=== PATIENT | male | born 1980 | race Caucasian/White ===

== ENCOUNTER 2017-07-09 13:05 | Emergency (ER) | payer MEDICAID ==
[~2017-07-09] VITALS: Ht 172.7 cm; Wt 65.0 kg
[~2017-07-09 13:05] MED LIST: BACDS PO; ONDA4TAB6 PO
[2017-07-09] MEDS ORDERED: LIDOcaine 1% 30ml vial IJ ONE (14:00)
[2017-07-09 17:31] VITALS: BP 114/73
[2017-07-26] MEDS ORDERED: HYDR-3965 PO (19:22)
[2017-07-30] MEDS ORDERED: NO HOME MEDS (11:16)
[2017-08-01] MEDS ORDERED: CIPR-230 PO (11:06)
[2017-08-01] MEDS ORDERED: FOLI1TAB16 PO (11:06)
[2017-08-01] MEDS ORDERED: THI100T PO (11:06)
[2017-08-06] MEDS ORDERED: HYDR-3965 PO (02:25)
== END 2017-07-09 17:34 | disposition home or self-care (01) ==
LOC: ER 13:06
DX: S01.411A Laceration without foreign body of right cheek and temporomandibular area, initial encounter (principal); G89.29 Other chronic pain; F17.200 Nicotine dependence, unspecified, uncomplicated; F12.10 Cannabis abuse, uncomplicated; Z59.0 Homelessness; Z88.6 Allergy status to analgesic agent; Z91.030 Bee allergy status; Z88.1 Allergy status to other antibiotic agents; Y04.0XXA Assault by unarmed brawl or fight, initial encounter; Y93.89 Activity, other specified; Y92.89 Other specified places as the place of occurrence of the external cause; Y99.8 Other external cause status
CPT/HCPCS: 12013; 93005; 99283; J3490

== ENCOUNTER 2017-08-22 07:45 | Emergency (ER) | payer MEDICAID ==
[~2017-08-22] VITALS: Ht 172.7 cm; Wt 70.0 kg
[~2017-08-22 07:45] MED LIST changes: -BACDS PO; +CIPR-230 PO; +FOLI1TAB16 PO; +HYDR-3965 PO; -ONDA4TAB6 PO; +THI100T PO
[2017-08-22 07:52] VITALS: BP 138/102
== END 2017-08-22 08:11 | disposition home or self-care (01) ==
LOC: ER 07:47
DX: Z48.02 Encounter for removal of sutures (principal); G89.29 Other chronic pain; F12.10 Cannabis abuse, uncomplicated; F15.10 Other stimulant abuse, uncomplicated; Z98.890 Other specified postprocedural states; Z59.0 Homelessness; Z88.6 Allergy status to analgesic agent; Z88.1 Allergy status to other antibiotic agents; Z79.899 Other long term (current) drug therapy
CPT/HCPCS: 99281

== ENCOUNTER 2017-08-29 13:47 | Emergency (ER) | payer MEDICAID ==
[~2017-08-29] VITALS: Ht 172.7 cm; Wt 80.0 kg
[2017-08-29 17:34] LABS: CLARITY,URINE CLEAR (Clear); COLOR,URINE YELLOW (Yellow); GLUCOSE, URINE NEGATIVE (Neg); KETONES,URINE NEGATIVE (Neg); LEUKOCYTE ESTERASE ,URINE SMALL (Neg); NITRITES, URINE POSITIVE (Neg); OCCULT BLOOD,URINE TRACE-INTACT (Neg); PROTEIN,URINE NEGATIVE (Neg); UROBILINOGEN,URINE 0.2 E.U/dL (0.2-1.0)
[2017-08-29 17:54] LABS: UA COLLECTION TYPE OTHER
[2017-08-29 17:55] LABS: BACTERIA,URINE 1+ /HPF (Neg); MUCUS STRANDS FEW /LPF (Neg); RBC,URINE 0-2 /HPF (0-2); SQUAMOUS EPITHELIAL CELL,UR NONE SEEN /LPF (FEW)
[2017-08-29 17:56] LABS: URINE AMPHETAMINE SCREEN POSITIVE (Neg); URINE BARBITUATE SCREEN NEGATIVE (Neg); URINE BENZODIAZEPINES SCREEN NEGATIVE (Neg); URINE CANNABINOID SCREEN POSITIVE (Neg); URINE COCAINE SCREEN NEGATIVE (Neg); URINE METHADONE SCREEN NEGATIVE (Neg); URINE OPIATE SCREEN NEGATIVE (Neg); URINE PHENCYCLIDINE SCREEN NEGATIVE (Neg)
[2017-08-29] MEDS ORDERED: SULF1TAB49 PO (18:24)
[2017-08-29] MEDS ORDERED: sulfamethoxazole/trimethoprim DS (800/160mg) tablet PO ONE (18:25)
[2017-08-29 18:32] VITALS: BP 152/86
== END 2017-08-29 18:33 | disposition home or self-care (01) ==
LOC: ER 13:48
DX: Z43.3 Encounter for attention to colostomy (principal); N39.0 Urinary tract infection, site not specified; R21 Rash and other nonspecific skin eruption; F41.9 Anxiety disorder, unspecified; G89.29 Other chronic pain; F12.10 Cannabis abuse, uncomplicated; F15.10 Other stimulant abuse, uncomplicated; Z59.0 Homelessness; Z88.1 Allergy status to other antibiotic agents; Z88.5 Allergy status to narcotic agent
CPT/HCPCS: 80305; 81001; 87077; 87088; 87186; 99284; A4421

== ENCOUNTER 2017-08-31 04:52 | Emergency (ER) | payer MEDICAID ==
[~2017-08-31] VITALS: Ht 167.6 cm; Wt 68.2 kg
[~2017-08-31 04:52] MED LIST changes: +SULF1TAB49 PO
[2017-08-31 05:11] VITALS: BP 141/97
== END 2017-08-31 05:14 | disposition home or self-care (01) ==
LOC: ER 04:52
DX: F10.129 Alcohol abuse with intoxication, unspecified (principal); G89.29 Other chronic pain; F12.10 Cannabis abuse, uncomplicated; F15.10 Other stimulant abuse, uncomplicated; Z98.890 Other specified postprocedural states; Z59.0 Homelessness; Z88.6 Allergy status to analgesic agent; Z88.1 Allergy status to other antibiotic agents; Z88.8 Allergy status to other drugs, medicaments and biological substances; Z79.899 Other long term (current) drug therapy; Y90.9 Presence of alcohol in blood, level not specified
CPT/HCPCS: 99281

== ENCOUNTER 2017-09-04 11:17 | Emergency (ER) | payer MEDICAID ==
[~2017-09-04] VITALS: Ht 172.7 cm; Wt 70.9 kg
[2017-09-04 11:31] VITALS: BP 123/73
[2017-09-04] MEDS ORDERED: TRIA15CR61 TOP (13:26)
== END 2017-09-04 15:30 | disposition home or self-care (01) ==
LOC: ER 11:17
DX: Z00.8 Encounter for other general examination (principal); L23.1 Allergic contact dermatitis due to adhesives; G89.29 Other chronic pain; F17.210 Nicotine dependence, cigarettes, uncomplicated; F15.10 Other stimulant abuse, uncomplicated; F12.10 Cannabis abuse, uncomplicated; Z56.0 Unemployment, unspecified; Z59.0 Homelessness; Z88.6 Allergy status to analgesic agent; Z88.1 Allergy status to other antibiotic agents; Z88.8 Allergy status to other drugs, medicaments and biological substances; Z79.899 Other long term (current) drug therapy; Z91.030 Bee allergy status
CPT/HCPCS: 99283

== ENCOUNTER 2017-09-17 09:04 | Emergency (ER) | payer MEDICAID ==
[~2017-09-17] VITALS: Ht 172.7 cm; Wt 70.2 kg
[~2017-09-17 09:04] MED LIST changes: -HYDR-3965 PO; +TRIA15CR61 TOP
[2017-09-17 09:06] VITALS: BP 134/75
[2017-09-17] MEDS ORDERED: BUPIVAcaine/PF 2.5 mg/ml (0.25%) 30ml vial IJ ONE (10:05)
[2017-09-17] MEDS ORDERED: SULF1TAB49 PO (10:19)
[2017-09-17] MEDS ORDERED: HYDR-569 PO (10:54)
[2017-09-17] MEDS ORDERED: OXYC-580 PO (10:55)
== END 2017-09-17 11:06 | disposition home or self-care (01) ==
LOC: ER 09:04
DX: L02.415 Cutaneous abscess of right lower limb (principal); G89.29 Other chronic pain; F12.10 Cannabis abuse, uncomplicated; F15.10 Other stimulant abuse, uncomplicated; Z98.890 Other specified postprocedural states; Z59.0 Homelessness; Z56.0 Unemployment, unspecified; Z88.1 Allergy status to other antibiotic agents; Z88.8 Allergy status to other drugs, medicaments and biological substances; Z91.030 Bee allergy status; Z79.899 Other long term (current) drug therapy
CPT/HCPCS: 10060; 99284; A6449; J3490

== ENCOUNTER 2017-10-28 02:54 | Emergency (ER) | payer MEDICAID ==
[~2017-10-28] VITALS: Ht 172.7 cm; Wt 68.3 kg
[~2017-10-28 02:54] MED LIST changes: +MECL12.584 PO; -SULF1TAB49 PO; -TRIA15CR61 TOP
[2017-10-28 05:03] LABS: CLARITY,URINE SLIGHTLY CLOUDY (Clear); COLOR,URINE YELLOW (Yellow); GLUCOSE, URINE NEGATIVE (Neg); KETONES,URINE 15 mg/dl (Neg); LEUKOCYTE ESTERASE ,URINE MODERATE (Neg); NITRITES, URINE POSITIVE (Neg); OCCULT BLOOD,URINE TRACE-INTACT (Neg); PH,URINE 6.5 (4.8-8.0); PROTEIN,URINE 30 mg/dl (Neg); UROBILINOGEN,URINE 0.2 E.U/dL (0.2-1.0)
[2017-10-28 05:07] LABS: UA COLLECTION TYPE VOIDED
[2017-10-28 05:08] LABS: BACTERIA,URINE 2+ /HPF (Neg); SQUAMOUS EPITHELIAL CELL,UR FEW /LPF (FEW); WBC,URINE TNTC /HPF (0-4)
[2017-10-28 05:09] LABS: WBC CLUMPS,URINE MODERATE /HPF (NEGATIVE)
[2017-10-28] MEDS ORDERED: SULF1TAB49 PO (05:22)
[2017-10-28] MEDS ORDERED: sulfamethoxazole/trimethoprim DS (800/160mg) tablet PO ONE (05:25)
[2017-10-28 05:36] VITALS: BP 118/81
== END 2017-10-28 05:39 | disposition home or self-care (01) ==
LOC: ER 02:55
DX: N39.0 Urinary tract infection, site not specified (principal); F12.10 Cannabis abuse, uncomplicated; F15.10 Other stimulant abuse, uncomplicated; G89.29 Other chronic pain; Z59.0 Homelessness; Z56.0 Unemployment, unspecified; Z88.8 Allergy status to other drugs, medicaments and biological substances; Z79.899 Other long term (current) drug therapy; Z88.6 Allergy status to analgesic agent
CPT/HCPCS: 81001; 87088; 99284

== ENCOUNTER 2018-01-25 13:22 | Emergency (ER) | payer MEDICAID ==
[~2018-01-25] VITALS: Ht 172.7 cm; Wt 70.0 kg
[2018-01-25] MEDS ORDERED: LIDOcaine 1.5% w/epinephrine 1:200,000 5ml ampul IJ ONE (14:20)
[2018-01-25] MEDS ORDERED: DOXY100C43 PO (14:47)
[2018-01-25 15:43] VITALS: BP 115/70
[2018-01-26] MEDS ORDERED: HYDR-565 PO (17:53)
== END 2018-01-25 15:47 | disposition home or self-care (01) ==
LOC: ER 13:25
DX: L03.115 Cellulitis of right lower limb (principal); F12.90 Cannabis use, unspecified, uncomplicated; F15.10 Other stimulant abuse, uncomplicated; G89.29 Other chronic pain; Z86.14 Personal history of Methicillin resistant Staphylococcus aureus infection; Z98.890 Other specified postprocedural states; Z88.6 Allergy status to analgesic agent; Z88.1 Allergy status to other antibiotic agents; Z79.899 Other long term (current) drug therapy; Z59.0 Homelessness; Z56.0 Unemployment, unspecified
CPT/HCPCS: 10060; 99283; A6255; A6449; J3490

== ENCOUNTER 2018-01-30 13:37 | Emergency (ER) | payer MEDICAID ==
[~2018-01-30] VITALS: Ht 172.7 cm; Wt 72.0 kg
[~2018-01-30 13:37] MED LIST changes: +DOXY100C43 PO; +HYDR-565 PO
[2018-01-30 13:51] VITALS: BP 130/85
== END 2018-01-30 15:12 | disposition home or self-care (01) ==
LOC: ER 13:38
DX: L02.415 Cutaneous abscess of right lower limb (principal); F12.10 Cannabis abuse, uncomplicated; F15.10 Other stimulant abuse, uncomplicated; Z88.8 Allergy status to other drugs, medicaments and biological substances; Z88.6 Allergy status to analgesic agent; Z88.1 Allergy status to other antibiotic agents; Z91.030 Bee allergy status
CPT/HCPCS: 99281

== ENCOUNTER 2018-03-08 10:10 | Emergency (ER) | payer MEDICAID ==
[~2018-03-08] VITALS: Ht 172.7 cm; Wt 68.2 kg
[~2018-03-08 10:10] MED LIST changes: -DOXY100C43 PO; -HYDR-565 PO
[2018-03-08 10:20] VITALS: BP 120/77
== END 2018-03-08 12:40 | disposition home or self-care (01) ==
LOC: ER 10:11
DX: K94.09 Other complications of colostomy (principal); G89.29 Other chronic pain; F12.90 Cannabis use, unspecified, uncomplicated; F15.90 Other stimulant use, unspecified, uncomplicated; Z86.14 Personal history of Methicillin resistant Staphylococcus aureus infection; Z98.890 Other specified postprocedural states; Z59.0 Homelessness; Z56.0 Unemployment, unspecified; Z88.8 Allergy status to other drugs, medicaments and biological substances; Z88.6 Allergy status to analgesic agent; Z91.030 Bee allergy status; Z79.899 Other long term (current) drug therapy
CPT/HCPCS: 99281

== ENCOUNTER 2018-04-01 09:23 | Emergency (ER) | payer MEDICAID ==
[~2018-04-01] VITALS: Ht 172.7 cm; Wt 78.0 kg
[2018-04-01 09:27] VITALS: BP 146/96
[2018-04-05] MEDS ORDERED: HYDR-565 PO (19:47)
== END 2018-04-01 10:33 | disposition home or self-care (01) ==
LOC: ER 09:24
DX: Z43.6 Encounter for attention to other artificial openings of urinary tract (principal); G89.29 Other chronic pain; F12.90 Cannabis use, unspecified, uncomplicated; F15.90 Other stimulant use, unspecified, uncomplicated; Z86.14 Personal history of Methicillin resistant Staphylococcus aureus infection; Z88.6 Allergy status to analgesic agent; Z88.1 Allergy status to other antibiotic agents; Z91.030 Bee allergy status; Z88.8 Allergy status to other drugs, medicaments and biological substances; Z79.899 Other long term (current) drug therapy; Z98.890 Other specified postprocedural states; Z59.0 Homelessness; Z56.0 Unemployment, unspecified
CPT/HCPCS: 99281

== ENCOUNTER 2018-04-03 03:43 | Emergency (ER) | payer MEDICAID ==
[~2018-04-03] VITALS: Ht 172.7 cm; Wt 74.2 kg
[2018-04-03 03:51] VITALS: BP 138/88
[2018-04-05] MEDS ORDERED: HYDR-565 PO (19:47)
== END 2018-04-03 04:51 | disposition home or self-care (01) ==
LOC: ER 03:44
DX: Z43.6 Encounter for attention to other artificial openings of urinary tract (principal); G89.29 Other chronic pain; Z86.14 Personal history of Methicillin resistant Staphylococcus aureus infection; F12.90 Cannabis use, unspecified, uncomplicated; F15.90 Other stimulant use, unspecified, uncomplicated; Z98.890 Other specified postprocedural states; Z88.6 Allergy status to analgesic agent; Z88.1 Allergy status to other antibiotic agents; Z91.030 Bee allergy status; Z79.899 Other long term (current) drug therapy; Z59.0 Homelessness; Z56.0 Unemployment, unspecified
CPT/HCPCS: 99281; A4421

== ENCOUNTER 2018-04-04 18:06 | Emergency (ER) | payer MEDICAID ==
[~2018-04-04] VITALS: Ht 172.7 cm; Wt 77.3 kg
[2018-04-04 18:09] VITALS: BP 130/84
[2018-04-05] MEDS ORDERED: HYDR-565 PO (19:47)
== END 2018-04-04 19:42 | disposition left against medical advice (07) ==
LOC: ER 18:07
DX: Z00.8 Encounter for other general examination (principal); G89.29 Other chronic pain; F12.90 Cannabis use, unspecified, uncomplicated; F15.90 Other stimulant use, unspecified, uncomplicated; Z56.0 Unemployment, unspecified; Z87.440 Personal history of urinary (tract) infections; Z98.890 Other specified postprocedural states; Z59.0 Homelessness; Z88.6 Allergy status to analgesic agent; Z88.1 Allergy status to other antibiotic agents; Z88.8 Allergy status to other drugs, medicaments and biological substances; Z79.899 Other long term (current) drug therapy
CPT/HCPCS: 99283

== ENCOUNTER 2018-04-06 22:13 | Emergency (ER) | payer MEDICAID ==
[~2018-04-06] VITALS: Ht 170.2 cm; Wt 72.5 kg
[~2018-04-06 22:13] MED LIST changes: +HYDR-565 PO
[2018-04-06 23:57] LABS: ACETAMINOPHEN < 2.0 UG/ML (10-30); ALANINE AMINOTRANSFERASE 45 U/L (12-78); ALBUMIN 3.6 G/DL (3.4-5.0); ALBUMIN/GLOBULIN RATIO 0.9 (1.1-1.5); ALKALINE PHOSPHATASE 81 IU/L (46-116); ANION GAP 5 (8-16); ASPARTATE AMINO TRANSFERASE 31 U/L (10-37); BILIRUBIN,TOTAL 0.5 MG/DL (0.1-1.0); BLOOD UREA NITROGEN 17 MG/DL (7-18); BUN/CREATININE RATIO 16.7 (5.4-32.0); CALCIUM 8.6 MG/DL (8.5-10.1); CHLORIDE 102 MMOL/L (99-107); CREATININE 1.02 MG/DL (0.60-1.10); GLUCOSE 129 MG/DL (70-104); SODIUM 139 MMOL/L (135-145); TOTAL CARBON DIOXIDE 32.4 MMOL/L (24-32); TOTAL PROTEIN 7.8 G/DL (6.4-8.2); eGFR 81 ML/MIN
[2018-04-07] LABS: POTASSIUM 3.9 MMOL/L (3.5-5.1)
[2018-04-07 00:01] LABS: ETHANOL < 0.010 GM/DL (0.0-0.010)
[2018-04-07 00:27] LABS: BASOPHILS % (AUTO) 0.3 % (0-1); EOSINOPHILS # (AUTO) 0.2 X10'3 (0-0.9); EOSINOPHILS % (AUTO) 2.4 % (0-6); HEMATOCRIT 42.5 % (42.0-52.0); HEMOGLOBIN 13.9 g/dl (14.0-17.9); LYMPHOCYTES # (AUTO) 0.6 X10'3 (1.1-4.8); LYMPHOCYTES % (AUTO) 9.4 % (21-51); MEAN CORPUSCULAR HEMOGLOBIN 29.3 PG (27.0-31.0); MEAN CORPUSCULAR HGB CONC 32.7 % (33.0-36.5); MEAN CORPUSCULAR VOLUME 89.6 FL (78-98); MEAN PLATELET VOLUME 8.3 FL (7.4-10.4); MONOCYTES # (AUTO) 0.7 X10'3 (0-0.9); MONOCYTES % (AUTO) 10.6 % (2-12); NEUTROPHILS # (AUTO) 4.9 X10'3 (1.8-7.7); NEUTROPHILS % (AUTO) 77.3 % (42-75); PLATELET COUNT 325 X10'3 (140-440); RED BLOOD COUNT 4.74 X10'6 (4.70-6.10); WHITE BLOOD COUNT 6.4 X10'3 (4.5-11.0)
[2018-04-07 00:37] LABS: URINE AMPHETAMINE SCREEN POSITIVE (Neg); URINE BARBITUATE SCREEN NEGATIVE (Neg); URINE BENZODIAZEPINES SCREEN NEGATIVE (Neg); URINE CANNABINOID SCREEN POSITIVE (Neg); URINE COCAINE SCREEN NEGATIVE (Neg); URINE METHADONE SCREEN NEGATIVE (Neg); URINE OPIATE SCREEN POSITIVE (Neg); URINE PHENCYCLIDINE SCREEN NEGATIVE (Neg)
[2018-04-07] MEDS ORDERED: OLAN5TAB5 PO (10:51)
[2018-04-07] MEDS ORDERED: FOLI1TAB16 PO (10:56)
[2018-04-07] MEDS ORDERED: THI100T PO (10:56)
[2018-04-07] MEDS ORDERED: haloperidol lactate 5mg/ml inj IM PRN (11:30)
[2018-04-07] MEDS ORDERED: LORazepam 2 mg/ml vial IM PRN (11:30)
[2018-04-07 12:13] LABS: CLARITY,URINE TURBID (Clear); COLOR,URINE YELLOW (Yellow); GLUCOSE, URINE NEGATIVE (Neg); KETONES,URINE NEGATIVE (Neg); LEUKOCYTE ESTERASE ,URINE MODERATE (Neg); NITRITES, URINE POSITIVE (Neg); OCCULT BLOOD,URINE LARGE (Neg); PROTEIN,URINE 100 mg/dl (Neg); UROBILINOGEN,URINE 0.2 E.U/dL (0.2-1.0)
[2018-04-07 12:18] LABS: UA COLLECTION TYPE CLN CATCH MIDSTREAM
[2018-04-07 12:25] LABS: WBC,URINE TNTC /HPF (0-4)
[2018-04-07 12:28] LABS: BACTERIA,URINE 4+ /HPF (Neg); MUCUS STRANDS MODERATE /LPF (Neg); SQUAMOUS EPITHELIAL CELL,UR FEW /LPF (FEW); WBC CLUMPS,URINE MODERATE /HPF (NEGATIVE)
[2018-04-07] MEDS: thiamine 100mg tablet PO SCH (13:20)
[2018-04-07] MEDS: folic acid 1mg tablet PO SCH (13:20)
[2018-04-07] MEDS: OLANZapine 5mg rapidly disint. tablet PO SCH (21:00)
[2018-04-08] MEDS: thiamine 100mg tablet PO SCH (09:21)
[2018-04-08] MEDS: folic acid 1mg tablet PO SCH (09:21)
[2018-04-08] MEDS: OLANZapine 5mg rapidly disint. tablet PO SCH (20:03)
[2018-04-09] MEDS: folic acid 1mg tablet PO SCH (08:05)
[2018-04-09] MEDS: haloperidol 5mg tablet PO PRN ×3 (08:05→20:20)
[2018-04-09] MEDS: thiamine 100mg tablet PO SCH (08:05)
[2018-04-09] MEDS: LORazepam 1 MG tablet PO PRN ×3 (08:05→20:20)
[2018-04-09] MEDS: OLANZapine 5mg rapidly disint. tablet PO SCH (20:10)
[2018-04-10] MEDS: folic acid 1mg tablet PO SCH (09:46)
[2018-04-10] MEDS: thiamine 100mg tablet PO SCH (09:46)
[2018-04-10] MEDS: LORazepam 1 MG tablet PO PRN ×2 (09:48→22:01)
[2018-04-10] MEDS: haloperidol 5mg tablet PO PRN (09:48)
[2018-04-10] MEDS: OLANZapine 5mg rapidly disint. tablet PO SCH (20:10)
[2018-04-11] MEDS: thiamine 100mg tablet PO SCH (08:28)
[2018-04-11] MEDS: folic acid 1mg tablet PO SCH (08:29)
[2018-04-11] MEDS: LORazepam 1 MG tablet PO PRN ×2 (08:31→17:07)
[2018-04-11] MEDS: haloperidol 5mg tablet PO PRN ×2 (08:31→17:07)
[2018-04-11] MEDS: OLANZapine 5mg rapidly disint. tablet PO SCH (21:56)
[2018-04-12] MEDS: folic acid 1mg tablet PO SCH (07:30)
[2018-04-12] MEDS: thiamine 100mg tablet PO SCH (07:30)
[2018-04-12] MEDS: LORazepam 1 MG tablet PO PRN ×3 (07:30→21:21)
[2018-04-12] MEDS: haloperidol 5mg tablet PO PRN ×2 (15:51→21:21)
[2018-04-12] MEDS ORDERED: ondansetron/PF 4mg/2ml inj IM ONE (20:45)
[2018-04-12] MEDS: OLANZapine 5mg rapidly disint. tablet PO SCH (21:21)
[2018-04-13] MEDS: folic acid 1mg tablet PO SCH (08:01)
[2018-04-13] MEDS: thiamine 100mg tablet PO SCH (08:01)
[2018-04-13 13:42] VITALS: BP 98/56
== END 2018-04-13 13:47 | disposition home or self-care (01) ==
LOC: ER 22:13
DX: R45.851 Suicidal ideations (principal); F28 Other psychotic disorder not due to a substance or known physiological condition; R45.1 Restlessness and agitation; R10.31 Right lower quadrant pain; R10.32 Left lower quadrant pain; G89.29 Other chronic pain; F41.9 Anxiety disorder, unspecified; F32.9 Major depressive disorder, single episode, unspecified; F12.90 Cannabis use, unspecified, uncomplicated; F15.90 Other stimulant use, unspecified, uncomplicated; Z59.0 Homelessness; Z56.0 Unemployment, unspecified; Z98.890 Other specified postprocedural states; Z93.6 Other artificial openings of urinary tract status; Z88.6 Allergy status to analgesic agent; Z88.1 Allergy status to other antibiotic agents; Z79.899 Other long term (current) drug therapy
CPT/HCPCS: 36415; 80053; 80305; 80320; 80329; 81001; 85025; 87088; 96372; 99285

== ENCOUNTER → 2018-04-23 | Emergency (ER) | payer MEDICAID ==
[~2018-04-23] VITALS: Ht 172.7 cm; Wt 78.0 kg
[~2018-04-23] MED LIST changes: -CIPR-230 PO; -HYDR-565 PO; -MECL12.584 PO; +OLAN5TAB5 PO
[2018-04-23 07:45] VITALS: BP 124/76
== END | disposition home or self-care (01) ==
LOC: ER 07:41
DX: K94.09 Other complications of colostomy (principal); G89.29 Other chronic pain; F12.90 Cannabis use, unspecified, uncomplicated; F15.90 Other stimulant use, unspecified, uncomplicated; F10.10 Alcohol abuse, uncomplicated; Z88.6 Allergy status to analgesic agent; Z88.1 Allergy status to other antibiotic agents; Z91.030 Bee allergy status
CPT/HCPCS: 99281; A4421

== ENCOUNTER 2018-04-28 00:43 | Emergency (ER) | payer MEDICAID ==
[~2018-04-28] VITALS: Ht 172.7 cm; Wt 72.5 kg
[2018-04-28 00:50] VITALS: BP 136/95
== END 2018-04-28 02:19 | disposition home or self-care (01) ==
LOC: ER 00:44
DX: N99.538 Other complication of continent stoma of urinary tract (principal); G89.29 Other chronic pain; F12.90 Cannabis use, unspecified, uncomplicated; F15.90 Other stimulant use, unspecified, uncomplicated; F17.210 Nicotine dependence, cigarettes, uncomplicated; Z98.890 Other specified postprocedural states; Z59.0 Homelessness; Z56.0 Unemployment, unspecified; Z79.899 Other long term (current) drug therapy; Z88.6 Allergy status to analgesic agent; Z88.1 Allergy status to other antibiotic agents; Z88.8 Allergy status to other drugs, medicaments and biological substances
CPT/HCPCS: 99284; A4421; 99281

== ENCOUNTER 2018-05-03 03:32 | Emergency (ER) | payer MEDICAID ==
[~2018-05-03] VITALS: Ht 172.7 cm; Wt 59.9 kg
[2018-05-03 03:35] VITALS: BP 125/83
[2018-05-03] MEDS ORDERED: MYCOL30CR TP (05:25)
[2018-05-03] MEDS ORDERED: SULF1TAB49 PO (05:25)
== END 2018-05-03 05:48 | disposition home or self-care (01) ==
LOC: ER 03:33
DX: T83.038A Leakage of other urinary catheter, initial encounter (principal); L03.311 Cellulitis of abdominal wall; F41.9 Anxiety disorder, unspecified; F32.9 Major depressive disorder, single episode, unspecified; B37.2 Candidiasis of skin and nail; F12.10 Cannabis abuse, uncomplicated; F15.10 Other stimulant abuse, uncomplicated; Z72.821 Inadequate sleep hygiene; Z59.0 Homelessness; Z88.1 Allergy status to other antibiotic agents; Z88.5 Allergy status to narcotic agent; Z56.0 Unemployment, unspecified
CPT/HCPCS: 87070; 87077; 87186; 99284; A4421

== ENCOUNTER 2018-05-06 08:44 | Emergency (ER) | payer MEDICAID ==
[~2018-05-06] VITALS: Ht 172.7 cm; Wt 76.3 kg
[~2018-05-06 08:44] MED LIST changes: +MYCOL30CR TP; +SULF1TAB49 PO
[2018-05-06 08:49] VITALS: BP 129/90
== END 2018-05-06 10:31 | disposition home or self-care (01) ==
LOC: ER 08:45
DX: Z46.6 Encounter for fitting and adjustment of urinary device (principal); G89.29 Other chronic pain; F12.90 Cannabis use, unspecified, uncomplicated; F15.90 Other stimulant use, unspecified, uncomplicated; Z88.6 Allergy status to analgesic agent; Z88.1 Allergy status to other antibiotic agents; Z88.8 Allergy status to other drugs, medicaments and biological substances; Z91.030 Bee allergy status; Z79.899 Other long term (current) drug therapy; Z56.0 Unemployment, unspecified; Z59.0 Homelessness
CPT/HCPCS: 99281

== ENCOUNTER 2018-05-12 15:38 | Emergency (ER) | payer MEDICAID ==
[~2018-05-12] VITALS: Ht 172.7 cm; Wt 80.0 kg
[2018-05-12 16:47] VITALS: BP 135/98
== END 2018-05-12 17:16 | disposition home or self-care (01) ==
LOC: ER 15:39
DX: Z46.6 Encounter for fitting and adjustment of urinary device (principal); G89.29 Other chronic pain; Z86.14 Personal history of Methicillin resistant Staphylococcus aureus infection; F12.90 Cannabis use, unspecified, uncomplicated; F15.90 Other stimulant use, unspecified, uncomplicated; Z88.6 Allergy status to analgesic agent; Z88.1 Allergy status to other antibiotic agents; Z91.030 Bee allergy status; Z79.899 Other long term (current) drug therapy; Z59.0 Homelessness; Z56.0 Unemployment, unspecified
CPT/HCPCS: 99281

== ENCOUNTER 2018-05-15 09:17 | Emergency (ER) | payer MEDICAID ==
[~2018-05-15] VITALS: Ht 172.7 cm; Wt 74.0 kg
[~2018-05-15 09:17] MED LIST changes: -SULF1TAB49 PO
[2018-05-15 09:43] VITALS: BP 126/75
== END 2018-05-15 11:05 | disposition home or self-care (01) ==
LOC: ER 09:17
DX: Z46.6 Encounter for fitting and adjustment of urinary device (principal); G89.29 Other chronic pain; Z86.14 Personal history of Methicillin resistant Staphylococcus aureus infection; F12.90 Cannabis use, unspecified, uncomplicated; F15.90 Other stimulant use, unspecified, uncomplicated; Z88.6 Allergy status to analgesic agent; Z88.1 Allergy status to other antibiotic agents; Z91.030 Bee allergy status; Z79.899 Other long term (current) drug therapy; Z59.0 Homelessness; Z56.0 Unemployment, unspecified
CPT/HCPCS: 99281

== ENCOUNTER 2018-05-18 10:37 | Emergency (ER) | payer MEDICAID ==
[~2018-05-18] VITALS: Ht 170.2 cm; Wt 80.0 kg
[2018-05-18 10:55] VITALS: BP 152/92
== END 2018-05-18 11:47 | disposition home or self-care (01) ==
LOC: ER 10:38
DX: Z43.6 Encounter for attention to other artificial openings of urinary tract (principal); G89.29 Other chronic pain; F12.90 Cannabis use, unspecified, uncomplicated; F15.90 Other stimulant use, unspecified, uncomplicated; Z88.6 Allergy status to analgesic agent; Z88.1 Allergy status to other antibiotic agents; Z79.899 Other long term (current) drug therapy; Z56.0 Unemployment, unspecified; Z59.0 Homelessness
CPT/HCPCS: 99281

== ENCOUNTER 2018-06-03 17:29 | Emergency (ER) | payer MEDICAID ==
[~2018-06-03] VITALS: Ht 172.7 cm; Wt 74.0 kg
[2018-06-03 17:36] VITALS: BP 128/64
== END 2018-06-03 18:03 | disposition home or self-care (01) ==
LOC: ER 17:29
DX: Z43.3 Encounter for attention to colostomy (principal); F41.9 Anxiety disorder, unspecified; G89.29 Other chronic pain; F32.9 Major depressive disorder, single episode, unspecified; F17.200 Nicotine dependence, unspecified, uncomplicated; F12.10 Cannabis abuse, uncomplicated; F15.10 Other stimulant abuse, uncomplicated; Z59.0 Homelessness; Z56.0 Unemployment, unspecified; Z91.030 Bee allergy status; Z86.14 Personal history of Methicillin resistant Staphylococcus aureus infection
CPT/HCPCS: 99281

== ENCOUNTER 2018-06-18 14:45 | Inpatient (IN) | payer MEDICAID ==
[~2018-06-18] VITALS: Ht 172.7 cm; Wt 79.7 kg
[2018-06-18 16:41] VITALS: BP 144/89
[2018-06-18] MEDS ORDERED: tuberculin, purif. prot. deriv. 5 units/0.1ml ID ONE (17:45)
[2018-06-18] MEDS ORDERED: acetaminophen 325mg tablet PO PRN (17:45)
[2018-06-18] MEDS ORDERED: mag hydrox/Alum hydrox/simeth 30ml oral suspension PO PRN (17:45)
[2018-06-18] MEDS ORDERED: haloperidol 5mg tablet PO PRN (17:45)
[2018-06-18] MEDS ORDERED: magnesium hydroxide 30ml (MOM) UD suspension PO PRN (17:45)
[2018-06-18 19:00] VITALS: BP 151/95
[2018-06-18] MEDS: LORazepam 1 MG tablet PO PRN (19:42)
[2018-06-18 19:59] VITALS: BP 143/91
[2018-06-18 21:59] VITALS: BP 138/88
[2018-06-19] MEDS: folic acid 1mg tablet PO SCH (07:43)
[2018-06-19] MEDS: thiamine 100mg tablet PO SCH (07:43)
[2018-06-19 08:17] VITALS: BP 111/75
[2018-06-19] MEDS: LORazepam 1 MG tablet PO PRN ×3 (08:52→17:01)
[2018-06-19] MEDS: diphenhydrAMINE 25mg capsule PO PRN ×3 (08:53→18:50)
[2018-06-19 09:29] LABS: HEMOGLOBIN A1C 5.1 % (4.5-6.2)
[2018-06-19 09:35] LABS: CHOL/HDL RATIO 1.6 (0.00-4.99); CHOLESTEROL 148 MG/DL (0-200); HDL CHOLESTEROL 92 MG/DL (35-60); LDL CHOLESTEROL 53 MG/DL (50-100); TRIGLYCERIDES 76 MG/DL (20-135)
[2018-06-19] MEDS ORDERED: cloNIDine 0.1 mg tablet PO PRN (16:00)
[2018-06-19 19:00] VITALS: BP 137/83
[2018-06-19] MEDS: OLANZapine 2.5MG tablet PO SCH (20:29)
[2018-06-20] MEDS: acetaminophen 325mg tablet PO PRN (01:55)
[2018-06-20] MEDS: thiamine 100mg tablet PO SCH (07:45)
[2018-06-20] MEDS: folic acid 1mg tablet PO SCH (07:45)
[2018-06-20] MEDS: diphenhydrAMINE 25mg capsule PO PRN ×2 (07:49→14:12)
[2018-06-20] MEDS: LORazepam 1 MG tablet PO PRN ×3 (07:49→19:07)
[2018-06-20 07:59] VITALS: BP 116/64
[2018-06-20] MEDS ORDERED: sertraline 25mg tablet PO SCH (08:00)
[2018-06-20 19:00] VITALS: BP 135/82
[2018-06-20] MEDS: OLANZapine 2.5MG tablet PO SCH (19:07)
[2018-06-20] MEDS ORDERED: OLANZapine 2.5MG tablet PO PRN (20:35)
[2018-06-20] MEDS ORDERED: LORazepam 1 MG tablet PO PRN ×2 (20:35)
[2018-06-21 08:00] VITALS: BP 106/68
[2018-06-21] MEDS: sertraline 50mg tablet PO SCH (08:02)
[2018-06-21] MEDS: folic acid 1mg tablet PO SCH (08:02)
[2018-06-21] MEDS: cloNIDine 0.1 mg tablet PO PRN (08:02)
[2018-06-21] MEDS ORDERED: diphenhydrAMINE 25mg capsule PO ONE (09:25)
[2018-06-21] MEDS: LORazepam 1 MG tablet PO PRN (11:21)
[2018-06-21] MEDS ORDERED: hydrOXYzine 25 MG tablet PO PRN (17:55)
[2018-06-21 19:25] VITALS: BP 121/74
[2018-06-21] MEDS: diphenhydrAMINE 25mg capsule PO PRN (20:41)
[2018-06-21] MEDS: OLANZapine 2.5MG tablet PO SCH (20:41)
[2018-06-22] MEDS: sertraline 50mg tablet PO SCH (07:36)
[2018-06-22] MEDS: LORazepam 1 MG tablet PO PRN ×2 (07:36→19:29)
[2018-06-22] MEDS: folic acid 1mg tablet PO SCH (07:36)
[2018-06-22 08:00] VITALS: BP 134/65
[2018-06-22] MEDS: diphenhydrAMINE 25mg capsule PO PRN ×2 (11:54→20:38)
[2018-06-22] MEDS: HYDROcodone/acetaminophen 10/325mg tab PO PRN ×2 (16:04→23:54)
[2018-06-22 19:45] VITALS: BP 135/83
[2018-06-22] MEDS: OLANZapine 2.5MG tablet PO SCH (20:39)
[2018-06-23] MEDS: cloNIDine 0.1 mg tablet PO PRN ×2 (06:51→13:43)
[2018-06-23] MEDS: folic acid 1mg tablet PO SCH (07:29)
[2018-06-23] MEDS: sertraline 25mg tablet PO SCH (07:29)
[2018-06-23 08:00] VITALS: BP 131/89
[2018-06-23] MEDS: HYDROcodone/acetaminophen 10/325mg tab PO PRN ×2 (11:15→19:02)
[2018-06-23] MEDS: diphenhydrAMINE 25mg capsule PO PRN (13:43)
[2018-06-23] MEDS: acetaminophen 325mg tablet PO PRN (16:51)
[2018-06-23] MEDS ORDERED: hydrOXYzine 25 MG tablet PO ONE (16:55)
[2018-06-23 20:00] VITALS: BP 103/52
[2018-06-23] MEDS ORDERED: hydrOXYzine 25 MG tablet PO SCH (20:00)
[2018-06-23] MEDS: OLANZapine 2.5MG tablet PO SCH (20:36)
[2018-06-23] MEDS: hydrOXYzine 25 MG tablet PO SCH (20:37)
[2018-06-24] MEDS: hydrOXYzine 25 MG tablet PO SCH ×5 (06:00→20:32)
[2018-06-24] MEDS: folic acid 1mg tablet PO SCH (07:08)
[2018-06-24] MEDS: sertraline 25mg tablet PO SCH (07:09)
[2018-06-24] MEDS: HYDROcodone/acetaminophen 10/325mg tab PO PRN ×2 (07:13→17:20)
[2018-06-24 08:18] VITALS: BP 121/70
[2018-06-24] MEDS: LORazepam 1 MG tablet PO PRN (18:04)
[2018-06-24 20:00] VITALS: BP 116/68
[2018-06-24] MEDS: OLANZapine 2.5MG tablet PO SCH (20:32)
[2018-06-25] MEDS: LORazepam 1 MG tablet PO PRN ×3 (01:48→16:32)
[2018-06-25] MEDS: hydrOXYzine 25 MG tablet PO SCH ×4 (07:04→21:21)
[2018-06-25] MEDS: HYDROcodone/acetaminophen 10/325mg tab PO PRN ×2 (07:04→11:44)
[2018-06-25] MEDS: folic acid 1mg tablet PO SCH (07:04)
[2018-06-25] MEDS: sertraline 50mg tablet PO SCH (07:04)
[2018-06-25 08:00] VITALS: BP 116/72
[2018-06-25 13:15] LABS: BASOPHILS # (AUTO) 0.1 X10'3 (0-0.2); BASOPHILS % (AUTO) 0.9 % (0-1); EOSINOPHILS # (AUTO) 0.2 X10'3 (0-0.9); HEMATOCRIT 47.1 % (42.0-52.0); HEMOGLOBIN 15.6 g/dl (14.0-17.9); LYMPHOCYTES # (AUTO) 1.4 X10'3 (1.1-4.8); LYMPHOCYTES % (AUTO) 17.9 % (21-51); MEAN CORPUSCULAR HEMOGLOBIN 29.9 PG (27.0-31.0); MEAN CORPUSCULAR HGB CONC 33.1 % (33.0-36.5); MEAN CORPUSCULAR VOLUME 90.2 FL (78-98); MEAN PLATELET VOLUME 8.1 FL (7.4-10.4); MONOCYTES # (AUTO) 0.7 X10'3 (0-0.9); MONOCYTES % (AUTO) 8.6 % (2-12); NEUTROPHILS # (AUTO) 5.6 X10'3 (1.8-7.7); NEUTROPHILS % (AUTO) 70.6 % (42-75); PLATELET COUNT 298 X10'3 (140-440); RED BLOOD COUNT 5.22 X10'6 (4.70-6.10); RED CELL DISTRIBUTION WIDTH 14.4 % (11.5-14.5); WHITE BLOOD COUNT 7.9 X10'3 (4.5-11.0)
[2018-06-25 13:21] LABS: ALBUMIN 3.4 G/DL (3.4-5.0); ANION GAP 8 (8-16); BLOOD UREA NITROGEN 12 MG/DL (7-18); BUN/CREATININE RATIO 13.5 (5.4-32.0); CALCIUM 9.3 MG/DL (8.5-10.1); CHLORIDE 102 MMOL/L (99-107); CREATININE 0.89 MG/DL (0.60-1.10); GLUCOSE 92 MG/DL (70-104); POTASSIUM 4.2 MMOL/L (3.5-5.1); SODIUM 138 MMOL/L (135-145); TOTAL CARBON DIOXIDE 28.4 MMOL/L (24-32); eGFR > 90 ML/MIN
[2018-06-25 14:49] LABS: CLARITY,URINE TURBID (Clear); COLOR,URINE RED (Yellow)
[2018-06-25 14:59] LABS: UA COLLECTION TYPE NON-SPECIFIED
[2018-06-25 15:02] LABS: BACTERIA,URINE NONE SEEN /HPF (Neg); RBC,URINE TNTC /HPF (0-2); SQUAMOUS EPITHELIAL CELL,UR NONE SEEN /LPF (FEW)
[2018-06-25 19:00] VITALS: BP 137/76
[2018-06-25] MEDS: OLANZapine 2.5MG tablet PO SCH (21:22)
[2018-06-26] MEDS: sertraline 50mg tablet PO SCH (07:18)
[2018-06-26] MEDS: folic acid 1mg tablet PO SCH (07:18)
[2018-06-26] MEDS: hydrOXYzine 25 MG tablet PO SCH ×4 (07:18→21:04)
[2018-06-26 08:00] VITALS: BP 115/61
[2018-06-26] MEDS: HYDROcodone/acetaminophen 10/325mg tab PO PRN ×2 (08:05→19:46)
[2018-06-26] MEDS: DOXYCYCLINE 100MG CAPSULE PO SCH ×2 (08:05→17:46)
[2018-06-26] MEDS: cloNIDine 0.1 mg tablet PO PRN ×2 (13:55→21:50)
[2018-06-26 19:00] VITALS: BP 124/75
[2018-06-26] MEDS: lactobacillus rhamnosus 10,000 MMU CELLS/CAPSULE PO SCH (19:45)
[2018-06-26] MEDS: OLANZapine 2.5MG tablet PO SCH (21:03)
[2018-06-26 22:00] VITALS: BP 118/69
[2018-06-27 08:00] VITALS: BP 101/65
[2018-06-27] MEDS ORDERED: sulfamethoxazole/trimethoprim DS (800/160mg) tablet PO SCH (08:00)
[2018-06-27] MEDS: hydrOXYzine 25 MG tablet PO SCH ×3 (08:02→21:17)
[2018-06-27] MEDS: DOXYCYCLINE 100MG CAPSULE PO SCH (08:03)
[2018-06-27] MEDS: sertraline 25mg tablet PO SCH (08:03)
[2018-06-27] MEDS: lactobacillus rhamnosus 10,000 MMU CELLS/CAPSULE PO SCH ×2 (08:03→21:16)
[2018-06-27] MEDS: folic acid 1mg tablet PO SCH (08:03)
[2018-06-27] MEDS: HYDROcodone/acetaminophen 10/325mg tab PO PRN ×2 (08:38→19:58)
[2018-06-27] MEDS: cloNIDine 0.1 mg tablet PO PRN ×2 (10:44→22:57)
[2018-06-27] MEDS: amox tr/potassium clavulanate 875/125mg TAB PO SCH (17:46)
[2018-06-27 19:00] VITALS: BP 117/60
[2018-06-27] MEDS: OLANZapine 2.5MG tablet PO SCH (21:16)
[2018-06-28] MEDS: LORazepam 1 MG tablet PO PRN (00:01)
[2018-06-28 08:00] VITALS: BP 111/59
[2018-06-28] MEDS: hydrOXYzine 25 MG tablet PO SCH ×3 (08:12→20:37)
[2018-06-28] MEDS: amox tr/potassium clavulanate 875/125mg TAB PO SCH ×2 (08:13→16:31)
[2018-06-28] MEDS: lactobacillus rhamnosus 10,000 MMU CELLS/CAPSULE PO SCH ×2 (08:13→20:36)
[2018-06-28] MEDS: sertraline 25mg tablet PO SCH (08:13)
[2018-06-28] MEDS: folic acid 1mg tablet PO SCH (08:13)
[2018-06-28] MEDS: HYDROcodone/acetaminophen 10/325mg tab PO PRN (08:32)
[2018-06-28] MEDS: cloNIDine 0.1 mg tablet PO PRN (14:26)
[2018-06-28 19:55] VITALS: BP 110/58
[2018-06-28] MEDS: OLANZapine 2.5MG tablet PO SCH (20:37)
[2018-06-29] MEDS: OLANZapine 2.5MG tablet PO PRN ×2 (02:50→10:51)
[2018-06-29] MEDS: HYDROcodone/acetaminophen 10/325mg tab PO PRN ×2 (02:51→18:00)
[2018-06-29 08:00] VITALS: BP 111/81
[2018-06-29] MEDS: LORazepam 1 MG tablet PO PRN (08:05)
[2018-06-29] MEDS: sertraline 25mg tablet PO SCH (08:05)
[2018-06-29] MEDS: lactobacillus rhamnosus 10,000 MMU CELLS/CAPSULE PO SCH ×2 (08:05→21:19)
[2018-06-29] MEDS: folic acid 1mg tablet PO SCH (08:05)
[2018-06-29] MEDS: amox tr/potassium clavulanate 875/125mg TAB PO SCH ×2 (08:06→18:02)
[2018-06-29] MEDS: hydrOXYzine 25 MG tablet PO SCH ×2 (08:32→21:18)
[2018-06-29] MEDS: cloNIDine 0.1 mg tablet PO PRN (14:29)
[2018-06-29 19:51] VITALS: BP 112/66
[2018-06-29] MEDS: OLANZapine 2.5MG tablet PO SCH (21:19)
[2018-06-30] MEDS: LORazepam 1 MG tablet PO PRN ×2 (00:51→23:40)
[2018-06-30] MEDS: OLANZapine 2.5MG tablet PO PRN ×2 (05:21→17:16)
[2018-06-30] MEDS: sertraline 25mg tablet PO SCH (07:38)
[2018-06-30] MEDS: lactobacillus rhamnosus 10,000 MMU CELLS/CAPSULE PO SCH ×2 (07:38→20:23)
[2018-06-30] MEDS: hydrOXYzine 25 MG tablet PO SCH (07:39)
[2018-06-30] MEDS: folic acid 1mg tablet PO SCH (07:39)
[2018-06-30 08:00] VITALS: BP 109/61
[2018-06-30] MEDS: amox tr/potassium clavulanate 875/125mg TAB PO SCH ×2 (08:28→17:14)
[2018-06-30] MEDS: HYDROcodone/acetaminophen 10/325mg tab PO PRN ×2 (13:55→20:24)
[2018-06-30] MEDS: OLANZapine 5mg rapidly disint. tablet PO SCH ×2 (15:20→20:23)
[2018-06-30 20:00] VITALS: BP 124/61
[2018-06-30] MEDS ORDERED: acamprosate DR 333mg Tablet PO SCH (21:00)
[2018-07-01] MEDS: cloNIDine 0.1 mg tablet PO PRN (03:18)
[2018-07-01 07:35] VITALS: BP 110/64
[2018-07-01] MEDS: lactobacillus rhamnosus 10,000 MMU CELLS/CAPSULE PO SCH ×2 (08:22→20:57)
[2018-07-01] MEDS: amox tr/potassium clavulanate 875/125mg TAB PO SCH (08:22)
[2018-07-01] MEDS: OLANZapine 5mg rapidly disint. tablet PO SCH ×3 (08:22→20:57)
[2018-07-01] MEDS: folic acid 1mg tablet PO SCH (08:23)
[2018-07-01] MEDS: sertraline 50mg tablet PO SCH (08:23)
[2018-07-01] MEDS: LORazepam 1 MG tablet PO PRN (10:43)
[2018-07-01] MEDS: HYDROcodone/acetaminophen 10/325mg tab PO PRN (12:06)
[2018-07-01] MEDS: LORazepam 0.5 MG tablet PO PRN (19:09)
[2018-07-01 20:33] VITALS: BP 115/71
[2018-07-02] MEDS: lactobacillus rhamnosus 10,000 MMU CELLS/CAPSULE PO SCH ×2 (08:08→21:04)
[2018-07-02] MEDS: OLANZapine 5mg rapidly disint. tablet PO SCH ×3 (08:08→21:04)
[2018-07-02] MEDS: folic acid 1mg tablet PO SCH (08:09)
[2018-07-02] MEDS: sertraline 50mg tablet PO SCH (08:09)
[2018-07-02 08:25] VITALS: BP 122/72
[2018-07-02] MEDS: cloNIDine 0.1 mg tablet PO PRN (12:50)
[2018-07-02] MEDS: HYDROcodone/acetaminophen 10/325mg tab PO PRN (16:43)
[2018-07-02] MEDS: LORazepam 0.5 MG tablet PO PRN (16:44)
[2018-07-02 19:00] VITALS: BP 110/71
[2018-07-03] MEDS: cloNIDine 0.1 mg tablet PO PRN ×2 (04:07→13:13)
[2018-07-03] MEDS: HYDROcodone/acetaminophen 10/325mg tab PO PRN ×2 (04:08→23:35)
[2018-07-03] MEDS: sertraline 50mg tablet PO SCH (07:44)
[2018-07-03] MEDS: folic acid 1mg tablet PO SCH (07:44)
[2018-07-03] MEDS: OLANZapine 5mg rapidly disint. tablet PO SCH ×3 (07:44→20:37)
[2018-07-03] MEDS: lactobacillus rhamnosus 10,000 MMU CELLS/CAPSULE PO SCH ×2 (07:45→20:37)
[2018-07-03 08:00] VITALS: BP 117/74
[2018-07-03 19:00] VITALS: BP 115/60
[2018-07-03] MEDS: LORazepam 0.5 MG tablet PO PRN (23:33)
[2018-07-04 08:00] VITALS: BP 124/69
[2018-07-04] MEDS: OLANZapine 5mg rapidly disint. tablet PO SCH ×3 (08:23→21:15)
[2018-07-04] MEDS: folic acid 1mg tablet PO SCH (08:24)
[2018-07-04] MEDS: sertraline 50mg tablet PO SCH (08:24)
[2018-07-04] MEDS: lactobacillus rhamnosus 10,000 MMU CELLS/CAPSULE PO SCH ×2 (08:24→21:15)
[2018-07-04] MEDS: cloNIDine 0.1 mg tablet PO PRN (10:47)
[2018-07-04] MEDS: HYDROcodone/acetaminophen 10/325mg tab PO PRN (14:13)
[2018-07-04] MEDS ORDERED: ZOL50T PO (14:42)
[2018-07-04] MEDS ORDERED: THI100T PO (14:42)
[2018-07-04] MEDS ORDERED: CLON0.1T20 PO (14:42)
[2018-07-04] MEDS ORDERED: FOLI1TAB16 PO (14:42)
[2018-07-04] MEDS ORDERED: OLAN5TAB29 PO (14:42)
[2018-07-04] MEDS ORDERED: HYDR-3972 PO (14:42)
[2018-07-04 19:00] VITALS: BP 120/67
[2018-07-04] MEDS: LORazepam 0.5 MG tablet PO PRN (21:25)
[2018-07-05 08:00] VITALS: BP 115/53
[2018-07-05] MEDS: lactobacillus rhamnosus 10,000 MMU CELLS/CAPSULE PO SCH ×2 (08:54→21:29)
[2018-07-05] MEDS: OLANZapine 5mg rapidly disint. tablet PO SCH ×3 (08:54→21:19)
[2018-07-05] MEDS: HYDROcodone/acetaminophen 10/325mg tab PO PRN ×2 (08:54→21:30)
[2018-07-05] MEDS: folic acid 1mg tablet PO SCH (08:55)
[2018-07-05] MEDS: sertraline 50mg tablet PO SCH (08:55)
[2018-07-05] MEDS: cloNIDine 0.1 mg tablet PO PRN (11:11)
[2018-07-05] MEDS: LORazepam 0.5 MG tablet PO PRN ×2 (13:54→21:29)
[2018-07-05] MEDS ORDERED: ACAM333T8 PO (17:35)
[2018-07-05 19:00] VITALS: BP 127/77
[2018-07-06 07:47] VITALS: BP 111/74
[2018-07-06] MEDS: sertraline 50mg tablet PO SCH (08:11)
[2018-07-06] MEDS: folic acid 1mg tablet PO SCH (08:12)
[2018-07-06] MEDS: OLANZapine 5mg rapidly disint. tablet PO SCH (08:12)
[2018-07-06] MEDS: lactobacillus rhamnosus 10,000 MMU CELLS/CAPSULE PO SCH (08:12)
== END 2018-07-06 11:20 | disposition home or self-care (01) | DRG 751 ==
LOC: ADULT MH 15:54
PROVIDERS: ADMIT Psychiatry & Neurology Psychiatry; ATTEND Psychiatry & Neurology Psychiatry
DX: F33.2 Major depressive disorder, recurrent severe without psychotic features (principal); R45.851 Suicidal ideations; F20.9 Schizophrenia, unspecified; G10 Huntington's disease; F10.20 Alcohol dependence, uncomplicated; F15.10 Other stimulant abuse, uncomplicated; F41.9 Anxiety disorder, unspecified; L02.415 Cutaneous abscess of right lower limb; G89.29 Other chronic pain; L40.9 Psoriasis, unspecified; R21 Rash and other nonspecific skin eruption; Z59.0 Homelessness; Z65.3 Problems related to other legal circumstances; Z76.5 Malingerer [conscious simulation]; Z88.1 Allergy status to other antibiotic agents; Z93.6 Other artificial openings of urinary tract status
CPT/HCPCS: 36415; 74176; 80048; 80061; 81001; 83036; 85025; 87070; 87077; 87088; 87186; A4421; Q0163; Q0177

== ENCOUNTER 2018-07-15 14:43 | Emergency (ER) | payer MEDICAID ==
[~2018-07-15] VITALS: Ht 172.7 cm; Wt 79.0 kg
[~2018-07-15 14:43] MED LIST changes: +ACAM333T8 PO; +CLON0.1T20 PO; +HYDR-3972 PO; -MYCOL30CR TP; +OLAN5TAB29 PO; -OLAN5TAB5 PO; +ZOL50T PO
[2018-07-15 17:24] LABS: BASOPHILS % (AUTO) 0.1 % (0-1); EOSINOPHILS # (AUTO) 0.3 X10'3 (0-0.9); HEMATOCRIT 43.9 % (42.0-52.0); HEMOGLOBIN 14.6 g/dl (14.0-17.9); LYMPHOCYTES # (AUTO) 1.4 X10'3 (1.1-4.8); LYMPHOCYTES % (AUTO) 22.2 % (21-51); MEAN CORPUSCULAR HEMOGLOBIN 29.6 PG (27.0-31.0); MEAN CORPUSCULAR HGB CONC 33.3 % (33.0-36.5); MEAN CORPUSCULAR VOLUME 89.1 FL (78-98); MEAN PLATELET VOLUME 7.6 FL (7.4-10.4); MONOCYTES # (AUTO) 0.4 X10'3 (0-0.9); NEUTROPHILS # (AUTO) 4.2 X10'3 (1.8-7.7); NEUTROPHILS % (AUTO) 66.7 % (42-75); PLATELET COUNT 373 X10'3 (140-440); RED BLOOD COUNT 4.93 X10'6 (4.70-6.10); RED CELL DISTRIBUTION WIDTH 13.9 % (11.5-14.5); WHITE BLOOD COUNT 6.4 X10'3 (4.5-11.0)
[2018-07-15 17:44] LABS: ALANINE AMINOTRANSFERASE 36 U/L (12-78); ALBUMIN 3.1 G/DL (3.4-5.0); ALBUMIN/GLOBULIN RATIO 0.8 (1.1-1.5); ALKALINE PHOSPHATASE 70 IU/L (46-116); ANION GAP 10 (8-16); ASPARTATE AMINO TRANSFERASE 25 U/L (10-37); BILIRUBIN,TOTAL 0.2 MG/DL (0.1-1.0); BLOOD UREA NITROGEN 7 MG/DL (7-18); BUN/CREATININE RATIO 7.8 (5.4-32.0); CALCIUM 8.7 MG/DL (8.5-10.1); CHLORIDE 106 MMOL/L (99-107); ETHANOL 0.068 GM/DL (0.0-0.010); GLUCOSE 109 MG/DL (70-104); POTASSIUM 3.6 MMOL/L (3.5-5.1); SODIUM 143 MMOL/L (135-145); TOTAL CARBON DIOXIDE 27.2 MMOL/L (24-32); TOTAL PROTEIN 6.8 G/DL (6.4-8.2); eGFR > 90 ML/MIN
[2018-07-15 18:06] LABS: URINE AMPHETAMINE SCREEN NEGATIVE (Neg); URINE BARBITUATE SCREEN NEGATIVE (Neg); URINE BENZODIAZEPINES SCREEN NEGATIVE (Neg); URINE CANNABINOID SCREEN POSITIVE (Neg); URINE COCAINE SCREEN NEGATIVE (Neg); URINE METHADONE SCREEN NEGATIVE (Neg); URINE OPIATE SCREEN NEGATIVE (Neg); URINE PHENCYCLIDINE SCREEN NEGATIVE (Neg)
[2018-07-15] MEDS ORDERED: sertraline 50mg tablet PO ONE (22:40)
[2018-07-15] MEDS ORDERED: folic acid 1mg tablet PO ONE (22:40)
[2018-07-15] MEDS ORDERED: thiamine 100mg tablet PO ONE (22:40)
[2018-07-16] MEDS ORDERED: ACAM333T8 PO (00:49)
[2018-07-16] MEDS ORDERED: CLON-529 PO (00:50)
[2018-07-16] MEDS ORDERED: OLAN5TAB5 PO (00:52)
[2018-07-16] MEDS ORDERED: HYDR-4353 PO (00:52)
[2018-07-16] MEDS ORDERED: SERT25TA PO (00:53)
[2018-07-16] MEDS ORDERED: THI100T PO (00:54)
[2018-07-16] MEDS ORDERED: FOLI0.4T2 PO (00:55)
[2018-07-16] MEDS: [UNRECOGNIZED DRUG - OTHER] PO SCH ×2 (08:00→15:47)
[2018-07-16] MEDS: thiamine 100mg tablet PO SCH (08:16)
[2018-07-16] MEDS: folic acid 1mg tablet PO SCH (08:16)
[2018-07-16] MEDS: sertraline 50mg tablet PO SCH (08:17)
[2018-07-16] MEDS: OLANZapine 5mg rapidly disint. tablet PO SCH ×3 (08:18→20:56)
[2018-07-16] MEDS: HYDROcodone/acetaminophen 10/325mg tab PO PRN (15:49)
[2018-07-16] MEDS: olanzapine 10mg tablet PO SCH (20:57)
[2018-07-17] MEDS: sertraline 50mg tablet PO SCH (07:37)
[2018-07-17] MEDS: thiamine 100mg tablet PO SCH (07:37)
[2018-07-17] MEDS: folic acid 1mg tablet PO SCH (07:37)
[2018-07-17] MEDS: OLANZapine 5mg rapidly disint. tablet PO SCH ×3 (07:37→20:03)
[2018-07-17] MEDS: HYDROcodone/acetaminophen 10/325mg tab PO PRN ×2 (07:43→20:03)
[2018-07-17] MEDS: [UNRECOGNIZED DRUG - OTHER] PO SCH ×2 (08:00)
[2018-07-17] MEDS: cloNIDine 0.1 mg tablet PO PRN (18:40)
[2018-07-17] MEDS: olanzapine 10mg tablet PO SCH (20:04)
[2018-07-18] MEDS: folic acid 1mg tablet PO SCH (08:01)
[2018-07-18] MEDS: sertraline 50mg tablet PO SCH (08:01)
[2018-07-18] MEDS: OLANZapine 5mg rapidly disint. tablet PO SCH ×3 (08:01→21:00)
[2018-07-18] MEDS: thiamine 100mg tablet PO SCH (08:02)
[2018-07-18] MEDS: HYDROcodone/acetaminophen 10/325mg tab PO PRN (13:40)
[2018-07-18] MEDS: cloNIDine 0.1 mg tablet PO PRN (17:43)
[2018-07-18] MEDS: olanzapine 10mg tablet PO SCH (21:00)
[2018-07-19] MEDS: folic acid 1mg tablet PO SCH (07:35)
[2018-07-19] MEDS: OLANZapine 5mg rapidly disint. tablet PO SCH ×2 (07:35→13:21)
[2018-07-19] MEDS: thiamine 100mg tablet PO SCH (07:35)
[2018-07-19] MEDS: sertraline 50mg tablet PO SCH (07:35)
[2018-07-19] MEDS: HYDROcodone/acetaminophen 10/325mg tab PO PRN (07:42)
[2018-07-19] MEDS: cloNIDine 0.1 mg tablet PO PRN (09:08)
[2018-07-19] MEDS ORDERED: LORazepam 1 MG tablet PO ONE (13:55)
[2018-07-19 18:12] VITALS: BP 113/64
== END 2018-07-19 20:20 ==
LOC: ER 14:44
DX: R45.851 Suicidal ideations (principal); G89.29 Other chronic pain; F41.9 Anxiety disorder, unspecified; F32.9 Major depressive disorder, single episode, unspecified; F12.90 Cannabis use, unspecified, uncomplicated; F15.90 Other stimulant use, unspecified, uncomplicated; Z98.890 Other specified postprocedural states; Z59.0 Homelessness; Z56.0 Unemployment, unspecified; Z88.6 Allergy status to analgesic agent; Z88.1 Allergy status to other antibiotic agents; Z91.030 Bee allergy status; Z79.899 Other long term (current) drug therapy
CPT/HCPCS: 36415; 80053; 80305; 80320; 85025; 99285; J3490

== ENCOUNTER 2018-07-19 18:05 | Inpatient (IN) | payer MEDICAID ==
[~2018-07-19] VITALS: Ht 172.7 cm; Wt 81.0 kg
[~2018-07-19 18:05] MED LIST changes: +CLON-529 PO; -CLON0.1T20 PO; +FOLI0.4T2 PO; -FOLI1TAB16 PO; -HYDR-3972 PO; +HYDR-4353 PO; -OLAN5TAB29 PO; +OLAN5TAB5 PO; +SERT25TA PO; -ZOL50T PO
[2018-07-19 21:34] VITALS: BP 139/79
[2018-07-19] MEDS: cloNIDine 0.1 mg tablet PO PRN (22:05)
[2018-07-19] MEDS: OLANZapine 5mg rapidly disint. tablet PO SCH (22:05)
[2018-07-20] MEDS: traZODone 50mg tablet PO PRN ×3 (00:29→22:30)
[2018-07-20 08:00] VITALS: BP 111/65
[2018-07-20] MEDS: ACAMPROSATE CALCIUM 333 MG TAB PO SCH ×3 (08:00→16:00)
[2018-07-20] MEDS ORDERED: sertraline 50mg tablet PO SCH ×2 (08:00)
[2018-07-20] MEDS: folic acid 1mg tablet PO SCH (08:06)
[2018-07-20] MEDS: thiamine 100mg tablet PO SCH (08:06)
[2018-07-20] MEDS: OLANZapine 5mg rapidly disint. tablet PO SCH ×3 (08:06→20:44)
[2018-07-20] MEDS ORDERED: nicotine 21mg patch - 24 hr TD ONE (09:05)
[2018-07-20] MEDS: HYDROcodone/acetaminophen 10/325mg tab PO PRN ×2 (09:21→19:03)
[2018-07-20] MEDS ORDERED: FLU VACC QUAD 2018(5 YR UP)/PF 60 MCG/0.5 ML SYRINGE IM ONE (10:00)
[2018-07-20] MEDS: cloNIDine 0.1 mg tablet PO PRN ×2 (11:46→16:39)
[2018-07-20] MEDS ORDERED: sertraline 50mg tablet PO ONE (18:25)
[2018-07-20 19:55] VITALS: BP 91/43
[2018-07-20 19:56] VITALS: BP 91/43
[2018-07-20] MEDS: hydrOXYzine 25 MG tablet PO SCH (20:41)
[2018-07-21] MEDS: thiamine 100mg tablet PO SCH (07:18)
[2018-07-21] MEDS: sertraline 50mg tablet PO SCH (07:18)
[2018-07-21] MEDS: folic acid 1mg tablet PO SCH (07:18)
[2018-07-21] MEDS: HYDROcodone/acetaminophen 10/325mg tab PO PRN ×2 (07:18→20:42)
[2018-07-21] MEDS: OLANZapine 5mg rapidly disint. tablet PO SCH ×3 (07:19→20:40)
[2018-07-21] MEDS: cloNIDine 0.1 mg tablet PO PRN ×2 (07:19→20:43)
[2018-07-21] MEDS: hydrOXYzine 25 MG tablet PO SCH ×3 (07:19→20:42)
[2018-07-21 07:30] VITALS: BP 119/76
[2018-07-21] MEDS: ACAMPROSATE CALCIUM 333 MG TAB PO SCH ×3 (08:00→16:00)
[2018-07-21] MEDS: traZODone 50mg tablet PO PRN (20:43)
[2018-07-22] MEDS: traZODone 50mg tablet PO PRN ×2 (01:45→21:29)
[2018-07-22 07:00] VITALS: BP 108/74
[2018-07-22] MEDS: ACAMPROSATE CALCIUM 333 MG TAB PO SCH ×2 (07:02→16:00)
[2018-07-22] MEDS: OLANZapine 5mg rapidly disint. tablet PO SCH ×3 (08:09→21:28)
[2018-07-22] MEDS: hydrOXYzine 25 MG tablet PO SCH ×3 (08:09→21:28)
[2018-07-22] MEDS: thiamine 100mg tablet PO SCH (08:10)
[2018-07-22] MEDS: sertraline 50mg tablet PO SCH (08:10)
[2018-07-22] MEDS: folic acid 1mg tablet PO SCH (08:10)
[2018-07-22] MEDS: HYDROcodone/acetaminophen 10/325mg tab PO PRN ×2 (08:17→16:32)
[2018-07-22] MEDS: cloNIDine 0.1 mg tablet PO PRN (10:36)
[2018-07-22 20:35] VITALS: BP 113/69
[2018-07-22] MEDS: diphenhydrAMINE 25mg capsule PO PRN (21:58)
[2018-07-23] MEDS: HYDROcodone/acetaminophen 10/325mg tab PO PRN ×2 (07:03→21:53)
[2018-07-23 08:00] VITALS: BP 122/82
[2018-07-23] MEDS: ACAMPROSATE CALCIUM 333 MG TAB PO SCH ×3 (08:00→16:00)
[2018-07-23] MEDS: hydrOXYzine 25 MG tablet PO SCH ×3 (08:05→21:50)
[2018-07-23] MEDS: sertraline 50mg tablet PO SCH (08:06)
[2018-07-23] MEDS: OLANZapine 5mg rapidly disint. tablet PO SCH ×3 (08:06→21:50)
[2018-07-23] MEDS: thiamine 100mg tablet PO SCH (08:06)
[2018-07-23] MEDS: folic acid 1mg tablet PO SCH (08:06)
[2018-07-23] MEDS: cloNIDine 0.1 mg tablet PO PRN (11:08)
[2018-07-23 20:00] VITALS: BP 124/65
[2018-07-23] MEDS ORDERED: hydrocortisone 1% cream 28gm TP SCH (20:00)
[2018-07-23] MEDS ORDERED: hydrocortisone 1% OINTMENT 30gm tube TP SCH (20:23)
[2018-07-23] MEDS: traZODone 50mg tablet PO PRN (21:50)
[2018-07-23] MEDS: hydrocortisone 1% OINTMENT 30gm tube TP SCH (21:51)
[2018-07-23] MEDS: diphenhydrAMINE 25mg capsule PO PRN (22:01)
[2018-07-24] MEDS: traZODone 50mg tablet PO PRN ×2 (00:06→20:37)
[2018-07-24] MEDS: cloNIDine 0.1 mg tablet PO PRN (02:37)
[2018-07-24] MEDS: OLANZapine 5mg rapidly disint. tablet PO SCH ×3 (07:50→20:37)
[2018-07-24] MEDS: folic acid 1mg tablet PO SCH (07:50)
[2018-07-24] MEDS: hydrOXYzine 25 MG tablet PO SCH ×3 (07:50→20:37)
[2018-07-24] MEDS: thiamine 100mg tablet PO SCH (07:50)
[2018-07-24] MEDS: sertraline 50mg tablet PO SCH (07:50)
[2018-07-24] MEDS: HYDROcodone/acetaminophen 10/325mg tab PO PRN (07:51)
[2018-07-24] MEDS: hydrocortisone 1% OINTMENT 30gm tube TP SCH ×2 (07:55→20:36)
[2018-07-24 08:00] VITALS: BP 112/71
[2018-07-24 19:00] VITALS: BP 126/77
[2018-07-24] MEDS: diphenhydrAMINE 25mg capsule PO PRN (20:37)
[2018-07-25] MEDS: HYDROcodone/acetaminophen 10/325mg tab PO PRN ×2 (04:56→16:28)
[2018-07-25 08:00] VITALS: BP 121/71
[2018-07-25] MEDS: hydrocortisone 1% OINTMENT 30gm tube TP SCH ×2 (08:11→20:00)
[2018-07-25] MEDS: folic acid 1mg tablet PO SCH (08:12)
[2018-07-25] MEDS: sertraline 50mg tablet PO SCH (08:12)
[2018-07-25] MEDS: thiamine 100mg tablet PO SCH (08:12)
[2018-07-25] MEDS: OLANZapine 5mg rapidly disint. tablet PO SCH ×3 (08:12→20:52)
[2018-07-25] MEDS: hydrOXYzine 25 MG tablet PO SCH ×3 (08:12→20:52)
[2018-07-25] MEDS: cloNIDine 0.1 mg tablet PO PRN (19:08)
[2018-07-25 20:00] VITALS: BP 120/70
[2018-07-25] MEDS: traZODone 50mg tablet PO PRN (20:52)
[2018-07-26] MEDS: HYDROcodone/acetaminophen 10/325mg tab PO PRN ×2 (07:02→19:21)
[2018-07-26 08:00] VITALS: BP 119/67
[2018-07-26] MEDS: OLANZapine 5mg rapidly disint. tablet PO SCH ×3 (08:06→20:41)
[2018-07-26] MEDS: sertraline 50mg tablet PO SCH (08:06)
[2018-07-26] MEDS: thiamine 100mg tablet PO SCH (08:06)
[2018-07-26] MEDS: folic acid 1mg tablet PO SCH (08:06)
[2018-07-26] MEDS: hydrOXYzine 25 MG tablet PO SCH ×3 (08:11→20:42)
[2018-07-26] MEDS: hydrocortisone 1% OINTMENT 30gm tube TP SCH ×2 (08:11→20:00)
[2018-07-26] MEDS: cloNIDine 0.1 mg tablet PO PRN (13:47)
[2018-07-26 20:00] VITALS: BP 106/58
[2018-07-26] MEDS: traZODone 50mg tablet PO PRN (20:41)
[2018-07-27] MEDS: cloNIDine 0.1 mg tablet PO PRN ×3 (01:57→22:57)
[2018-07-27] MEDS: traZODone 50mg tablet PO PRN ×3 (01:57→22:57)
[2018-07-27 07:31] VITALS: BP 104/64
[2018-07-27] MEDS: folic acid 1mg tablet PO SCH (08:06)
[2018-07-27] MEDS: thiamine 100mg tablet PO SCH (08:06)
[2018-07-27] MEDS: OLANZapine 5mg rapidly disint. tablet PO SCH ×3 (08:06→20:43)
[2018-07-27] MEDS: hydrOXYzine 25 MG tablet PO SCH ×3 (08:06→20:42)
[2018-07-27] MEDS: sertraline 50mg tablet PO SCH (08:06)
[2018-07-27] MEDS: hydrocortisone 1% OINTMENT 30gm tube TP SCH ×2 (08:09→20:00)
[2018-07-27] MEDS: HYDROcodone/acetaminophen 10/325mg tab PO PRN ×2 (11:08→20:43)
[2018-07-27 20:00] VITALS: BP 106/72
[2018-07-28 08:00] VITALS: BP 114/62
[2018-07-28] MEDS: hydrocortisone 1% OINTMENT 30gm tube TP SCH ×2 (08:00→21:32)
[2018-07-28] MEDS: hydrOXYzine 25 MG tablet PO SCH ×3 (08:15→21:32)
[2018-07-28] MEDS: folic acid 1mg tablet PO SCH (08:15)
[2018-07-28] MEDS: thiamine 100mg tablet PO SCH (08:15)
[2018-07-28] MEDS: OLANZapine 5mg rapidly disint. tablet PO SCH ×3 (08:15→21:32)
[2018-07-28] MEDS: sertraline 50mg tablet PO SCH (08:15)
[2018-07-28] MEDS: HYDROcodone/acetaminophen 10/325mg tab PO PRN ×2 (08:31→18:51)
[2018-07-28 20:11] VITALS: BP 110/68
[2018-07-28] MEDS: diphenhydrAMINE 25mg capsule PO PRN (21:32)
[2018-07-28] MEDS: traZODone 50mg tablet PO PRN (21:32)
[2018-07-28] MEDS: benzocaine/menthol oral lozeng 1 EACH BOX MM PRN (21:33)
[2018-07-29] MEDS: HYDROcodone/acetaminophen 10/325mg tab PO PRN ×2 (07:24→20:55)
[2018-07-29] MEDS: sertraline 50mg tablet PO SCH (07:25)
[2018-07-29] MEDS: folic acid 1mg tablet PO SCH (07:25)
[2018-07-29] MEDS: OLANZapine 5mg rapidly disint. tablet PO SCH ×3 (07:25→20:55)
[2018-07-29] MEDS: thiamine 100mg tablet PO SCH (07:25)
[2018-07-29] MEDS: hydrocortisone 1% OINTMENT 30gm tube TP SCH ×2 (07:28→20:54)
[2018-07-29 08:00] VITALS: BP 115/74
[2018-07-29] MEDS: hydrOXYzine 25 MG tablet PO SCH ×3 (08:55→20:54)
[2018-07-29 20:16] VITALS: BP 112/60
[2018-07-29] MEDS: diphenhydrAMINE 25mg capsule PO PRN (20:54)
[2018-07-29] MEDS: traZODone 50mg tablet PO PRN ×2 (20:55→22:59)
[2018-07-30] MEDS: HYDROcodone/acetaminophen 10/325mg tab PO PRN ×2 (05:48→15:33)
[2018-07-30 08:00] VITALS: BP 118/76
[2018-07-30] MEDS: hydrocortisone 1% OINTMENT 30gm tube TP SCH ×2 (08:00→20:57)
[2018-07-30] MEDS: thiamine 100mg tablet PO SCH (08:44)
[2018-07-30] MEDS: sertraline 50mg tablet PO SCH (08:45)
[2018-07-30] MEDS: folic acid 1mg tablet PO SCH (08:45)
[2018-07-30] MEDS: hydrOXYzine 25 MG tablet PO SCH ×3 (08:45→20:57)
[2018-07-30] MEDS: OLANZapine 5mg rapidly disint. tablet PO SCH ×3 (08:45→20:57)
[2018-07-30] MEDS: cloNIDine 0.1 mg tablet PO PRN (10:08)
[2018-07-30] MEDS ORDERED: BENZ1LOZ30 MM (17:28)
[2018-07-30] MEDS ORDERED: CLON0.2T PO (17:28)
[2018-07-30] MEDS ORDERED: DIPH-423 PO (17:28)
[2018-07-30] MEDS ORDERED: ACAM333T8 PO (17:28)
[2018-07-30] MEDS ORDERED: HYDR50TA65 PO (17:28)
[2018-07-30] MEDS ORDERED: SERT100T10 PO (17:28)
[2018-07-30] MEDS ORDERED: TRAZ-219 PO (17:28)
[2018-07-30] MEDS ORDERED: OLAN5TAB26 PO (17:28)
[2018-07-30 20:00] VITALS: BP 106/69
[2018-07-30] MEDS: traZODone 50mg tablet PO PRN (20:57)
[2018-07-30] MEDS: diphenhydrAMINE 25mg capsule PO PRN (20:57)
[2018-07-30] MEDS: benzocaine/menthol oral lozeng 1 EACH BOX MM PRN (20:58)
[2018-07-31] MEDS: hydrOXYzine 25 MG tablet PO SCH ×2 (07:34→12:51)
[2018-07-31] MEDS: thiamine 100mg tablet PO SCH (07:35)
[2018-07-31] MEDS: sertraline 50mg tablet PO SCH (07:35)
[2018-07-31] MEDS: folic acid 1mg tablet PO SCH (07:35)
[2018-07-31] MEDS: hydrocortisone 1% OINTMENT 30gm tube TP SCH (07:37)
[2018-07-31] MEDS: OLANZapine 5mg rapidly disint. tablet PO SCH ×2 (07:37→12:51)
[2018-07-31] MEDS: HYDROcodone/acetaminophen 10/325mg tab PO PRN ×2 (07:37→12:21)
[2018-07-31 08:00] VITALS: BP 120/77
[2018-07-31] MEDS: cloNIDine 0.1 mg tablet PO PRN (11:16)
== END 2018-07-31 13:05 | disposition short-term general hospital (02) | DRG 751 ==
LOC: ADULT MH 18:05
PROVIDERS: ADMIT Psychiatry & Neurology Psychiatry; ATTEND Psychiatry & Neurology Psychiatry
DX: F33.2 Major depressive disorder, recurrent severe without psychotic features (principal); G10 Huntington's disease; R45.851 Suicidal ideations; F20.9 Schizophrenia, unspecified; F10.20 Alcohol dependence, uncomplicated; L40.9 Psoriasis, unspecified; F15.10 Other stimulant abuse, uncomplicated; F41.9 Anxiety disorder, unspecified; Z88.6 Allergy status to analgesic agent; Y90.9 Presence of alcohol in blood, level not specified; Z71.51 Drug abuse counseling and surveillance of drug abuser; Z88.1 Allergy status to other antibiotic agents; Z88.8 Allergy status to other drugs, medicaments and biological substances; Z23 Encounter for immunization; Z91.030 Bee allergy status; Z59.0 Homelessness; Z71.41 Alcohol abuse counseling and surveillance of alcoholic; Z65.3 Problems related to other legal circumstances; Z79.899 Other long term (current) drug therapy; Z86.14 Personal history of Methicillin resistant Staphylococcus aureus infection
CPT/HCPCS: 71045; Q0163; Q0177; Q2037

== ENCOUNTER 2019-01-20 12:27 | Emergency (ER) | payer MEDICAID ==
[~2019-01-20] VITALS: Ht 175.3 cm; Wt 89.1 kg
[~2019-01-20 12:27] MED LIST changes: +BENZ1LOZ30 MM; -CLON-529 PO; +CLON0.2T PO; +DIPH-423 PO; -FOLI0.4T2 PO; -HYDR-4353 PO; +HYDR50TA65 PO; +OLAN5TAB26 PO; -OLAN5TAB5 PO; +SERT100T10 PO; -SERT25TA PO; -THI100T PO; +TRAZ-219 PO
[2019-01-20 12:35] VITALS: BP 106/70
[2019-01-20] MEDS ORDERED: triamcinolone acetonide 40mg/ml inj IM ONE (12:45)
[2019-01-20] MEDS ORDERED: HYDR28CR14 TOP (12:46)
== END 2019-01-20 13:03 | disposition home or self-care (01) ==
LOC: ER 12:27
DX: L25.9 Unspecified contact dermatitis, unspecified cause (principal); F12.90 Cannabis use, unspecified, uncomplicated; F15.90 Other stimulant use, unspecified, uncomplicated; G89.29 Other chronic pain; Z59.0 Homelessness; Z56.0 Unemployment, unspecified; Z86.14 Personal history of Methicillin resistant Staphylococcus aureus infection; Z98.890 Other specified postprocedural states; Z88.6 Allergy status to analgesic agent; Z88.1 Allergy status to other antibiotic agents; Z88.8 Allergy status to other drugs, medicaments and biological substances; Z79.899 Other long term (current) drug therapy
CPT/HCPCS: 96372; 99283; J3301

== ENCOUNTER 2019-02-07 12:43 | Emergency (ER) | payer MEDICAID ==
[~2019-02-07] VITALS: Ht 175.3 cm; Wt 134.1 kg
[~2019-02-07 12:43] MED LIST changes: +HYDR28CR14 TOP
[2019-02-07 13:09] VITALS: BP 109/72
[2019-02-07] MEDS ORDERED: SULF1TAB49 PO (13:50)
[2019-02-07] MEDS ORDERED: LIDOcaine 1% w/epiNEPHrine 1:200,000 30ml vial IM ONE (13:50)
== END 2019-02-07 14:52 | disposition home or self-care (01) ==
LOC: ER 12:44
DX: L02.412 Cutaneous abscess of left axilla (principal); G89.29 Other chronic pain; Z86.14 Personal history of Methicillin resistant Staphylococcus aureus infection; Z98.890 Other specified postprocedural states; F12.90 Cannabis use, unspecified, uncomplicated; F15.90 Other stimulant use, unspecified, uncomplicated; Z88.6 Allergy status to analgesic agent; Z88.1 Allergy status to other antibiotic agents; Z91.030 Bee allergy status; Z79.899 Other long term (current) drug therapy; Z59.0 Homelessness; Z56.0 Unemployment, unspecified
CPT/HCPCS: 10060; 87070; 99283; J3490; 87077; 87186

== ENCOUNTER 2020-03-11 08:27 | Emergency (ER) | payer MEDICAID ==
[~2020-03-11] VITALS: Ht 172.7 cm; Wt 86.8 kg
[~2020-03-11 08:27] MED LIST changes: -TRAZ-219 PO; +TRAZ-256 PO
[2020-03-11 09:40] LABS: BASOPHILS % (AUTO) 0.3 % (0-1); EOSINOPHILS # (AUTO) 0.2 X10'3 (0-0.9); EOSINOPHILS % (AUTO) 1.4 % (0-6); HEMATOCRIT 41.9 % (42.0-52.0); HEMOGLOBIN 14.1 g/dl (14.0-17.9); LYMPHOCYTES # (AUTO) 1.2 X10'3 (1.1-4.8); LYMPHOCYTES % (AUTO) 9.5 % (21-51); MEAN CORPUSCULAR HEMOGLOBIN 29.4 PG (27.0-31.0); MEAN CORPUSCULAR HGB CONC 33.6 g/dL (33.0-36.5); MEAN CORPUSCULAR VOLUME 87.6 FL (78-98); MEAN PLATELET VOLUME 8.1 FL (7.4-10.4); MONOCYTES # (AUTO) 0.7 X10'3 (0-0.9); MONOCYTES % (AUTO) 5.4 % (2-12); NEUTROPHILS # (AUTO) 10.2 X10'3 (1.8-7.7); NEUTROPHILS % (AUTO) 83.4 % (42-75); PLATELET COUNT 260 X10'3 (140-440); RED BLOOD COUNT 4.79 X10'6 (4.70-6.10); RED CELL DISTRIBUTION WIDTH 13.4 % (11.5-14.5); WHITE BLOOD COUNT 12.2 X10'3 (4.5-11.0)
--- NOTE | 2020-03-11 09:44 | NUR ---
VASC IN ROOM
[2020-03-11 09:54] LABS: ALANINE AMINOTRANSFERASE 28 U/L (12-78); ALBUMIN 3.6 G/DL (3.4-5.0); ALKALINE PHOSPHATASE 70 IU/L (46-116); ANION GAP 7 (8-16); ASPARTATE AMINO TRANSFERASE 18 U/L (10-37); BILIRUBIN,TOTAL 0.4 MG/DL (0.1-1.0); BLOOD UREA NITROGEN 12 MG/DL (7-18); BUN/CREATININE RATIO 9.4 (5.4-32.0); CALCIUM 8.7 MG/DL (8.5-10.1); CHLORIDE 103 MMOL/L (99-107); CREATININE 1.28 MG/DL (0.60-1.10); GLUCOSE 109 MG/DL (70-104); POTASSIUM 3.6 MMOL/L (3.5-5.1); SODIUM 138 MMOL/L (135-145); TOTAL CARBON DIOXIDE 28.5 MMOL/L (24-32); TOTAL PROTEIN 7.1 G/DL (6.4-8.2); eGFR 62 ML/MIN
[2020-03-11] MEDS ORDERED: POTA-82 PO (10:23)
[2020-03-11] MEDS ORDERED: DOXY100C76 PO (10:23)
[2020-03-11] MEDS ORDERED: FURO-149 PO (10:23)
[2020-03-11 10:36] VITALS: BP 118/77
== END 2020-03-11 10:37 | disposition home or self-care (01) ==
LOC: ER 08:27
DX: L03.116 Cellulitis of left lower limb (principal); L03.115 Cellulitis of right lower limb; R60.0 Localized edema; G89.29 Other chronic pain; F41.9 Anxiety disorder, unspecified; F32.9 Major depressive disorder, single episode, unspecified; F12.90 Cannabis use, unspecified, uncomplicated; F15.90 Other stimulant use, unspecified, uncomplicated; Z86.14 Personal history of Methicillin resistant Staphylococcus aureus infection; Z98.890 Other specified postprocedural states; Z59.0 Homelessness; Z56.0 Unemployment, unspecified; Z88.6 Allergy status to analgesic agent; Z88.1 Allergy status to other antibiotic agents; Z91.030 Bee allergy status; Z88.8 Allergy status to other drugs, medicaments and biological substances; Z79.899 Other long term (current) drug therapy
CPT/HCPCS: 36415; 80053; 84145; 85025; 87040; 93970; 99284

== ENCOUNTER 2020-12-18 06:16 | Emergency (ER) | payer MEDICAID ==
[~2020-12-18] VITALS: Ht 175.3 cm; Wt 79.3 kg
[~2020-12-18 06:16] MED LIST changes: +FURO-149 PO; +POTA-82 PO; +SERT-434 PO; -SERT100T10 PO
[2020-12-18] MEDS ORDERED: ondansetron 4mg rapidly disintigrating tab PO ONE (06:25)
[2020-12-18] MEDS ORDERED: LORA-269 PO (06:33)
[2020-12-18] MEDS ORDERED: ONDA4TAB6 PO (06:33)
--- NOTE | 2020-12-18 06:38 | NUR ---
PT REPORTS HE DOESNT TAKE ANY MEDICATIONS NOW. QUIT TAKING SEVERAL MONTHS AGO BECAUSE HE DIDNT LIKE HOW HE FELT.
[2020-12-18 07:04] VITALS: BP 142/94
== END 2020-12-18 07:06 | disposition home or self-care (01) ==
LOC: ER 06:17
DX: K29.00 Acute gastritis without bleeding (principal); R11.10 Vomiting, unspecified; R53.1 Weakness; F41.9 Anxiety disorder, unspecified; G89.29 Other chronic pain; F32.9 Major depressive disorder, single episode, unspecified; F12.90 Cannabis use, unspecified, uncomplicated; F15.90 Other stimulant use, unspecified, uncomplicated; Z87.440 Personal history of urinary (tract) infections; Z86.14 Personal history of Methicillin resistant Staphylococcus aureus infection; Z98.890 Other specified postprocedural states; Z72.89 Other problems related to lifestyle; Z56.0 Unemployment, unspecified; Z59.0 Homelessness; Z88.6 Allergy status to analgesic agent; Z88.1 Allergy status to other antibiotic agents; Z88.8 Allergy status to other drugs, medicaments and biological substances; Z91.030 Bee allergy status; Z79.899 Other long term (current) drug therapy
CPT/HCPCS: 99283

== ENCOUNTER 2020-12-24 17:13 | Inpatient (IN) | payer MEDICAID ==
[~2020-12-24] VITALS: Ht 172.7 cm; Wt 90.9 kg
[~2020-12-24 17:13] MED LIST changes: +LORA-269 PO; +ONDA4TAB6 PO
[2020-12-24 17:50] LABS: BASOPHILS # (AUTO) 0.1 X10'3 (0-0.2); BASOPHILS % (AUTO) 0.4 % (0-1); EOSINOPHILS % (AUTO) 0 % (0-6); HEMOGLOBIN 15.1 g/dl (14.0-17.9); LYMPHOCYTES # (AUTO) 0.2 X10'3 (1.1-4.8); LYMPHOCYTES % (AUTO) 1.5 % (21-51); MEAN CORPUSCULAR HEMOGLOBIN 32.1 PG (27.0-31.0); MEAN CORPUSCULAR HGB CONC 33.6 g/dL (33.0-36.5); MEAN CORPUSCULAR VOLUME 95.5 FL (78-98); MEAN PLATELET VOLUME 8.5 FL (7.4-10.4); MONOCYTES # (AUTO) 1.2 X10'3 (0-0.9); MONOCYTES % (AUTO) 7.7 % (2-12); NEUTROPHILS % (AUTO) 90.4 % (42-75); PLATELET COUNT 336 X10'3 (140-440); RED BLOOD COUNT 4.72 X10'6 (4.70-6.10); RED CELL DISTRIBUTION WIDTH 14.9 % (11.5-14.5); WHITE BLOOD COUNT 15.5 X10'3 (4.5-11.0)
[2020-12-24 17:58] LABS: ALANINE AMINOTRANSFERASE 84 U/L (12-78); ALBUMIN 3.4 G/DL (3.4-5.0); ALKALINE PHOSPHATASE 72 IU/L (46-116); ANION GAP 14 (8-16); ASPARTATE AMINO TRANSFERASE 81 U/L (10-37); BILIRUBIN,TOTAL 0.5 MG/DL (0.1-1.0); BLOOD UREA NITROGEN 11 MG/DL (7-18); BUN/CREATININE RATIO 7.9 (5.4-32.0); CALCIUM 8.5 MG/DL (8.5-10.1); CHLORIDE 111 MMOL/L (99-107); GLUCOSE 111 MG/DL (70-104); POTASSIUM 3.3 MMOL/L (3.5-5.1); SODIUM 148 MMOL/L (135-145); TOTAL CARBON DIOXIDE 22.7 MMOL/L (24-32); TOTAL PROTEIN 6.8 G/DL (6.4-8.2); eGFR 56 ML/MIN
[2020-12-24] MEDS ORDERED: normal saline 1000ML IV soln IV ONE (18:25)
--- NOTE | 2020-12-24 18:45 | NUR ---
Patient to Xray.
[2020-12-24 19:19] LABS: ETHANOL < 0.010 GM/DL (0.0-0.010); MAGNESIUM 2.1 MG/DL (1.5-2.4)
[2020-12-24 19:32] LABS: URINE AMPHETAMINE SCREEN POSITIVE (Neg); URINE BARBITUATE SCREEN NEGATIVE (Neg); URINE BENZODIAZEPINES SCREEN NEGATIVE (Neg); URINE CANNABINOID SCREEN POSITIVE (Neg); URINE COCAINE SCREEN NEGATIVE (Neg); URINE METHADONE SCREEN NEGATIVE (Neg); URINE OPIATE SCREEN NEGATIVE (Neg); URINE PHENCYCLIDINE SCREEN NEGATIVE (Neg)
--- NOTE | 2020-12-24 19:36 | NUR ---
Patient back from xray
[2020-12-24 19:40] LABS: CLARITY,URINE CLOUDY (Clear); COLOR,URINE YELLOW (Yellow); GLUCOSE, URINE NEGATIVE (Neg); KETONES,URINE NEGATIVE (Neg); LEUKOCYTE ESTERASE ,URINE LARGE (Neg); NITRITES, URINE NEGATIVE (Neg); OCCULT BLOOD,URINE SMALL (Neg); PROTEIN,URINE 100 mg/dl (Neg); UROBILINOGEN,URINE 0.2 E.U/dL (0.2-1.0)
[2020-12-24 19:42] LABS: UA COLLECTION TYPE CLN CATCH MIDSTREAM
[2020-12-24 19:49] LABS: WBC,URINE 30-50 /HPF (0-4)
[2020-12-24 19:50] LABS: BACTERIA,URINE 4+ /HPF (Neg)
[2020-12-24 19:51] LABS: FINE GRANULAR CAST 0-3 /LPF (NEGATIVE); MUCUS STRANDS FEW /LPF (Neg); SQUAMOUS EPITHELIAL CELL,UR FEW /LPF (FEW)
[2020-12-24 20:16] LABS: CREATINE KINASE 1942 U/L (39-308)
--- NOTE | 2020-12-24 20:34 | NUR ---
Patient resting comfortably on gurney, says he still is having trouble moving his legs
[2020-12-24] MEDS ORDERED: sodium bicarbonate (8.4%) 1 mEq/ml syringe IV ONE (20:40)
[2020-12-24] MEDS ORDERED: normal saline 1000ML IV soln IVB ONE (20:40)
[2020-12-24] MEDS ORDERED: sodium bicarbonate (8.4%) inj. 1 MEQ/ML ML IV ONE (20:55)
--- NOTE | 2020-12-24 22:58 | NUR ---
With Dr. King
[2020-12-24] MEDS: normal saline 1000ml 1,000 ML IV SCH (23:20)
[2020-12-24] MEDS ORDERED: acetaminophen 325mg tablet PO PRN (23:20)
[2020-12-24] MEDS ORDERED: magnesium hydroxide 30ml (MOM) UD suspension PO PRN (23:20)
[2020-12-24] MEDS ORDERED: mag hydrox/Alum hydrox/simeth 30ml oral suspension PO PRN (23:20)
[2020-12-24] MEDS ORDERED: ondansetron/PF 4mg/2ml inj IV PRN (23:20)
--- NOTE | 2020-12-25 00:44 | NUR ---
report from FLO Curry from ER pt is up to the floor , very aggitated, unable to sit still , VS stable
[2020-12-25 00:45] VITALS: BP 148/87
[2020-12-25] MEDS: HYDROcodone/acetaminophen 5mg/325mg tablet PO PRN ×3 (01:31→11:25)
[2020-12-25 06:00] VITALS: BP 136/90
[2020-12-25 06:19] LABS: BASOPHILS % (AUTO) 0.2 % (0-1); EOSINOPHILS % (AUTO) 0.1 % (0-6); HEMATOCRIT 38.9 % (42.0-52.0); HEMOGLOBIN 13.2 g/dl (14.0-17.9); LYMPHOCYTES # (AUTO) 0.7 X10'3 (1.1-4.8); LYMPHOCYTES % (AUTO) 4.8 % (21-51); MEAN CORPUSCULAR HGB CONC 33.9 g/dL (33.0-36.5); MEAN CORPUSCULAR VOLUME 94.3 FL (78-98); MEAN PLATELET VOLUME 8.5 FL (7.4-10.4); MONOCYTES # (AUTO) 1.3 X10'3 (0-0.9); MONOCYTES % (AUTO) 8.8 % (2-12); NEUTROPHILS # (AUTO) 12.5 X10'3 (1.8-7.7); NEUTROPHILS % (AUTO) 86.1 % (42-75); PLATELET COUNT 269 X10'3 (140-440); RED BLOOD COUNT 4.12 X10'6 (4.70-6.10); WHITE BLOOD COUNT 14.5 X10'3 (4.5-11.0)
--- NOTE | 2020-12-25 06:33 | NUR ---
report given to dolores Turcios.
--- NOTE | 2020-12-25 06:43 | NUR ---
Patient in room ORTHO 4020. I have received report from Mariya ROSSI and had the opportunity to ask questions and assume patient care.
[2020-12-25 06:48] LABS: ALANINE AMINOTRANSFERASE 63 U/L (12-78); ALBUMIN 2.7 G/DL (3.4-5.0); ALBUMIN/GLOBULIN RATIO 0.9 (1.1-1.5); ALKALINE PHOSPHATASE 61 IU/L (46-116); ANION GAP 12 (8-16); ASPARTATE AMINO TRANSFERASE 66 U/L (10-37); BILIRUBIN,TOTAL 0.6 MG/DL (0.1-1.0); BLOOD UREA NITROGEN 8 MG/DL (7-18); BUN/CREATININE RATIO 9.1 (5.4-32.0); CALCIUM 7.8 MG/DL (8.5-10.1); CHLORIDE 108 MMOL/L (99-107); CREATININE 0.88 MG/DL (0.60-1.10); GLUCOSE 94 MG/DL (70-104); SODIUM 143 MMOL/L (135-145); TOTAL CARBON DIOXIDE 23.1 MMOL/L (24-32); TOTAL PROTEIN 5.6 G/DL (6.4-8.2); eGFR > 90 ML/MIN
[2020-12-25 06:53] LABS: POTASSIUM 2.9 MMOL/L (3.5-5.1)
--- NOTE | 2020-12-25 07:56 | NUR ---
Paged Dr. Farias PAGER ID: [phone] MESSAGE: Ortho/Neuro Karolina ROSSI ext [phone]. RE: Vern Clarke. K 2.9. No replacement order for K
[2020-12-25] MEDS ORDERED: heparin, porcine 5000 units/ml vial SQ SCH (08:00)
[2020-12-25] MEDS ORDERED: potassium Cl 20 mEq SR tablet PO STA (09:00)
[2020-12-25] MEDS: normal saline 1000ml 1,000 ML IV SCH (10:59)
[2020-12-25 11:00] VITALS: BP 137/76
[2020-12-25] MEDS ORDERED: HYDR-3965 PO ×3 (13:08→17:44)
--- NOTE | 2020-12-25 14:30 | NUR ---
Patient not willing to bean picker the new prescription for [place] at [facility] in [facility], he is requesting transfer the RX to [facility] pharmacy at [facility]. I called the pharmacist at [facility] about this, the pharmacist said they could not transfer it over to the other [facility] pharmacy since it is a narcotic and that the order has to be cancel and the prescriber will need to write another RX to the other [facility] pharmacy in [facility]. I discussed this issue with the patient, he insisted that he wants the Rx to [facility] pharmacy at [facility] so he can pick it up. I called [facility] pharmacy at [facility] again to let them know the patient's decision. Will notify Dr. Farias about this
--- NOTE | 2020-12-25 14:43 | NUR ---
Paged Dr. Farias PAGER ID: [phone] MESSAGE: Ortho/Neuro Karolina RN ext [phone]. RE: Vern Clarke. Pt wants Rx for [place] [facility] [address] said [facility] do it and will have to cancel the Rx. Patient ok'd to cancel it so he can [facility]. We need new RX
--- NOTE | 2020-12-25 15:47 | NUR ---
I updated patient's preferred pharmacy information. Dr. Farias said he will take care of rewriting the [place] prescription and send over to the new preferred pharmacy when he gets a chance. He said I can let patient go but he need some time to work on rewriting the [place] prescription.
--- NOTE | 2020-12-25 15:50 | NUR ---
Patient was discharged home, discharge instructions given to patient, patient verbalized understanding of all instructions given to patient. Peripheral IV catheter was removed, tip intact. Patient was instructed to ensure he has all belongings with him before leaving the hospital.
--- NOTE | 2020-12-26 15:06 | NUR ---
CASE MANAGEMENT DISCHARGE FOLLOW UP: T/c to pt, no working number available. Unable to contact pt for follow up interview.
== END 2020-12-25 15:50 | disposition home or self-care (01) | DRG 52 ==
LOC: ER 17:13 → ED HOLD 23:17 → ORTHO 4S 12-25 00:41
PROVIDERS: ADMIT Internal Medicine; ATTEND Internal Medicine
PROC: 2W3FX1Z Immobilization of Left Hand using Splint (ICD-10-PCS; principal; 2020-12-24)
DX: G92 Toxic encephalopathy (principal); N17.9 Acute kidney failure, unspecified; M62.82 Rhabdomyolysis; F20.9 Schizophrenia, unspecified; S62.232A Other displaced fracture of base of first metacarpal bone, left hand, initial encounter for closed fracture; F15.90 Other stimulant use, unspecified, uncomplicated; S80.01XA Contusion of right knee, initial encounter; S80.02XA Contusion of left knee, initial encounter; E86.0 Dehydration; W18.39XA Other fall on same level, initial encounter; E87.6 Hypokalemia; F12.90 Cannabis use, unspecified, uncomplicated; F32.9 Major depressive disorder, single episode, unspecified; F41.9 Anxiety disorder, unspecified; G89.29 Other chronic pain; Z59.0 Homelessness; Z88.8 Allergy status to other drugs, medicaments and biological substances; Y93.89 Activity, other specified; Y92.89 Other specified places as the place of occurrence of the external cause; Y99.8 Other external cause status
CPT/HCPCS: 36415; 70450; 71045; 72170; 73130; 73564; 80053; 80305; 80320; 81001; 82140; 82550; 83735; 84132; 84145; 85025; 87077; 87081; 87088; 87186; 93005; 96365; 99285; G0378; J1644; J7030

== ENCOUNTER 2021-03-10 09:35 | Emergency (ER) | payer MEDICAID ==
[~2021-03-10] VITALS: Ht 172.7 cm; Wt 81.8 kg
[2021-03-10] MEDS ORDERED: ondansetron/PF 4mg/2ml inj IV ONE (09:55)
[2021-03-10] MEDS ORDERED: thiamine inj. 100 MG in normal saline 100ml IV soln 99 ML IV ONE (09:55)
[2021-03-10] MEDS ORDERED: thiamine inj. 100 MG in normal saline 100ml IV soln 100 ML IV ONE (09:55)
[2021-03-10] MEDS ORDERED: normal saline 1000ML IV soln IVB ONE (09:55)
[2021-03-10] MEDS ORDERED: magnesium 2GM in 50ml NS 50 ML IV ONE (09:55)
[2021-03-10] MEDS ORDERED: phenobarbital inj 260 MG in normal saline 100ml IV soln 100 ML IV ONE (09:55)
[2021-03-10] MEDS ORDERED: phenobarbital inj 260 MG in normal saline 100ml IV soln 98 ML IV ONE (09:55)
[2021-03-10 10:03] LABS: BASOPHILS % (AUTO) 0.2 % (0-1); EOSINOPHILS # (AUTO) 0.1 X10'3 (0-0.9); EOSINOPHILS % (AUTO) 0.8 % (0-6); HEMATOCRIT 51.8 % (42.0-52.0); HEMOGLOBIN 17.9 g/dl (14.0-17.9); LYMPHOCYTES # (AUTO) 1.1 X10'3 (1.1-4.8); LYMPHOCYTES % (AUTO) 12.9 % (21-51); MEAN CORPUSCULAR HEMOGLOBIN 31.7 PG (27.0-31.0); MEAN CORPUSCULAR HGB CONC 34.6 g/dL (33.0-36.5); MEAN CORPUSCULAR VOLUME 91.5 FL (78-98); MEAN PLATELET VOLUME 7.9 FL (7.4-10.4); MONOCYTES # (AUTO) 0.4 X10'3 (0-0.9); MONOCYTES % (AUTO) 4.6 % (2-12); NEUTROPHILS # (AUTO) 7.2 X10'3 (1.8-7.7); NEUTROPHILS % (AUTO) 81.5 % (42-75); PLATELET COUNT 389 X10'3 (140-440); RED BLOOD COUNT 5.65 X10'6 (4.70-6.10); RED CELL DISTRIBUTION WIDTH 13.4 % (11.5-14.5); WHITE BLOOD COUNT 8.8 X10'3 (4.5-11.0)
[2021-03-10 10:06] LABS: CLARITY,URINE SLIGHTLY CLOUDY (Clear); COLOR,URINE YELLOW (Yellow); GLUCOSE, URINE NEGATIVE (Neg); KETONES,URINE NEGATIVE (Neg); LEUKOCYTE ESTERASE ,URINE TRACE (Neg); NITRITES, URINE POSITIVE (Neg); OCCULT BLOOD,URINE TRACE-LYSED (Neg); PH,URINE 6.5 (4.8-8.0); PROTEIN,URINE 100 mg/dl (Neg); UROBILINOGEN,URINE 0.2 E.U/dL (0.2-1.0)
[2021-03-10 10:09] LABS: UA COLLECTION TYPE CLN CATCH MIDSTREAM
[2021-03-10 10:11] LABS: BACTERIA,URINE 4+ /HPF (Neg); MUCUS STRANDS FEW /LPF (Neg); RBC,URINE 0-2 /HPF (0-2); SQUAMOUS EPITHELIAL CELL,UR FEW /LPF (FEW)
[2021-03-10 10:12] LABS: WBC,URINE 50-100 /HPF (0-4)
[2021-03-10] MEDS ORDERED: haloperidol lactate 5mg/ml inj IM ONE (10:15)
[2021-03-10 10:20] LABS: ALANINE AMINOTRANSFERASE 30 U/L (12-78); ALBUMIN 4.1 G/DL (3.4-5.0); ALBUMIN/GLOBULIN RATIO 1.1 (1.1-1.5); ALKALINE PHOSPHATASE 89 IU/L (46-116); ANION GAP 15 (8-16); ASPARTATE AMINO TRANSFERASE 28 U/L (10-37); BILIRUBIN,TOTAL 0.8 MG/DL (0.1-1.0); BLOOD UREA NITROGEN 6 MG/DL (7-18); BUN/CREATININE RATIO 5.8 (5.4-32.0); CALCIUM 8.2 MG/DL (8.5-10.1); CHLORIDE 104 MMOL/L (99-107); CREATININE 1.03 MG/DL (0.60-1.10); GLUCOSE 130 MG/DL (70-104); LIPASE 175 U/L (73-393); MAGNESIUM 1.9 MG/DL (1.5-2.4); POTASSIUM 3.3 MMOL/L (3.5-5.1); SODIUM 141 MMOL/L (135-145); TOTAL CARBON DIOXIDE 22.5 MMOL/L (24-32); TOTAL PROTEIN 7.8 G/DL (6.4-8.2); eGFR 79 ML/MIN
[2021-03-10 11:13] LABS: URINE AMPHETAMINE SCREEN NEGATIVE (Neg); URINE BARBITUATE SCREEN NEGATIVE (Neg); URINE BENZODIAZEPINES SCREEN NEGATIVE (Neg); URINE CANNABINOID SCREEN POSITIVE (Neg); URINE COCAINE SCREEN NEGATIVE (Neg); URINE METHADONE SCREEN NEGATIVE (Neg); URINE OPIATE SCREEN NEGATIVE (Neg); URINE PHENCYCLIDINE SCREEN NEGATIVE (Neg)
[2021-03-10] MEDS ORDERED: levoFLOXACIN-Levaquin 500mg/D5 100 ML IV ONE (11:25)
[2021-03-10] MEDS ORDERED: LEVO500T89 PO (11:41)
[2021-03-10] MEDS ORDERED: ONDA4TAB6 PO (11:44)
[2021-03-10] MEDS ORDERED: PROC25SU31 RC (11:44)
[2021-03-10 12:27] VITALS: BP 135/81
== END 2021-03-10 13:05 | disposition home or self-care (01) ==
LOC: ER 09:35
DX: K29.20 Alcoholic gastritis without bleeding (principal); E86.0 Dehydration; F10.239 Alcohol dependence with withdrawal, unspecified; N39.0 Urinary tract infection, site not specified; R11.2 Nausea with vomiting, unspecified; R19.7 Diarrhea, unspecified; F12.90 Cannabis use, unspecified, uncomplicated; G89.29 Other chronic pain; F41.9 Anxiety disorder, unspecified; F32.9 Major depressive disorder, single episode, unspecified; F15.90 Other stimulant use, unspecified, uncomplicated; Z87.440 Personal history of urinary (tract) infections; Z86.14 Personal history of Methicillin resistant Staphylococcus aureus infection; Z98.890 Other specified postprocedural states; Z72.89 Other problems related to lifestyle; Z56.0 Unemployment, unspecified; Z59.0 Homelessness; Z88.6 Allergy status to analgesic agent; Z88.1 Allergy status to other antibiotic agents; Z88.8 Allergy status to other drugs, medicaments and biological substances; Z91.030 Bee allergy status; Z79.2 Long term (current) use of antibiotics
CPT/HCPCS: 36415; 80053; 80305; 80320; 81001; 83690; 83735; 85025; 87077; 87088; 87186; 93005; 96365; 96366; 96368; 96372; 96375; 99284; J1630; J1956; J2405; J2560; J3411; J3475; J7030

== ENCOUNTER 2021-04-29 10:01 | Inpatient (IN) | payer MEDICAID ==
[~2021-04-29] VITALS: Ht 172.7 cm; Wt 81.1 kg
[~2021-04-29 10:01] MED LIST changes: -ACAM333T8 PO; -BENZ1LOZ30 MM; -CLON0.2T PO; -DIPH-423 PO; -FURO-149 PO; -HYDR28CR14 TOP; -HYDR50TA65 PO; -LORA-269 PO; -OLAN5TAB26 PO; -POTA-82 PO; -SERT-434 PO; -TRAZ-256 PO
[2021-04-29] MEDS ORDERED: chlordiazePOXIDE 25mg capsule PO ONE (15:30)
[2021-04-29] MEDS ORDERED: ondansetron 4mg rapidly disintigrating tab PO ONE (15:30)
--- NOTE | 2021-04-29 15:36 | NUR ---
Pt ambulated to bed 22 with PCT. Pt was brought back from ED- waiting room at 1510. Pt is A&Ox4. Pt is calm and cooperative. Pt presents with mild nausea. Pt has ETOH history. Drank 750 mL bottle last night, with last drink at 2100. Pt stated "I woke up and I was really scared, I knew I was going to do it." Pt stated he was going to take "some pills and drink another bottle of ETOH. Pt was changed into green scrubs, belongings list completed.
[2021-04-29] MEDS ORDERED: LORazepam 1 MG tablet PO ONE ×2 (15:40→18:00)
[2021-04-29 15:54] LABS: BASOPHILS % (AUTO) 0.2 % (0-1); EOSINOPHILS % (AUTO) 0.1 % (0-6); HEMATOCRIT 52.1 % (42.0-52.0); HEMOGLOBIN 17.5 g/dl (14.0-17.9); LYMPHOCYTES # (AUTO) 1.3 X10'3 (1.1-4.8); LYMPHOCYTES % (AUTO) 8.2 % (21-51); MEAN CORPUSCULAR HEMOGLOBIN 30.9 PG (27.0-31.0); MEAN CORPUSCULAR HGB CONC 33.6 g/dL (33.0-36.5); MEAN CORPUSCULAR VOLUME 91.9 FL (78-98); MEAN PLATELET VOLUME 8.4 FL (7.4-10.4); MONOCYTES % (AUTO) 6.4 % (2-12); NEUTROPHILS # (AUTO) 13.3 X10'3 (1.8-7.7); NEUTROPHILS % (AUTO) 85.1 % (42-75); PLATELET COUNT 365 X10'3 (140-440); RED BLOOD COUNT 5.67 X10'6 (4.70-6.10); RED CELL DISTRIBUTION WIDTH 13.6 % (11.5-14.5); WHITE BLOOD COUNT 15.6 X10'3 (4.5-11.0)
[2021-04-29 15:59] LABS: CLARITY,URINE SLIGHTLY CLOUDY (Clear); COLOR,URINE YELLOW (Yellow); GLUCOSE, URINE NEGATIVE (Neg); KETONES,URINE >=80 mg/dl (Neg); LEUKOCYTE ESTERASE ,URINE SMALL (Neg); NITRITES, URINE NEGATIVE (Neg); OCCULT BLOOD,URINE SMALL (Neg); PROTEIN,URINE 100 mg/dl (Neg); UROBILINOGEN,URINE 0.2 E.U/dL (0.2-1.0)
[2021-04-29 16:01] LABS: UA COLLECTION TYPE OTHER
[2021-04-29 16:08] LABS: URINE AMPHETAMINE SCREEN NEGATIVE (Neg); URINE BARBITUATE SCREEN NEGATIVE (Neg); URINE BENZODIAZEPINES SCREEN NEGATIVE (Neg); URINE CANNABINOID SCREEN POSITIVE (Neg); URINE COCAINE SCREEN NEGATIVE (Neg); URINE METHADONE SCREEN NEGATIVE (Neg); URINE OPIATE SCREEN NEGATIVE (Neg); URINE PHENCYCLIDINE SCREEN NEGATIVE (Neg)
[2021-04-29 16:12] LABS: ALANINE AMINOTRANSFERASE 37 U/L (12-78); ALBUMIN 4.2 G/DL (3.4-5.0); ALBUMIN/GLOBULIN RATIO 1.1 (1.1-1.5); ALKALINE PHOSPHATASE 93 IU/L (46-116); ANION GAP 15 (8-16); ASPARTATE AMINO TRANSFERASE 32 U/L (10-37); BILIRUBIN,TOTAL 1.4 MG/DL (0.1-1.0); BLOOD UREA NITROGEN 11 MG/DL (7-18); BUN/CREATININE RATIO 9.9 (5.4-32.0); CHLORIDE 95 MMOL/L (99-107); CREATININE 1.11 MG/DL (0.60-1.10); GLUCOSE 102 MG/DL (70-104); SODIUM 134 MMOL/L (135-145); TOTAL CARBON DIOXIDE 23.7 MMOL/L (24-32); TOTAL PROTEIN 7.9 G/DL (6.4-8.2); eGFR 73 ML/MIN
[2021-04-29 16:13] LABS: POTASSIUM 4.2 MMOL/L (3.5-5.1)
[2021-04-29 16:15] LABS: ETHANOL < 0.010 GM/DL (0.0-0.010)
[2021-04-29 16:17] LABS: SQUAMOUS EPITHELIAL CELL,UR FEW /LPF (FEW)
[2021-04-29 16:20] LABS: MUCUS STRANDS MANY /LPF (Neg)
[2021-04-29 16:21] LABS: WBC,URINE TNTC /HPF (0-4)
[2021-04-29 16:23] LABS: BACTERIA,URINE 3+ /HPF (Neg)
[2021-04-29] MEDS ORDERED: ciprofloxacin 250mg tablet PO ONE (16:35)
[2021-04-29] MEDS: ciprofloxacin 250mg tablet PO SCH (17:10)
--- NOTE | 2021-04-29 17:10 | NUR ---
Pt's U/A came back positive for UTI. Administered Cipro 500mg as per physican order.
--- NOTE | 2021-04-29 17:14 | NUR ---
Pt rated high on [place] Suicide Assessment r/t recent events. Pt states "I feel safe here" and his suicidal thoughts are minimal. Pt is able to contract for safety. Pt has been polite and calm throughout admitting process.
--- NOTE | 2021-04-29 17:17 | NUR ---
Pt reports anxiety "is getting better." No tremors noted, no tactile, auditory or visual hallucinations. No diaphoresis noted. Will continue to monitor.
--- NOTE | 2021-04-29 18:09 | NUR ---
Pt continues to report moderat anxiety. Received order for Ativan 1mg ONCE.
--- NOTE | 2021-04-29 18:55 | NUR ---
PATIENT'S PACKET WAS SENT TO [facility].
--- NOTE | 2021-04-29 19:37 | NUR ---
One to one with the patient to assess for severity of depressive symptoms and self harm risk. The patient has been very cooperative with unit routine. He stated that the ativan he was given was very helpful and that his anxiety was low. He stated he does have concerns about what he is going to do when he gets out of here. He stated that he needs to stop drinking and get back on track in his life. He currently is on disability and has his own apartment. He stated he was in sober living but since he has been off probation he has started to drink again. He stated that his moods change "from moment to moment" Psychotic symptoms denied.
--- NOTE | 2021-04-29 20:48 | NUR ---
The patient appears to be sleeping
--- NOTE | 2021-04-29 22:45 | NUR ---
The patient appears to be sleeping
--- NOTE | 2021-04-29 23:31 | NUR ---
Patient reporting GI distress. Jackson DUARTE made aware and orders received.
[2021-04-29] MEDS ORDERED: mag hydrox/Alum hydrox/simeth 30ml oral suspension PO ONE (23:35)
--- NOTE | 2021-04-30 00:32 | NUR ---
The patient appears to be back asleep at this time
--- NOTE | 2021-04-30 01:59 | NUR ---
The patient appears to be sleeping
--- NOTE | 2021-04-30 03:33 | NUR ---
The patient appears to be sleeping
--- NOTE | 2021-04-30 04:56 | NUR ---
The patient has been awake off and on during the night.
--- NOTE | 2021-04-30 07:00 | NUR ---
Patient is awake, asking for a new pitcher of ice water. He states he has not slept much duirng the night. I gave him a new pitcher of water with ice and introduced myself to him as his new nurse. He asked also for another blanket as he has been cold. I ghave him another blanket.
--- NOTE | 2021-04-30 08:00 | NUR ---
One to one with the patient to assess the severity of depressive symptoms and risk for self harm. The patient is very cooperative with staff and the routines of the unit. He stated that his anxiety is rising at this time as he is concerned about where he will go and what he will do once he is out of this hospital. He would like to stop drinking one of these days with help. He feel lost most of the time. . He started to drink again and states he will continue to drink until he get help. He stated that his moods change "from moment to moment" and at times he thinks about drinking himself away.
[2021-04-30] MEDS: ciprofloxacin 250mg tablet PO SCH (08:45)
--- NOTE | 2021-04-30 09:00 | NUR ---
Patient has slight tremors. He states he has not had any alcohol since 04/28/21 and feels like he needs alcohol. Patient assessed and MD called asking for medication to help reduce the tremors and anxious feelsing. Patient stated, "Thank you for helping me calm my body, I appreciate everyones help. " Patient resting in bed at this time.
[2021-04-30] MEDS ORDERED: LORazepam 1 MG tablet PO ONE ×2 (09:25→16:50)
--- NOTE | 2021-04-30 09:26 | NUR ---
Gave Ativan 1mg to help patient calm his tremors and be able to relax. Currently patient is trying to rest.
--- NOTE | 2021-04-30 12:03 | NUR ---
Vern is up walking and talking with staff on his way to use the restroom. His tremors have decreased after taking the Ativan 1mg tab. He is now back in bed waiting for lunch. All needs met at this time
--- NOTE | 2021-04-30 13:51 | NUR ---
Patient is resting in bed after eating lunch. All needs met at this time
--- NOTE | 2021-04-30 16:26 | NUR ---
Patient is pacing back and forth at this time. Talking with patient providing support
--- NOTE | 2021-04-30 16:32 | NUR ---
Patient talking with peers. Feeling more comfortable and no longer pacing.
--- NOTE | 2021-04-30 16:47 | NUR ---
Patient has increased anxiety and tremors at this time. informing
--- NOTE | 2021-04-30 17:47 | NUR ---
Patient is resting with ease in bed atthis time. tremors have reduced. All needs met at this time
--- NOTE | 2021-04-30 18:34 | NUR ---
Pt is sitting in bed, eating dinner. Pt states "I fell off the wagon, I went to a program and was doing really good. I just have to learn to do it on my own." Right now I'm doing ok though. I feel ok.
--- NOTE | 2021-04-30 21:10 | NUR ---
Pt is sitting quietly on his bed, appears to be resting comfortably.
[2021-04-30] MEDS: traZODone 50mg tablet PO SCH (22:44)
--- NOTE | 2021-04-30 22:59 | NUR ---
Pt awake, laying on his right side. Difficulty falling asleep, trazodone given.
--- NOTE | 2021-05-01 00:29 | NUR ---
Pt awake requesting a snack. Sitting up in bed having a snack.
--- NOTE | 2021-05-01 04:14 | NUR ---
Pt is laying on his right side asleep rr even and unlabored.
--- NOTE | 2021-05-01 05:32 | NUR ---
Pt is laying on his left side appears to be resting comfortably.
--- NOTE | 2021-05-01 06:35 | NUR ---
Patient sleeping on his left side. No distress observed. Continue to monitor.
--- NOTE | 2021-05-01 08:25 | NUR ---
Patient sitting up and eating. No distress observed. Patient took his medication. Continue to monitor.
[2021-05-01] MEDS: ciprofloxacin 250mg tablet PO SCH (08:27)
--- NOTE | 2021-05-01 10:15 | NUR ---
Patient sleeping supine. No distress oberved. Continue to monitor.
--- NOTE | 2021-05-01 12:14 | NUR ---
Patient reclining in bed sleeping. No distress observed. Continue to monitor.
[2021-05-01] MEDS ORDERED: LORazepam 1 MG tablet PO ONE (13:00)
--- NOTE | 2021-05-01 13:10 | NUR ---
Patient eating Lunch. No distress observed. Continue to monitor.
--- NOTE | 2021-05-01 15:03 | NUR ---
Patient reading a book. No distress observed.
[2021-05-01] MEDS ORDERED: mag hydrox/Alum hydrox/simeth 30ml oral suspension PO ONE (15:35)
--- NOTE | 2021-05-01 17:57 | NUR ---
Patient reclining in bed. No distress observed. Continue to monitor.
--- NOTE | 2021-05-01 18:55 | NUR ---
Pt is sitting in bed reading at change of shift. Pt states he is feeling better hopeful to be going to [facility] soon.
--- NOTE | 2021-05-01 19:24 | NUR ---
Pt is walking up/transferring up to [facility] w/ [facility] RN and security.
[2021-05-01 19:40] VITALS: BP 134/84
[2021-05-01] MEDS: traZODone 50mg tablet PO SCH (20:41)
[2021-05-01] MEDS: lactobacillus rhamnosus 10,000 MMU CELLS/CAPSULE PO SCH (20:41)
[2021-05-01] MEDS ORDERED: TRAZ-251 PO (20:47)
[2021-05-01] MEDS ORDERED: CIPR-259 PO (20:47)
[2021-05-01] MEDS ORDERED: magnesium hydroxide 30ml (MOM) UD suspension PO PRN (21:00)
[2021-05-01] MEDS ORDERED: loperamide 2mg capsule PO PRN (21:00)
[2021-05-01] MEDS ORDERED: acetaminophen 325mg tablet PO PRN (21:00)
[2021-05-01] MEDS ORDERED: LORazepam 1 MG tablet PO PRN (21:00)
[2021-05-01] MEDS ORDERED: mag hydrox/Alum hydrox/simeth 30ml oral suspension PO PRN (21:00)
--- NOTE | 2021-05-01 21:30 | NUR ---
Admission Note: Pt admitted to the unit at 1935, he was ambulatory and escorted by myself and security. Safety check completed by myself, no contraband found. Pts skin check completed by myself and Salvador SALAZAR. Pt was admitted due to DTS, he came to ER due to having thoughts of suicide and had a plan of taking sleeping pills and drinking alcohol. Pt states he even went so far as to walk to the store 3 different times to go buy the sleeping pills. Patient reports he had been sober for 3 years, but over the past year he lost two of his close friends and began drinking again, as well as using THC. When he started drinking he stopped all his psych meds. Pt reports heavy drinking, last drink the night of the when he arrived in the ER. He has been treated in the ER with Ativan due to signs of withdrawal (tremor and anxiety), discussed his care with Dr Jennings and pt is to be monitored with the CIWA scale and if he scores greater than 9 he has Ativan 2 mg PRN withdrawal symptoms. Pt does have a history of Schizophrenia, but denies any psychotic symptoms at this time. 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
[2021-05-02] MEDS: lactobacillus rhamnosus 10,000 MMU CELLS/CAPSULE PO SCH ×2 (07:34→20:18)
[2021-05-02] MEDS: ciprofloxacin 250mg tablet PO SCH (07:35)
[2021-05-02 07:38] LABS: HEMOGLOBIN A1C 5.2 % (4.5-6.2)
[2021-05-02 07:53] LABS: CHOL/HDL RATIO 1.6 (0.00-4.99); CHOLESTEROL 152 MG/DL (0-200); HDL CHOLESTEROL 93 MG/DL (35-60); LDL CHOLESTEROL 41 MG/DL (50-100); TRIGLYCERIDES 57 MG/DL (20-135)
[2021-05-02 08:00] VITALS: BP 121/74
[2021-05-02] MEDS ORDERED: hydrOXYzine 25 MG tablet PO PRN (09:25)
[2021-05-02] MEDS ORDERED: thiamine inj. 100 MG in normal saline 100ml IV soln 100 ML IV ONE (13:10)
[2021-05-02] MEDS: folic acid 1mg tablet PO SCH (13:28)
[2021-05-02] MEDS: multivitamins, therapeutics tablet PO SCH (13:29)
[2021-05-02] MEDS: thiamine 100mg tablet PO SCH (13:29)
[2021-05-02] MEDS ORDERED: sertraline 50mg tablet PO ONE (13:35)
[2021-05-02] MEDS ORDERED: olanzapine 10mg tablet PO PRN (13:35)
--- NOTE | 2021-05-02 13:43 | NUR ---
Pt. attended group today. The topic today was identifying the triggers, signs and symptoms of an upcoming episode/event so that Pts. can learn to apply coping skills before they get to a bad place with their symptoms. Pt engaged in the group appropriately sharing his warning signs and coping skills. He was pleasant to work with and to others. He appeared to be alert and oriented X 4. His thought process and thought content was WNL. He was calm and compliant. He took notes on the papers that were handed out to them. Monserrat Mendieta LCSW
--- NOTE | 2021-05-02 17:08 | NUR ---
NURSING PROGRESS NOTE: LEGAL HOLD: 5150 Client on involuntary status for DTS. Report received from Umu ROSSI with use of SBAR. Why they are here: Patient admitted with suicidal ideation states he is having weird suicidal thoughts but no plan right now. He did have a plan earlier. He states he drinks more than 750 cc of whiskey a day his last drink being the night before his admission. He also has a longstanding history of heroin and meth abuse. He has had a recent significant loss of his significant other. He also feels hopeless with his urostomy bag and difficulties with not making right life choices. Assessment What has happened this shift: Patient received sleeping in his room. Pt. awoke to receive his medication and assessed with [facility] protocol, no s/sx of DTs. Later physical assessment completed at the bedside denies any current S/I H/I, pt. presents with depression AEB statements of feeling sad but Im hopeful He also is independent with his urostomy and has supplies in med room. Pt. later presented as anxious AEB statement I just feel really anxious and nauseous. PRN Atarax provided; pt. reports med was effective. Pt. observed OOB and ambulating in the ramires and reports feeling well, and he was observed interacting appropriately with peers. Pt. ate his lunch in the dining room with peers appeared to be interacting appropriately. Pt. participated in group therapy today. Currently in bed reading a book before dinner. Seizure precautions in place, [facility] assessments continued through the shift all WNL. S/I, H/I: Denies A/VH: Denies Sleep: 7.75 hrs per NOC, with intermittent naps this shift ADL's: Independent Group attendance: Yes Were meds taken: Yes Any med S/E: None noted Mental Status Exam Appearance: Pt. appears exhausted and very tired AEB bags under his eyes. Eye contact: Good Behavior: Subdued Speech: Clear Mood: Anxious, Depressed Affect: Congruent with mood Thought process: Linear Thought Content: Processing Cognition: A/O X4 Insight: Fair Judgment: Poor Interventions PRN's used: Atarax X1 Therapeutic interventions: Active listening, 1:1 assessment, therapeutic conversation, medication administration/education/monitoring, provided distraction, encouragement and positive reinforcement, Q 15 minute safety checks, hospitalist paged for assessment. Restraints/seclusion/emergency medication: N/A Justification: Pt needs crisis interruption with medication adjustment and monitoring in a safe and therapeutic environment.
[2021-05-02] MEDS: hydrOXYzine 25 MG tablet PO SCH (20:18)
[2021-05-02] MEDS: olanzapine 10mg tablet PO SCH (20:18)
[2021-05-02] MEDS: traZODone 50mg tablet PO SCH (20:18)
[2021-05-02 20:22] VITALS: BP 118/73
--- NOTE | 2021-05-03 02:12 | NUR ---
NURSING PROGRESS NOTE: Vern LEGAL HOLD: 5150 Client on involuntary status for DTS. Report received from Omari ROSSI with use of SBAR. Why they are here: Patient admitted with suicidal ideation states he is having weird suicidal thoughts but no plan right now. He did have a plan earlier. He states he drinks more than 750 cc of whiskey a day his last drink being the night before his admission. He also has a longstanding history of heroin and meth abuse. He has had a recent significant loss of his significant other. He also feels hopeless with his urostomy bag and difficulties with not making right life choices. Assessment What has happened this shift: Patient received in his room sitting on bed reading. Pt calm and cooperative with care. States has some depression and rated it at 5/10, denies anxiety and any other MH symptoms. States he had SI thoughts earlier in the day but doesnt have any now as reading is his distraction. He is independent with his urostomy and has supplies in med room. Seizure precautions in place, CIWA assessments continued through the shift all WNL. S/I, H/I: Denies A/VH: Denies Sleep: ADL's: Independent Group attendance: Yes Were meds taken: Yes Any med S/E: None noted Mental Status Exam Appearance: Disheveled in green scrubs Eye contact: Good Behavior: Subdued Speech: Clear Mood: Anxious, Depressed Affect: Congruent with mood Thought process: Linear Thought Content: Processing Cognition: A/O X4 Insight: Fair Judgment: Poor Interventions PRN's used: Therapeutic interventions: Active listening, 1:1 assessment, therapeutic conversation, medication administration/education/monitoring, provided distraction, encouragement and positive reinforcement, Q 15 minute safety checks, hospitalist paged for assessment. Restraints/seclusion/emergency medication: N/A Justification: Pt needs crisis interruption with medication adjustment and monitoring in a safe and therapeutic environment.
[2021-05-03 07:25] VITALS: BP 107/58
[2021-05-03] MEDS ORDERED: folic acid inj. 2 MG, thiamine inj. 100 MG, MVI, adult No.4 with vit. K 10 ML in dextro... IV SCH ×4 (08:00)
[2021-05-03] MEDS ORDERED: sertraline 50mg tablet PO SCH (08:00)
[2021-05-03] MEDS ORDERED: sertraline 25mg tablet PO SCH ×2 (08:01→08:45)
[2021-05-03] MEDS: multivitamins, therapeutics tablet PO SCH (08:51)
[2021-05-03] MEDS: thiamine 100mg tablet PO SCH (08:51)
[2021-05-03] MEDS: folic acid 1mg tablet PO SCH (08:51)
[2021-05-03] MEDS: ciprofloxacin 250mg tablet PO SCH (08:51)
[2021-05-03] MEDS: hydrOXYzine 25 MG tablet PO SCH ×3 (08:52→20:19)
[2021-05-03] MEDS: lactobacillus rhamnosus 10,000 MMU CELLS/CAPSULE PO SCH ×2 (08:52→20:19)
[2021-05-03 10:39] LABS: ALANINE AMINOTRANSFERASE 49 U/L (12-78); ALBUMIN 3.5 G/DL (3.4-5.0); ALBUMIN/GLOBULIN RATIO 1.1 (1.1-1.5); ALKALINE PHOSPHATASE 70 IU/L (46-116); AMYLASE 86 U/L (25-115); ANION GAP 7 (8-16); ASPARTATE AMINO TRANSFERASE 29 U/L (10-37); BILIRUBIN,TOTAL 0.5 MG/DL (0.1-1.0); BLOOD UREA NITROGEN 15 MG/DL (7-18); BUN/CREATININE RATIO 13.4 (5.4-32.0); CALCIUM 8.7 MG/DL (8.5-10.1); CHLORIDE 104 MMOL/L (99-107); CREATININE 1.12 MG/DL (0.60-1.10); GLUCOSE 71 MG/DL (70-104); LIPASE 186 U/L (73-393); MAGNESIUM 2.2 MG/DL (1.5-2.4); SODIUM 141 MMOL/L (135-145); TOTAL CARBON DIOXIDE 30.2 MMOL/L (24-32); TOTAL PROTEIN 6.7 G/DL (6.4-8.2); eGFR 72 ML/MIN
[2021-05-03 10:47] LABS: POTASSIUM 4.9 MMOL/L (3.5-5.1)
[2021-05-03 11:41] LABS: BASOPHILS % (AUTO) 0.3 % (0-1); EOSINOPHILS # (AUTO) 0.2 X10'3 (0-0.9); EOSINOPHILS % (AUTO) 1.6 % (0-6); HEMATOCRIT 49.6 % (42.0-52.0); HEMOGLOBIN 16.7 g/dl (14.0-17.9); LYMPHOCYTES # (AUTO) 1.1 X10'3 (1.1-4.8); LYMPHOCYTES % (AUTO) 10.3 % (21-51); MEAN CORPUSCULAR HEMOGLOBIN 31.3 PG (27.0-31.0); MEAN CORPUSCULAR HGB CONC 33.7 g/dL (33.0-36.5); MEAN CORPUSCULAR VOLUME 92.9 FL (78-98); MEAN PLATELET VOLUME 8.6 FL (7.4-10.4); MONOCYTES # (AUTO) 0.5 X10'3 (0-0.9); MONOCYTES % (AUTO) 4.9 % (2-12); NEUTROPHILS # (AUTO) 9.1 X10'3 (1.8-7.7); NEUTROPHILS % (AUTO) 82.9 % (42-75); PLATELET COUNT 275 X10'3 (140-440); RED BLOOD COUNT 5.34 X10'6 (4.70-6.10); RED CELL DISTRIBUTION WIDTH 13.6 % (11.5-14.5)
--- NOTE | 2021-05-03 13:17 | NUR ---
Nursing Progress Note: Legal hold: 5150 Client on involuntary status for DTS Report received from nurse with use of SBAR: FLO Sanz Why are they here: here: Patient admitted with suicidal ideation states he is having weird suicidal thoughts but no plan right now. He did have a plan earlier. He states he drinks more than 750 cc of whiskey a day his last drink being the night before his admission. He also has a longstanding history of heroin and meth abuse. He has had a recent significant loss of his significant other. He also feels hopeless with his urostomy bag and difficulties with not making right life choices. Assessment What has happened this shift: Received pt. sleeping in bed at the beginning of the she shift, he was awoken by staff to attend breakfast in the Group Room. Afterwards ,pt. sat up in the Recreation Room before retreating back to bed, he presents as withdrawn. 1:1 completed at bedside, pt. is cooperative and is initially blunted, however brightens with continued conversation. Pt. denies any S/I, H/I, A/V/POLANCO, and no delusional statements made. He does admit to some ongoing depression and anxiety when questioned by this underwriter. Pt. states, "Just all of my medical issues and I don't have many friends or family." He also reports some concern regarding whether he will have his apartment to return to upon discharge, or if he will need to find alternative housing. Pt. continues to remain withdrawn in his room throughout the day reading, this underwriter encouraged him to attend group, however he refused. Pt. did shower this shift, and independently changed his urostomy bag. He continues to remain on monitoring for CIWA precautions, however has not exhibited any withdrawal s/s and no PRN anxiolytic needed. Will continue to monitor. S/I, H/I: Denies A/VH: Denies, does not appear internally preoccupied Sleep: Sleep hours are 8.25 ADL's: Requires some encouragement Group attendance: No Were meds taken: Yes Any med S/E: None Mental Status Exam Appearance: Neat and appropriately dressed. Showered today Eye contact: Good Behavior: Cooperative, guarded, and withdrawn Speech: Soft, WNL Mood: Guarded Affect: Blunted with brightening Thought process: Linear Thought Content: Some concern regarding discharge Cognition: A&O X4 Insight: Poor Judgment: Poor Interventions PRN's used: None Therapeutic interventions: Introduced self and established rapport, maintained a safe and supportive environment, ensured contract for safety, provided clear and simple instructions, encouraged participation on the unit, and maintained Q 15min safety checks. Restraints/seclusion/emergency medication: N/A Justification of Continued Inpatient Treatment: Per Dr. Jennings, pt. continues to require a safe and supportive environment. He will discharge to a recovery program.
--- NOTE | 2021-05-03 13:32 | NUR ---
Met with Vern to complete psychosocial assessment. Vern is a 40 y/o single male who was placed on 5150 for danger to self. He self-presented to the ED with complaints of suicidal ideation with a plan to overdose on alcohol and sleeping pills due to pain and health issues. 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 He has been on SSI for about the last 10 years. He lives alone in an apartment off [facility]. He was previously in services at [facility] and was last seen about a year ago. He reported on-going depression most of his life. He reported he was released from probation about a year ago and "slipped up" and started drinking again. He reported it has been even worse with Covid and being stuck in his apartment by himself. He has limited social support, is estranged from family, and both parents in 2007 from lung cancer. He reported he has been to [facility] 2-3 x's, however, it is unclear if he has ever completed treatment. He was not interested in rehab or any sort of alcohol treatment and stated he can "do it on my own". He denied any current SI or HI. Vern plans on returning to his apartment upon discharge. He is concerned because he has not paid his rent yet. [employer] will attempt to get the [employer] management phone # for him. Vern would like to follow up with [facility] upon discharge. Plan: [employer] will assist with follow up upon discharge. PHYLLIS Collins Addendum: 05/03/21 at 1334 by Maricruz Alva Amended: Links added.
[2021-05-03] MEDS: hydrOXYzine 25 MG tablet PO PRN (18:57)
[2021-05-03 19:00] VITALS: BP 131/81
[2021-05-03] MEDS: olanzapine 10mg tablet PO SCH (20:19)
[2021-05-03] MEDS: traZODone 50mg tablet PO SCH (20:19)
--- NOTE | 2021-05-04 01:35 | NUR ---
Nursing Progress Note: Vern Legal hold: 5150 Client on involuntary status for DTS Report received from nurse with use of SBAR: FLO Salcido Why are they here: here: Patient admitted with suicidal ideation states he is having weird suicidal thoughts but no plan right now. He did have a plan earlier. He states he drinks more than 750 cc of whiskey a day his last drink being the night before his admission. He also has a longstanding history of heroin and meth abuse. He has had a recent significant loss of his significant other. He also feels hopeless with his urostomy bag and difficulties with not making right life choices. Assessment What has happened this shift: Received pt lying in bed resting reading a book. Pt calm and cooperative, stated having some anxiety /. 100MG of atarax given with good effect. States his depression is 3/10. Pt isolates to room, took all HS medications and retired to bed. He continues to remain on monitoring for CIWA precautions, however has not exhibited any withdrawal s/s and no PRN anxiolytic needed. Will continue to monitor. S/I, H/I: Denies A/VH: Denies, does not appear internally preoccupied Sleep: ADL's: Requires some encouragement Group attendance: No Were meds taken: Yes Any med S/E: None Mental Status Exam Appearance: Neat and appropriately dressed. Eye contact: Good Behavior: Cooperative, guarded, and withdrawn Speech: Soft, WNL Mood: Guarded Affect: Blunted with brightening Thought process: Linear Thought Content: Some concern regarding discharge Cognition: A&O X4 Insight: Poor Judgment: Poor Interventions PRN's used: None Therapeutic interventions: Introduced self and established rapport, maintained a safe and supportive environment, ensured contract for safety, provided clear and simple instructions, encouraged participation on the unit, and maintained Q 15min safety checks. Restraints/seclusion/emergency medication: N/A Justification of Continued Inpatient Treatment: Per Dr. Jennings, pt. continues to require a safe and supportive environment. He will discharge to a recovery program.
[2021-05-04 08:37] VITALS: BP 110/68
[2021-05-04] MEDS: ciprofloxacin 250mg tablet PO SCH (08:57)
[2021-05-04] MEDS: lactobacillus rhamnosus 10,000 MMU CELLS/CAPSULE PO SCH ×2 (08:58→20:09)
[2021-05-04] MEDS: thiamine 100mg tablet PO SCH (08:58)
[2021-05-04] MEDS: hydrOXYzine 25 MG tablet PO SCH ×3 (08:58→20:09)
[2021-05-04] MEDS: multivitamins, therapeutics tablet PO SCH (08:58)
[2021-05-04] MEDS: sertraline 50mg tablet PO SCH (08:59)
[2021-05-04] MEDS: folic acid 1mg tablet PO SCH (08:59)
--- NOTE | 2021-05-04 09:45 | NUR ---
Initial: Pt admit for SI. Currently on a regular diet and eating well with average 75-100% PO intake throughout LOS. Noted pt with EtOH hx, currently receiving routine Thiamine, Folic acid, and MVI. LBM 05/03. No nutrition diagnosis at this time. Will continue to follow. Recommendations: 1) Continue regular diet 2) Continue routine Thiamine, Folic acid, and MVI for EtOH hx 3) Bowel care PRN 4) Weekly scaled weights Addendum: 05/04/21 at [address] Amended: Links added.
[2021-05-04 12:38] LABS: BASOPHILS % (AUTO) 0.3 % (0-1); EOSINOPHILS # (AUTO) 0.2 X10'3 (0-0.9); EOSINOPHILS % (AUTO) 2.1 % (0-6); HEMATOCRIT 48.1 % (42.0-52.0); HEMOGLOBIN 16.1 g/dl (14.0-17.9); LYMPHOCYTES # (AUTO) 1.2 X10'3 (1.1-4.8); LYMPHOCYTES % (AUTO) 13.5 % (21-51); MEAN CORPUSCULAR HGB CONC 33.4 g/dL (33.0-36.5); MEAN CORPUSCULAR VOLUME 92.7 FL (78-98); MEAN PLATELET VOLUME 8.7 FL (7.4-10.4); MONOCYTES # (AUTO) 0.4 X10'3 (0-0.9); MONOCYTES % (AUTO) 4.5 % (2-12); NEUTROPHILS # (AUTO) 7.1 X10'3 (1.8-7.7); NEUTROPHILS % (AUTO) 79.6 % (42-75); PLATELET COUNT 252 X10'3 (140-440); RED BLOOD COUNT 5.19 X10'6 (4.70-6.10); RED CELL DISTRIBUTION WIDTH 13.8 % (11.5-14.5); WHITE BLOOD COUNT 8.9 X10'3 (4.5-11.0)
[2021-05-04 13:06] LABS: ALANINE AMINOTRANSFERASE 51 U/L (12-78); ALBUMIN 3.6 G/DL (3.4-5.0); ALBUMIN/GLOBULIN RATIO 1.1 (1.1-1.5); ALKALINE PHOSPHATASE 70 IU/L (46-116); AMYLASE 88 U/L (25-115); ANION GAP 8 (8-16); ASPARTATE AMINO TRANSFERASE 27 U/L (10-37); BILIRUBIN,TOTAL 0.5 MG/DL (0.1-1.0); BLOOD UREA NITROGEN 19 MG/DL (7-18); BUN/CREATININE RATIO 19.6 (5.4-32.0); CALCIUM 8.5 MG/DL (8.5-10.1); CHLORIDE 104 MMOL/L (99-107); CREATININE 0.97 MG/DL (0.60-1.10); GLUCOSE 98 MG/DL (70-104); LIPASE 173 U/L (73-393); MAGNESIUM 2.2 MG/DL (1.5-2.4); PHOSPHORUS 3.6 MG/DL (2.3-4.5); POTASSIUM 4.3 MMOL/L (3.5-5.1); SODIUM 140 MMOL/L (135-145); TOTAL CARBON DIOXIDE 28.4 MMOL/L (24-32); TOTAL PROTEIN 6.9 G/DL (6.4-8.2); eGFR 85 ML/MIN
[2021-05-04] MEDS: hydrOXYzine 25 MG tablet PO PRN (16:50)
--- NOTE | 2021-05-04 17:30 | NUR ---
Nursing Progress Note: Vern Clarke Legal hold: [facility] Client on involuntary status for DTS Report received from nurse with use of SBAR: Loan Gonzalez RN Why are they here: here: Patient admitted with suicidal ideation states he is having weird suicidal thoughts but no plan right now. He did have a plan earlier. He states he drinks more than 750 cc of whiskey a day his last drink being the night before his admission. He also has a longstanding history of heroin and meth abuse. He has had a recent significant loss of his significant other. He also feels hopeless with his urostomy bag and difficulties with not making right life choices. Assessment What has happened this shift: Received pt. sleeping in bed at the beginning of the she shift, he was awoken by staff to attend breakfast in the Group Room. Afterwards ,pt. sat up in the Recreation Room before retreating back to bed, he presents as withdrawn. 1:1 completed at bedside, pt. is cooperative and is initially blunted, however brightens with continued conversation. Pt. denies any S/I, H/I, A/V/POLANCO, and no delusional statements made. He does admit to some ongoing depression and anxiety when questioned by this handbook writer. Patient states a good friend and a grandfather figure that just that is contributing to his relapse. He also reports some concern regarding whether he will have his apartment to return to upon discharge, or if he will need to find alternative housing. Pt. continues to remain withdrawn in his room throughout the day reading, this handbook writer encouraged him to attend group, however he refused. Patient is seen reading a book I have almost finished it. Pt. did independently changed his urostomy bag. CIWA was discontinued by Dr. Gerardo today. Patient stated I have not had any signs in W/D for two full days now.. S/I, H/I: Denies A/VH: Denies, does not appear internally preoccupied Sleep: Sleep hours are 8.25 ADL's: Requires some encouragement Group attendance: No Were meds taken: Yes Any med S/E: None Mental Status Exam Appearance: Neat and appropriately dressed. Showered today Eye contact: Good Behavior: Cooperative, guarded, and withdrawn Speech: Soft, WNL Mood: Guarded Affect: Blunted with brightening Thought process: Linear Thought Content: Some concern regarding discharge Cognition: A&O X4 Insight: Poor Judgment: Poor Interventions PRN's used: None Therapeutic interventions: Introduced self and established rapport, maintained a safe and supportive environment, ensured contract for safety, provided clear and simple instructions, encouraged participation on the unit, and maintained Q 15min safety checks. Restraints/seclusion/emergency medication: N/A Justification of Continued Inpatient Treatment: Per Dr. Jennings, pt. continues to require a safe and supportive environment. Patient needs more time on his medication to ensure a safe discharge and avoid re-admission.
[2021-05-04 20:00] VITALS: BP 124/82
[2021-05-04] MEDS: traZODone 50mg tablet PO SCH (20:09)
[2021-05-04] MEDS: olanzapine 10mg tablet PO SCH (20:09)
--- NOTE | 2021-05-05 01:48 | NUR ---
Nursing Progress Note: Vern Clarke Legal hold: [facility] Client on involuntary status for DTS Report received from nurse with use of SBAR: FLO Daly Why are they here: here: Patient admitted with suicidal ideation states he is having weird suicidal thoughts but no plan right now. He did have a plan earlier. He states he drinks more than 750 cc of whiskey a day his last drink being the night before his admission. He also has a longstanding history of heroin and meth abuse. He has had a recent significant loss of his significant other. He also feels hopeless with his urostomy bag and difficulties with not making right life choices. Assessment What has happened this shift: Received pt resting in his room reading a book. Pt is calm and cooperative with care and states his depression and anxiety are 2/10. He states he had thoughts of suicide earlier in the day but was able to re-focus and continue reading his book. He did also states he has a tendency to isolate too much at times and is trying to work on that. Pt up for snacks and took all HS medication without issue. S/I, H/I: Denies A/VH: Denies, does not appear internally preoccupied Sleep: ADL's: Requires some encouragement Group attendance: No Were meds taken: Yes Any med S/E: None Mental Status Exam Appearance: Neat and appropriately dressed. Eye contact: Good Behavior: Cooperative, guarded, and withdrawn Speech: Soft, WNL Mood: Guarded Affect: Blunted with brightening Thought process: Linear Thought Content: Some concern regarding discharge Cognition: A&O X4 Insight: Poor Judgment: Poor Interventions PRN's used: None Therapeutic interventions: Introduced self and established rapport, maintained a safe and supportive environment, ensured contract for safety, provided clear and simple instructions, encouraged participation on the unit, and maintained Q 15min safety checks. Restraints/seclusion/emergency medication: N/A Justification of Continued Inpatient Treatment: Per Dr. Jennings, pt. continues to require a safe and supportive environment. Patient needs more time on his medication to ensure a safe discharge and avoid re-admission.
[2021-05-05 07:55] VITALS: BP 112/72
[2021-05-05] MEDS: thiamine 100mg tablet PO SCH (08:05)
[2021-05-05] MEDS: lactobacillus rhamnosus 10,000 MMU CELLS/CAPSULE PO SCH ×2 (08:05→20:48)
[2021-05-05] MEDS: folic acid 1mg tablet PO SCH (08:05)
[2021-05-05] MEDS: hydrOXYzine 25 MG tablet PO SCH ×3 (08:05→20:48)
[2021-05-05] MEDS: sertraline 50mg tablet PO SCH (08:05)
[2021-05-05] MEDS: multivitamins, therapeutics tablet PO SCH (08:05)
[2021-05-05 10:24] LABS: BASOPHILS % (AUTO) 0.3 % (0-1); EOSINOPHILS # (AUTO) 0.2 X10'3 (0-0.9); EOSINOPHILS % (AUTO) 2.3 % (0-6); HEMATOCRIT 46.9 % (42.0-52.0); LYMPHOCYTES % (AUTO) 13.6 % (21-51); MEAN CORPUSCULAR HEMOGLOBIN 31.1 PG (27.0-31.0); MEAN CORPUSCULAR VOLUME 91.4 FL (78-98); MEAN PLATELET VOLUME 8.6 FL (7.4-10.4); MONOCYTES # (AUTO) 0.4 X10'3 (0-0.9); MONOCYTES % (AUTO) 4.9 % (2-12); NEUTROPHILS # (AUTO) 5.7 X10'3 (1.8-7.7); NEUTROPHILS % (AUTO) 78.9 % (42-75); PLATELET COUNT 253 X10'3 (140-440); RED BLOOD COUNT 5.13 X10'6 (4.70-6.10); RED CELL DISTRIBUTION WIDTH 13.9 % (11.5-14.5); WHITE BLOOD COUNT 7.2 X10'3 (4.5-11.0)
[2021-05-05 10:36] LABS: ALANINE AMINOTRANSFERASE 55 U/L (12-78); ALBUMIN 3.7 G/DL (3.4-5.0); ALBUMIN/GLOBULIN RATIO 1.1 (1.1-1.5); ALKALINE PHOSPHATASE 70 IU/L (46-116); AMYLASE 86 U/L (25-115); ANION GAP 10 (8-16); ASPARTATE AMINO TRANSFERASE 22 U/L (10-37); BILIRUBIN,TOTAL 0.4 MG/DL (0.1-1.0); BLOOD UREA NITROGEN 19 MG/DL (7-18); BUN/CREATININE RATIO 18.8 (5.4-32.0); CALCIUM 8.6 MG/DL (8.5-10.1); CHLORIDE 104 MMOL/L (99-107); CREATININE 1.01 MG/DL (0.60-1.10); GLUCOSE 79 MG/DL (70-104); LIPASE 165 U/L (73-393); MAGNESIUM 2.2 MG/DL (1.5-2.4); PHOSPHORUS 2.4 MG/DL (2.3-4.5); POTASSIUM 4.2 MMOL/L (3.5-5.1); SODIUM 144 MMOL/L (135-145); TOTAL CARBON DIOXIDE 30.2 MMOL/L (24-32); TOTAL PROTEIN 7.1 G/DL (6.4-8.2); eGFR 81 ML/MIN
--- NOTE | 2021-05-05 14:23 | NUR ---
Nursing Progress Note: Legal hold: Voluntary Client on involuntary status for DTS Report received from nurse with use of SBAR: Loan Gonzalez RN Why are they here: here: Patient admitted with suicidal ideation states he is having weird suicidal thoughts but no plan right now. He did have a plan earlier. He states he drinks more than 750 cc of whiskey a day his last drink being the night before his admission. He also has a longstanding history of heroin and meth abuse. He has had a recent significant loss of his significant other. He also feels hopeless with his urostomy bag and difficulties with not making right life choices. Assessment What has happened this shift: Received pt. sleeping in bed at the beginning of the she shift, he awoke to attend breakfast in the Group Room. Afterwards,pt. retreated back to bed where he sat reading. 1:1 completed at bedside, he denies any S/I, however states, "Not today, I had a little bit yesterday." This mortgage loan underwriter encouraged pt. to notify staff when feeling this way, and he reported understanding. Pt. also admits to some ongoing anxiety. When further questioned by this mortgage loan underwriter, he states, "I just get tense." Pt. denies the need for a PRN anxiolytic. He then goes on to report that he is considering leaving on Friday back to his apartment now that he is voluntary, but he does have some concerns about returning home. Pt. states, "I got so lonely during COVID, all I did was sit there alone by myself." He plans to look into changing living situations and getting a roommate or a dog to keep him company. Pt. is more visible on the unit during the day, he interacts appropriately with others, however remains somewhat withdrawn. Pt. continues to manage his urostomy bag independently. A/VH: Denies, does not appear internally preoccupied Sleep: Sleep hours are 7.5, pt. reports he slept well ADL's: Independent Group attendance: N/A Were meds taken: Yes Any med S/E: None Mental Status Exam Appearance: Neat and appropriately dressed. Eye contact: Good Behavior: Cooperative, somewhat guarded Speech: Minimal, responds to direct questions Mood: Guarded Affect: Blunted with brightening Thought process: Linear Thought Content: Some ongoing concern regarding discharge Cognition: A&O X4 Insight: Fair Judgment: Fair Interventions PRN's used: None Therapeutic interventions: Maintained a safe and supportive environment, ensured contract for safety, provided clear and simple instructions, provided active listening and positive encouragement, and maintained Q 15min safety checks. Restraints/seclusion/emergency medication: N/A Justification of Continued Inpatient Treatment: Per Dr. Jennings, pt. continues to require a safe and supportive environment while adjusting to medications. Addendum: 05/05/21 at 1605 by Jennifer Hurley RN Pt. c/o chronic pain in urostomy area, orders obtained from Dr. Jennings to give Merrill 5/355mg with 650mg of Tylenol PRN. Medication administered and will continue to monitor.
[2021-05-05] MEDS: acetaminophen 325mg tablet PO PRN (16:20)
[2021-05-05] MEDS: HYDROcodone/acetaminophen 5mg/325mg tablet PO PRN (16:20)
[2021-05-05 19:36] VITALS: BP 133/85
[2021-05-05] MEDS: traZODone 50mg tablet PO SCH (20:48)
[2021-05-05] MEDS: olanzapine 10mg tablet PO SCH (20:48)
[2021-05-06] MEDS: HYDROcodone/acetaminophen 5mg/325mg tablet PO PRN ×3 (02:12→19:20)
[2021-05-06] MEDS: acetaminophen 325mg tablet PO PRN (02:13)
--- NOTE | 2021-05-06 02:32 | NUR ---
Nursing Progress Note: Legal hold: Voluntary Client on involuntary status for DTS Report received from nurse with use of SBAR: FLO Stevenson Why are they here: here: Patient admitted with suicidal ideation states he is having weird suicidal thoughts but no plan right now. He did have a plan earlier. He states he drinks more than 750 cc of whiskey a day his last drink being the night before his admission. He also has a longstanding history of heroin and meth abuse. He has had a recent significant loss of his significant other. He also feels hopeless with his urostomy bag and difficulties with not making right life choices. Assessment What has happened this shift: Received pt. reading in bed at the beginning of the shift, he remained here throughout much of the shift, however did attend HS snack. Pt. remains somewhat withdrawn, however was observed to be interacting appropriately with his roommate. 1:1 completed at bedside, pt. denies all MH s/s and remains guarded with conversation. Pt. showered this shift and changed his urostomy bag, he continues to manage his urostomy bag independently. He awoke during the middle of the night c/o chronic pain in urostomy area, PRN [place] with Tylenol given per orders, will continue to monitor. A/VH: Denies, does not appear internally preoccupied Sleep: Pt. received scheduled Trazodone at HS and appears to be sleeping well. ADL's: Independent Group attendance: N/A Were meds taken: Yes Any med S/E: None Mental Status Exam Appearance: Neat and appropriately dressed. Eye contact: Good Behavior: Cooperative, somewhat guarded Speech: Minimal, responds to direct questions Mood: Guarded Affect: Blunted with brightening Thought process: Linear Thought Content: Some ongoing concern regarding discharge Cognition: A&O X4 Insight: Fair Judgment: Fair Interventions PRN's used: [place] and Tylenol Therapeutic interventions: Maintained a safe and supportive environment, ensured contract for safety, provided clear and simple instructions, provided active listening and positive encouragement, monitored for pain and provided medication as needed, and maintained Q 15min safety checks. Restraints/seclusion/emergency medication: N/A Justification of Continued Inpatient Treatment: Per Dr. Jennings, pt. continues to require a safe and supportive environment. He will discharge home with outpatient recovery when ready.
[2021-05-06] MEDS: folic acid 1mg tablet PO SCH (07:49)
[2021-05-06] MEDS: thiamine 100mg tablet PO SCH (07:50)
[2021-05-06] MEDS: multivitamins, therapeutics tablet PO SCH (07:50)
[2021-05-06] MEDS: hydrOXYzine 25 MG tablet PO SCH ×3 (07:50→19:22)
[2021-05-06] MEDS: lactobacillus rhamnosus 10,000 MMU CELLS/CAPSULE PO SCH ×2 (07:50→19:21)
[2021-05-06] MEDS: sertraline 50mg tablet PO SCH (07:50)
[2021-05-06 07:56] VITALS: BP 145/93
[2021-05-06 10:08] LABS: BASOPHILS % (AUTO) 0.3 % (0-1); EOSINOPHILS # (AUTO) 0.1 X10'3 (0-0.9); EOSINOPHILS % (AUTO) 2.3 % (0-6); HEMATOCRIT 46.9 % (42.0-52.0); HEMOGLOBIN 15.9 g/dl (14.0-17.9); LYMPHOCYTES # (AUTO) 0.9 X10'3 (1.1-4.8); MEAN CORPUSCULAR HEMOGLOBIN 31.3 PG (27.0-31.0); MEAN CORPUSCULAR HGB CONC 33.8 g/dL (33.0-36.5); MEAN CORPUSCULAR VOLUME 92.6 FL (78-98); MEAN PLATELET VOLUME 8.5 FL (7.4-10.4); MONOCYTES # (AUTO) 0.3 X10'3 (0-0.9); MONOCYTES % (AUTO) 4.8 % (2-12); NEUTROPHILS # (AUTO) 4.1 X10'3 (1.8-7.7); NEUTROPHILS % (AUTO) 76.6 % (42-75); PLATELET COUNT 236 X10'3 (140-440); RED BLOOD COUNT 5.07 X10'6 (4.70-6.10); RED CELL DISTRIBUTION WIDTH 13.7 % (11.5-14.5); WHITE BLOOD COUNT 5.3 X10'3 (4.5-11.0)
[2021-05-06 10:22] LABS: ALANINE AMINOTRANSFERASE 48 U/L (12-78); ALBUMIN 3.6 G/DL (3.4-5.0); ALBUMIN/GLOBULIN RATIO 1.1 (1.1-1.5); ALKALINE PHOSPHATASE 68 IU/L (46-116); AMYLASE 83 U/L (25-115); ANION GAP 8 (8-16); ASPARTATE AMINO TRANSFERASE 23 U/L (10-37); BILIRUBIN,TOTAL 0.4 MG/DL (0.1-1.0); BLOOD UREA NITROGEN 12 MG/DL (7-18); BUN/CREATININE RATIO 11.7 (5.4-32.0); CALCIUM 8.5 MG/DL (8.5-10.1); CHLORIDE 107 MMOL/L (99-107); CREATININE 1.03 MG/DL (0.60-1.10); GLUCOSE 131 MG/DL (70-104); LIPASE 145 U/L (73-393); MAGNESIUM 2.2 MG/DL (1.5-2.4); PHOSPHORUS 2.8 MG/DL (2.3-4.5); SODIUM 143 MMOL/L (135-145); TOTAL CARBON DIOXIDE 28.3 MMOL/L (24-32); TOTAL PROTEIN 6.9 G/DL (6.4-8.2); eGFR 79 ML/MIN
--- NOTE | 2021-05-06 16:47 | NUR ---
Nursing Progress Note: Legal hold: Voluntary Client on involuntary status for DTS Report received from nurse with use of SBAR: FLO Salcido Why are they here: here: Patient admitted with suicidal ideation states he is having weird suicidal thoughts but no plan right now. He did have a plan earlier. He states he drinks more than 750 cc of whiskey a day his last drink being the night before his admission. He also has a longstanding history of heroin and meth abuse. He has had a recent significant loss of his significant other. He also feels hopeless with his urostomy bag and difficulties with not making right life choices. Assessment What has happened this shift: Rn received pt. asleep at start of shift. Pt. awoke for breakfast and took all medications. 1:1 done at bedside, pt. c/o of right, lower quadrant pain. Urostomy assessed and looks bright pink without signs of infection. Pt. given Ultram 5/325 with good effect. Pt. reports that he may discharge on Friday. Pt. observed spending most of the day in his room reading or talking with his roommate. SI/HI: Denies A/VH: Denies Sleep: Pt. slept 5 hrs on NOC shift and napped intermittently throughout the day. ADL's: Independent Group attendance: N/A Were meds taken: Yes Any med S/E: Denies Mental Status Exam Appearance: Neat and appropriately dressed. Eye contact: Good Behavior: Cooperative, isolates to room most of the day and reads in bed. Speech: Minimal, responds to direct questions. Mood: Euthymic Affect: Congruent with mood. Thought process: Linear Thought Content: Circumstantial. Cognition: A&O X4 Insight: Fair Judgment: Fair Interventions PRN's used: [place] x1 Therapeutic interventions: Maintained a safe and supportive environment, ensured contract for safety, provided clear and simple instructions, provided active listening and positive encouragement, monitored for pain and provided medication as needed, and maintained Q 15min safety checks. Restraints/seclusion/emergency medication: N/A Justification of Continued Inpatient Treatment: Per Dr. Jennings, pt. continues to require a safe and supportive environment. He will discharge home with outpatient recovery when ready.
[2021-05-06 19:18] VITALS: BP 130/84
[2021-05-06] MEDS: traZODone 50mg tablet PO SCH (19:20)
[2021-05-06] MEDS: olanzapine 10mg tablet PO SCH (19:21)
--- NOTE | 2021-05-07 01:39 | NUR ---
Nursing Progress Note: Legal hold: Voluntary Client on involuntary status for DTS Report received from nurse with use of SBAR: FLO Stevenson Why are they here: here: Patient admitted with suicidal ideation states he is having weird suicidal thoughts but no plan right now. He did have a plan earlier. He states he drinks more than 750 cc of whiskey a day his last drink being the night before his admission. He also has a longstanding history of heroin and meth abuse. He has had a recent significant loss of his significant other. He also feels hopeless with his urostomy bag and difficulties with not making right life choices. Assessment What has happened this shift:Patint was awake in bed at start of shift. Pt stayed in his room most of the shift except for snack time. Pt asked for a [place] with his meds and went to sleep. SI/HI: Denies A/VH: Denies Sleep: Pt. slept 5 hrs on NOC shift and napped intermittently throughout the day. ADL's: Independent Group attendance: N/A Were meds taken: Yes Any med S/E: Denies Mental Status Exam Appearance: Neat and appropriately dressed. Eye contact: Good Behavior: Cooperative, isolates to room most of the day and reads in bed. Speech: Minimal, responds to direct questions. Mood: Euthymic Affect: Congruent with mood. Thought process: Linear Thought Content: Circumstantial. Cognition: A&O X4 Insight: Fair Judgment: Fair Interventions PRN's used: [place] x1 Therapeutic interventions: Maintained a safe and supportive environment, ensured contract for safety, provided clear and simple instructions, provided active listening and positive encouragement, monitored for pain and provided medication as needed, and maintained Q 15min safety checks. Restraints/seclusion/emergency medication: N/A Justification of Continued Inpatient Treatment: Per Dr. Jennings, pt. continues to require a safe and supportive environment. He will discharge home with outpatient recovery when ready.
[2021-05-07] MEDS: HYDROcodone/acetaminophen 5mg/325mg tablet PO PRN ×3 (05:57→22:10)
[2021-05-07] MEDS: hydrOXYzine 25 MG tablet PO SCH ×3 (07:33→20:05)
[2021-05-07] MEDS: lactobacillus rhamnosus 10,000 MMU CELLS/CAPSULE PO SCH ×2 (07:33→20:04)
[2021-05-07] MEDS: multivitamins, therapeutics tablet PO SCH (07:33)
[2021-05-07] MEDS: folic acid 1mg tablet PO SCH (07:33)
[2021-05-07] MEDS: thiamine 100mg tablet PO SCH (07:33)
[2021-05-07] MEDS: sertraline 50mg tablet PO SCH (07:34)
[2021-05-07 07:36] LABS: BASOPHILS % (AUTO) 0.5 % (0-1); EOSINOPHILS # (AUTO) 0.2 X10'3 (0-0.9); EOSINOPHILS % (AUTO) 2.4 % (0-6); HEMOGLOBIN 15.6 g/dl (14.0-17.9); LYMPHOCYTES # (AUTO) 1.2 X10'3 (1.1-4.8); LYMPHOCYTES % (AUTO) 17.6 % (21-51); MEAN CORPUSCULAR HEMOGLOBIN 31.3 PG (27.0-31.0); MEAN CORPUSCULAR VOLUME 92.1 FL (78-98); MEAN PLATELET VOLUME 8.2 FL (7.4-10.4); MONOCYTES # (AUTO) 0.4 X10'3 (0-0.9); MONOCYTES % (AUTO) 5.4 % (2-12); NEUTROPHILS # (AUTO) 4.9 X10'3 (1.8-7.7); NEUTROPHILS % (AUTO) 74.1 % (42-75); PLATELET COUNT 245 X10'3 (140-440); RED BLOOD COUNT 4.99 X10'6 (4.70-6.10); WHITE BLOOD COUNT 6.6 X10'3 (4.5-11.0)
[2021-05-07 07:57] VITALS: BP 125/82
[2021-05-07 08:04] LABS: ALANINE AMINOTRANSFERASE 51 U/L (12-78); ALBUMIN 3.6 G/DL (3.4-5.0); ALBUMIN/GLOBULIN RATIO 1.1 (1.1-1.5); ALKALINE PHOSPHATASE 65 IU/L (46-116); AMYLASE 81 U/L (25-115); ANION GAP 10 (8-16); ASPARTATE AMINO TRANSFERASE 22 U/L (10-37); BILIRUBIN,TOTAL 0.5 MG/DL (0.1-1.0); BLOOD UREA NITROGEN 15 MG/DL (7-18); BUN/CREATININE RATIO 15.3 (5.4-32.0); CALCIUM 8.6 MG/DL (8.5-10.1); CHLORIDE 105 MMOL/L (99-107); CREATININE 0.98 MG/DL (0.60-1.10); GLUCOSE 112 MG/DL (70-104); LIPASE 136 U/L (73-393); MAGNESIUM 2.2 MG/DL (1.5-2.4); PHOSPHORUS 3.5 MG/DL (2.3-4.5); POTASSIUM 4.2 MMOL/L (3.5-5.1); SODIUM 140 MMOL/L (135-145); TOTAL CARBON DIOXIDE 25.5 MMOL/L (24-32); TOTAL PROTEIN 6.9 G/DL (6.4-8.2); eGFR 84 ML/MIN
[2021-05-07] MEDS: hydrOXYzine 25 MG tablet PO PRN (10:35)
--- NOTE | 2021-05-07 17:09 | NUR ---
Nursing Progress Note: Legal hold: Voluntary Client on involuntary status for DTS Report received from nurse with use of SBAR: FLO Palacio Why are they here: here: Patient admitted with suicidal ideation states he is having weird suicidal thoughts but no plan right now. He did have a plan earlier. He states he drinks more than 750 cc of whiskey a day his last drink being the night before his admission. He also has a longstanding history of heroin and meth abuse. He has had a recent significant loss of his significant other. He also feels hopeless with his urostomy bag and difficulties with not making right life choices. Assessment What has happened this shift: RN received pt. asleep at start of shift. Pt. awoke for breakfast and took all medications. 1:1 done at bedside, pt. reports SI with plan to take sleeping pills and whiskey, when asked why feeling this way pt. reports feeling isolated because most of his family is gone. Pt. reports he last saw his brothers in [place] 11 years ago. Pt. reports wanting to discharge soon, when asked if he felt that was a good idea with his SI pt. states, Ill be alright. Pt. c/o of anxiety and given Atarax 100mg po x1. Pt. c/o of chronic urostomy sight pain. Urostomy assessed and looks bright pink without signs of infection. Pt. given Ultram 5/325 with good effect. Pt. isolated to his room and read books for most of the day. SI/HI: SI with plan to take sleeping pills and whiskey. A/VH: Denies Sleep: Pt. slept 7.25 hrs on NOC shift and napped intermittently throughout the day. ADL's: Independent Group attendance: No Were meds taken: Yes Any med S/E: Denies Mental Status Exam Appearance: Neat and appropriately dressed. Eye contact: Good Behavior: Cooperative, isolates to room most of the day and reads in bed. Speech: Minimal, responds to direct questions. Mood: Depressed. Affect: Congruent with mood. Thought process: Linear Thought Content: Circumstantial. Cognition: A&O X4 Insight: Fair Judgment: Fair Interventions PRN's used: [place] x1, Atarax x1 Therapeutic interventions: Maintained a safe and supportive environment, ensured contract for safety, provided clear and simple instructions, provided active listening and positive encouragement, monitored for pain and provided medication as needed, and maintained Q 15min safety checks. Restraints/seclusion/emergency medication: N/A Justification of Continued Inpatient Treatment: Per Dr. Jennings, pt. continues to require a safe and supportive environment. He will discharge home with outpatient recovery when ready.
[2021-05-07] MEDS: traZODone 50mg tablet PO SCH (20:04)
[2021-05-07] MEDS: olanzapine 10mg tablet PO SCH (20:04)
[2021-05-07 20:38] VITALS: BP 129/82
--- NOTE | 2021-05-08 00:37 | NUR ---
Nursing Progress Note: Legal hold: Voluntary Client on involuntary status for DTS Report received from nurse with use of SBAR: FLO Stevenson Why are they here: here: Patient admitted with suicidal ideation states he is having weird suicidal thoughts but no plan right now. He did have a plan earlier. He states he drinks more than 750 cc of whiskey a day his last drink being the night before his admission. He also has a longstanding history of heroin and meth abuse. He has had a recent significant loss of his significant other. He also feels hopeless with his urostomy bag and difficulties with not making right life choices. Assessment What has happened this shift: Patient was in bed reading at shift change. He was in a good mood this shift ate snack in the Group Room and watched the game for a little while. He returned to his room asked for a pain pill and read till 2330 before falling to sleep. SI/HI: SI with plan to take sleeping pills and whiskey. A/VH: Denies Sleep: Pt. slept 7.25 hrs on NOC shift and napped intermittently throughout the day. ADL's: Independent Group attendance: No Were meds taken: Yes Any med S/E: Denies Mental Status Exam Appearance: Neat and appropriately dressed. Eye contact: Good Behavior: Cooperative, isolates to room most of the day and reads in bed. Speech: Minimal, responds to direct questions. Mood: Depressed. Affect: Congruent with mood. Thought process: Linear Thought Content: Circumstantial. Cognition: A&O X4 Insight: Fair Judgment: Fair Interventions PRN's used: [place] x1, Therapeutic interventions: Maintained a safe and supportive environment, ensured contract for safety, provided clear and simple instructions, provided active listening and positive encouragement, monitored for pain and provided medication as needed, and maintained Q 15min safety checks. Restraints/seclusion/emergency medication: N/A Justification of Continued Inpatient Treatment: Per Dr. Jennings, pt. continues to require a safe and supportive environment. He will discharge home with outpatient recovery when ready.
[2021-05-08] MEDS: HYDROcodone/acetaminophen 5mg/325mg tablet PO PRN ×2 (06:46→22:36)
[2021-05-08 07:23] VITALS: BP 129/79
[2021-05-08] MEDS: hydrOXYzine 25 MG tablet PO SCH ×3 (07:45→20:25)
[2021-05-08] MEDS: folic acid 1mg tablet PO SCH (07:45)
[2021-05-08] MEDS: thiamine 100mg tablet PO SCH (07:45)
[2021-05-08] MEDS: multivitamins, therapeutics tablet PO SCH (07:45)
[2021-05-08] MEDS: lactobacillus rhamnosus 10,000 MMU CELLS/CAPSULE PO SCH ×2 (07:46→20:24)
[2021-05-08] MEDS: sertraline 50mg tablet PO SCH (07:46)
[2021-05-08] MEDS ORDERED: HYDROcodone/acetaminophen 10/325mg tab PO ONE (13:45)
[2021-05-08 14:49] LABS: COLOR,URINE STRAW (Yellow); UA COLLECTION TYPE NON-SPECIFIED
[2021-05-08 14:50] LABS: CLARITY,URINE SLIGHTLY CLOUDY (Clear); GLUCOSE, URINE NEGATIVE (Neg); KETONES,URINE NEGATIVE (Neg); LEUKOCYTE ESTERASE ,URINE NEGATIVE (Neg); NITRITES, URINE NEGATIVE (Neg); OCCULT BLOOD,URINE NEGATIVE (Neg); PROTEIN,URINE NEGATIVE (Neg); UROBILINOGEN,URINE 0.2 E.U/dL (0.2-1.0)
[2021-05-08 14:53] LABS: MUCUS STRANDS NONE SEEN /LPF (Neg); SQUAMOUS EPITHELIAL CELL,UR NONE SEEN /LPF (FEW); TRANSITIONAL EPI CELLS,URINE FEW /HPF
[2021-05-08 14:54] LABS: BACTERIA,URINE FEW /HPF (Neg); RBC,URINE NONE SEEN /HPF (0-2); WBC,URINE NONE SEEN /HPF (0-4)
--- NOTE | 2021-05-08 17:47 | NUR ---
Nursing Progress Note: Legal hold: Voluntary Client on involuntary status for DTS Report received from nurse with use of SBAR: FLO Sanz Why are they here: here: Patient admitted with suicidal ideation states he is having weird suicidal thoughts but no plan right now. He did have a plan earlier. He states he drinks more than 750 cc of whiskey a day his last drink being the night before his admission. He also has a longstanding history of heroin and meth abuse. He has had a recent significant loss of his significant other. He also feels hopeless with his urostomy bag and difficulties with not making right life choices. Assessment What has happened this shift: RN received pt. asleep at start of shift. Pt. awoke for breakfast and took all medications. 1:1 done at bedside, pt. denies SI today and states he feels hes ready to go soon. Pt. c/o of urostomy site pain rated 8/10 and given [place] 5/325 x1. Pt. reported little relief from pain and provider ordered x1 [place] 10/325 with good effect. SI/HI: Denies A/VH: Denies Sleep: Pt. slept 5.75 hrs on NOC shift and did not appear to nap during the day time. ADL's: Independent Group attendance: No Were meds taken: Yes Any med S/E: Denies Mental Status Exam Appearance: Neat and appropriately dressed. Eye contact: Good Behavior: Cooperative, isolates to room most of the day and reads in bed. Speech: Minimal, responds to direct questions. Mood: Depressed. Affect: Congruent with mood. Thought process: Linear Thought Content: Circumstantial. Cognition: A&O X4 Insight: Fair Judgment: Fair Interventions PRN's used: [place] 5/325 and Farnam 10/325 x1. Therapeutic interventions: Maintained a safe and supportive environment, ensured contract for safety, provided clear and simple instructions, provided active listening and positive encouragement, monitored for pain and provided medication as needed, and maintained Q 15min safety checks. Restraints/seclusion/emergency medication: N/A Justification of Continued Inpatient Treatment: Per Dr. Jennings, pt. continues to require a safe and supportive environment. He will discharge home with outpatient recovery when ready.
[2021-05-08 20:00] VITALS: BP 132/83
[2021-05-08] MEDS: olanzapine 10mg tablet PO SCH (20:25)
[2021-05-08] MEDS: traZODone 50mg tablet PO SCH (20:25)
--- NOTE | 2021-05-09 01:47 | NUR ---
Nursing Progress Note: Legal hold: Voluntary Client on involuntary status for DTS Report received from nurse with use of SBAR: FLO Stevenson Why are they here: here: Patient admitted with suicidal ideation states he is having weird suicidal thoughts but no plan right now. He did have a plan earlier. He states he drinks more than 750 cc of whiskey a day his last drink being the night before his admission. He also has a longstanding history of heroin and meth abuse. He has had a recent significant loss of his significant other. He also feels hopeless with his urostomy bag and difficulties with not making right life choices. Assessment What has happened this shift: Patient was in bed reading at shift change. Pt got up to get a new book and stated to this marketing underwriter that he stays in his room and reads to stay out of the elevated behaviors on the unit . Pt denies SI and AH and said he feels that he could D/C soon. SI/HI: Denies A/VH: Denies Sleep: See sleep assessment. ADL's: Independent Group attendance: No Were meds taken: Yes Any med S/E: Denies Mental Status Exam Appearance: Neat and appropriately dressed. Eye contact: Good Behavior: Cooperative, isolates to room most of the day and reads in bed. Speech: Minimal, responds to direct questions. Mood: Depressed. Affect: Congruent with mood. Thought process: Linear Thought Content: Circumstantial. Cognition: A&O X4 Insight: Fair Judgment: Fair Interventions PRN's used: [place] 5/325 Therapeutic interventions: Maintained a safe and supportive environment, ensured contract for safety, provided clear and simple instructions, provided active listening and positive encouragement, monitored for pain and provided medication as needed, and maintained Q 15min safety checks. Restraints/seclusion/emergency medication: N/A Justification of Continued Inpatient Treatment: Per Dr. Jennings, pt. continues to require a safe and supportive environment. He will discharge home with outpatient recovery when ready.
[2021-05-09] MEDS: multivitamins, therapeutics tablet PO SCH (07:09)
[2021-05-09] MEDS: hydrOXYzine 25 MG tablet PO SCH ×2 (07:09→12:25)
[2021-05-09] MEDS: thiamine 100mg tablet PO SCH (07:09)
[2021-05-09] MEDS: folic acid 1mg tablet PO SCH (07:09)
[2021-05-09] MEDS: sertraline 50mg tablet PO SCH (07:09)
[2021-05-09] MEDS: lactobacillus rhamnosus 10,000 MMU CELLS/CAPSULE PO SCH (07:09)
[2021-05-09] MEDS: HYDROcodone/acetaminophen 5mg/325mg tablet PO PRN (07:15)
[2021-05-09 08:00] VITALS: BP 144/94
[2021-05-09] MEDS ORDERED: OLAN10TA73 PO (12:08)
[2021-05-09] MEDS ORDERED: SERT-434 PO (12:08)
[2021-05-09] MEDS ORDERED: HYDR50TA65 PO (12:08)
[2021-05-09] MEDS ORDERED: HYDR-3568 PO ×2 (12:08)
[2021-05-09] MEDS ORDERED: TRAZ-251 PO (12:08)
--- NOTE | 2021-05-09 13:00 | NUR ---
Discharge Note: Pt. discharged from [facility] at 1300 accompanied by this sql report writer. Belongings were inventoried and returned to pt. by [employer], and this wrier reviewed medications and discharge instructions and he reported understanding. Pt. will be walking to catch the bus to take him to his apartment, as he did not wish to wait for his friend to pick him up as originally planned (friend would not be able to arrive for a few hours). Pt's friend will be able to take him to [facility] later in order to pick-up his mediations which were called-in. No nicotine replacement required. Pt. is able to contract for safety. He has medical supplies for his urostomy with him at this time.
[2021-05-09] MEDS ORDERED: HYDR-3965 PO (17:42)
== END 2021-05-09 13:25 | disposition home or self-care (01) | DRG 751 ==
LOC: ER 10:02 → ED HOLD 05-01 11:08 → ADULT MH 05-01 20:34
PROVIDERS: ADMIT Psychiatry & Neurology Psychiatry; ATTEND Psychiatry & Neurology Psychiatry
DX: F33.2 Major depressive disorder, recurrent severe without psychotic features (principal); G10 Huntington's disease; R45.851 Suicidal ideations; F10.20 Alcohol dependence, uncomplicated; F15.10 Other stimulant abuse, uncomplicated; F17.210 Nicotine dependence, cigarettes, uncomplicated; F12.10 Cannabis abuse, uncomplicated; F41.9 Anxiety disorder, unspecified; G89.29 Other chronic pain; N39.0 Urinary tract infection, site not specified; R31.9 Hematuria, unspecified; Z59.0 Homelessness; Z65.3 Problems related to other legal circumstances; Z81.8 Family history of other mental and behavioral disorders; Z86.14 Personal history of Methicillin resistant Staphylococcus aureus infection; Z88.1 Allergy status to other antibiotic agents; Z93.3 Colostomy status; Z88.8 Allergy status to other drugs, medicaments and biological substances; Z91.030 Bee allergy status; Z56.0 Unemployment, unspecified; Z79.899 Other long term (current) drug therapy; Z71.6 Tobacco abuse counseling
CPT/HCPCS: 36415; 80053; 80061; 80305; 80320; 81001; 82150; 83036; 83690; 83735; 84100; 84443; 85025; 85610; 87081; 87635; 99285; C9803; Q0177

== ENCOUNTER → 2021-05-13 | Emergency (ER) | payer MEDICAID ==
[~2021-05-13] VITALS: Ht 172.7 cm; Wt 79.6 kg
[~2021-05-13] MED LIST changes: +CIPR-259 PO; +HYDR50TA65 PO; +OLAN10TA73 PO; -ONDA4TAB6 PO; +SERT-434 PO; +TRAZ-251 PO
--- NOTE | 2021-05-13 12:33 | NUR ---
Patient seen in ED by Doctor Sissy. V/O from Dr. Alonso, give patient his home medications. Zoloft 150 mg PO now. Atarax 100 mg PO Now. Olazapine 10 mg PO now. All med's given. Sally Boyd RN Patient instructed to take his Trazadone for sleep when he gets home.
--- NOTE | 2021-05-13 12:40 | NUR ---
Patient seen by Dr. Alonso, disch to home with flu instructions. Patient states is homeless.
[2021-05-13 12:41] VITALS: BP 144/78
== END | disposition home or self-care (01) ==
LOC: ER 15:49
DX: F29 Unspecified psychosis not due to a substance or known physiological condition (principal); F15.10 Other stimulant abuse, uncomplicated; F12.90 Cannabis use, unspecified, uncomplicated; G89.29 Other chronic pain; Z56.0 Unemployment, unspecified; Z59.0 Homelessness; Z90.89 Acquired absence of other organs; Z87.81 Personal history of (healed) traumatic fracture; Z86.14 Personal history of Methicillin resistant Staphylococcus aureus infection; Z87.440 Personal history of urinary (tract) infections; Z72.89 Other problems related to lifestyle; Z88.1 Allergy status to other antibiotic agents; Z88.6 Allergy status to analgesic agent; Z91.030 Bee allergy status; Z88.8 Allergy status to other drugs, medicaments and biological substances; Z79.2 Long term (current) use of antibiotics; Z79.899 Other long term (current) drug therapy
CPT/HCPCS: 99281

== ENCOUNTER 2021-05-28 19:53 | Emergency (ER) | payer MEDICAID ==
[~2021-05-28] VITALS: Ht 172.7 cm; Wt 81.8 kg
[2021-05-29 04:34] VITALS: BP 152/100
== END 2021-05-29 05:00 | disposition home or self-care (01) ==
LOC: ER 19:54
DX: F15.959 Other stimulant use, unspecified with stimulant-induced psychotic disorder, unspecified (principal); G89.29 Other chronic pain; F12.90 Cannabis use, unspecified, uncomplicated; F15.90 Other stimulant use, unspecified, uncomplicated; Z87.81 Personal history of (healed) traumatic fracture; Z86.14 Personal history of Methicillin resistant Staphylococcus aureus infection; Z72.89 Other problems related to lifestyle; Z56.0 Unemployment, unspecified; Z59.00 Homelessness unspecified; Z88.8 Allergy status to other drugs, medicaments and biological substances; Z88.1 Allergy status to other antibiotic agents; Z88.6 Allergy status to analgesic agent; Z79.2 Long term (current) use of antibiotics; Z79.899 Other long term (current) drug therapy
CPT/HCPCS: 99283

== ENCOUNTER → 2021-06-04 | Emergency (ER) | payer MEDICAID ==
[~2021-06-04] VITALS: Ht 172.7 cm; Wt 81.8 kg
[~2021-06-04] MED LIST changes: +OLANZapine 2.5MG tablet PO STA; +hydrOXYzine 25 MG tablet PO PRN; +hydrOXYzine 25 MG tablet PO SCH; +traZODone 50mg tablet PO STA
[2021-06-04 18:50] LABS: BASOPHILS % (AUTO) 0.3 % (0-1); EOSINOPHILS % (AUTO) 0.7 % (0-6); HEMATOCRIT 43.2 % (42.0-52.0); HEMOGLOBIN 14.5 g/dl (14.0-17.9); LYMPHOCYTES # (AUTO) 0.5 X10'3 (1.1-4.8); LYMPHOCYTES % (AUTO) 13.7 % (21-51); MEAN CORPUSCULAR HEMOGLOBIN 30.5 PG (27.0-31.0); MEAN CORPUSCULAR HGB CONC 33.5 g/dL (33.0-36.5); MEAN CORPUSCULAR VOLUME 91.2 FL (78-98); MEAN PLATELET VOLUME 8.2 FL (7.4-10.4); MONOCYTES # (AUTO) 0.5 X10'3 (0-0.9); MONOCYTES % (AUTO) 13.2 % (2-12); NEUTROPHILS # (AUTO) 2.8 X10'3 (1.8-7.7); NEUTROPHILS % (AUTO) 72.1 % (42-75); PLATELET COUNT 263 X10'3 (140-440); RED BLOOD COUNT 4.74 X10'6 (4.70-6.10); RED CELL DISTRIBUTION WIDTH 13.9 % (11.5-14.5); WHITE BLOOD COUNT 3.9 X10'3 (4.5-11.0)
--- NOTE | 2021-06-04 18:58 | NUR ---
PT SITTING IN BED, WELL MANORED IN PLEASANT MOOD STATES "I DONT WANT TO LIVE ANYMORE". PT DENIES HAVING A PLAN TODAY BUT STATES HE HAS ATTEMPTED IN THE PAST CUTTING HIS WRIST. PT LATER STATES HE THOUGHT ABOUT SLITTING HIS THROAT WITH A CAN. PT HAS BAG ON RIGHT ABDOMEN FOR UROSTOMY. BAG SEEMS OLD AND HAS FOUL ODOR.
[2021-06-04 19:03] LABS: ALANINE AMINOTRANSFERASE 27 U/L (12-78); ALBUMIN 3.3 G/DL (3.4-5.0); ALBUMIN/GLOBULIN RATIO 0.9 (1.1-1.5); ALKALINE PHOSPHATASE 90 IU/L (46-116); ANION GAP 12 (8-16); ASPARTATE AMINO TRANSFERASE 26 U/L (10-37); BILIRUBIN,TOTAL 0.3 MG/DL (0.1-1.0); BLOOD UREA NITROGEN 14 MG/DL (7-18); BUN/CREATININE RATIO 12.5 (5.4-32.0); CALCIUM 8.6 MG/DL (8.5-10.1); CHLORIDE 102 MMOL/L (99-107); CREATININE 1.12 MG/DL (0.60-1.10); ETHANOL < 0.010 GM/DL (0.0-0.010); GLUCOSE 99 MG/DL (70-104); POTASSIUM 3.7 MMOL/L (3.5-5.1); SODIUM 141 MMOL/L (135-145); TOTAL CARBON DIOXIDE 27.3 MMOL/L (24-32); TOTAL PROTEIN 7.1 G/DL (6.4-8.2); eGFR 72 ML/MIN
[2021-06-04 20:16] LABS: URINE AMPHETAMINE SCREEN POSITIVE (Neg); URINE BARBITUATE SCREEN NEGATIVE (Neg); URINE BENZODIAZEPINES SCREEN NEGATIVE (Neg); URINE CANNABINOID SCREEN POSITIVE (Neg); URINE COCAINE SCREEN NEGATIVE (Neg); URINE METHADONE SCREEN NEGATIVE (Neg); URINE OPIATE SCREEN NEGATIVE (Neg); URINE PHENCYCLIDINE SCREEN NEGATIVE (Neg)
[2021-06-04 20:17] LABS: CLARITY,URINE SLIGHTLY CLOUDY (Clear); COLOR,URINE YELLOW (Yellow); GLUCOSE, URINE NEGATIVE (Neg); KETONES,URINE TRACE mg/dl (Neg); PROTEIN,URINE TRACE mg/dl (Neg); UA COLLECTION TYPE NON-SPECIFIED
[2021-06-04 20:18] LABS: NITRITES, URINE POSITIVE (Neg); OCCULT BLOOD,URINE NEGATIVE (Neg); UROBILINOGEN,URINE 0.2 E.U/dL (0.2-1.0)
[2021-06-04 20:21] LABS: LEUKOCYTE ESTERASE ,URINE NEGATIVE (Neg)
[2021-06-04 20:24] LABS: BACTERIA,URINE 1+ /HPF (Neg); RBC,URINE 0-2 /HPF (0-2); SQUAMOUS EPITHELIAL CELL,UR FEW /LPF (FEW)
[2021-06-04 20:25] LABS: WBC CLUMPS,URINE FEW /HPF (NEGATIVE)
--- NOTE | 2021-06-04 21:00 | NUR ---
PT RESTING IN BED APPEARS TO BE SLEEPING, NO SIGNS OF DISTRESS
--- NOTE | 2021-06-04 23:00 | NUR ---
PT RESTING IN BED, GAVE BLANKET AND SANDWICH
--- NOTE | 2021-06-05 01:34 | NUR ---
HELPED PT CHANGE HIS UROSTOMY BAG AND CLEAN HIMSELF. PT USED COMMODE FOR BM AND BEGAN COUGHING UNPRODUCTIVE. PT HOOKED UP TO VITALS MACHINE. PT NOW LAYING IN BED AND STOPPED COUGHING.
--- NOTE | 2021-06-05 03:44 | NUR ---
PT SLEEPING WITH NO SIGNS OF DISTRESS, RESPIRATIONS EVEN AND UNLABORED.
--- NOTE | 2021-06-05 05:29 | NUR ---
PT CONTINUES TO SLEEP ON RIGHT SIDE WITH NO OBVIOUS DISTRESS, REGULAR RESPIRATIONS
[2021-06-05] MEDS: sertraline 50mg tablet PO SCH (16:26)
[2021-06-05] MEDS: traZODone 50mg tablet PO SCH (21:54)
[2021-06-05] MEDS: olanzapine 10mg tablet PO SCH (21:54)
[2021-06-06] MEDS: sertraline 50mg tablet PO SCH (09:01)
--- NOTE | 2021-06-06 20:00 | NUR ---
PT IS LYING DOWN IN BED OBSERVING PEOPLE WALK ON THE MCDANIEL. HE HAS NO COMPLAINTS AT PRESENT.
--- NOTE | 2021-06-06 22:00 | NUR ---
PT GIVEN A SANDWICH AND YOGURT UPON REQUEST FOR FOOD. NO KNIVES OR FORKS IN ROOM. PT REPORTS THAT OTHER THAN FEELING MILD GENERAL WEAKNESS, HE IS FEELING WELL. DENIES ANY SOB OR ANY OTHER SYMPTOMS. NOTES STILL 'FEELING DEPRESSED' BUT IS CURRENTLY DENYING ANY SUICIDAL IDEATIONS. WHEN TALKED ABOUT DRUG USE, HE STATED 'I DON'T CARE IF IT CAUSES MY HEART TO STOP'. PT MEDICATED AND GIVEN A NEW WARM BLANKET.
[2021-06-06] MEDS: olanzapine 10mg tablet PO SCH (22:04)
[2021-06-06] MEDS: traZODone 50mg tablet PO SCH (22:04)
[2021-06-06 22:06] VITALS: BP 122/82
--- NOTE | 2021-06-06 23:51 | NUR ---
PT IS COMFORTABLY SLEEPING IN BED. EQUAL RISE AND FALL OF CHEST .
--- NOTE | 2021-06-07 02:31 | NUR ---
PT IS SLEEPING COMFORTABLY, EQUAL RISE AND FALL OF CHEST
== END ==
LOC: ER 13:36
DX: F22 Delusional disorders (principal); Z20.822 Contact with and (suspected) exposure to COVID-19; F29 Unspecified psychosis not due to a substance or known physiological condition; G89.29 Other chronic pain; F12.90 Cannabis use, unspecified, uncomplicated; F15.90 Other stimulant use, unspecified, uncomplicated; F11.90 Opioid use, unspecified, uncomplicated; Z86.14 Personal history of Methicillin resistant Staphylococcus aureus infection; Z87.81 Personal history of (healed) traumatic fracture; Z87.440 Personal history of urinary (tract) infections; Z72.89 Other problems related to lifestyle; Z56.0 Unemployment, unspecified; Z59.00 Homelessness unspecified; Z88.8 Allergy status to other drugs, medicaments and biological substances; Z88.1 Allergy status to other antibiotic agents; Z88.6 Allergy status to analgesic agent; Z91.030 Bee allergy status; Z79.2 Long term (current) use of antibiotics
CPT/HCPCS: 36415; 80053; 80305; 80320; 81001; 85025; 87635; 99285; C9803; Q0177

== ENCOUNTER 2021-06-16 09:56 | Emergency (ER) | payer MEDICAID ==
[~2021-06-16] VITALS: Ht 175.3 cm; Wt 82.3 kg
[~2021-06-16 09:56] MED LIST changes: -CIPR-259 PO; -OLANZapine 2.5MG tablet PO STA; -hydrOXYzine 25 MG tablet PO PRN; -hydrOXYzine 25 MG tablet PO SCH; -traZODone 50mg tablet PO STA
[2021-06-16 10:07] VITALS: BP 120/84
== END 2021-06-16 11:47 | disposition home or self-care (01) ==
LOC: ER 09:57
DX: Z02.89 Encounter for other administrative examinations (principal); G89.29 Other chronic pain; F41.9 Anxiety disorder, unspecified; F32.9 Major depressive disorder, single episode, unspecified; F17.210 Nicotine dependence, cigarettes, uncomplicated; F12.90 Cannabis use, unspecified, uncomplicated; F15.90 Other stimulant use, unspecified, uncomplicated; F11.90 Opioid use, unspecified, uncomplicated; Z87.440 Personal history of urinary (tract) infections; Z86.14 Personal history of Methicillin resistant Staphylococcus aureus infection; Z98.890 Other specified postprocedural states; Z72.89 Other problems related to lifestyle; Z59.00 Homelessness unspecified; Z56.0 Unemployment, unspecified; Z88.6 Allergy status to analgesic agent; Z88.1 Allergy status to other antibiotic agents; Z88.8 Allergy status to other drugs, medicaments and biological substances; Z91.030 Bee allergy status; Z79.899 Other long term (current) drug therapy
CPT/HCPCS: 99281

== ENCOUNTER 2021-11-04 07:08 | Emergency (ER) | payer MEDICAID ==
[~2021-11-04] VITALS: Ht 172.7 cm; Wt 75.0 kg
[~2021-11-04 07:08] MED LIST changes: +DIVA500T9 PO; -HYDR50TA65 PO; +NICO-907 BC; -OLAN10TA73 PO; +QUET100T34 PO; +QUET25TA36 PO; -TRAZ-251 PO
--- NOTE | 2021-11-04 09:06 | NUR ---
Pt provided with 2 ostomy change kits.
[2021-11-04 09:08] VITALS: BP 95/47
--- NOTE | 2021-11-04 09:24 | NUR ---
Pt requested sweatpants. None available. No further needs at this time.
--- NOTE | 2021-11-04 09:50 | NUR ---
Updated pt on wait for d/c
--- NOTE | 2021-11-04 09:59 | NUR ---
Pt not in room, assumed to have left. Will check back in a few minutes.
== END 2021-11-04 10:07 | disposition home or self-care (01) ==
LOC: ER 07:13
DX: K94.09 Other complications of colostomy (principal); G89.29 Other chronic pain; F12.90 Cannabis use, unspecified, uncomplicated; F15.90 Other stimulant use, unspecified, uncomplicated; F11.90 Opioid use, unspecified, uncomplicated; Z87.81 Personal history of (healed) traumatic fracture; Z86.14 Personal history of Methicillin resistant Staphylococcus aureus infection; Z87.440 Personal history of urinary (tract) infections; Z56.0 Unemployment, unspecified; Z59.00 Homelessness unspecified; Z88.8 Allergy status to other drugs, medicaments and biological substances; Z79.2 Long term (current) use of antibiotics; Z79.899 Other long term (current) drug therapy; Z88.1 Allergy status to other antibiotic agents; Z88.6 Allergy status to analgesic agent; Z91.030 Bee allergy status; Y83.3 Surgical operation with formation of external stoma as the cause of abnormal reaction of the patient, or of later complication, without mention of misadventure at the time of the procedure; Y73.1 Therapeutic (nonsurgical) and rehabilitative gastroenterology and urology devices associated with adverse incidents; Y92.89 Other specified places as the place of occurrence of the external cause
CPT/HCPCS: 99281

== ENCOUNTER 2021-11-07 21:41 | Emergency (ER) | payer MEDICAID ==
[~2021-11-07] VITALS: Ht 325.1 cm; Wt 72.0 kg
--- NOTE | 2021-11-08 01:53 | NUR ---
patient changed into green ubs room, safe. Calm and cooperative. Given po food and fluids.
[2021-11-08 02:04] LABS: BASOPHILS % (AUTO) 0.5 % (0-1); EOSINOPHILS # (AUTO) 0.2 X10'3 (0-0.9); EOSINOPHILS % (AUTO) 2.3 % (0-6); HEMATOCRIT 39.3 % (42.0-52.0); HEMOGLOBIN 12.3 g/dl (14.0-17.9); LYMPHOCYTES # (AUTO) 1.7 X10'3 (1.1-4.8); LYMPHOCYTES % (AUTO) 22.3 % (21-51); MEAN CORPUSCULAR HEMOGLOBIN 24.4 PG (27.0-31.0); MEAN CORPUSCULAR HGB CONC 31.3 g/dL (33.0-36.5); MEAN CORPUSCULAR VOLUME 77.9 FL (78-98); MEAN PLATELET VOLUME 8.1 FL (7.4-10.4); MONOCYTES # (AUTO) 0.5 X10'3 (0-0.9); MONOCYTES % (AUTO) 6.8 % (2-12); NEUTROPHILS # (AUTO) 5.3 X10'3 (1.8-7.7); NEUTROPHILS % (AUTO) 68.1 % (42-75); PLATELET COUNT 481 X10'3 (140-440); RED BLOOD COUNT 5.05 X10'6 (4.70-6.10); RED CELL DISTRIBUTION WIDTH 16.1 % (11.5-14.5); WHITE BLOOD COUNT 7.8 X10'3 (4.5-11.0)
[2021-11-08 02:16] LABS: ALANINE AMINOTRANSFERASE 30 U/L (12-78); ALBUMIN 3.3 G/DL (3.4-5.0); ALBUMIN/GLOBULIN RATIO 0.8 (1.1-1.5); ALKALINE PHOSPHATASE 88 IU/L (46-116); ANION GAP 14 (8-16); ASPARTATE AMINO TRANSFERASE 24 U/L (10-37); BILIRUBIN,TOTAL 0.2 MG/DL (0.1-1.0); BLOOD UREA NITROGEN 13 MG/DL (7-18); BUN/CREATININE RATIO 15.9 (5.4-32.0); CALCIUM 8.8 MG/DL (8.5-10.1); CHLORIDE 103 MMOL/L (99-107); CREATININE 0.82 MG/DL (0.60-1.10); ETHANOL < 0.010 GM/DL (0.0-0.010); GLUCOSE 95 MG/DL (70-104); POTASSIUM 3.4 MMOL/L (3.5-5.1); SODIUM 141 MMOL/L (135-145); TOTAL CARBON DIOXIDE 24.4 MMOL/L (24-32); TOTAL PROTEIN 7.3 G/DL (6.4-8.2); eGFR > 90 ML/MIN
--- NOTE | 2021-11-08 02:22 | NUR ---
Patient asleep in room, chest rise and fall.
--- NOTE | 2021-11-08 03:14 | NUR ---
Patient asleep in room, chest rise and fall.
--- NOTE | 2021-11-08 03:33 | NUR ---
PATIENT ARRIVED WITH COLOSTOMY AND ILEOSTOMY. COLOSTOMY CHANGED WITH SOFT YELLOW STOOL, STOMA INTACT PRESENT. ILEOSTOMY CHANGED STOMA INTACT.
--- NOTE | 2021-11-08 04:44 | NUR ---
Patient ask for urine ambulated to bathroom, no urine at this. aware urine needed
--- NOTE | 2021-11-08 05:14 | NUR ---
Patient asleep in room, chest rise and fall.
--- NOTE | 2021-11-08 05:40 | NUR ---
PATIENT WOKE UP AMBULATES TO BATHROOM. STILL + sUICIDAL IDEATIONS WITHOUT PLAN.
[2021-11-08 06:17] LABS: CLARITY,URINE CLEAR (Clear); GLUCOSE, URINE NEGATIVE (Neg); KETONES,URINE NEGATIVE (Neg); LEUKOCYTE ESTERASE ,URINE MODERATE (Neg); NITRITES, URINE NEGATIVE (Neg); OCCULT BLOOD,URINE MODERATE (Neg); PH,URINE 6.5 (4.8-8.0); PROTEIN,URINE NEGATIVE (Neg); UROBILINOGEN,URINE 0.2 E.U/dL (0.2-1.0)
[2021-11-08 06:29] LABS: URINE AMPHETAMINE SCREEN NEGATIVE (Neg); URINE BARBITUATE SCREEN NEGATIVE (Neg); URINE BENZODIAZEPINES SCREEN NEGATIVE (Neg); URINE CANNABINOID SCREEN POSITIVE (Neg); URINE COCAINE SCREEN NEGATIVE (Neg); URINE METHADONE SCREEN NEGATIVE (Neg); URINE OPIATE SCREEN NEGATIVE (Neg); URINE PHENCYCLIDINE SCREEN NEGATIVE (Neg)
[2021-11-08 06:30] LABS: COLOR,URINE STRAW (Yellow); UA COLLECTION TYPE NON-SPECIFIED
[2021-11-08 06:32] LABS: BACTERIA,URINE 1+ /HPF (Neg); MUCUS STRANDS NONE SEEN /LPF (Neg); RBC,URINE 0-2 /HPF (0-2); SQUAMOUS EPITHELIAL CELL,UR FEW /LPF (FEW); WBC CLUMPS,URINE FEW /HPF (NEGATIVE)
--- NOTE | 2021-11-08 12:37 | NUR ---
PT. TRANSFERRED FROM MAIN ER TO [facility]. PT. PLACED IN BED #22. PT. ORIENTED TO THE UNIT. PERSONAL BELONGING PLACED IN LOCKER #22. ORDER PLACED FO LUNCH TRAY. STAFF WILL CONTINUE TO MONITOR.
--- NOTE | 2021-11-08 13:23 | NUR ---
WOUND CARE AT BEDSIDE TO CHANGE OUT OSTOMY BAGS.
--- NOTE | 2021-11-08 13:56 | NUR ---
PT GIVEN ORANGE JUICE AND TERESA CRACKERS.
--- NOTE | 2021-11-08 15:00 | NUR ---
PT. LYING IN BED YELLING AND HAS REMOVED HIS SHIRT. PT. OSTOMY BAGS HAVE BEEN REMOVED FROM THE STOMAS. PT. YELLING THIS KEEPS HAPPENING. PT. REMOVED ALL HIS CLOTHING AND THROUGH THEM ON THE FLOOR AND HAS BOTH OSTOMY BAG WITH FECES LYING ON HIS BEDSIDE TABLE. PT. INSTRUCTED HE NEEDED TO GO INTO THE RESTROOM AND CLEAN HIMSELF. PT. WALKED ACROSS THE UNIT NAKED NOT GIVING STAFF TIME TO PROVIDE HIM SCRUBS. SECURITY CALLED TO THE UNIT FOR ASSISTANCE AND WOUNDCARE NURSE NOTIFIED OF NEED FOR MORS OSTOMY SUPPLIES. PT. OUT OF RESTROOM GIVEN SCRUBS AND NEW SHEETS FOR HIS BED. WOUND CARE NURSE BROUGHT 2 SETS OF COLCOSTOMY AND UROSTOMY BAGS. PT. ABLE TO PERFORM OSTOMY CARE AND WAS PROVIDED WITH SUPPLIES. STAFF WILL CONTINUE TO MONITOR.
--- NOTE | 2021-11-08 15:20 | NUR ---
THIS STONE BANKER SPOKE WITH [facility] CLINICIAN FOR UPDATE IN REGARDS TO DISPOSITON. PT. CURRENT WILL NOT BE PLACED ON A HOLD. [facility] CLINICIAN INFORMED PT. THAT NO MORE NEGATIVE BEHAVIOR SHOULD OCCUR. PT. SCHEDULED TO BE DISCHARGED TOMORROW.
[2021-11-08] MEDS ORDERED: NICO-668 MM (17:13)
[2021-11-08] MEDS ORDERED: DIVA500T9 PO (17:13)
[2021-11-08] MEDS ORDERED: QUET-1 PO (17:13)
[2021-11-08] MEDS ORDERED: QUET50TA PO (17:13)
[2021-11-08] MEDS ORDERED: SERT100T PO (17:13)
--- NOTE | 2021-11-08 17:13 | NUR ---
MED. RECONCILIATION VERFIED WITH HEMALATHA SAM.
[2021-11-08] MEDS ORDERED: acetaminophen 325mg tablet PO PRN (18:00)
[2021-11-08] MEDS ORDERED: NICOTINE POLACRILEX 2 MG LOZENGE BC PRN (18:00)
--- NOTE | 2021-11-08 19:07 | NUR ---
PATIENT RECEIVED LYING IN BED IN NO OBVIOUS DISTRESS. NO PHYSICAL COMPLAINT MADE.PATIENT COLOSTOMY AND ILEOSTOMY INTACT AND CLEAN. PATIENT STATES THAT HE IS JUST DEPRESS WITH HIS SITUATION. PATIENT DENIES HAVING ANY SUICIDAL IDEATION AT THIS TIME.
[2021-11-08] MEDS ORDERED: quetiapine 100mg tablet PO SCH (21:00)
[2021-11-08] MEDS ORDERED: divalproex sod 250mg ER (24-hour) tablet PO SCH (21:00)
--- NOTE | 2021-11-09 02:51 | NUR ---
PATIENT ASLEEP IN NO OBVIOUS DISTRESS.OBSERVATION ONGOING
[2021-11-09 05:19] VITALS: BP 99/63
--- NOTE | 2021-11-09 06:00 | NUR ---
Patient received from FLO Becker.
--- NOTE | 2021-11-09 06:01 | NUR ---
PATIENT ASLEEP BUT EASILY AROUSE. OBSERVATION ONGOING.
[2021-11-09] MEDS ORDERED: sertraline 50mg tablet PO SCH (08:00)
[2021-11-09] MEDS ORDERED: quetiapine 100mg tablet PO SCH (08:00)
--- NOTE | 2021-11-09 10:12 | NUR ---
Patient was discharged home. Suicide and crisis hotline numbers provided to patient. Patient escorted out by security.
== END 2021-11-09 10:12 | disposition home or self-care (01) ==
LOC: ER 21:43
DX: R45.851 Suicidal ideations (principal); Z20.822 Contact with and (suspected) exposure to COVID-19; R11.10 Vomiting, unspecified; M79.671 Pain in right foot; G89.29 Other chronic pain; F41.9 Anxiety disorder, unspecified; F32.A Depression, unspecified; F12.90 Cannabis use, unspecified, uncomplicated; F15.90 Other stimulant use, unspecified, uncomplicated; F11.90 Opioid use, unspecified, uncomplicated; Z87.440 Personal history of urinary (tract) infections; Z86.14 Personal history of Methicillin resistant Staphylococcus aureus infection; Z98.890 Other specified postprocedural states; Z72.89 Other problems related to lifestyle; Z59.00 Homelessness unspecified; Z56.0 Unemployment, unspecified; Z88.6 Allergy status to analgesic agent; Z88.1 Allergy status to other antibiotic agents; Z88.8 Allergy status to other drugs, medicaments and biological substances; Z91.030 Bee allergy status; Z79.899 Other long term (current) drug therapy
CPT/HCPCS: 36415; 80053; 80305; 80320; 81001; 84443; 85025; 87635; 99285; C9803

== ENCOUNTER 2021-11-14 20:45 | Emergency (ER) | payer MEDICAID ==
[~2021-11-14] VITALS: Ht 172.7 cm; Wt 72.7 kg
[~2021-11-14 20:45] MED LIST changes: +NICO-668 MM; -NICO-907 BC; +QUET-1 PO; -QUET100T34 PO; -QUET25TA36 PO; +QUET50TA PO; -SERT-434 PO; +SERT100T PO
[2021-11-14 20:55] VITALS: BP 145/88
== END 2021-11-14 22:52 | disposition home or self-care (01) ==
LOC: ER 20:47
DX: K94.00 Colostomy complication, unspecified (principal); F31.9 Bipolar disorder, unspecified; G89.29 Other chronic pain; Z87.81 Personal history of (healed) traumatic fracture; Z88.6 Allergy status to analgesic agent; Z88.5 Allergy status to narcotic agent; Z88.1 Allergy status to other antibiotic agents; Z79.899 Other long term (current) drug therapy; Z91.030 Bee allergy status
CPT/HCPCS: 99281

== ENCOUNTER 2021-11-17 14:52 | Emergency (ER) | payer MEDICAID ==
[~2021-11-17] VITALS: Ht 172.7 cm; Wt 72.7 kg
[2021-11-17 15:01] VITALS: BP 148/61
== END 2021-11-17 16:41 | disposition home or self-care (01) ==
LOC: ER 14:58
DX: Z02.89 Encounter for other administrative examinations (principal); G89.29 Other chronic pain; F41.9 Anxiety disorder, unspecified; F32.A Depression, unspecified; F12.90 Cannabis use, unspecified, uncomplicated; F15.90 Other stimulant use, unspecified, uncomplicated; F11.90 Opioid use, unspecified, uncomplicated; Z87.440 Personal history of urinary (tract) infections; Z86.14 Personal history of Methicillin resistant Staphylococcus aureus infection; Z98.890 Other specified postprocedural states; Z72.89 Other problems related to lifestyle; Z56.0 Unemployment, unspecified; Z59.00 Homelessness unspecified; Z88.6 Allergy status to analgesic agent; Z88.1 Allergy status to other antibiotic agents; Z88.8 Allergy status to other drugs, medicaments and biological substances; Z91.030 Bee allergy status; Z79.899 Other long term (current) drug therapy
CPT/HCPCS: 99281

== ENCOUNTER 2021-12-12 13:30 | Emergency (ER) | payer MEDICAID ==
[~2021-12-12] VITALS: Ht 172.7 cm; Wt 70.5 kg
[2021-12-12 14:00] VITALS: BP 128/84
== END 2021-12-12 15:01 | disposition home or self-care (01) ==
LOC: ER 13:31
DX: Z43.3 Encounter for attention to colostomy (principal); F12.90 Cannabis use, unspecified, uncomplicated; F15.90 Other stimulant use, unspecified, uncomplicated; F11.90 Opioid use, unspecified, uncomplicated; G89.29 Other chronic pain; Z87.81 Personal history of (healed) traumatic fracture; Z86.14 Personal history of Methicillin resistant Staphylococcus aureus infection; Z87.440 Personal history of urinary (tract) infections; Z56.0 Unemployment, unspecified; Z88.8 Allergy status to other drugs, medicaments and biological substances; Z91.030 Bee allergy status; Z79.899 Other long term (current) drug therapy; Z88.1 Allergy status to other antibiotic agents
CPT/HCPCS: 99281

== ENCOUNTER 2021-12-14 08:43 | Emergency (ER) | payer MEDICAID ==
[~2021-12-14] VITALS: Ht 172.7 cm; Wt 72.0 kg
[2021-12-14 08:48] VITALS: BP 120/78
== END 2021-12-14 09:20 | disposition home or self-care (01) ==
LOC: ER 08:44
DX: K94.03 Colostomy malfunction (principal); G89.29 Other chronic pain; F41.9 Anxiety disorder, unspecified; F32.A Depression, unspecified; F12.90 Cannabis use, unspecified, uncomplicated; F15.90 Other stimulant use, unspecified, uncomplicated; F11.90 Opioid use, unspecified, uncomplicated; Z87.440 Personal history of urinary (tract) infections; Z86.14 Personal history of Methicillin resistant Staphylococcus aureus infection; Z98.890 Other specified postprocedural states; Z72.89 Other problems related to lifestyle; Z56.0 Unemployment, unspecified; Z59.00 Homelessness unspecified; Z88.6 Allergy status to analgesic agent; Z88.1 Allergy status to other antibiotic agents; Z88.8 Allergy status to other drugs, medicaments and biological substances; Z91.030 Bee allergy status; Z79.899 Other long term (current) drug therapy
CPT/HCPCS: 99281

== ENCOUNTER 2021-12-27 10:11 | Emergency (ER) | payer MEDICAID ==
[~2021-12-27] VITALS: Ht 170.2 cm; Wt 71.0 kg
[2021-12-27] MEDS ORDERED: naloxone 2mg/2ml inj IV STA (10:44)
[2021-12-27] MEDS ORDERED: normal saline 1000ML IV soln IVB ONE (10:45)
[2021-12-27 11:02] LABS: BASOPHILS % (AUTO) 0.3 % (0-1); EOSINOPHILS % (AUTO) 0.5 % (0-6); HEMATOCRIT 39.5 % (42.0-52.0); HEMOGLOBIN 12.3 g/dl (14.0-17.9); LYMPHOCYTES # (AUTO) 0.6 X10'3 (1.1-4.8); LYMPHOCYTES % (AUTO) 9.7 % (21-51); MEAN CORPUSCULAR HGB CONC 31.1 g/dL (33.0-36.5); MEAN CORPUSCULAR VOLUME 77.1 FL (78-98); MEAN PLATELET VOLUME 8.1 FL (7.4-10.4); MONOCYTES # (AUTO) 0.4 X10'3 (0-0.9); MONOCYTES % (AUTO) 6.8 % (2-12); NEUTROPHILS # (AUTO) 5.1 X10'3 (1.8-7.7); NEUTROPHILS % (AUTO) 82.7 % (42-75); PLATELET COUNT 284 X10'3 (140-440); RED BLOOD COUNT 5.12 X10'6 (4.70-6.10); RED CELL DISTRIBUTION WIDTH 17.7 % (11.5-14.5); WHITE BLOOD COUNT 6.2 X10'3 (4.5-11.0)
[2021-12-27 11:16] LABS: ALANINE AMINOTRANSFERASE 20 U/L (12-78); ALBUMIN 3.1 G/DL (3.4-5.0); ALBUMIN/GLOBULIN RATIO 0.8 (1.1-1.5); ALKALINE PHOSPHATASE 77 IU/L (46-116); ANION GAP 11 (8-16); ASPARTATE AMINO TRANSFERASE 20 U/L (10-37); BILIRUBIN,TOTAL 0.5 MG/DL (0.1-1.0); BLOOD UREA NITROGEN 11 MG/DL (7-18); BUN/CREATININE RATIO 14.7 (5.4-32.0); CALCIUM 8.5 MG/DL (8.5-10.1); CHLORIDE 109 MMOL/L (99-107); CREATININE 0.75 MG/DL (0.60-1.10); GLUCOSE 110 MG/DL (70-104); SODIUM 142 MMOL/L (135-145); TOTAL PROTEIN 7.2 G/DL (6.4-8.2); eGFR > 90 ML/MIN
[2021-12-27 11:17] LABS: POTASSIUM 3.6 MMOL/L (3.5-5.1)
--- NOTE | 2021-12-27 11:56 | NUR ---
pt visible to charge nurse and staff.
[2021-12-27 12:10] LABS: CLARITY,URINE CLOUDY (Clear); COLOR,URINE YELLOW (Yellow); GLUCOSE, URINE NEGATIVE (Neg); KETONES,URINE NEGATIVE (Neg); LEUKOCYTE ESTERASE ,URINE TRACE (Neg); NITRITES, URINE NEGATIVE (Neg); OCCULT BLOOD,URINE SMALL (Neg); PROTEIN,URINE TRACE mg/dl (Neg); UROBILINOGEN,URINE 0.2 E.U/dL (0.2-1.0)
--- NOTE | 2021-12-27 12:15 | NUR ---
leisa tello at bedside, so pt does not walk out or pull out iv.
[2021-12-27 12:17] LABS: UA COLLECTION TYPE OTHER
[2021-12-27 12:18] LABS: COARSE GRANULAR CAST 0-3 /LPF (NEGATIVE)
[2021-12-27 12:20] LABS: BACTERIA,URINE 4+ /HPF (Neg)
[2021-12-27 12:21] LABS: RBC,URINE 20-50 /HPF (0-2)
[2021-12-27 12:22] LABS: WBC,URINE 50-100 /HPF (0-4)
[2021-12-27 12:23] LABS: WBC CLUMPS,URINE MODERATE /HPF (NEGATIVE)
[2021-12-27 12:27] LABS: SQUAMOUS EPITHELIAL CELL,UR NONE SEEN /LPF (FEW)
[2021-12-27 12:34] VITALS: BP 115/69
[2021-12-27 13:22] LABS: URINE AMPHETAMINE SCREEN POSITIVE (Neg); URINE BARBITUATE SCREEN NEGATIVE (Neg); URINE BENZODIAZEPINES SCREEN NEGATIVE (Neg); URINE CANNABINOID SCREEN POSITIVE (Neg); URINE COCAINE SCREEN NEGATIVE (Neg); URINE METHADONE SCREEN NEGATIVE (Neg); URINE OPIATE SCREEN NEGATIVE (Neg); URINE PHENCYCLIDINE SCREEN NEGATIVE (Neg)
--- NOTE | 2022-01-01 07:58 | NUR ---
ATTEMPTED TO CALL PT REGARDING VISIT ON 12/27/21 REGARDING HIS LAB RESULTS AND NEED FOR AN ABX. PHONE # ON FILE IS NOT PT'S PHONE # AND NOK # ALSO A WRONG # AND NOT WORKING. LETTER SENT TO ADDRESS ON FILE Addendum: 01/01/22 at 0841 by LUIS PT LURDES, UNABLE TO SENT FOLLOW-UP LETTER
== END 2021-12-27 12:37 | disposition home or self-care (01) ==
LOC: ER 10:12
DX: T40.411A Poisoning by fentanyl or fentanyl analogs, accidental (unintentional), initial encounter (principal); Y92.89 Other specified places as the place of occurrence of the external cause; G89.29 Other chronic pain; F31.9 Bipolar disorder, unspecified; Z87.81 Personal history of (healed) traumatic fracture; Z86.14 Personal history of Methicillin resistant Staphylococcus aureus infection; Z88.6 Allergy status to analgesic agent; Z88.8 Allergy status to other drugs, medicaments and biological substances; Z88.1 Allergy status to other antibiotic agents; Z88.5 Allergy status to narcotic agent; Z91.030 Bee allergy status
CPT/HCPCS: 36415; 80053; 80305; 81001; 84145; 85025; 87077; 87088; 87186; 96374; 99284; J2310; J7030

== ENCOUNTER 2021-12-28 00:53 | Emergency (ER) | payer MEDICAID ==
[~2021-12-28] VITALS: Ht 172.7 cm; Wt 81.8 kg
--- NOTE | 2021-12-28 05:41 | NUR ---
CONTACTED RADIOLOGY CALL CENTER AND SPOKE WITH A FLOOR SANDING MACHINE OPERATOR WHO SAID THAT THEY WOULD ENSURE TO HAVE CT IMAGING INTERPRETED GUDELIA FOR PT GIVEN THAT THEY WERE TAKEN AT 0200HRS.
[2021-12-28 08:54] LABS: BASOPHILS % (AUTO) 0.3 % (0-1); EOSINOPHILS # (AUTO) 0.1 X10'3 (0-0.9); HEMATOCRIT 38.6 % (42.0-52.0); HEMOGLOBIN 12.3 g/dl (14.0-17.9); LYMPHOCYTES # (AUTO) 0.8 X10'3 (1.1-4.8); LYMPHOCYTES % (AUTO) 7.7 % (21-51); MEAN CORPUSCULAR HEMOGLOBIN 24.6 PG (27.0-31.0); MEAN CORPUSCULAR HGB CONC 31.8 g/dL (33.0-36.5); MEAN CORPUSCULAR VOLUME 77.4 FL (78-98); MONOCYTES # (AUTO) 0.7 X10'3 (0-0.9); MONOCYTES % (AUTO) 6.9 % (2-12); NEUTROPHILS # (AUTO) 9.1 X10'3 (1.8-7.7); NEUTROPHILS % (AUTO) 84.1 % (42-75); PLATELET COUNT 297 X10'3 (140-440); RED BLOOD COUNT 4.99 X10'6 (4.70-6.10); RED CELL DISTRIBUTION WIDTH 17.9 % (11.5-14.5); WHITE BLOOD COUNT 10.8 X10'3 (4.5-11.0)
[2021-12-28 08:55] VITALS: BP 121/72
[2021-12-28] MEDS ORDERED: vancomycin/NS 1 GM ADD-VANTAGE 250 ML IV ONE (09:05)
[2021-12-28 09:06] LABS: APTT 30 SECONDS (22-32)
[2021-12-28 09:08] LABS: ALANINE AMINOTRANSFERASE 28 U/L (12-78); ALBUMIN 3.2 G/DL (3.4-5.0); ALBUMIN/GLOBULIN RATIO 0.8 (1.1-1.5); ALKALINE PHOSPHATASE 77 IU/L (46-116); ASPARTATE AMINO TRANSFERASE 24 U/L (10-37); BILIRUBIN,TOTAL 0.5 MG/DL (0.1-1.0); BLOOD UREA NITROGEN 9 MG/DL (7-18); BUN/CREATININE RATIO 10.3 (5.4-32.0); CALCIUM 8.7 MG/DL (8.5-10.1); CHLORIDE 106 MMOL/L (99-107); CREATININE 0.87 MG/DL (0.60-1.10); GLUCOSE 109 MG/DL (70-104); POTASSIUM 3.5 MMOL/L (3.5-5.1); SODIUM 141 MMOL/L (135-145); TOTAL PROTEIN 7.1 G/DL (6.4-8.2); eGFR > 90 ML/MIN
[2021-12-28 09:10] LABS: ANION GAP 10 (8-16); TOTAL CARBON DIOXIDE 24.6 MMOL/L (24-32)
[2021-12-28] MEDS ORDERED: morphine 4 MG/ML inj SYRINge ONE (10:38)
[2021-12-28] MEDS ORDERED: ciprofloxacin 250mg tablet PO ONE (10:40)
[2021-12-28] MEDS ORDERED: morphine 4 MG/ML inj SYRINge IV ONE (10:40)
[2021-12-28] MEDS ORDERED: ciprofloxacin lact 400MG/200ML 200 ML IV SCH (20:00)
== END 2021-12-28 10:58 | disposition short-term general hospital (02) ==
LOC: ER 00:53
DX: S06.6X0A Traumatic subarachnoid hemorrhage without loss of consciousness, initial encounter (principal); Z20.822 Contact with and (suspected) exposure to COVID-19; S01.81XA Laceration without foreign body of other part of head, initial encounter; L03.213 Periorbital cellulitis; G89.29 Other chronic pain; F12.90 Cannabis use, unspecified, uncomplicated; F15.90 Other stimulant use, unspecified, uncomplicated; F11.90 Opioid use, unspecified, uncomplicated; Z87.81 Personal history of (healed) traumatic fracture; Z86.14 Personal history of Methicillin resistant Staphylococcus aureus infection; Z87.440 Personal history of urinary (tract) infections; Z56.0 Unemployment, unspecified; Z59.00 Homelessness unspecified; Z88.8 Allergy status to other drugs, medicaments and biological substances; Z88.1 Allergy status to other antibiotic agents; Z88.6 Allergy status to analgesic agent; Z91.030 Bee allergy status; Z79.899 Other long term (current) drug therapy; Y04.0XXA Assault by unarmed brawl or fight, initial encounter; Y93.89 Activity, other specified; Y92.89 Other specified places as the place of occurrence of the external cause; Y99.8 Other external cause status
CPT/HCPCS: 36415; 70450; 70486; 80053; 85025; 85610; 85730; 87635; 96374; 99291; C9803; J2270; 99285

== ENCOUNTER 2022-01-03 16:13 | Emergency (ER) | payer MEDICAID ==
[~2022-01-03] VITALS: Ht 172.7 cm; Wt 72.7 kg
[2022-01-03 16:25] VITALS: BP 147/92
--- NOTE | 2022-01-03 18:17 | NUR ---
UROSTOMY AND COLOSTOMY SUPPLIES GIVEN AND TAPE
== END 2022-01-03 18:19 | disposition home or self-care (01) ==
LOC: ER 16:15
DX: Z00.00 Encounter for general adult medical examination without abnormal findings (principal); G89.29 Other chronic pain; F12.90 Cannabis use, unspecified, uncomplicated; F15.90 Other stimulant use, unspecified, uncomplicated; F11.90 Opioid use, unspecified, uncomplicated; Z87.81 Personal history of (healed) traumatic fracture; Z86.14 Personal history of Methicillin resistant Staphylococcus aureus infection; Z87.440 Personal history of urinary (tract) infections; Z56.0 Unemployment, unspecified; Z59.00 Homelessness unspecified; Z72.89 Other problems related to lifestyle; Z88.8 Allergy status to other drugs, medicaments and biological substances; Z79.899 Other long term (current) drug therapy; Z91.030 Bee allergy status; Z88.1 Allergy status to other antibiotic agents
CPT/HCPCS: 99281

== ENCOUNTER 2022-01-07 19:21 | Emergency (ER) | payer MEDICAID ==
[~2022-01-07] VITALS: Ht 172.7 cm; Wt 72.7 kg
[2022-01-07 20:16] VITALS: BP 125/83
[2022-01-07 20:51] LABS: BASOPHILS % (AUTO) 0.4 % (0-1); EOSINOPHILS # (AUTO) 0.1 X10'3 (0-0.9); EOSINOPHILS % (AUTO) 0.8 % (0-6); HEMATOCRIT 41.5 % (42.0-52.0); HEMOGLOBIN 12.9 g/dl (14.0-17.9); LYMPHOCYTES # (AUTO) 1.3 X10'3 (1.1-4.8); LYMPHOCYTES % (AUTO) 10.8 % (21-51); MEAN CORPUSCULAR HEMOGLOBIN 24.1 PG (27.0-31.0); MEAN CORPUSCULAR HGB CONC 31.2 g/dL (33.0-36.5); MEAN CORPUSCULAR VOLUME 77.2 FL (78-98); MEAN PLATELET VOLUME 7.6 FL (7.4-10.4); MONOCYTES # (AUTO) 0.5 X10'3 (0-0.9); MONOCYTES % (AUTO) 4.5 % (2-12); NEUTROPHILS # (AUTO) 10.2 X10'3 (1.8-7.7); NEUTROPHILS % (AUTO) 83.5 % (42-75); PLATELET COUNT 406 X10'3 (140-440); RED BLOOD COUNT 5.37 X10'6 (4.70-6.10); RED CELL DISTRIBUTION WIDTH 18.7 % (11.5-14.5); WHITE BLOOD COUNT 12.2 X10'3 (4.5-11.0)
[2022-01-07 21:07] LABS: ALANINE AMINOTRANSFERASE 25 U/L (12-78); ALBUMIN 3.1 G/DL (3.4-5.0); ALBUMIN/GLOBULIN RATIO 0.7 (1.1-1.5); ALKALINE PHOSPHATASE 80 IU/L (46-116); ANION GAP 12 (8-16); ASPARTATE AMINO TRANSFERASE 16 U/L (10-37); BILIRUBIN,TOTAL 0.4 MG/DL (0.1-1.0); BLOOD UREA NITROGEN 15 MG/DL (7-18); BUN/CREATININE RATIO 12.6 (5.4-32.0); CALCIUM 8.4 MG/DL (8.5-10.1); CHLORIDE 103 MMOL/L (99-107); CREATININE 1.19 MG/DL (0.60-1.10); ETHANOL < 0.010 GM/DL (0.0-0.010); GLUCOSE 138 MG/DL (70-104); POTASSIUM 3.7 MMOL/L (3.5-5.1); SODIUM 138 MMOL/L (135-145); TOTAL CARBON DIOXIDE 23.5 MMOL/L (24-32); TOTAL PROTEIN 7.3 G/DL (6.4-8.2); eGFR 67 ML/MIN
--- NOTE | 2022-01-08 00:40 | NUR ---
PT IN LOBBY MAKING MESS WITH URINE AND FECES, ASKED TO WAIT OUTSIDE. PT WAS YELLING AND CAUSING DISRUPTIONS. PT BEING MONITORED OUTSIDE BY SECURITY PER ELIGIBILITY TECHNICIAN
--- NOTE | 2022-01-08 09:45 | NUR ---
Pt received from ER main. Pt cursing and not happy he was woken up. Pt gave urine when in return for food. Urine sent to lab for tox screen.
[2022-01-08 09:56] LABS: URINE AMPHETAMINE SCREEN POSITIVE (Neg); URINE BARBITUATE SCREEN NEGATIVE (Neg); URINE BENZODIAZEPINES SCREEN NEGATIVE (Neg); URINE CANNABINOID SCREEN POSITIVE (Neg); URINE COCAINE SCREEN NEGATIVE (Neg); URINE METHADONE SCREEN NEGATIVE (Neg); URINE OPIATE SCREEN NEGATIVE (Neg); URINE PHENCYCLIDINE SCREEN NEGATIVE (Neg)
--- NOTE | 2022-01-08 10:11 | NUR ---
Met with patient in regards to substance use and to see if patient wanted resurces for treatment options. Patient said he would go back to [facility] if they would take him. I gave patient [facility] number to call and then he stated that he would call when he got out of here.
--- NOTE | 2022-01-08 10:25 | NUR ---
Packet faxed to [facility].
--- NOTE | 2022-01-08 11:00 | NUR ---
Pt currently asleep with no signs of distress.
== END 2022-01-08 13:00 ==
LOC: ER 19:22
DX: F32.A Depression, unspecified (principal); Z20.822 Contact with and (suspected) exposure to COVID-19; R45.851 Suicidal ideations; G89.29 Other chronic pain; F41.9 Anxiety disorder, unspecified; F17.200 Nicotine dependence, unspecified, uncomplicated; F12.90 Cannabis use, unspecified, uncomplicated; F15.90 Other stimulant use, unspecified, uncomplicated; F11.90 Opioid use, unspecified, uncomplicated; Z87.440 Personal history of urinary (tract) infections; Z98.890 Other specified postprocedural states; Z72.89 Other problems related to lifestyle; Z59.00 Homelessness unspecified; Z56.0 Unemployment, unspecified; Z88.6 Allergy status to analgesic agent; Z88.1 Allergy status to other antibiotic agents; Z91.030 Bee allergy status; Z88.8 Allergy status to other drugs, medicaments and biological substances; Z79.899 Other long term (current) drug therapy
CPT/HCPCS: 36415; 80053; 80305; 80320; 85025; 87635; 99285; C9803

== ENCOUNTER 2022-01-15 23:12 | Emergency (ER) | payer MEDICAID ==
[~2022-01-15] VITALS: Ht 177.8 cm; Wt 79.5 kg
[2022-01-15 23:21] VITALS: BP 131/93
--- NOTE | 2022-01-15 23:29 | NUR ---
Patient got new colostomy bag placed and give two more to take with him.
== END 2022-01-16 00:05 | disposition home or self-care (01) ==
LOC: ER 23:13
DX: F10.129 Alcohol abuse with intoxication, unspecified (principal); G89.29 Other chronic pain; F41.9 Anxiety disorder, unspecified; F32.A Depression, unspecified; F12.90 Cannabis use, unspecified, uncomplicated; F15.90 Other stimulant use, unspecified, uncomplicated; F11.90 Opioid use, unspecified, uncomplicated; Z46.89 Encounter for fitting and adjustment of other specified devices; Z87.440 Personal history of urinary (tract) infections; Z86.14 Personal history of Methicillin resistant Staphylococcus aureus infection; Z98.890 Other specified postprocedural states; Z72.89 Other problems related to lifestyle; Z56.0 Unemployment, unspecified; Z59.00 Homelessness unspecified; Z88.6 Allergy status to analgesic agent; Z79.2 Long term (current) use of antibiotics; Z91.030 Bee allergy status; Z79.899 Other long term (current) drug therapy; Y90.9 Presence of alcohol in blood, level not specified
CPT/HCPCS: 99283

== ENCOUNTER 2022-02-18 19:35 | Emergency (ER) | payer MEDICAID ==
[~2022-02-18] VITALS: Ht 172.7 cm; Wt 70.5 kg
[2022-02-18 19:41] VITALS: BP 124/61
== END 2022-02-18 19:58 | disposition home or self-care (01) ==
LOC: ER 19:36
DX: K94.00 Colostomy complication, unspecified (principal); Z02.89 Encounter for other administrative examinations; G89.29 Other chronic pain; F31.9 Bipolar disorder, unspecified; Z56.0 Unemployment, unspecified; Z59.00 Homelessness unspecified; F12.10 Cannabis abuse, uncomplicated; F15.10 Other stimulant abuse, uncomplicated; F11.10 Opioid abuse, uncomplicated; Z87.81 Personal history of (healed) traumatic fracture; Z88.6 Allergy status to analgesic agent; Z88.1 Allergy status to other antibiotic agents; Z88.5 Allergy status to narcotic agent; Z79.899 Other long term (current) drug therapy
CPT/HCPCS: 99283

== ENCOUNTER 2022-03-03 11:31 | Emergency (ER) | payer MEDICAID ==
[~2022-03-03] VITALS: Ht 175.3 cm; Wt 72.7 kg
[2022-03-03 11:49] VITALS: BP 138/92
== END 2022-03-03 14:18 | disposition home or self-care (01) ==
LOC: ER 11:32
DX: K94.03 Colostomy malfunction (principal); G89.29 Other chronic pain; F31.9 Bipolar disorder, unspecified; Z87.81 Personal history of (healed) traumatic fracture; Z88.6 Allergy status to analgesic agent; Z88.1 Allergy status to other antibiotic agents; Z79.899 Other long term (current) drug therapy
CPT/HCPCS: 99281; 99284; A6250

== ENCOUNTER 2022-03-16 12:20 | Inpatient (IN) | payer MEDICAID ==
[~2022-03-16] VITALS: Ht 172.7 cm; Wt 74.3 kg
--- NOTE | 2022-03-16 14:18 | NUR ---
Admit Note [id number] Pt brought to the unit from [facility] via [employer] limo driver from [place] office. Pt is seeing faces in his stoma's with a plan to cut them out. He believes his brother is performing witch craft on him. He is unable to safety plan. He is on a HOLD for DTS and GD. Vern was picked up by the library by ambulance on 03/04/22. A passerby called EMS. Vern had been using scissors to "cut faces of family out of his abdomen." He has a colostomy and a urostomy and he "accidently, went further than expected and now he has bowel on the left side leaking." He had blood on the right side approximately 200cc found by EMS on the ground. VS [facility]'s pt is in #[id number] Addendum: 03/16/22 at 1716 by Jennifer Hurley RN Pt . scores as a high risk on the [place] Suicide Risk Assessment, however he is able to contract for safety on the unit. This was endorsed to Belén Valente 15min safety checks were ordered.
[2022-03-16 15:34] VITALS: BP 134/77
[2022-03-16] MEDS ORDERED: magnesium hydroxide 30ml (MOM) UD suspension PO PRN (17:05)
[2022-03-16] MEDS ORDERED: loperamide 2mg capsule PO PRN (17:05)
[2022-03-16] MEDS ORDERED: acetaminophen 325mg tablet PO PRN (17:05)
[2022-03-16] MEDS ORDERED: mag hydrox/Alum hydrox/simeth 30ml oral suspension PO PRN (17:05)
[2022-03-16] MEDS ORDERED: folic acid 1mg tablet PO ONE (17:10)
--- NOTE | 2022-03-16 18:00 | NUR ---
Per FELICIA Valente continue all medications pt. had been taking at [facility]. Pt. reports he had not been taking his prescribed home medications X2 weeks prior to coming to the hospital so those were not continued. Clarified order for Zinc Sulfate 220mg with Dr. Long. He gave verbal orders via telephone to hold this medication at this time.
[2022-03-16] MEDS: acetaminophen 325mg tablet PO PRN ×2 (18:43→23:45)
[2022-03-16] MEDS: hydrOXYzine 25 MG tablet PO PRN ×2 (18:43→23:43)
--- NOTE | 2022-03-16 18:44 | NUR ---
PRNs Administered: Atarax 50mg Interventions Offered: Pt .requested a PRN anxiolytic and exhibited restlessness. He was provided with a quiet environment free from distractions. Response to Medication: Pt. thanked this automobile and property underwriter for the medication, will continue to monitor closely.
[2022-03-16 19:08] VITALS: BP 134/79
[2022-03-16] MEDS: divalproex sodium 500mg tablet.DR PO SCH (21:13)
--- NOTE | 2022-03-17 00:55 | NUR ---
Problem : Pt brought to the unit from [facility] via [employer] van cdl driver from [place] office. Pt is seeing faces in his stoma's with a plan to cut them out. He believes his brother is performing witch craft on him. He is unable to safety plan. He is on a HOLD for DTS and GD. Pt. denies any MH s/s this shift, however presents with anxiety and appears to be minimizing. Interventions : Maintained a safe and supportive environment, ensured contract for safety, provided clear and simple instructions, provided active listening and positive encouragement, monitored behaviors and provided pain medication and anxiolytics as needed, and maintained Q 15min safety checks. Response : Received pt. laying in bed reading at the beginning of the shift. He greeted this sba underwriter, however presents as withdrawn and is not observed to be interacting with others. 1:1 was completed at bedside. pt. is currently denying any S/I, however admits to previous suicide attempts. He reports that three months ago he tried to slit his throat, he attempted to overdose one month ago, and he recently attempted to cut himself which is what brought him to the hospital. Pt. also reports family history of suicide including his grandmother, grandfather, and an uncle. When questioned regarding any A/V/POLANCO, pt. denies these, and no delusional statements were made. Pt. does exhibit some anxiety and appears to be minimizing any s/s. He goes on to talk about how he would like to discharge here after 72 hours and go stay at the [facility] Pt. reports hope regarding the future and endorses that he would like to go to school and become a nurse. Pt. awoke at approximately midnight with a leak in his urostomy bag. He was observed to be anxious and agitated and yelled out, "This f...ing thing is pissing me off!" Pt's bedding was changed by staff and he was able to change his urostomy bag independently . Pt. was administered PRN Tylenol and Atarax with effectiveness, and was able to return back to bed. Plan : Pt. requires interruption of current crisis, medication adjustments, and Q 15min safety checks.
[2022-03-17] MEDS ORDERED: ASCO-105 PO (03:28)
[2022-03-17] MEDS ORDERED: CHOL50CA2 PO (03:31)
[2022-03-17] MEDS ORDERED: CYAN500T71 PO (03:32)
[2022-03-17] MEDS ORDERED: DIVA-74 PO (03:34)
[2022-03-17] MEDS ORDERED: FOLI0.4T6 PO (03:39)
[2022-03-17] MEDS ORDERED: HYDR-3686 PO (03:41)
[2022-03-17] MEDS ORDERED: MULT-1085 PO (03:47)
[2022-03-17] MEDS ORDERED: PYRI25TA4 PO (03:49)
[2022-03-17] MEDS ORDERED: ZINC50TA67 PO (03:49)
[2022-03-17] MEDS ORDERED: HYDR25CA PO (03:54)
[2022-03-17] MEDS ORDERED: NICOTINE POLACRILEX 2 MG LOZENGE BC PRN (05:35)
[2022-03-17 07:12] LABS: BASOPHILS % (AUTO) 0.6 % (0-1); EOSINOPHILS # (AUTO) 0.1 X10'3 (0-0.9); EOSINOPHILS % (AUTO) 1.6 % (0-6); HEMOGLOBIN 8.2 g/dl (14.0-17.9); LYMPHOCYTES # (AUTO) 1.4 X10'3 (1.1-4.8); LYMPHOCYTES % (AUTO) 21.6 % (21-51); MEAN CORPUSCULAR HEMOGLOBIN 26.5 PG (27.0-31.0); MEAN CORPUSCULAR HGB CONC 32.9 g/dL (33.0-36.5); MEAN CORPUSCULAR VOLUME 80.5 FL (78-98); MONOCYTES # (AUTO) 0.6 X10'3 (0-0.9); MONOCYTES % (AUTO) 8.8 % (2-12); NEUTROPHILS # (AUTO) 4.5 X10'3 (1.8-7.7); NEUTROPHILS % (AUTO) 67.4 % (42-75); PLATELET COUNT 446 X10'3 (140-440); RED CELL DISTRIBUTION WIDTH 16.7 % (11.5-14.5); WHITE BLOOD COUNT 6.7 X10'3 (4.5-11.0)
[2022-03-17 07:39] LABS: HEMOGLOBIN A1C 5.5 % (4.5-6.2)
[2022-03-17 07:44] LABS: ALANINE AMINOTRANSFERASE 32 U/L (12-78); ALBUMIN/GLOBULIN RATIO 0.8 (1.1-1.5); ALKALINE PHOSPHATASE 55 IU/L (46-116); ANION GAP 8 (8-16); ASPARTATE AMINO TRANSFERASE 24 U/L (10-37); BILIRUBIN,TOTAL 0.1 MG/DL (0.1-1.0); BLOOD UREA NITROGEN 17 MG/DL (7-18); CALCIUM 8.5 MG/DL (8.5-10.1); CHLORIDE 108 MMOL/L (99-107); CREATININE 0.81 MG/DL (0.60-1.10); GLUCOSE 95 MG/DL (70-104); POTASSIUM 4.2 MMOL/L (3.5-5.1); SODIUM 142 MMOL/L (135-145); TOTAL CARBON DIOXIDE 26.5 MMOL/L (24-32); eGFR > 90 ML/MIN
[2022-03-17 08:00] VITALS: BP 99/50
[2022-03-17] MEDS ORDERED: cyanocobalamin 500mcg tablet PO SCH (08:00)
[2022-03-17] MEDS ORDERED: HYDROXYZINE PAMOATE PO SCH (08:00)
[2022-03-17] MEDS ORDERED: non-formulary drug (Multivitamin (Multi Vitamin Daily) 1 TAB) PO SCH (08:00)
[2022-03-17] MEDS ORDERED: folic acid 0.4mg tablet PO SCH (08:00)
[2022-03-17] MEDS ORDERED: PYRIDOXINE HCL PO SCH (08:00)
[2022-03-17] MEDS ORDERED: divalproex 250mg tablet, delayed-release PO SCH (08:00)
[2022-03-17] MEDS ORDERED: non-formulary drug (Zinc 1 TAB) PO SCH (08:00)
[2022-03-17] MEDS ORDERED: non-formulary drug (Ascorbic Acid (Vitamin C) 1 TAB) PO SCH (08:00)
[2022-03-17] MEDS: divalproex sodium 500mg tablet.DR PO SCH ×2 (08:42→20:45)
[2022-03-17] MEDS: folic acid 1mg tablet PO SCH (08:42)
[2022-03-17] MEDS: cyanocobalamin 500mcg tablet PO SCH (08:43)
[2022-03-17] MEDS: multivitamins, therapeutics tablet PO SCH (08:43)
[2022-03-17] MEDS: ascorbic acid 500mg tablet PO SCH (08:44)
[2022-03-17] MEDS: nicotine 14mg patch - 24hr TD SCH (08:44)
[2022-03-17] MEDS: pyridoxine 50mg tablet PO SCH (08:44)
[2022-03-17] MEDS: cholecalciferol (vitamin D3) 1,000 unit (25mcg) tablet PO SCH (08:44)
[2022-03-17] MEDS: hydrOXYzine 25 MG tablet PO PRN ×3 (10:39→21:30)
[2022-03-17 12:14] LABS: OCCULT BLOOD STOOL NEGATIVE (Neg)
[2022-03-17] MEDS: HYDROcodone/acetaminophen 5mg/325mg tablet PO PRN ×3 (12:26→21:59)
[2022-03-17] MEDS: NICOTINE POLACRILEX 2 MG LOZENGE BC PRN ×2 (12:33→18:57)
[2022-03-17 12:58] LABS: % IRON SATURATION 3 % (11-46); IRON 18 UG/DL (53-167); TOTAL IRON BINDING CAPACITY 598 UG/DL (259-388)
[2022-03-17 13:13] LABS: FERRITIN 20 NG/ML (26-388)
--- NOTE | 2022-03-17 17:55 | NUR ---
Nursing Progress Notes: Problem : Pt brought to the unit from [facility] via [facility] patient transportation driver from [place] office. Pt is seeing faces in his stoma's with a plan to cut them out. He believes his brother is performing witch craft on him. He is unable to safety plan. He is on a HOLD for DTS and GD. Pt. denies any MH s/s this shift. Interventions: Patient pleasant and ambulating throughout the hallways. Took a rest period this morning. Patient c/o pain rated at a 7 and TC made to Dr. Long to request pain medication. Dane 5/325mg po qid prn. Administered pain medication at 1225. Patient received Atarax x2 for c/o anxiety with good relief. Patient ate lunch and spoke with peers. Response: Patient is pleasant. No s/s of Internal Stimuli or SI. Patient reports no SI or internal stimuli during today. Patient taking care of own urostomy and colostomy. Stool for OB sent to the lab this morning. Plan : Pt. requires interruption of current crisis, medication adjustments, and Q 15min safety checks.
[2022-03-17 19:12] VITALS: BP 134/84
[2022-03-18] MEDS ORDERED: LORazepam 1 MG tablet PO ONE (00:35)
--- NOTE | 2022-03-18 04:01 | NUR ---
Progress Report: Problem : Pt brought to the unit from [facility] via [facility] party bus driver from [place] office. Pt is seeing faces in his stoma's with a plan to cut them out. He believes his brother is performing witch craft on him. He is unable to safety plan. He is on a HOLD for DTS and GD. Interventions : Maintained a safe and supportive environment, ensured contract for safety, provided clear and simple instructions, provided active listening and positive encouragement, monitored behaviors and provided pain medication and anxiolytics as needed, and maintained Q 15min safety checks. Response : Patient approached this nurse at beginning of shift. The patient was agitated because Dr Long had not put in all meds that were shown to him on admittance date. The pt The pt continued to perseverate on medication adjustment throughout the night. The pt continued to be slightly agitated all evening. The patients urostomy started to slightly bleed, a new urostomy kit was supplied to the patient. The patient was able to independently change the urostomy bag out. The pt then was given a Hydroxyzine with evening med pass for anxiety, the pt took the medication. The pt then stated that his stoma was throbbing, a [place] was provided. The pt then came out and wanted to cut his toenails, when observing his toenails, this nurse noticed that he didn't seem to have much of any toe nail to cut. The pt was denied access to toenail clippers in fear he would make his toes bleed. Dr Long was called by charge nurse and 1mg Ativan was given to the pt. The pt went to sleep shortly after. Plan : Pt. requires interruption of current crisis, medication adjustments, and Q 15min safety checks.
[2022-03-18] MEDS: HYDROcodone/acetaminophen 5mg/325mg tablet PO PRN ×4 (06:41→23:01)
[2022-03-18] MEDS: hydrOXYzine 25 MG tablet PO PRN ×3 (06:41→16:03)
[2022-03-18] MEDS: ascorbic acid 500mg tablet PO SCH (07:59)
[2022-03-18] MEDS: multivitamins, therapeutics tablet PO SCH (07:59)
[2022-03-18] MEDS: divalproex sodium 500mg tablet.DR PO SCH ×2 (07:59→20:28)
[2022-03-18] MEDS: folic acid 1mg tablet PO SCH (07:59)
[2022-03-18 08:00] VITALS: BP 127/76
[2022-03-18] MEDS: pyridoxine 50mg tablet PO SCH (08:00)
[2022-03-18] MEDS: cholecalciferol (vitamin D3) 1,000 unit (25mcg) tablet PO SCH (08:00)
[2022-03-18] MEDS: cyanocobalamin 500mcg tablet PO SCH (08:00)
[2022-03-18] MEDS: nicotine 14mg patch - 24hr TD SCH (08:00)
[2022-03-18] MEDS: NICOTINE POLACRILEX 2 MG LOZENGE BC PRN ×2 (09:17→16:29)
--- NOTE | 2022-03-18 14:59 | NUR ---
PSYCHOSOCIAL ASSESSMENT Pt. is a 41 year old single male who has a history of depression and is homeless. Pt brought to the unit from [facility] via [facility] star route mail driver from [place] office. Pt is seeing faces in his stoma with a plan to cut them out. He believes his brother is performing witch craft on him. He is unable to safety plan. He is on a HOLD for DTS and GD. Met with him today. He reported that he has been either staying at the [facility] or couch surfing at friends homes. He reported he spends maybe 30 percent of his time sleeping outside. He reported that he has reduced his drug and alcohol intake over the past 6-7 months. He continues to smoke marijuana daily for pain management (reported pain in his abdomen =scar tissue due to surgery) and uses meth 1-2 times a month. He also reported he continues to drink alcohol but has reduced his consumption from 8 drinks a day to 2 drinks a day. He reported that he last used Meth on March 03 which was when he tried to cut himself and ended up in the hospital. He reported that it he thought he was going to . He stated, I feel like the angry person I was left because I thought I was going to and the blood was so black, it looked like all the toxins in my body were flushed out. He denied feeling suicidal today. He reported he is not hearing or seeing things that are not there anymore. He reported his plan from her would be to go to the [facility] if he can and then go back to the [facility] to do the savings program. He is currently waiting for his S[facility] card [facility] as he lost it the night he tried to cut himself. MSE: Pt. was groomed, he was wearing scrubs and had his hair pulled back. His thought content and thought process were WNL. He was alert and oriented X 4. His demeanor was calm, compliant and pleasant to work with. Monserrat Mendieta LCSW
[2022-03-18] MEDS ORDERED: sertraline 25mg tablet PO ONE (16:20)
--- NOTE | 2022-03-18 17:41 | NUR ---
Nursing Progress Notes: Problem: Pt brought to the unit from [facility] via [facility] dairy truck driver from [place] office. Pt is seeing faces in his stoma with a plan to cut them out. He believes his brother is performing witch craft on him. He is unable to safety plan. He is on a HOLD for DTS and GD. Pt. denies any MH s/s this shift. Interventions: Received patient while he was out of bed and dressed for today. Patients color much improved since yesterday. Patient cares for own colostomy and urostomy. Patient changed his own colostomy and received new supplies from Wound Care. Wound Care Consult entered. Patient ambulating frequently in hallway. C/o pain rated at a 6-7 for abdominal pain. Received [place] x3 and Atarax x3 starting at 0641 this morning and approximately every 4 or so hours. Received pain relief rated at 2-3. Patient attended Group Meeting and snack times today. No s/s of delusional thoughts and denies SI. Response: Patient is pleasant. Shaved and cut his toenails/fingernails with supervision today. Patient reported he enjoyed Group today. Ambulating ad adryan. Will continue to monitor anxiety and pain. Plan: Pt. requires interruption of current crisis, medication adjustments, and Q 15min safety checks.
[2022-03-18] MEDS: LORazepam 0.5 MG tablet PO PRN (19:36)
[2022-03-18 19:55] VITALS: BP 112/60
[2022-03-18] MEDS: quetiapine 100mg tablet PO SCH (20:28)
--- NOTE | 2022-03-19 01:24 | NUR ---
Progress Report: Problem : Pt brought to the unit from [facility] via [facility] [employer] hazmat tanker driver from [place] office. Pt is seeing faces in his stoma's with a plan to cut them out. He believes his brother is performing witch craft on him. He is unable to safety plan. He is on a HOLD for DTS and GD. Interventions : Maintained a safe and supportive environment, ensured contract for safety, provided clear and simple instructions, provided active listening and positive encouragement, monitored behaviors and provided pain medication and anxiolytics as needed, and maintained Q 15min safety checks. Response :Patient in room at shift change. Pt 1:1 pt denies any MH S/S, "since I've been off drugs." The patient is calm and cooperative, slightly irritated and anxious. Order for Ativan was issued by , pt took Ativan with good effect. The pt appeared more relaxed and less stress after electromedical equipment repairer. Pt ate snack in community room and took evening meds w/o complications. Pt woke up once in the night asking for a pain pill, [place] given with good effect. Patient went to sleep shortly after. Plan : Pt. requires interruption of current crisis, medication adjustments, and Q 15min safety checks.
[2022-03-19] MEDS: HYDROcodone/acetaminophen 5mg/325mg tablet PO PRN ×3 (05:31→19:06)
--- NOTE | 2022-03-19 05:36 | NUR ---
Patient given [place] for abdominal pain 03/03
[2022-03-19] MEDS: NICOTINE POLACRILEX 2 MG LOZENGE BC PRN ×3 (05:53→20:59)
[2022-03-19 07:15] VITALS: BP 130/68
[2022-03-19] MEDS: folic acid 1mg tablet PO SCH (07:40)
[2022-03-19] MEDS: divalproex sodium 500mg tablet.DR PO SCH ×2 (07:40→20:04)
[2022-03-19] MEDS: pyridoxine 50mg tablet PO SCH (07:41)
[2022-03-19] MEDS: quetiapine 100mg tablet PO SCH ×3 (07:41→20:03)
[2022-03-19] MEDS: cyanocobalamin 500mcg tablet PO SCH (07:41)
[2022-03-19] MEDS: cholecalciferol (vitamin D3) 1,000 unit (25mcg) tablet PO SCH (07:41)
[2022-03-19] MEDS: ascorbic acid 500mg tablet PO SCH (07:41)
[2022-03-19] MEDS: multivitamins, therapeutics tablet PO SCH (07:41)
[2022-03-19] MEDS: nicotine 14mg patch - 24hr TD SCH (07:42)
[2022-03-19] MEDS: sertraline 50mg tablet PO SCH (07:43)
--- NOTE | 2022-03-19 09:13 | NUR ---
We did an Art Expression called Feeling Opposites to help focus and work on identifying current emotional stated of being and to identify what the opposite emotion would be. It also helps express and release these contrasting emotions for the purpose of balance, regulation and thought re-structuring. Pt. engaged in the group appropriately. He got right to his art and easily was able to express himself around his feeling states. He also did the written sheet and was able to read it to the group. He was calm, compliant and pleasant to work with. His mood seemed upbeat with a full range of affect. Monserrat Mendieta, EARLY HEAD START TEACHER
[2022-03-19] MEDS: LORazepam 0.5 MG tablet PO PRN ×2 (12:59→20:57)
--- NOTE | 2022-03-19 16:35 | NUR ---
ACCEPTED AT [facility] Andrew interviewed Vern today and accepted him at [facility] pending nurse to nurse prior to admission. It is unclear when they will have a bed available. PHYLLIS Collins
[2022-03-19] MEDS: hydrOXYzine 25 MG tablet PO PRN (17:00)
--- NOTE | 2022-03-19 17:32 | NUR ---
Nursing Progress Notes: Problem: Pt brought to the unit from [facility] via [facility] car driver from [place] office. Pt is seeing faces in his stoma with a plan to cut them out. He believes his brother is performing witch craft on him. He is unable to safety plan. He is on a HOLD for DTS and GD. Pt. denies any MH s/s this shift. Interventions: Patient was up and out of bed by 0530 this morning. Pleasant and cooperative throughout the day. Patient showered this morning and changed both his Colostomy & Urostomy Bags. No s/s of mental health. Patient received Ativan x1 for c/o anxiety and [place] x1 for c/o upper abdominal pain. Ambulated in hallway and spoke with peers. Response: Patient had a great day. Ambulating ad adryan. Attended Group Meeting and participated in snacks and meals. Patient drank plenty of fluids and reported relief with the Ativan & [place]. Plan: Pt. requires interruption of current crisis, medication adjustments, and Q 15min safety checks.
[2022-03-19 19:30] VITALS: BP 118/85
--- NOTE | 2022-03-20 02:57 | NUR ---
Progress Report: Problem : Pt brought to the unit from [facility] via [facility] concrete pile driver operator from [place] office. Pt is seeing faces in his stoma's with a plan to cut them out. He believes his brother is performing witch craft on him. He is unable to safety plan. He is on a HOLD for DTS and GD. Interventions : Maintained a safe and supportive environment, ensured contract for safety, provided clear and simple instructions, provided active listening and positive encouragement, monitored behaviors and provided pain medication and anxiolytics as needed, and maintained Q 15min safety checks. Response :Patient in Rec room at shift change. Patient polite and appropriate. patient socializing with cohorts watching TV. The pt asked for a pain killer for abdominal pain, [place] given. patient ate snack in community room with cohorts. Kourtneyen took care of uostomy and colostomy independently. No S/S of bleeding or infection noted. pt approached this nurse stating that he was anxious, Ativan 0.5mg given for anxiety with good effect. pt took evening meds w/o complications and went to bed shortly after. Plan : Pt. requires interruption of current crisis, medication adjustments, and Q 15min safety checks.
[2022-03-20] MEDS: NICOTINE POLACRILEX 2 MG LOZENGE BC PRN ×2 (06:28→20:05)
[2022-03-20] MEDS: HYDROcodone/acetaminophen 5mg/325mg tablet PO PRN (06:58)
[2022-03-20] MEDS: LORazepam 0.5 MG tablet PO PRN ×3 (06:58→18:55)
[2022-03-20] MEDS: nicotine 14mg patch - 24hr TD SCH (07:01)
[2022-03-20] MEDS: cholecalciferol (vitamin D3) 1,000 unit (25mcg) tablet PO SCH (07:02)
[2022-03-20] MEDS: sertraline 50mg tablet PO SCH (07:02)
[2022-03-20] MEDS: multivitamins, therapeutics tablet PO SCH (07:02)
[2022-03-20] MEDS: cyanocobalamin 500mcg tablet PO SCH (07:02)
[2022-03-20] MEDS: ascorbic acid 500mg tablet PO SCH (07:02)
[2022-03-20] MEDS: pyridoxine 50mg tablet PO SCH (07:02)
[2022-03-20] MEDS: quetiapine 100mg tablet PO SCH ×3 (07:02→20:42)
[2022-03-20] MEDS: folic acid 1mg tablet PO SCH (07:02)
[2022-03-20] MEDS: divalproex sodium 500mg tablet.DR PO SCH ×2 (07:02→20:42)
--- NOTE | 2022-03-20 07:24 | NUR ---
Initial: Pt admitted w/ major depressive disorder per EMR. Currently on Regular diet w/ mostly 100% intake of meals meeting needs at this time. LBM 03/19 w/ colostomy though no stool output amount documented. No nutrition intervention implemented at this time, will continue to monitor. Recs: 1. Continue Regular diet as tolerated 2. Bowel care PRN 3. Weekly wts Addendum: 03/20/22 at [address] Amended: Links added.
[2022-03-20 08:00] VITALS: BP 125/66
[2022-03-20] MEDS: hydrOXYzine 25 MG tablet PO PRN (09:41)
--- NOTE | 2022-03-20 10:14 | NUR ---
Late entry for 03/18/2022 [facility] assessment for 41 year old male pt to ER after self inflicted wound to his urostomy stoma. 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 He denies any history of head injury. Surgical history Urostomy, colostomy, left clavicular repair. Arrived on unit and pt agrees to assessment. He has a colostomy pouch in place to his left lower abd, stoma is red moist and the stool is soft. Pt also has a urostomy pouch to his RLQ w/ yellow urine noted in pouch. The stoma is red and protruding. He is independent in his care and was provided w/ urostomy and colostomy pouches and skin prep. Educated him to measure stomas on next change and notify [facility] nurse, he was provided a stoma measuring device. Pt has no other acute skin issues noted. [facility] nurse does not need to follow pt unless he develops and further issues. Report to primary nurse provided. Addendum: 03/20/22 at 1027 by Gabi Kline RN Amended: Links added.
[2022-03-20] MEDS ORDERED: quetiapine 100mg tablet PO PRN (10:50)
[2022-03-20] MEDS: ferrous sulfate 325mg tablet PO SCH ×2 (12:46→16:43)
[2022-03-20] MEDS: HYDROcodone/acetaminophen 10/325mg tab PO PRN ×2 (13:28→20:41)
--- NOTE | 2022-03-20 16:08 | NUR ---
Nursing Progress Note: Vern Problem: Pt brought to the unit from [facility] via [facility] pick up driver from [employer] office. Pt is seeing faces in his stoma with a plan to cut them out. He believes his brother is performing witch craft on him. Intervention: Medication given as ordered. Provided with a safe and therapeutic environment, clear communication, active listening and positive encouragement. Response: Patient is awake in his room at the start of the shift. Requests Ativan and [place] first thing which are given. Patient then requests PRN Atarax for anxiety. Patient paces the unit and spends time in common areas watching TV and socializing. Patient denies any SI/ HI. Appears to have some delusional thinking. Does not appear to be responding to internal stimuli. Plan: Patient continues to require crisis interruption and stabilization with medication management and monitoring in a safe and therapeutic environment.
[2022-03-20 20:48] VITALS: BP 130/79
--- NOTE | 2022-03-20 23:38 | NUR ---
Nursing Progress Note: Vern Problem: Pt brought to the unit from [facility] via [facility] car pick up driver from [employer] office. Pt is seeing faces in his stoma with a plan to cut them out. He believes his brother is performing witch craft on him. Intervention: Medication given as ordered. Provided with a safe and therapeutic environment, clear communication, active listening and positive encouragement. Response: Patient is in his room resting at change of shift. Pt is cooperative with assessment. Denies MH symptoms but states he is having some anxiety 5/10 and requests Ativan. 0.5MG of Ativan given with good effect. Pt up for snacks and took all HS medications including PRN [place]. Pt observed watching TV in rec room with peers for a while before retiring to bed. Plan: Patient continues to require crisis interruption and stabilization with medication management and monitoring in a safe and therapeutic environment.
[2022-03-21] MEDS: multivitamins, therapeutics tablet PO SCH (07:22)
[2022-03-21] MEDS: LORazepam 0.5 MG tablet PO PRN ×2 (07:22→14:09)
[2022-03-21] MEDS: divalproex sodium 500mg tablet.DR PO SCH (07:22)
[2022-03-21] MEDS: cholecalciferol (vitamin D3) 1,000 unit (25mcg) tablet PO SCH (07:22)
[2022-03-21] MEDS: cyanocobalamin 500mcg tablet PO SCH (07:22)
[2022-03-21] MEDS: folic acid 1mg tablet PO SCH (07:22)
[2022-03-21] MEDS: sertraline 50mg tablet PO SCH (07:23)
[2022-03-21] MEDS: pyridoxine 50mg tablet PO SCH (07:23)
[2022-03-21] MEDS: quetiapine 100mg tablet PO SCH ×2 (07:23→12:29)
[2022-03-21] MEDS: ascorbic acid 500mg tablet PO SCH (07:23)
[2022-03-21] MEDS: HYDROcodone/acetaminophen 10/325mg tab PO PRN ×2 (07:25→14:18)
[2022-03-21 07:27] VITALS: BP 102/55
[2022-03-21] MEDS: nicotine 14mg patch - 24hr TD SCH (07:28)
[2022-03-21] MEDS: ferrous sulfate 325mg tablet PO SCH ×3 (08:30→17:43)
[2022-03-21] MEDS: NICOTINE POLACRILEX 2 MG LOZENGE BC PRN ×2 (10:32→15:18)
[2022-03-21] MEDS: acetaminophen 325mg tablet PO PRN (12:30)
--- NOTE | 2022-03-21 13:39 | NUR ---
DISCHARGE PLAN Pt. to discharge in the morning tomorrow to a friend's house in [place] where his brother will be meeting him. Spoke to his brother today, he is a truck drive and will be driving in from [employer] tomorrow. They plan to meet up and spend time together. Monserrat Mendieta LCSW
[2022-03-21] MEDS ORDERED: Lorazepam PO (16:13)
[2022-03-21] MEDS ORDERED: NICO-631 TD (16:13)
[2022-03-21] MEDS ORDERED: SERT-433 PO (16:13)
[2022-03-21] MEDS ORDERED: HYDR-3972 PO (16:13)
[2022-03-21] MEDS ORDERED: FER325T PO (16:13)
[2022-03-21] MEDS ORDERED: QUET100T34 PO (16:13)
[2022-03-21] MEDS ORDERED: NICO-668 MM (16:13)
[2022-03-21] MEDS ORDERED: DIVA500T40 PO (16:13)
--- NOTE | 2022-03-21 17:43 | NUR ---
DISCHARGE NOTE: Pt. discharged to friend's house, pt. given bus ticket. Pt discharged with all valuables and belongings. RN went over discharge paperwork with pt. Pt. verbalized understanding of f/u plan, home medications, emergency phone numbers, including 911, and firearms restrictions. Pt. signed all paperwork. Pt. is A&Ox4 and denies SI/HI, A/V hallucinations. Pt. in no apparent distress. Pt. verbalized understanding of colostomy and urostomy care and has supplies. Pt. to make own appointment at [facility] for f/u. Scripts given for medications and pt. verbalized understanding of how to get medications filled. .
== END 2022-03-21 17:43 | disposition home or self-care (01) | DRG 756 ==
LOC: ADULT MH 14:16
PROVIDERS: ADMIT Psychiatry & Neurology Psychiatry; ATTEND Psychiatry & Neurology Psychiatry
DX: F41.9 Anxiety disorder, unspecified (principal); G10 Huntington's disease; F33.2 Major depressive disorder, recurrent severe without psychotic features; F11.20 Opioid dependence, uncomplicated; F10.10 Alcohol abuse, uncomplicated; D50.9 Iron deficiency anemia, unspecified; F12.10 Cannabis abuse, uncomplicated; F15.159 Other stimulant abuse with stimulant-induced psychotic disorder, unspecified; N39.0 Urinary tract infection, site not specified; F17.210 Nicotine dependence, cigarettes, uncomplicated; Z65.3 Problems related to other legal circumstances; Z59.00 Homelessness unspecified; Z81.8 Family history of other mental and behavioral disorders; Z87.440 Personal history of urinary (tract) infections; Z88.1 Allergy status to other antibiotic agents; Z93.3 Colostomy status; Z93.6 Other artificial openings of urinary tract status; Z88.8 Allergy status to other drugs, medicaments and biological substances; Z91.013 Allergy to seafood; S31.11 Laceration without foreign body of abdominal wall without penetration into peritoneal cavity; Z71.6 Tobacco abuse counseling
CPT/HCPCS: 36415; 80053; 82272; 82728; 83036; 83540; 83550; 84443; 85025; 87081; A4421; Q0177

== ENCOUNTER 2022-03-26 17:19 | Emergency (ER) | payer MEDICAID ==
[~2022-03-26] VITALS: Ht 175.3 cm; Wt 72.7 kg
[~2022-03-26 17:19] MED LIST changes: +DIVA500T40 PO; -DIVA500T9 PO; +FER325T PO; +HYDR-3972 PO; +Lorazepam PO; +MULT-1085 PO; +NICO-631 TD; -QUET-1 PO; +QUET100T34 PO; -QUET50TA PO; +SERT-433 PO; -SERT100T PO
[2022-03-26 17:26] VITALS: BP 140/86
== END 2022-03-26 20:22 | disposition home or self-care (01) ==
LOC: ER 17:20
DX: K94.00 Colostomy complication, unspecified (principal); G89.29 Other chronic pain; Z86.14 Personal history of Methicillin resistant Staphylococcus aureus infection; F31.9 Bipolar disorder, unspecified; Z88.6 Allergy status to analgesic agent; Z79.899 Other long term (current) drug therapy; Z88.1 Allergy status to other antibiotic agents; Z88.5 Allergy status to narcotic agent; Z91.013 Allergy to seafood
CPT/HCPCS: 99281

== ENCOUNTER 2022-04-10 08:43 | Emergency (ER) | payer MEDICAID ==
[~2022-04-10] VITALS: Ht 172.7 cm; Wt 76.8 kg
[2022-04-10 09:14] VITALS: BP 118/72
== END 2022-04-10 11:20 | disposition home or self-care (01) ==
LOC: ER 08:44
DX: Z76.0 Encounter for issue of repeat prescription (principal); Z53.21 Procedure and treatment not carried out due to patient leaving prior to being seen by health care provider

== ENCOUNTER 2022-04-13 17:08 | Emergency (ER) | payer MEDICAID ==
[~2022-04-13] VITALS: Ht 172.7 cm; Wt 76.3 kg
[2022-04-13 17:46] VITALS: BP 129/83
== END 2022-04-13 19:22 | disposition home or self-care (01) ==
LOC: ER 17:10
DX: Z13.89 Encounter for screening for other disorder (principal); Z76.0 Encounter for issue of repeat prescription; G89.29 Other chronic pain; F41.9 Anxiety disorder, unspecified; F32.A Depression, unspecified; F12.90 Cannabis use, unspecified, uncomplicated; F15.90 Other stimulant use, unspecified, uncomplicated; F11.90 Opioid use, unspecified, uncomplicated; Z87.440 Personal history of urinary (tract) infections; Z86.14 Personal history of Methicillin resistant Staphylococcus aureus infection; Z98.890 Other specified postprocedural states; Z72.89 Other problems related to lifestyle; Z56.0 Unemployment, unspecified; Z59.00 Homelessness unspecified; Z88.6 Allergy status to analgesic agent; Z88.1 Allergy status to other antibiotic agents; Z91.030 Bee allergy status; Z79.899 Other long term (current) drug therapy
CPT/HCPCS: 99281; A4421

== ENCOUNTER 2022-04-21 20:58 | Emergency (ER) | payer MEDICAID ==
[~2022-04-21] VITALS: Ht 172.7 cm; Wt 77.3 kg
[2022-04-22 00:10] VITALS: BP 104/68
== END 2022-04-22 00:13 | disposition home or self-care (01) ==
LOC: ER 20:58
DX: K94.00 Colostomy complication, unspecified (principal); G89.29 Other chronic pain; F31.9 Bipolar disorder, unspecified; F12.10 Cannabis abuse, uncomplicated; F15.10 Other stimulant abuse, uncomplicated; Z88.6 Allergy status to analgesic agent; Z88.1 Allergy status to other antibiotic agents; Z79.899 Other long term (current) drug therapy
CPT/HCPCS: 99282; A4421

== ENCOUNTER 2022-04-29 00:58 | Emergency (ER) | payer MEDICAID ==
[~2022-04-29] VITALS: Ht 167.6 cm; Wt 77.0 kg
[~2022-04-29 00:58] MED LIST changes: -QUET100T34 PO
[2022-04-29 01:28] VITALS: BP 143/92
--- NOTE | 2022-04-29 02:12 | NUR ---
pt given extra urostomy and colostomy bags with home intrsuctions.
== END 2022-04-29 02:14 | disposition home or self-care (01) ==
LOC: ER 00:58
DX: Z02.89 Encounter for other administrative examinations (principal); K94.00 Colostomy complication, unspecified; G89.29 Other chronic pain; F41.9 Anxiety disorder, unspecified; F32.A Depression, unspecified; F12.90 Cannabis use, unspecified, uncomplicated; F15.90 Other stimulant use, unspecified, uncomplicated; F11.90 Opioid use, unspecified, uncomplicated; Z87.440 Personal history of urinary (tract) infections; Z86.14 Personal history of Methicillin resistant Staphylococcus aureus infection; Z98.890 Other specified postprocedural states; Z72.89 Other problems related to lifestyle; Z59.00 Homelessness unspecified; Z56.0 Unemployment, unspecified; Z88.1 Allergy status to other antibiotic agents; Z88.8 Allergy status to other drugs, medicaments and biological substances; Z79.899 Other long term (current) drug therapy
CPT/HCPCS: 99281

== ENCOUNTER 2022-05-08 03:01 | Emergency (ER) | payer MEDICAID ==
[~2022-05-08] VITALS: Ht 172.7 cm; Wt 75.0 kg
[2022-05-08 03:30] VITALS: BP 134/90
== END 2022-05-08 03:49 | disposition home or self-care (01) ==
LOC: ER 03:04
DX: K94.00 Colostomy complication, unspecified (principal); G89.29 Other chronic pain; F12.90 Cannabis use, unspecified, uncomplicated; F15.20 Other stimulant dependence, uncomplicated; F11.90 Opioid use, unspecified, uncomplicated; Z88.1 Allergy status to other antibiotic agents; Z88.6 Allergy status to analgesic agent; Z91.030 Bee allergy status; Z56.0 Unemployment, unspecified; Z59.00 Homelessness unspecified
CPT/HCPCS: 99281

== ENCOUNTER 2022-05-14 20:14 | Emergency (ER) | payer MEDICAID ==
[~2022-05-14] VITALS: Ht 172.7 cm; Wt 72.2 kg
[2022-05-14 20:33] VITALS: BP 150/81
[2022-05-14] MEDS ORDERED: TETanus/Pertussis (Acell)/Diphther VAC/PF (Tdap-Adult) 0.5ml syringe IMVAC ONE (21:30)
[2022-05-14] MEDS ORDERED: OXYC-481 PO (23:34)
[2022-05-14] MEDS ORDERED: ONDA4TAB12 PO (23:34)
--- NOTE | 2022-05-15 00:34 | NUR ---
exhausted all efforts looking for colostomy and urostomy supplies without luck. pt became hostile and verbaly abusive when nurse explained we do not have the supplies he was looking for. pt was given , tape, etoh prep pads, castile soap and bedidine prep pads. pt left disgruntal and verbaly abusive towards staff as he was leaving the er.
== END 2022-05-15 00:40 | disposition home or self-care (01) ==
LOC: ER 20:15
DX: Z46.89 Encounter for fitting and adjustment of other specified devices (principal); G89.29 Other chronic pain; F41.9 Anxiety disorder, unspecified; F32.A Depression, unspecified; F12.90 Cannabis use, unspecified, uncomplicated; F15.90 Other stimulant use, unspecified, uncomplicated; F11.90 Opioid use, unspecified, uncomplicated; Z87.440 Personal history of urinary (tract) infections; Z86.14 Personal history of Methicillin resistant Staphylococcus aureus infection; Z98.890 Other specified postprocedural states; Z59.00 Homelessness unspecified; Z56.0 Unemployment, unspecified; Z88.6 Allergy status to analgesic agent; Z88.1 Allergy status to other antibiotic agents; Z79.899 Other long term (current) drug therapy
CPT/HCPCS: 99281; A6449

== ENCOUNTER 2022-05-15 14:33 | Emergency (ER) | payer MEDICAID ==
[~2022-05-15] VITALS: Ht 172.7 cm; Wt 70.5 kg
[~2022-05-15 14:33] MED LIST changes: +ONDA4TAB12 PO; +OXYC-481 PO
[2022-05-15 15:05] VITALS: BP 136/90
== END 2022-05-15 16:07 | disposition home or self-care (01) ==
LOC: ER 14:34
DX: Z46.89 Encounter for fitting and adjustment of other specified devices (principal); G89.29 Other chronic pain; F41.9 Anxiety disorder, unspecified; F32.A Depression, unspecified; F12.90 Cannabis use, unspecified, uncomplicated; F15.90 Other stimulant use, unspecified, uncomplicated; F11.90 Opioid use, unspecified, uncomplicated; Z87.440 Personal history of urinary (tract) infections; Z86.14 Personal history of Methicillin resistant Staphylococcus aureus infection; Z98.890 Other specified postprocedural states; Z72.89 Other problems related to lifestyle; Z59.00 Homelessness unspecified; Z56.0 Unemployment, unspecified; Z88.6 Allergy status to analgesic agent; Z88.1 Allergy status to other antibiotic agents; Z91.030 Bee allergy status; Z79.899 Other long term (current) drug therapy
CPT/HCPCS: 99283

== ENCOUNTER 2022-05-19 10:36 | Emergency (ER) | payer MEDICAID ==
[~2022-05-19] VITALS: Ht 172.7 cm; Wt 75.9 kg
[~2022-05-19 10:36] MED LIST changes: -ONDA4TAB12 PO; -OXYC-481 PO
[2022-05-19 10:55] VITALS: BP 150/94
== END 2022-05-19 11:55 | disposition home or self-care (01) ==
LOC: ER 10:37
DX: K94.00 Colostomy complication, unspecified (principal); G89.29 Other chronic pain; F31.9 Bipolar disorder, unspecified; Z86.14 Personal history of Methicillin resistant Staphylococcus aureus infection; Z87.81 Personal history of (healed) traumatic fracture; Z90.49 Acquired absence of other specified parts of digestive tract; Z88.5 Allergy status to narcotic agent; Z88.1 Allergy status to other antibiotic agents; Z88.6 Allergy status to analgesic agent; Z91.030 Bee allergy status
CPT/HCPCS: 99281

== ENCOUNTER 2022-06-02 00:23 | Emergency (ER) | payer MEDICAID ==
[~2022-06-02] VITALS: Ht 172.7 cm; Wt 72.7 kg
[2022-06-02 00:40] VITALS: BP 120/60
== END 2022-06-02 01:04 | disposition home or self-care (01) ==
LOC: ER 00:28
DX: F31.9 Bipolar disorder, unspecified (principal); G89.29 Other chronic pain; F12.10 Cannabis abuse, uncomplicated; F15.10 Other stimulant abuse, uncomplicated; F11.10 Opioid abuse, uncomplicated; Z86.14 Personal history of Methicillin resistant Staphylococcus aureus infection; Z87.81 Personal history of (healed) traumatic fracture; Z88.6 Allergy status to analgesic agent; Z88.1 Allergy status to other antibiotic agents; Z79.899 Other long term (current) drug therapy
CPT/HCPCS: 99281; A4421

== ENCOUNTER 2022-06-05 05:32 | Emergency (ER) | payer MEDICAID ==
[~2022-06-05] VITALS: Ht 177.8 cm; Wt 75.0 kg
[2022-06-05 05:55] VITALS: BP 164/69
== END 2022-06-05 06:05 | disposition home or self-care (01) ==
LOC: ER 05:32
DX: K94.19 Other complications of enterostomy (principal); G89.29 Other chronic pain; F41.9 Anxiety disorder, unspecified; F32.A Depression, unspecified; F12.90 Cannabis use, unspecified, uncomplicated; F15.90 Other stimulant use, unspecified, uncomplicated; F11.90 Opioid use, unspecified, uncomplicated; F19.90 Other psychoactive substance use, unspecified, uncomplicated; Z87.440 Personal history of urinary (tract) infections; Z86.14 Personal history of Methicillin resistant Staphylococcus aureus infection; Z98.890 Other specified postprocedural states; Z72.89 Other problems related to lifestyle; Z59.00 Homelessness unspecified; Z88.6 Allergy status to analgesic agent; Z88.1 Allergy status to other antibiotic agents; Z91.030 Bee allergy status; Z79.899 Other long term (current) drug therapy
CPT/HCPCS: 99283

== ENCOUNTER 2022-06-09 08:50 | Emergency (ER) | payer MEDICAID ==
[~2022-06-09] VITALS: Ht 175.3 cm; Wt 75.0 kg
[2022-06-09 09:06] VITALS: BP 118/54
--- NOTE | 2022-06-09 10:14 | NUR ---
patient was seen, assessed and discharged by provider.
== END 2022-06-09 10:16 | disposition home or self-care (01) ==
LOC: ER 08:51
DX: Z00.00 Encounter for general adult medical examination without abnormal findings (principal); G89.29 Other chronic pain; F12.90 Cannabis use, unspecified, uncomplicated; F15.20 Other stimulant dependence, uncomplicated; F19.10 Other psychoactive substance abuse, uncomplicated; Z88.1 Allergy status to other antibiotic agents; Z88.6 Allergy status to analgesic agent; Z91.030 Bee allergy status; Z56.0 Unemployment, unspecified; Z59.00 Homelessness unspecified
CPT/HCPCS: 99281

== ENCOUNTER 2022-06-10 12:50 | Emergency (ER) | payer MEDICAID ==
[~2022-06-10] VITALS: Ht 172.7 cm; Wt 72.7 kg
[2022-06-10 12:54] VITALS: BP 138/78
== END 2022-06-10 14:34 | disposition left against medical advice (07) ==
LOC: ER 12:51
DX: K94.00 Colostomy complication, unspecified (principal); Z53.21 Procedure and treatment not carried out due to patient leaving prior to being seen by health care provider

== ENCOUNTER 2022-06-11 21:03 | Emergency (ER) | payer MEDICAID ==
[~2022-06-11] VITALS: Ht 172.7 cm; Wt 68.2 kg
[2022-06-11 21:16] VITALS: BP 133/88
--- NOTE | 2022-06-11 23:01 | NUR ---
PATIENT BEGAN YELLING AND CUSSING IN THE LOBBY REGARDING WAIT TIME - DISCUSSED EXPECTATION OF APPROPRIATE BEHAVIOR WITH PATIENT, PATIENT DISMISSIVE OF BOUNDARIES SET AND RESPECT OF OTHERS IN THE LOBBY. GIVEN MULTIPLE WARNINGS ABOUT NOT HISSING AND/OR GROWLING AT OTHER PATIENTS AND TRIAGE NURSE.
== END 2022-06-11 23:39 | disposition left against medical advice (07) ==
LOC: ER 21:04
DX: T83.9XXA Unspecified complication of genitourinary prosthetic device, implant and graft, initial encounter (principal); Z53.21 Procedure and treatment not carried out due to patient leaving prior to being seen by health care provider

== ENCOUNTER 2022-06-12 18:51 | Emergency (ER) | payer MEDICAID ==
[~2022-06-12] VITALS: Ht 175.3 cm; Wt 72.7 kg
[2022-06-12 21:10] VITALS: BP 136/84
--- NOTE | 2022-06-12 21:33 | NUR ---
urostomy and colostomy bags placed onto the patient, fresh gown and linen. He wants to eat. Informed him the doctor ordered a CT so he will have to wait. Gripper socks on.
--- NOTE | 2022-06-12 21:54 | NUR ---
He removed his urostomy and colostomy bag. His colostomy bag had foul smelling stool. So the stool was placed into a urine cup, labeled and sent to the lab and the doctor was made aware. The patient is hollaring at me saying "your stupid" and a "fucking bitch" Replaced his bags. Security at the bedside to assist with how mean this patient was to me.
[2022-06-13 09:23] LABS: C DIFF SPECIMEN=DIARRHEA? ACCEPTABLE; C DIFFICILE TOXINS A&B NEGATIVE (Neg)
== END 2022-06-12 22:14 | disposition home or self-care (01) ==
LOC: ER 18:51
DX: Z13.89 Encounter for screening for other disorder (principal); R45.1 Restlessness and agitation; G89.29 Other chronic pain; F41.9 Anxiety disorder, unspecified; F32.A Depression, unspecified; F12.90 Cannabis use, unspecified, uncomplicated; F15.90 Other stimulant use, unspecified, uncomplicated; F11.90 Opioid use, unspecified, uncomplicated; F19.90 Other psychoactive substance use, unspecified, uncomplicated; Z76.5 Malingerer [conscious simulation]; Z91.199 Patient's noncompliance with other medical treatment and regimen due to unspecified reason; Z86.14 Personal history of Methicillin resistant Staphylococcus aureus infection; Z87.440 Personal history of urinary (tract) infections; Z98.890 Other specified postprocedural states; Z72.89 Other problems related to lifestyle; Z56.0 Unemployment, unspecified; Z59.00 Homelessness unspecified; Z88.6 Allergy status to analgesic agent; Z88.1 Allergy status to other antibiotic agents; Z91.030 Bee allergy status; Z79.899 Other long term (current) drug therapy
CPT/HCPCS: 87324; 87449; 99283

== ENCOUNTER 2022-06-14 14:47 | Emergency (ER) | payer MEDICAID ==
--- NOTE | 2022-06-14 17:07 | NUR ---
EMS ACID PATROLLER REQUESTING THAT WE RELEASE THEIR CREW DUE TO LACK OF RIGS. SPOKE WITH FELICIA RIGGINS REGARDING PT'S RELEASE TO ER, REMAINING ON A 5150 WITH NO ROOM TO PUT PT IN AT THIS TIME. PER Janie DE LA ROSA PT WAS PUT IN A MCDANIEL CHAIR AND AWAITING [facility] TO EVALUATE; LOOKING TO RESIND THE 5150
== END 2022-06-14 17:25 | disposition home or self-care (01) ==
LOC: ER 14:48
DX: F29 Unspecified psychosis not due to a substance or known physiological condition (principal); Z76.5 Malingerer [conscious simulation]; G89.29 Other chronic pain; F32.A Depression, unspecified; Z87.81 Personal history of (healed) traumatic fracture; Z79.899 Other long term (current) drug therapy
CPT/HCPCS: 99285

== ENCOUNTER 2022-06-15 13:56 | Emergency (ER) | payer MEDICAID ==
[~2022-06-15] VITALS: Ht 172.7 cm; Wt 72.7 kg
[2022-06-15 14:11] VITALS: BP 126/76
[2022-06-15] MEDS ORDERED: LORazepam 0.5 MG tablet PO STA (14:24)
[2022-06-15] MEDS ORDERED: divalproex sodium 500mg tablet.DR PO STA (14:24)
[2022-06-15] MEDS ORDERED: sertraline 50mg tablet PO ONE (14:25)
== END 2022-06-15 15:48 ==
LOC: ER 13:57
DX: R45.851 Suicidal ideations (principal); Z00.00 Encounter for general adult medical examination without abnormal findings; G89.29 Other chronic pain; F12.90 Cannabis use, unspecified, uncomplicated; F15.20 Other stimulant dependence, uncomplicated; F19.10 Other psychoactive substance abuse, uncomplicated; Z76.5 Malingerer [conscious simulation]; Z91.013 Allergy to seafood; Z88.6 Allergy status to analgesic agent; Z98.890 Other specified postprocedural states; Z59.00 Homelessness unspecified; Z56.0 Unemployment, unspecified
CPT/HCPCS: 99285

== ENCOUNTER 2022-06-16 21:29 | Emergency (ER) | payer MEDICAID ==
[~2022-06-16] VITALS: Ht 175.3 cm; Wt 77.3 kg
[2022-06-16 22:11] VITALS: BP 120/71
== END 2022-06-16 22:35 ==
LOC: ER 21:30
DX: G89.29 Other chronic pain (principal); F41.9 Anxiety disorder, unspecified; Z86.14 Personal history of Methicillin resistant Staphylococcus aureus infection; F12.10 Cannabis abuse, uncomplicated; F15.10 Other stimulant abuse, uncomplicated; Z91.013 Allergy to seafood; Z88.6 Allergy status to analgesic agent; Z88.1 Allergy status to other antibiotic agents; Z79.899 Other long term (current) drug therapy
CPT/HCPCS: 99283

== ENCOUNTER 2022-09-04 17:22 | Emergency (ER) | payer MEDICAID ==
[~2022-09-04] VITALS: Ht 172.7 cm; Wt 70.5 kg
[2022-09-04] MEDS ORDERED: OLANZapine 2.5MG tablet PO SCH (18:50)
[2022-09-04] MEDS ORDERED: olanzapine 10mg tablet PO SCH (18:51)
[2022-09-04] MEDS ORDERED: olanzapine 10mg tablet PO ONE (18:55)
[2022-09-04] MEDS ORDERED: OLANZapine 2.5MG tablet PO ONE (18:55)
--- NOTE | 2022-09-04 19:00 | NUR ---
I AGREE WITH A MAHESH MACDONALD ASSESSMENT.
[2022-09-04 19:11] LABS: BASOPHILS % (AUTO) 0.4 % (0-1); EOSINOPHILS # (AUTO) 0.3 X10'3 (0-0.9); EOSINOPHILS % (AUTO) 2.4 % (0-6); HEMATOCRIT 36.5 % (42.0-52.0); HEMOGLOBIN 11.2 g/dl (14.0-17.9); LYMPHOCYTES # (AUTO) 1.3 X10'3 (1.1-4.8); LYMPHOCYTES % (AUTO) 11.8 % (21-51); MEAN CORPUSCULAR HEMOGLOBIN 22.8 PG (27.0-31.0); MEAN CORPUSCULAR HGB CONC 30.6 g/dL (33.0-36.5); MEAN CORPUSCULAR VOLUME 74.4 FL (78-98); MEAN PLATELET VOLUME 7.6 FL (7.4-10.4); MONOCYTES # (AUTO) 0.5 X10'3 (0-0.9); MONOCYTES % (AUTO) 4.9 % (2-12); NEUTROPHILS # (AUTO) 8.5 X10'3 (1.8-7.7); NEUTROPHILS % (AUTO) 80.5 % (42-75); PLATELET COUNT 394 X10'3 (140-440); RED CELL DISTRIBUTION WIDTH 19.3 % (11.5-14.5); WHITE BLOOD COUNT 10.6 X10'3 (4.5-11.0)
[2022-09-04 19:26] LABS: ALANINE AMINOTRANSFERASE 32 U/L (12-78); ALBUMIN 3.4 G/DL (3.4-5.0); ALBUMIN/GLOBULIN RATIO 0.9 (1.1-1.5); ALKALINE PHOSPHATASE 79 IU/L (46-116); ANION GAP 10 (8-16); ASPARTATE AMINO TRANSFERASE 33 U/L (10-37); BILIRUBIN,TOTAL 0.2 MG/DL (0.1-1.0); BLOOD UREA NITROGEN 10 MG/DL (7-18); BUN/CREATININE RATIO 11.5 (5.4-32.0); CALCIUM 9.1 MG/DL (8.5-10.1); CHLORIDE 106 MMOL/L (99-107); CREATININE 0.87 MG/DL (0.60-1.10); GLUCOSE 110 MG/DL (70-104); POTASSIUM 3.7 MMOL/L (3.5-5.1); SODIUM 144 MMOL/L (135-145); TOTAL CARBON DIOXIDE 27.8 MMOL/L (24-32); TOTAL PROTEIN 7.3 G/DL (6.4-8.2); eGFR > 90 ML/MIN
[2022-09-04 19:39] LABS: URINE AMPHETAMINE SCREEN NEGATIVE (Neg); URINE BARBITUATE SCREEN NEGATIVE (Neg); URINE BENZODIAZEPINES SCREEN NEGATIVE (Neg); URINE CANNABINOID SCREEN POSITIVE (Neg); URINE COCAINE SCREEN NEGATIVE (Neg); URINE METHADONE SCREEN NEGATIVE (Neg); URINE OPIATE SCREEN NEGATIVE (Neg); URINE PHENCYCLIDINE SCREEN NEGATIVE (Neg)
[2022-09-04 19:42] LABS: ACETAMINOPHEN < 2.0 UG/ML (10-30); ETHANOL < 0.010 GM/DL (0.0-0.010)
[2022-09-04 20:19] LABS: ANISOCYTOSIS 2+; ELLIPTOCYTES FEW; MICROCYTOSIS 1+; PLATELET ESTIMATE NORMAL
[2022-09-05 05:38] VITALS: BP 98/51
--- NOTE | 2022-09-05 08:25 | NUR ---
meggan sent pt packet to [facility]
--- NOTE | 2022-09-05 11:04 | NUR ---
pt belongings given to pt, no valuables.
== END 2022-09-05 11:18 | disposition home or self-care (01) ==
LOC: ER 17:23
DX: R45.851 Suicidal ideations (principal); Z20.822 Contact with and (suspected) exposure to COVID-19; F31.9 Bipolar disorder, unspecified; G89.29 Other chronic pain; Z87.448 Personal history of other diseases of urinary system; Z87.81 Personal history of (healed) traumatic fracture; F12.10 Cannabis abuse, uncomplicated; F15.10 Other stimulant abuse, uncomplicated; Z86.2 Personal history of diseases of the blood and blood-forming organs and certain disorders involving the immune mechanism; Z79.899 Other long term (current) drug therapy; Z91.013 Allergy to seafood; Z88.6 Allergy status to analgesic agent; Z88.1 Allergy status to other antibiotic agents; Z91.030 Bee allergy status; Z90.49 Acquired absence of other specified parts of digestive tract
CPT/HCPCS: 36415; 80053; 80305; 80320; 80329; 85008; 85025; 87811; 99285

== ENCOUNTER 2022-09-23 06:35 | Emergency (ER) | payer MEDICAID ==
[~2022-09-23] VITALS: Ht 175.3 cm; Wt 72.0 kg
[~2022-09-23 06:35] MED LIST changes: -NICO-631 TD
[2022-09-23 06:45] VITALS: BP 129/51
--- NOTE | 2022-09-23 09:11 | NUR ---
denies medical complaints. just requesting ostomy supplies. pt has been seen by PA and given supplies.
== END 2022-09-23 09:13 | disposition home or self-care (01) ==
LOC: ER 06:36
DX: K94.09 Other complications of colostomy (principal); G89.29 Other chronic pain; F41.9 Anxiety disorder, unspecified; F32.9 Major depressive disorder, single episode, unspecified; F12.90 Cannabis use, unspecified, uncomplicated; F15.90 Other stimulant use, unspecified, uncomplicated; F11.90 Opioid use, unspecified, uncomplicated; Z59.00 Homelessness unspecified; Z56.0 Unemployment, unspecified; Z98.890 Other specified postprocedural states; Z91.013 Allergy to seafood; Z88.1 Allergy status to other antibiotic agents; Z88.8 Allergy status to other drugs, medicaments and biological substances; Z91.030 Bee allergy status; Z79.899 Other long term (current) drug therapy; Y83.8 Other surgical procedures as the cause of abnormal reaction of the patient, or of later complication, without mention of misadventure at the time of the procedure
CPT/HCPCS: 99281; A4421; A6250

== ENCOUNTER 2022-09-29 18:58 | Emergency (ER) | payer MEDICAID ==
[~2022-09-29] VITALS: Ht 172.7 cm; Wt 70.5 kg
[2022-09-29 19:20] VITALS: BP 149/76
== END 2022-09-29 22:29 | disposition home or self-care (01) ==
LOC: ER 18:59
DX: Z43.3 Encounter for attention to colostomy (principal); G89.29 Other chronic pain; F41.9 Anxiety disorder, unspecified; F32.A Depression, unspecified; F12.90 Cannabis use, unspecified, uncomplicated; F11.90 Opioid use, unspecified, uncomplicated; F10.10 Alcohol abuse, uncomplicated; Z86.14 Personal history of Methicillin resistant Staphylococcus aureus infection; Z87.81 Personal history of (healed) traumatic fracture; Z86.2 Personal history of diseases of the blood and blood-forming organs and certain disorders involving the immune mechanism; Z59.00 Homelessness unspecified; Z56.0 Unemployment, unspecified; Z91.013 Allergy to seafood; Z88.8 Allergy status to other drugs, medicaments and biological substances; Z79.899 Other long term (current) drug therapy; Z79.2 Long term (current) use of antibiotics; Y90.9 Presence of alcohol in blood, level not specified
CPT/HCPCS: 99281; A4421

== ENCOUNTER 2022-10-03 05:00 | Emergency (ER) | payer MEDICAID ==
[~2022-10-03] VITALS: Ht 172.7 cm; Wt 82.7 kg
[2022-10-03 06:45] VITALS: BP 115/56
--- NOTE | 2022-10-03 07:30 | NUR ---
Changed both right and left colostomy bags. Area cleaned first prior to changing colostomy bag. Skin surrounding the stoma reddened. Patient is homeless, was given turey sandwich and 2 juice boxes per his request. Pt left ER ambulatory in stable condition.
[2022-10-04] MEDS ORDERED: ACET-890 PO (10:59)
[2022-10-04] MEDS ORDERED: FERR325T28 PO (10:59)
[2022-10-04] MEDS ORDERED: QUET50TA PO (10:59)
[2022-10-04] MEDS ORDERED: NICO-907 PO (10:59)
[2022-10-04] MEDS ORDERED: QUET-1 PO (10:59)
[2022-10-04] MEDS ORDERED: SERT-153 PO (10:59)
[2022-10-04] MEDS ORDERED: DIVA-76 PO (10:59)
[2022-10-04] MEDS ORDERED: MULT-1085 PO (10:59)
[2022-10-04] MEDS ORDERED: LORA-268 PO (10:59)
== END 2022-10-03 07:34 | disposition home or self-care (01) ==
LOC: ER 05:01
DX: K94.00 Colostomy complication, unspecified (principal); F31.9 Bipolar disorder, unspecified; Z87.81 Personal history of (healed) traumatic fracture; Z88.6 Allergy status to analgesic agent; Z91.013 Allergy to seafood; Z88.1 Allergy status to other antibiotic agents; Z88.5 Allergy status to narcotic agent
CPT/HCPCS: 99281; 99284; A4421

== ENCOUNTER 2022-10-04 04:58 | Emergency (ER) | payer MEDICAID ==
[~2022-10-04] VITALS: Ht 172.7 cm; Wt 72.7 kg
[2022-10-04 07:09] LABS: BASOPHILS % (AUTO) 0.5 % (0-1); EOSINOPHILS # (AUTO) 0.2 X10'3 (0-0.9); EOSINOPHILS % (AUTO) 2.7 % (0-6); HEMATOCRIT 36.1 % (42.0-52.0); HEMOGLOBIN 11.6 g/dl (14.0-17.9); LYMPHOCYTES # (AUTO) 0.8 X10'3 (1.1-4.8); LYMPHOCYTES % (AUTO) 13.7 % (21-51); MEAN CORPUSCULAR HEMOGLOBIN 25.5 PG (27.0-31.0); MEAN CORPUSCULAR HGB CONC 32.2 g/dL (33.0-36.5); MEAN CORPUSCULAR VOLUME 79.3 FL (78-98); MEAN PLATELET VOLUME 7.4 FL (7.4-10.4); MONOCYTES # (AUTO) 0.9 X10'3 (0-0.9); MONOCYTES % (AUTO) 15.6 % (2-12); NEUTROPHILS # (AUTO) 3.9 X10'3 (1.8-7.7); NEUTROPHILS % (AUTO) 67.5 % (42-75); PLATELET COUNT 289 X10'3 (140-440); RED BLOOD COUNT 4.56 X10'6 (4.70-6.10); RED CELL DISTRIBUTION WIDTH 19.9 % (11.5-14.5); WHITE BLOOD COUNT 5.8 X10'3 (4.5-11.0)
[2022-10-04 07:19] LABS: URINE AMPHETAMINE SCREEN POSITIVE (Neg); URINE BARBITUATE SCREEN NEGATIVE (Neg); URINE BENZODIAZEPINES SCREEN NEGATIVE (Neg); URINE CANNABINOID SCREEN POSITIVE (Neg); URINE COCAINE SCREEN NEGATIVE (Neg); URINE METHADONE SCREEN NEGATIVE (Neg); URINE OPIATE SCREEN NEGATIVE (Neg); URINE PHENCYCLIDINE SCREEN NEGATIVE (Neg)
[2022-10-04 07:21] LABS: CLARITY,URINE SLIGHTLY CLOUDY (Clear); COLOR,URINE YELLOW (Yellow); GLUCOSE, URINE NEGATIVE (Neg); KETONES,URINE NEGATIVE (Neg); LEUKOCYTE ESTERASE ,URINE MODERATE (Neg); NITRITES, URINE POSITIVE (Neg); OCCULT BLOOD,URINE SMALL (Neg); PROTEIN,URINE 30 mg/dl (Neg); UA COLLECTION TYPE OTHER; UROBILINOGEN,URINE 0.2 E.U/dL (0.2-1.0)
[2022-10-04 07:27] LABS: WBC,URINE TNTC /HPF (0-4)
[2022-10-04 07:31] LABS: MUCUS STRANDS MANY /LPF (Neg); SQUAMOUS EPITHELIAL CELL,UR NONE SEEN /LPF (FEW)
[2022-10-04 07:32] LABS: BACTERIA,URINE 3+ /HPF (Neg); WBC CLUMPS,URINE MANY /HPF (NEGATIVE)
--- NOTE | 2022-10-04 08:38 | NUR ---
Pt. ambulated over from the main ER accompanied by
[2022-10-04 08:55] LABS: ANISOCYTOSIS 2+; MICROCYTOSIS 1+; PLATELET ESTIMATE NORMAL
[2022-10-04 08:56] LABS: ELLIPTOCYTES 1+; HYPOCHROMASIA 1+; SCHISTOCYTES FEW
[2022-10-04 09:03] LABS: ALBUMIN 2.7 G/DL (3.4-5.0); ALBUMIN/GLOBULIN RATIO 0.7 (1.1-1.5); ANION GAP 8 (8-16); ASPARTATE AMINO TRANSFERASE 45 U/L (10-37); BILIRUBIN,TOTAL 0.3 MG/DL (0.1-1.0); BLOOD UREA NITROGEN 12 MG/DL (7-18); BUN/CREATININE RATIO 18.5 (5.4-32.0); CALCIUM 8.4 MG/DL (8.5-10.1); CHLORIDE 103 MMOL/L (99-107); CREATININE 0.65 MG/DL (0.60-1.10); GLUCOSE 107 MG/DL (70-104); POTASSIUM 3.7 MMOL/L (3.5-5.1); SODIUM 134 MMOL/L (135-145); TOTAL CARBON DIOXIDE 22.9 MMOL/L (24-32); TOTAL PROTEIN 6.4 G/DL (6.4-8.2); eGFR > 90 ML/MIN
[2022-10-04 09:04] LABS: ALANINE AMINOTRANSFERASE 36 U/L (12-78); ALKALINE PHOSPHATASE 81 IU/L (46-116)
--- NOTE | 2022-10-04 09:06 | NUR ---
tech faxed pt packet to [facility]
[2022-10-04 09:09] LABS: ETHANOL < 0.010 GM/DL (0.0-0.010)
--- NOTE | 2022-10-04 09:18 | NUR ---
Pt. was provided a snack and is resting in bed at this time. This automatic typewriter inspector attempted to complete medication reconciliation, however pt. reports he has not been taking any medications and does not remember that last time he took them. Per medication history in chart, pt. has not picked-up any medications from his pharmacy since February of 2022. Addendum: 10/04/22 at 1635 by ARLETH This automatic typewriter inspector was able to complete pt's Med Recc using records from his previous admission in August 2022.
[2022-10-04] MEDS: sulfamethoxazole/trimethoprim DS (800/160mg) tablet PO SCH ×2 (10:43→20:25)
--- NOTE | 2022-10-04 10:46 | NUR ---
Pt. was cooperative with taking oral Septra for a UTI. He is laying in bed at this time, no s/s of distress noted.
[2022-10-04] MEDS ORDERED: LORA-268 PO (10:59)
[2022-10-04] MEDS ORDERED: NICO-907 PO (10:59)
[2022-10-04] MEDS ORDERED: DIVA-76 PO (10:59)
[2022-10-04] MEDS ORDERED: FERR325T28 PO (10:59)
[2022-10-04] MEDS ORDERED: MULT-1085 PO (10:59)
[2022-10-04] MEDS ORDERED: QUET-1 PO (10:59)
[2022-10-04] MEDS ORDERED: ACET-890 PO (10:59)
[2022-10-04] MEDS ORDERED: QUET50TA PO (10:59)
[2022-10-04] MEDS ORDERED: SERT-153 PO (10:59)
--- NOTE | 2022-10-04 12:26 | NUR ---
Pt. sat up to eat lunch and then returned to sleep.
[2022-10-04] MEDS ORDERED: quetiapine 100mg tablet PO PRN (13:50)
[2022-10-04] MEDS ORDERED: acetaminophen 325mg tablet PO PRN (13:50)
[2022-10-04] MEDS ORDERED: LORazepam 0.5 MG tablet PO PRN (13:50)
[2022-10-04] MEDS ORDERED: NICOTINE POLACRILEX 2 MG LOZENGE BC PRN (13:50)
[2022-10-04] MEDS: QUEtiapine 25mg tablet PO SCH ×2 (13:56→20:25)
--- NOTE | 2022-10-04 13:57 | NUR ---
Pt. was yelling out and appeared to be agitatedly responding to internal stimuli. He was unable to be verbally redirected, PRN Ativan was administered and will continue to monitor.
--- NOTE | 2022-10-04 14:31 | NUR ---
Pt. is laying in bed sleeping at this, rr are even and unlabored.
--- NOTE | 2022-10-04 15:29 | NUR ---
[facility] at bedside talking to pt. at this time, pt. presents as slightly agitated AEB elevated voice and posturing. Security called to stand-by for safety precautions.
--- NOTE | 2022-10-04 16:00 | NUR ---
Per [facility], pt. will not be placed on a mental health hold at this time. 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
--- NOTE | 2022-10-04 16:18 | NUR ---
Pt. continues to sleep at this time, rr are even and unlabored.
--- NOTE | 2022-10-04 17:56 | NUR ---
Pt. is sitting up eating dinner at this time, he is making random noises and appears to be responding to internal stimuli. Pt. reported rib pain, will administer PRN Tylenol and continue to monitor.
[2022-10-04] MEDS: ferrous sulfate 325mg tablet PO SCH ×2 (18:00→18:01)
--- NOTE | 2022-10-04 18:30 | NUR ---
Patient is sleeping quietly, no distress. Good color, normal resp.
--- NOTE | 2022-10-04 19:01 | NUR ---
Patient is sleeping quietly on his left side. In direct view from the nurses station.
[2022-10-04] MEDS: divalproex sodium 500mg tablet.DR PO SCH (20:25)
--- NOTE | 2022-10-04 20:31 | NUR ---
Patient awoke, he was compliant with nightime medications. Patient was given a sandwich. Patient voided 200 cc of clear straw urine from his urstomy bag.
--- NOTE | 2022-10-04 21:19 | NUR ---
Patient looks to be responding to internal stimuli when not asleep.
--- NOTE | 2022-10-04 22:35 | NUR ---
Patient is now sleeping quietly, supine in bed. No distress.
--- NOTE | 2022-10-04 23:59 | NUR ---
Patient sleeping quietly, no distress.
--- NOTE | 2022-10-05 01:10 | NUR ---
Patient is sleeping on his right side. No distress.
--- NOTE | 2022-10-05 03:16 | NUR ---
Patient is sleeping, no distress.
--- NOTE | 2022-10-05 04:09 | NUR ---
Patient is sleeping in a supine position. No distress.
--- NOTE | 2022-10-05 06:30 | NUR ---
Assumed care of patient. Pt sleeping comfortably, rr even and unlabored.
[2022-10-05] MEDS ORDERED: multivitamins, therapeutics tablet PO SCH (08:00)
[2022-10-05] MEDS ORDERED: sertraline 50mg tablet PO SCH (08:00)
--- NOTE | 2022-10-05 08:00 | NUR ---
Pt ate breakfast then returned to sleep. Pt refused physical assessment.
[2022-10-05] MEDS: sulfamethoxazole/trimethoprim DS (800/160mg) tablet PO SCH (09:37)
[2022-10-05] MEDS: QUEtiapine 25mg tablet PO SCH (09:37)
[2022-10-05] MEDS: divalproex sodium 500mg tablet.DR PO SCH (09:37)
[2022-10-05] MEDS: ferrous sulfate 325mg tablet PO SCH (09:37)
--- NOTE | 2022-10-05 10:40 | NUR ---
DISCHARGE NOTE Patient was discharged from unit at 1020 as patient ws not placed on a hold. Security was called for stand-by as patient has been combative in the past. Pt became agitated and began yelling and cursing at staff when asked to get dressed. Pt continued with agressive behavior, pushing his body towards security and using profanities and vulgar language. Pt eventually dressed and was escorted out by security and forensic science technician. Ostomy and urostomy bags were given to patient.
[2022-10-05 12:09] VITALS: BP 95/48
== END 2022-10-05 10:25 | disposition home or self-care (01) ==
LOC: ER 04:59
DX: R45.851 Suicidal ideations (principal); Z20.822 Contact with and (suspected) exposure to COVID-19; R44.3 Hallucinations, unspecified; G89.29 Other chronic pain; F12.90 Cannabis use, unspecified, uncomplicated; F15.20 Other stimulant dependence, uncomplicated; Z91.013 Allergy to seafood; Z88.6 Allergy status to analgesic agent; Z59.00 Homelessness unspecified; Z56.0 Unemployment, unspecified
CPT/HCPCS: 36415; 80053; 80305; 80320; 81001; 84443; 85008; 85025; 87491; 87811; 99285; A4421

== ENCOUNTER 2022-10-09 19:15 | Emergency (ER) | payer MEDICAID ==
[~2022-10-09] VITALS: Ht 172.7 cm; Wt 75.0 kg
[~2022-10-09 19:15] MED LIST changes: +ACET-890 PO; +DIVA-76 PO; -DIVA500T40 PO; -FER325T PO; +FERR325T28 PO; -HYDR-3972 PO; +LORA-268 PO; -Lorazepam PO; -NICO-668 MM; +NICO-907 PO; +QUET-1 PO; +QUET50TA PO; +SERT-153 PO; -SERT-433 PO
[2022-10-09 19:22] VITALS: BP 134/72
[2022-10-10] MEDS ORDERED: OLAN10TA3 PO (17:26)
== END 2022-10-09 22:50 | disposition home or self-care (01) ==
LOC: ER 19:16
DX: Z43.3 Encounter for attention to colostomy (principal); G89.29 Other chronic pain; F41.9 Anxiety disorder, unspecified; F32.9 Major depressive disorder, single episode, unspecified; F12.90 Cannabis use, unspecified, uncomplicated; F15.90 Other stimulant use, unspecified, uncomplicated; F11.90 Opioid use, unspecified, uncomplicated; Z86.14 Personal history of Methicillin resistant Staphylococcus aureus infection; Z98.890 Other specified postprocedural states; Z56.0 Unemployment, unspecified; Z59.00 Homelessness unspecified; Z91.013 Allergy to seafood; Z88.6 Allergy status to analgesic agent; Z79.899 Other long term (current) drug therapy
CPT/HCPCS: 99281

== ENCOUNTER 2022-10-10 16:03 | Emergency (ER) | payer MEDICAID ==
[~2022-10-10] VITALS: Ht 172.7 cm; Wt 79.5 kg
[2022-10-10 16:19] VITALS: BP 161/93
[2022-10-10] MEDS ORDERED: OLANZapine 2.5MG tablet PO STA (17:19)
[2022-10-10] MEDS ORDERED: LORazepam 1 MG tablet PO ONE (17:20)
[2022-10-10] MEDS ORDERED: olanzapine 10mg tablet PO STA (17:24)
[2022-10-10] MEDS ORDERED: OLAN10TA3 PO (17:26)
== END 2022-10-10 17:45 | disposition home or self-care (01) ==
LOC: ER 16:05
DX: G89.29 Other chronic pain (principal); F15.10 Other stimulant abuse, uncomplicated; F24 Shared psychotic disorder; F31.9 Bipolar disorder, unspecified; Z86.14 Personal history of Methicillin resistant Staphylococcus aureus infection; Z86.2 Personal history of diseases of the blood and blood-forming organs and certain disorders involving the immune mechanism
CPT/HCPCS: 99283

== ENCOUNTER 2022-10-12 18:15 | Inpatient (IN) | payer MEDICAID ==
[~2022-10-12] VITALS: Ht 172.7 cm; Wt 72.9 kg
[~2022-10-12 18:15] MED LIST changes: +OLAN10TA3 PO
--- NOTE | 2022-10-12 19:10 | NUR ---
Admit Note: Patient arrived from [facility] as a a 5150 for DTS/DTO. Patient fells like hanging himself with a rope or a chain, he also fells like killing everyone in this town who crosses him. Addendum: 10/12/22 at 2215 by Sabas Boyd RN Admit time was 2110 hours.
[2022-10-12] MEDS ORDERED: magnesium hydroxide 30ml (MOM) UD suspension PO PRN (21:25)
[2022-10-12] MEDS ORDERED: acetaminophen 325mg tablet PO PRN (21:25)
[2022-10-12] MEDS ORDERED: loperamide 2mg capsule PO PRN (21:25)
[2022-10-12] MEDS ORDERED: mag hydrox/Alum hydrox/simeth 30ml oral suspension PO PRN (21:25)
[2022-10-12] MEDS ORDERED: busPIRone 5mg tablet PO ONE (21:50)
[2022-10-12] MEDS ORDERED: hyDRALAzine 10mg tablet PO ONE (21:50)
[2022-10-12] MEDS ORDERED: mirtazapine 15mg tablet PO ONE (21:50)
[2022-10-12] MEDS ORDERED: hyDRALAzine 10mg tablet PO SCH (21:50)
[2022-10-12 21:51] VITALS: BP 124/74
--- NOTE | 2022-10-13 02:41 | NUR ---
Nursing Progress Note Problem: Patient was admitted here as a 5150 for DTS/DTO. Patient has thoughts of hanging himself and/or killing others. Patient is homeless. Patient has a history of Schizophrenia and alcohol and other drug abuse. Patient has thoughts of hanging himself with a rope or a chain. Interventions: Provided 1:1 assessment with therapeutic communication and active listening; Provided medication administration/education/monitoring; Encouraged pt to attend and participate in group; Maintained a supportive environment; Provided encouragement regarding performance of ADLs; Maintained Q 15minute safety checks. Response: Patient brought from [facility] ED. He endorses suicidal and homicidal ideation. Patient is quite anxious. He is cooperative with interview. This patient believes that his brother is living in his stomach. He endorses voices that are telling him bad things. Patient sees faces melting together. Patient is able to maintain his ostomy and colostomy bags. The patient has been off medications for a while but he is willing to be compliant with medications now. Plan: Pt. requires medication adjustments and a safe and supportive environment along with close monitoring for patient and staff safety.
[2022-10-13 07:40] VITALS: BP 118/70
[2022-10-13] MEDS: busPIRone 5mg tablet PO SCH ×3 (08:52→21:55)
[2022-10-13] MEDS: hyDRALAzine 10mg tablet PO SCH ×3 (08:52→21:00)
[2022-10-13] MEDS: benztropine 1mg tablet PO SCH ×2 (08:53→20:00)
[2022-10-13] MEDS ORDERED: OLANZapine 2.5MG tablet PO STA ×2 (13:31)
[2022-10-13] MEDS ORDERED: LORazepam 1 MG tablet PO ONE (13:35)
[2022-10-13] MEDS ORDERED: olanzapine 10mg tablet PO STA (13:39)
--- NOTE | 2022-10-13 18:33 | NUR ---
Nursing Progress Note Problem: Patient was admitted here as a 5150 for DTS/DTO. Patient has thoughts of hanging himself and/or killing others. Patient is homeless. Patient has a history of Schizophrenia and alcohol and other drug abuse. Patient has thoughts of hanging himself with a rope or a chain. Interventions: Provided 1:1 assessment with therapeutic communication and active listening; Provided medication administration/education/monitoring; Encouraged pt to attend and participate in group; Maintained a supportive environment; Provided encouragement regarding performance of ADLs; Maintained Q 15minute safety checks. Response: Received patient sleeping at shift change. Patient awakens and attends breakfast in the dining room and then goes straight back to bed. Patient is seen by hospitalist, but patient does not have any concerns. Patient requested supplies for his ileostomy and changes this independently. Patient is requesting double portions, deferred to M.D. In the afternoon, patient went to his room and was yelling. When I went to check on patient he was in an agitated state and stated that he was having visual and auditory hallucinations. Order received for Zyprexa and Ativan with good relief of symptoms. Plan: Pt. requires medication adjustments and a safe and supportive environment along with close monitoring for patient and staff safety.
[2022-10-13 20:00] VITALS: BP 98/56
[2022-10-13] MEDS: mirtazapine 15mg tablet PO SCH (21:56)
--- NOTE | 2022-10-14 04:55 | NUR ---
Received patient sleeping at shift change. Patient awakens and attends breakfast in the dining room and then goes straight back to bed. Patient is seen by hospitalist, but patient does not have any concerns. Patient requested supplies for his ileostomy and changes this independently. Patient is requesting double portions, deferred to M.D. In the afternoon, patient went to his room and was yelling. When I went to check on patient he was in an agitated state and stated that he was having visual and auditory hallucinations. Order received for Zyprexa and Ativan with good relief of symptoms.
[2022-10-14 08:00] VITALS: BP 92/52
[2022-10-14] MEDS: hyDRALAzine 10mg tablet PO SCH ×3 (09:24→20:20)
[2022-10-14] MEDS: busPIRone 5mg tablet PO SCH ×3 (09:25→20:21)
[2022-10-14] MEDS: benztropine 1mg tablet PO SCH ×2 (09:26→20:20)
[2022-10-14] MEDS ORDERED: LORazepam 1 MG tablet PO ONE (13:25)
[2022-10-14] MEDS: NICOTINE POLACRILEX 2 MG LOZENGE BC PRN ×2 (14:57→23:15)
[2022-10-14] MEDS: ascorbic acid 500mg tablet PO SCH (17:38)
[2022-10-14] MEDS: ferrous sulfate ER tablet 140 MG TABLET.ER PO SCH (17:45)
--- NOTE | 2022-10-14 17:57 | NUR ---
Nursing Progress Note: Vern Problem: Patient was admitted here as a 5150 for DTS/DTO. Patient has thoughts of hanging himself and/or killing others. Patient is homeless. Patient has a history of Schizophrenia and alcohol and other drug abuse. Patient has thoughts of hanging himself with a rope or a chain. Interventions: Established rapport, provided 1:1 assessment, provided clear and simple instructions, attempted to orient to reality, provided encouragement regarding performance of ADLs, medication administration/education/monitoring, positive reinforcement, and Q15 minute safety checks; provided safe and supportive environment. Response: Patient received sleeping in bed at change of shift. He awoke and joined in the community room for breakfast with peers. Patient was receptive to 1:1 assessment and scheduled medication. He retreated back to his room directly after breakfast and was observed sleeping. Patient reported to this senior underwriter later in the morning that he was on the verge of snapping and hurting himself and other people. Patient endorsing significant anxiety and agitation. He also endorsed SI with plan to slit his throat [place]. Patient was given PRN medication per MD order. He was observed isolating to his room the majority of the day aside from snack and meal times. Patient reporting that he was isolated to his room so he didnt hurt other people. He was noted talking loudly, responding to AH from his bathroom. He is able to be redirected. Ileostomy and Colostomy intact with no complaints/sx noted. Patient is independent of ostomy care. Patient was noted mainly isolating to his room. He joined in the group room for meal and snack times. Plan: Pt. requires medication adjustments and a safe and supportive environment along with close monitoring for patient and staff safety.
[2022-10-14 20:21] VITALS: BP 110/62
[2022-10-14] MEDS: olanzapine 10mg tablet PO SCH (20:21)
[2022-10-14] MEDS: mirtazapine 15mg tablet PO SCH (20:21)
[2022-10-14] MEDS: LORazepam 1 MG tablet PO PRN (23:16)
--- NOTE | 2022-10-15 05:05 | NUR ---
Nursing Progress Note: Vern Problem: Patient was admitted here as a 5150 for DTS/DTO. Patient has thoughts of hanging himself and/or killing others. Patient is homeless. Patient has a history of Schizophrenia and alcohol and other drug abuse. Patient has thoughts of hanging himself with a rope or a chain. Interventions: Provided 1:1 assessment with therapeutic communication and active listening; Provided medication administration/education/monitoring; Encouraged pt to attend and participate in group; Maintained a supportive environment; Provided encouragement regarding performance of ADLs; Maintained Q 15minute safety checks. Response: Received patient asleep in bedroom. Patient is cooperative with care; compliant with medication. Pt expressed to this FAMILY PRACTICE MEDICAL DOCTOR during 1:1; denies current thoughts of SI however was having them earlier in day, -HI, -AH, +VH stating that he is seeing faces in his laundry and pictures on wall. Pt with clear guarded speech. Pt with moderate hygiene, wearing green scrubs. Pt ate snack in community room. Pt awoke at 2315 requesting something to assist in sleeping and nicotine lozenge, PRN Ativan and Leobardo Bharat given. Pt slept throughout rest of shift. Plan: Pt. requires medication adjustments and a safe and supportive environment along with close monitoring for patient and staff safety.
[2022-10-15 07:53] VITALS: BP 110/61
[2022-10-15] MEDS: busPIRone 5mg tablet PO SCH ×3 (08:34→20:40)
[2022-10-15] MEDS: ascorbic acid 500mg tablet PO SCH ×2 (08:35→16:47)
[2022-10-15] MEDS: ferrous sulfate ER tablet 140 MG TABLET.ER PO SCH ×2 (08:35→16:49)
[2022-10-15] MEDS: hyDRALAzine 10mg tablet PO SCH ×3 (08:35→20:41)
[2022-10-15] MEDS: benztropine 1mg tablet PO SCH ×2 (08:35→20:41)
[2022-10-15 13:00] VITALS: BP 111/59
--- NOTE | 2022-10-15 14:03 | NUR ---
[address]
[2022-10-15] MEDS: NICOTINE POLACRILEX 2 MG LOZENGE BC PRN ×2 (15:15→20:42)
[2022-10-15] MEDS: OLANZAPINE 5 MG TABLET PO PRN (15:17)
[2022-10-15] MEDS: LORazepam 1 MG tablet PO PRN (15:17)
[2022-10-15] MEDS: acetaminophen 325mg tablet PO PRN (16:48)
--- NOTE | 2022-10-15 17:21 | NUR ---
Nursing Progress Note: Vern Problem: Patient was admitted here as a 5150 for DTS/DTO. Patient has thoughts of hanging himself and/or killing others. Patient is homeless. Patient has a history of Schizophrenia and alcohol and other drug abuse. Patient has thoughts of hanging himself with a rope or a chain. Interventions: Established rapport, provided 1:1 assessment, provided clear and simple instructions, attempted to orient to reality, provided encouragement regarding performance of ADLs, medication administration/education/monitoring, positive reinforcement, and Q15 minute safety checks; provided safe and supportive environment. Response: Patient received sleeping in his room at shift change. He joined for breakfast in the community room, noted sitting quietly by himself. He was receptive to scheduled medication and 1:1 assessment. Patient endorsed to this sports writer that he is feeling stuck in his head. He also endorsed thoughts of hurting himself but denies HI. Patient was receptive to scheduled medication and 1:1 assessment. He was observed sleeping in his room the majority of the day aside from snack and meal times. Patient endorsed feelings of anxiety and agitation later in the day and was given PRN medication per MD order. Ileostomy and Colostomy intact with no complaints/sx noted. Patient is independent of ostomy care. Patient was noted mainly isolating to his room. Patient endorsed to this sports writer that he is trying to relax and keep his mind focused. He joined in the group room for meal and snack times but was otherwise isolated today. Plan: Pt. requires medication adjustments and a safe and supportive environment along with close monitoring for patient and staff safety.
[2022-10-15 20:00] VITALS: BP 109/55
[2022-10-15] MEDS: olanzapine 10mg tablet PO SCH (20:40)
[2022-10-15] MEDS: mirtazapine 15mg tablet PO SCH (20:41)
[2022-10-16] MEDS: LORazepam 1 MG tablet PO PRN ×2 (03:50→14:56)
--- NOTE | 2022-10-16 05:08 | NUR ---
Nursing Progress Note: Vern Problem: Patient was admitted here as a 5150 for DTS/DTO. Patient has thoughts of hanging himself and/or killing others. Patient is homeless. Patient has a history of Schizophrenia and alcohol and other drug abuse. Patient has thoughts of hanging himself with a rope or a chain. Interventions: Provided 1:1 assessment with therapeutic communication and active listening; Provided medication administration/education/monitoring; Encouraged pt to attend and participate in group; Maintained a supportive environment; Provided encouragement regarding performance of ADLs; Maintained Q 15minute safety checks. Response: Received patient asleep in bedroom. Patient is cooperative with care; compliant with medication. Pt expressed to this LAMINATED PLASTICS ASSEMBLER AND GLUER during 1:1; denies SI/HI, -AH/-VH. Pt with clear guarded speech. Pt with moderate hygiene, wearing green scrubs. Pt ate snack in community room. Pt awoken briefly at 0145, laying back down without requesting anything from this LAMINATED PLASTICS ASSEMBLER AND GLUER. Pt complained of racing mind and inability to stay asleep, PRN Ativan given effective. Plan: Pt. requires medication adjustments and a safe and supportive environment along with close monitoring for patient and staff safety.
[2022-10-16] MEDS: hyDRALAzine 10mg tablet PO SCH ×3 (07:31→20:04)
[2022-10-16] MEDS: ascorbic acid 500mg tablet PO SCH ×2 (07:31→17:10)
[2022-10-16] MEDS: benztropine 1mg tablet PO SCH ×2 (07:32→20:05)
[2022-10-16] MEDS: busPIRone 5mg tablet PO SCH ×3 (07:33→20:05)
[2022-10-16] MEDS: ferrous sulfate ER tablet 140 MG TABLET.ER PO SCH (07:36)
[2022-10-16 08:00] VITALS: BP 86/48
[2022-10-16] MEDS: NICOTINE POLACRILEX 2 MG LOZENGE BC PRN ×2 (09:56→14:39)
[2022-10-16] MEDS: acetaminophen 325mg tablet PO PRN (14:40)
--- NOTE | 2022-10-16 16:04 | NUR ---
Nursing Progress Note: Vern Problem: Patient was admitted here as a 5150 for DTS/DTO. Patient has thoughts of hanging himself and/or killing others. Patient is homeless. Patient has a history of Schizophrenia and alcohol and other drug abuse. Patient has thoughts of hanging himself with a rope or a chain. Interventions: Maintained a safe and supportive environment, provided clear and simple instructions, attempted to orient to reality, monitored behaviors and provided structure and limit setting, obtained orders for seclusion and chemical restraints, provided medications as needed.. Response: Pt. received asleep at change of shift. He awoke and requested his medications, which he took without hesitation. Pt. endorses SI, stating I [place] about [place] when I woke up this morning, also reports HI, stating It will come later, I think about hurting people all the time, I have to protect myself He endorses AH and VH stating the voices tell me to do it, just to end it, and I see faces of other people on people I dont know Pt. is continuing to provides self-care for both his urostomy and colostomy, both sites functioning, no c/o noted. He c/o POLANCO and anxiety this shift receiving PRN Ativan and Tylenol along with nicotine lozenges with good results reported. He ate all meals in the main dining area with cohorts, but often keeps to himself, he took several naps this shift, and was encouraged to shower. He appears sunburned, un kept, and wears street clothes. Plan: Pt. requires medication adjustments and a safe and supportive environment along with close monitoring for patient and staff safety.
[2022-10-16] MEDS: FERROUS SULFATE 142 MG TABLET.ER (45mg elemental) PO SCH (17:10)
--- NOTE | 2022-10-16 17:10 | NUR ---
COTTON BALL MACHINE TENDER documentation: I have reviewed and agree with all interventions and assessments performed and documented by Lisy Pisano.
[2022-10-16] MEDS: OLANZAPINE 5 MG TABLET PO PRN (17:14)
[2022-10-16 19:00] VITALS: BP 116/57
[2022-10-16] MEDS: olanzapine 10mg tablet PO SCH (20:05)
[2022-10-16] MEDS: mirtazapine 15mg tablet PO SCH (20:05)
--- NOTE | 2022-10-17 04:48 | NUR ---
Nursing Progress Note: Vern Problem: Patient was admitted here as a 5150 for DTS/DTO. Patient has thoughts of hanging himself and/or killing others. Patient is homeless. Patient has a history of Schizophrenia and alcohol and other drug abuse. Patient has thoughts of hanging himself with a rope or a chain. Interventions: Provided 1:1 assessment with therapeutic communication and active listening; Provided medication administration/education/monitoring; Encouraged pt to attend and participate in group; Maintained a supportive environment; Provided encouragement regarding performance of ADLs; Maintained Q 15minute safety checks. Response: Received patient asleep in bedroom. Patient is cooperative with care; compliant with medication. Pt expressed to this TRIM AND BURR OPERATOR during 1:1; denies SI/HI, -AH/-VH, although endorses AV/H earlier in day. Pt with clear guarded speech. Pt with moderate hygiene, wearing jeans and green scrub top. Isolated to room with exception to taking snack in community room. Plan: Pt. requires medication adjustments and a safe and supportive environment along with close monitoring for patient and staff safety. Addendum: 10/17/22 at 0529 by Loan Matthew RN Reviewed by Loan Shah RN
--- NOTE | 2022-10-17 07:44 | NUR ---
Initial: Pt admit DX SI, polysubstance abuse, and unspecified psychosis hx homeless w/ colostomy and urostomy per EMR. PO 100% initial regular diet w/ double protein TIDWM per diet order meeting estimated needs. Dietary notified to limit potential ostomy-clogging foods. Moderate daily BM's w/ no ostomy volume documented in EMR. No nutrition interventions at this time. Will continue to follow. Rec: 1. continue regular diet w/ double protein TID per order; if concerns for current meal tolerance consider low-residue diet. Avoid potential ostomy-clogging foods 2. bowel care per rx 3. weekly wts Addendum: 10/17/22 at [address] Amended: Links added.
[2022-10-17 08:00] VITALS: BP 110/68
[2022-10-17] MEDS ORDERED: benztropine 1mg tablet PO SCH (08:00)
[2022-10-17] MEDS: hyDRALAzine 10mg tablet PO SCH ×3 (08:51→20:36)
[2022-10-17] MEDS: busPIRone 5mg tablet PO SCH ×3 (08:51→20:40)
[2022-10-17] MEDS: benztropine 1mg tablet PO SCH ×2 (08:52→20:36)
[2022-10-17] MEDS: ascorbic acid 500mg tablet PO SCH ×2 (08:52→16:55)
[2022-10-17] MEDS: FERROUS SULFATE 142 MG TABLET.ER (45mg elemental) PO SCH ×2 (08:52→16:55)
[2022-10-17] MEDS: LORazepam 1 MG tablet PO PRN ×2 (11:20→17:22)
[2022-10-17] MEDS: NICOTINE POLACRILEX 2 MG LOZENGE BC PRN ×2 (11:20→13:15)
--- NOTE | 2022-10-17 12:54 | NUR ---
Nursing Progress Note: Problem : Patient was admitted here as a 5150 for DTS/DTO. Patient has thoughts of hanging himself and/or killing others. Patient is homeless. Patient has a history of Schizophrenia and alcohol and other drug abuse. Patient has thoughts of hanging himself with a rope or a chain. Interventions : Introduced self and established rapport, maintained a safe and supportive environment, ensured contract for safety while on the unit, provided clear and simple instructions, attempted to orient to reality, and maintained Q 15min safety checks. Response : Received pt. sleeping in bed at the beginning of the shift, he was awoken by staff to attend breakfast and afterwards retreated back to bed. 1:1 was completed at bedside, and pt. presents as cooperative, fatigued, and withdrawn. He reports ongoing S/I with plans to overdose, jump from a building, or slit his throat. However, pt. is able to contract for safety while on the unit. Pt. also reports ongoing H/I towards random others outside the hospital who he believes want to hurt him. He endorses ongoing A/POLANCO and states, "I'm hearing my brother saying he put himself inside of me. He's a pedophile." Pt. also reports seeing V/POLANCO of "The faces of family members." At approximately 1115, pt. awoke and requested PRN Ativan r/t anxiety, this medication was administered with effectiveness and will continue to monitor pt. closely. Pt. did not attend morning group and remains withdrawn from others. Plan : Pt. continues to require medication adjustments and a safe and supportive environment.
[2022-10-17 13:14] VITALS: BP 128/76
[2022-10-17] MEDS: acetaminophen 325mg tablet PO PRN (13:16)
--- NOTE | 2022-10-17 13:50 | NUR ---
PRNs Administered: Zyprexa 5mg Interventions Offered: Pt. was provided with a quiet environment, active listening, and positive encouragement. Response to Medication: Pt. approached the nurse's station reporting increased A/POLANCO causing him agitation. Pt. stated, "I feel like punching the wall!" He was administered PRN Zyprexa 5mg, and this behavior was endorsed to FELICIA Valente and receive orders for an additional 5mg of Zyprexa Zydis. Pt. is in resting on his bed at this moment, will continue to monitor closely.
[2022-10-17] MEDS ORDERED: OLANZapine 5mg rapidly disint. tablet PO ONE (14:30)
[2022-10-17] MEDS: OLANZAPINE 5 MG TABLET PO PRN (14:30)
[2022-10-17 19:40] VITALS: BP 119/59
[2022-10-17] MEDS: olanzapine 10mg tablet PO SCH (20:36)
[2022-10-17] MEDS: mirtazapine 15mg tablet PO SCH (20:37)
--- NOTE | 2022-10-18 04:29 | NUR ---
Nursing Progress Note: Problem: Patient was admitted here as a 5150 for DTS/DTO. Patient has thoughts of hanging himself and/or killing others. Patient is homeless. Patient has a history of Schizophrenia and alcohol and other drug abuse. Patient has thoughts of hanging himself with a rope or a chain. Interventions: Introduced self and established rapport, maintained a safe and supportive environment, ensured contract for safety while on the unit, provided clear and simple instructions, attempted to orient to reality, and maintained Q 15min safety checks. Response: Patient is pleasant and cooperative with care; compliant with medication. Denies SI, HI, A/VH this shift, stating, "not right now." Patient reported ostomy equipment was holding up well and continues self care without issue. Patient isolated to his room; only out for HS snack and promptly returned to bed. Patient is observed sleeping and does not appear to be having difficulty. Plan : Pt. continues to require medication adjustments and a safe and supportive environment.
--- NOTE | 2022-10-18 05:39 | NUR ---
RECEPTION INTERVIEWER documentation: I have reviewedall interventions, assessments performed and documented by Sola SALAZAR.
[2022-10-18] MEDS: FERROUS SULFATE 142 MG TABLET.ER (45mg elemental) PO SCH ×2 (07:25→16:35)
[2022-10-18] MEDS: OLANZAPINE 5 MG TABLET PO SCH ×3 (07:26→20:36)
[2022-10-18] MEDS: busPIRone 5mg tablet PO SCH ×3 (07:27→20:36)
[2022-10-18] MEDS: hyDRALAzine 10mg tablet PO SCH ×3 (07:28→20:35)
[2022-10-18] MEDS: benztropine 1mg tablet PO SCH ×2 (07:28→20:36)
[2022-10-18] MEDS: ascorbic acid 500mg tablet PO SCH ×2 (07:47→16:35)
[2022-10-18 08:00] VITALS: BP 115/64
[2022-10-18] MEDS: LORazepam 1 MG tablet PO PRN (10:15)
[2022-10-18] MEDS: NICOTINE POLACRILEX 2 MG LOZENGE BC PRN ×2 (10:16→14:42)
[2022-10-18] MEDS ORDERED: LORazepam 1 MG tablet PO PRN (15:10)
--- NOTE | 2022-10-18 16:45 | NUR ---
Nursing Progress Note: Vern Problem: Patient was admitted here as a 5150 for DTS/DTO. Patient has thoughts of hanging himself and/or killing others. Patient is homeless. Patient has a history of Schizophrenia and alcohol and other drug abuse. Patient has thoughts of hanging himself with a rope or a chain. Currently on 5250. Interventions: Maintained a safe and supportive environment, provided clear and simple instructions, attempted to orient to reality, monitored behaviors and provided structure and limit setting, obtained orders for seclusion and chemical restraints, provided medications as needed. Response: Pt. received asleep at change of shift. Rac Specialist awoke pt. to attend breakfast and he took his medications without hesitation. He endorses SI stating I think about it a few times a day he currently has no plan. Pt. denies HI, and endorses both AH, VH stating I hear voices most all the time, and I still see faces, but not of the people that want to hurt me He spent most of the morning napping and awoke to report increased anxiety and a POLANCO; PRN Tylenol and Ativan given with good results. Four hours later pt. approached freelance copywriter c/o agitation, is anything I can have PRN Zyprexa and nicotine lozenge administered with good results. Pt. ate all meals in the dining area with cohorts, but often isolates socially. Pt. presents with a flat affect and is cooperative. He appears sunburned and was encouraged to apply lotion to dry skin. He has poor hygiene, hair is un brushed, and he wears street clothes. Plan: Pt. requires medication adjustments and a safe and supportive environment along with close monitoring for patient and staff safety.
--- NOTE | 2022-10-18 17:17 | NUR ---
MARTIN documentation: I have reviewed and agree with all interventions, assessments performed and documented by Lisy Diego LVN.
[2022-10-18] MEDS: LORazepam 0.5 MG tablet PO PRN (17:55)
[2022-10-18 19:46] VITALS: BP 114/53
[2022-10-18] MEDS: mirtazapine 15mg tablet PO SCH (20:36)
--- NOTE | 2022-10-19 03:28 | NUR ---
PHONE MANAGER documentation: I have reviewed and agree with all interventions, assessments performed and documented by Max Medina
--- NOTE | 2022-10-19 03:52 | NUR ---
Nursing Progress Note: Problem: Patient was admitted here as a 5150 for DTS/DTO. Patient has thoughts of hanging himself and/or killing others. Patient is homeless. Patient has a history of Schizophrenia and alcohol and other drug abuse. Patient has thoughts of hanging himself with a rope or a chain. Interventions: Introduced self and established rapport, maintained a safe and supportive environment, ensured contract for safety while on the unit, provided clear and simple instructions, attempted to orient to reality, and maintained Q 15min safety checks. Response: Patient is pleasant and cooperative with care; compliant with medication. Reports no SI this shift but had been feeling suicidal earlier in the day. Patient reports VH of family members that taunt him. Denies HI and AH. Patient remained in his room this shift. He was provided HS snack and observed sleeping with no apparent difficulties. Plan : Pt. continues to require medication adjustments and a safe and supportive environment.
[2022-10-19] MEDS: LORazepam 0.5 MG tablet PO PRN ×3 (06:54→19:57)
[2022-10-19] MEDS: acetaminophen 325mg tablet PO PRN (06:55)
[2022-10-19 08:00] VITALS: BP 120/66
[2022-10-19] MEDS: FERROUS SULFATE 142 MG TABLET.ER (45mg elemental) PO SCH ×2 (08:17→17:40)
[2022-10-19] MEDS: benztropine 1mg tablet PO SCH ×2 (08:18→19:57)
[2022-10-19] MEDS: ascorbic acid 500mg tablet PO SCH ×2 (08:20→17:41)
[2022-10-19] MEDS: busPIRone 5mg tablet PO SCH ×3 (08:20→19:57)
[2022-10-19] MEDS: hyDRALAzine 10mg tablet PO SCH ×3 (08:24→20:01)
[2022-10-19] MEDS ORDERED: OLANZAPINE 5 MG TABLET PO ONE (09:00)
--- NOTE | 2022-10-19 09:11 | NUR ---
Pt's Zyprexa 5mg daily order was administered twice yesterday (nurse meant to administer PRN Zyprexa 5mg order, but administered daily order X2 by accident). A one-time Zyprexa 5mg order was entered for this AM will endorse to FELICIA Mcgovern.
[2022-10-19 13:16] VITALS: BP 122/68
--- NOTE | 2022-10-19 16:05 | NUR ---
Nursing Progress Note: Problem : Patient was admitted here as a 5150 for DTS/DTO. Patient has thoughts of hanging himself and/or killing others. Patient is homeless. Patient has a history of Schizophrenia and alcohol and other drug abuse. Patient has thoughts of hanging himself with a rope or a chain. Interventions : Maintained a safe and supportive environment, ensured contract for safety while on the unit, provided clear and simple instructions, attempted to orient to reality, and maintained Q 15min safety checks. Response : Received pt. sleeping in bed at the beginning of the shift, he awoke and reported anxiety and a headache, PRN Ativan and Tylenol was administered with effectiveness. Pt. attended breakfast in the Group Room and 1:1 was completed at bedside afterwards. Pt. continues to present as cooperative, fatigued, and withdrawn. He currently denies any S/I. When questioned by this board writer regarding H/I, pt. stated, "No, I just get really angry and psychotic and I have to reel it in." Pt. reports some ongoing auditory and visual hallucinations of various family members, however states, "The voices are very faint and I'm only seeing a couple of faces this morning." At approximately 1300, pt. requested PRN Ativan r/t anxiety due to increasing auditory and visual hallucinations, and PRN Ativan was administered with effectiveness. Pt. did attend morning group, however remains withdrawn from others. At approximately 1430, pt. reported some increased anxiety and agitation r/t internal preoccupation and PRN Zyprexa was administered, will continue to monitor pt. closely. Plan : Pt. continues to require medication adjustments and a safe and supportive environment.
[2022-10-19] MEDS: NICOTINE POLACRILEX 2 MG LOZENGE BC PRN (16:23)
[2022-10-19] MEDS: OLANZAPINE 5 MG TABLET PO PRN (16:23)
--- NOTE | 2022-10-19 18:10 | NUR ---
Pt. is changing his colostomy at this time which he is able to do independently. Pt. was provided with one of the hospital's colostomy bags as his own personal bags were not sealing well. Pt. exhibits increased redness around his ostomy site and requests PRN pain medication. He refuses Tylenol and requests a stronger pain medication, will endorse to Juancarlos isabel. Wound care order placed. Addendum: 10/19/22 at 1815 by Jennifer Hurley RN Wound care order: Angry excoriated skin around colostomy site due to bag leaking. Addendum: 10/19/22 at 1818 by Jennifer Hurley RN Pt. is refusing to use barrier cream to protect his skin at the ostomy site at this time.
[2022-10-19 19:29] VITALS: BP 117/69
[2022-10-19] MEDS: mirtazapine 15mg tablet PO SCH (19:57)
[2022-10-19] MEDS: OLANZAPINE 5 MG TABLET PO SCH (19:57)
--- NOTE | 2022-10-20 03:12 | NUR ---
Nursing Progress Note: Problem: Patient was admitted here as a 5150 for DTS/DTO. Patient has thoughts of hanging himself and/or killing others. Patient is homeless. Patient has a history of Schizophrenia and alcohol and other drug abuse. Patient has thoughts of hanging himself with a rope or a chain. Interventions: Introduced self and established rapport, maintained a safe and supportive environment, ensured contract for safety while on the unit, provided clear and simple instructions, attempted to orient to reality, and maintained Q 15min safety checks. Response: Patient is pleasant and cooperative with care; compliant with medication. Patient appeared anxious and HR elevated; PRN Ativan provided and appeared to have positive effect. Patient denies SI, HI, A/VH this shift but reports having SI and VH intermittently through the day. Patient c/o pain at stoma site; explained it was bleeding from the personal supplies he'd brought in and the supplies currently being used appear to be better. Previous nurse submitted wound consult. Patient isolated to his room other than to receive HS snack; he's observed sleeping and does not appear to be having difficulty. Plan : Pt. continues to require medication adjustments and a safe and supportive environment.
--- NOTE | 2022-10-20 03:59 | NUR ---
MARTIN documentation: I have reviewed all interventions, assessments performed and documented by Sola Gabriel LVN.
[2022-10-20 08:00] VITALS: BP 113/72
[2022-10-20] MEDS: benztropine 1mg tablet PO SCH ×2 (08:08→20:15)
[2022-10-20] MEDS: busPIRone 5mg tablet PO SCH ×3 (08:09→20:15)
[2022-10-20] MEDS: FERROUS SULFATE 142 MG TABLET.ER (45mg elemental) PO SCH ×2 (08:09→16:55)
[2022-10-20] MEDS: OLANZAPINE 5 MG TABLET PO SCH ×2 (08:11→20:15)
[2022-10-20] MEDS: LORazepam 0.5 MG tablet PO PRN ×3 (08:14→23:51)
[2022-10-20] MEDS: hyDRALAzine 10mg tablet PO SCH ×3 (08:15→20:16)
[2022-10-20] MEDS: ascorbic acid 500mg tablet PO SCH ×2 (08:15→16:55)
[2022-10-20 11:25] VITALS: BP 113/72
[2022-10-20] MEDS: OLANZAPINE 5 MG TABLET PO PRN (15:20)
--- NOTE | 2022-10-20 15:20 | NUR ---
PRNs Administered: Zyprexa 5mg; Ativan 1.5mg Interventions Offered: Pt. was provided with a quiet environment, active listening, and positive encouragement. Response to Medication: Pt. approached this tag writer reporting increased A/POLANCO causing him agitation and anxiety. Pt. stated, they are telling me that I am never going to succeed. He was administered PRN Zyprexa 5mg and PRN Ativan 1.5mg PO. Patient observed resting in his room at this time. Will continue to monitor.
--- NOTE | 2022-10-20 15:52 | NUR ---
Nursing Progress Note: Vern Null Problem : Pt was placed on 5150 for DTS due to s/i with plan to cut himself, or overdose on etoh. Pt did not feel he would be safe alone. Pt has recent loss of relationship with his girlfriend. Pt is on probation and lives alone in a mobile home. Pt reports medical hx of insomnia, lactose intolerance, and polysubstance abuse. Interventions : Established rapport, provided 1:1 assessment, ensured contract for safety while on the unit, provided clear and simple instructions, medication administration/education/monitoring, positive reinforcement, and Q15 minute safety checks; provided safe and supportive environment. Response : Patient received sleeping in his room at change of shift. He awoke and reported anxiety to staff. Pt given PRN medication per MD order. He joined with peers in the community room with peers for breakfast. Patient was receptive to 1:1 assessment. He is calm, pleasant, and cooperative with care. Patient appears slightly withdrawn to his room the beginning of the day. He is observed resting and lying on his bed while listening to music through headphones. Patient endorsed to this consumer loan underwriter that he found a good station to listen to which helps relax his mind. He was observed sitting in the community room before lunch time socializing with peers. Patient denies SI/HI, AH or VH. Does not appear to be responding to internal stimuli. Patient noted to be social with peers later in the day, observed watching television in the community room. He joined for all meal and snack times today. Plan : Pt. requires medication adjustments and a safe and supportive environment. Addendum: 10/20/22 at 1553 by Breonna Johnston LVN wrong patient
[2022-10-20] MEDS: NICOTINE POLACRILEX 2 MG LOZENGE BC PRN (16:37)
--- NOTE | 2022-10-20 17:07 | NUR ---
Nursing Progress Note: Vern Clarke Problem : Patient was admitted here as a 5150 for DTS/DTO. Patient has thoughts of hanging himself and/or killing others. Patient is homeless. Patient has a history of Schizophrenia and alcohol and other drug abuse. Patient has thoughts of hanging himself with a rope or a chain. Interventions : Maintained rapport, provided 1:1 assessment, ensured contract for safety while on the unit, provided clear and simple instructions, medication administration/education/monitoring, attempted to orient to reality, positive reinforcement, and Q15 minute safety checks; provided safe and supportive environment. Response : Patient received sleeping in bed at change of shift. Patient joined for breakfast in the group room with peers. He reported feelings of anxiety this morning due to really weird dreams last night. He was provided with PRN medication per MD order. Patient was receptive to scheduled medication and 1:1 assessment. He continues to present with a pleasant and cooperative demeanor. Patient is observed to be withdrawn and isolative to his room the majority of the shift. Pt. approached this sports book writer reporting increased A/POLANCO causing him agitation and anxiety. Pt. stated, they are telling me that I am never going to succeed. He was administered PRN medication per MD order. Patient observed resting in his room shortly after. He denies SI and HI. He joined for all meal and snack times in the community room but was otherwise noted sleeping most of the day. Plan : Pt. continues to require medication adjustments and a safe and supportive environment.
--- NOTE | 2022-10-20 17:19 | NUR ---
BLEACH BOILER PULLER documentation: I have reviewed and agree with all interventions, assessments performed and documented by MARTIN Ravi.
[2022-10-20 19:42] VITALS: BP 113/62
[2022-10-20] MEDS: mirtazapine 15mg tablet PO SCH (20:15)
--- NOTE | 2022-10-21 01:54 | NUR ---
Nursing Progress Note: Problem: Patient was admitted here as a 5150 for DTS/DTO. Patient has thoughts of hanging himself and/or killing others. Patient is homeless. Patient has a history of Schizophrenia and alcohol and other drug abuse. Patient has thoughts of hanging himself with a rope or a chain. Interventions: Introduced self and established rapport, maintained a safe and supportive environment, ensured contract for safety while on the unit, provided clear and simple instructions, attempted to orient to reality, and maintained Q 15min safety checks. Response: Patient is pleasant and cooperative with care; compliant with medication. PRN Ativan provided for c/o "feeling agitated." Patient denies SI, HI, A/VH this shift; no apparent delusions expressed. Patient denies stoma pain and reported equipment is holding up well. Patient continues to mostly self isolate; only out of his room for HS snack. Patient expressed some difficulty getting to sleep but appears to be sleeping without difficulty at this time. Plan : Pt. continues to require medication adjustments and a safe and supportive environment. Addendum: 10/21/22 at 0433 by Anuradha Biggs RN PRN Zyprexa and Nicotine provided per patient request; Patient reports agitation d/t restlessness. He does not believe he is sleeping more than 30min at a time.
--- NOTE | 2022-10-21 03:25 | NUR ---
JOB TRACER documentation: I have reviewed and agree with all interventions, assessments performed and documented by Anuradha Biggs LVN .
[2022-10-21] MEDS: NICOTINE POLACRILEX 2 MG LOZENGE BC PRN ×2 (04:30→16:10)
[2022-10-21] MEDS: OLANZAPINE 5 MG TABLET PO PRN ×2 (04:31→17:50)
[2022-10-21] MEDS: OLANZAPINE 5 MG TABLET PO SCH ×2 (07:08→20:11)
[2022-10-21] MEDS: LORazepam 0.5 MG tablet PO PRN ×3 (07:08→20:11)
[2022-10-21] MEDS: benztropine 1mg tablet PO SCH ×2 (07:10→20:12)
[2022-10-21] MEDS: hyDRALAzine 10mg tablet PO SCH ×3 (07:10→20:12)
[2022-10-21] MEDS: busPIRone 5mg tablet PO SCH ×3 (07:11→20:16)
[2022-10-21 08:00] VITALS: BP 116/73
[2022-10-21] MEDS: ascorbic acid 500mg tablet PO SCH ×2 (09:01→17:49)
[2022-10-21] MEDS: FERROUS SULFATE 142 MG TABLET.ER (45mg elemental) PO SCH ×2 (09:01→17:48)
[2022-10-21 13:00] VITALS: BP 125/76
--- NOTE | 2022-10-21 17:40 | NUR ---
Nursing Progress Note: Vern Clarke Problem : Patient was admitted here as a 5150 for DTS/DTO. Patient has thoughts of hanging himself and/or killing others. Patient is homeless. Patient has a history of Schizophrenia and alcohol and other drug abuse. Patient has thoughts of hanging himself with a rope or a chain. Interventions : Maintained rapport, provided 1:1 assessment, ensured contract for safety while on the unit, provided clear and simple instructions, medication administration/education/monitoring, attempted to orient to reality, positive reinforcement, and Q15 minute safety checks; provided safe and supportive environment. Response : Patient received sleeping in his room at shift change. He awoke and approached this specification writer endorsing feelings of anxiety. Patient given PRN medication per MD order. Patient joined for breakfast in the group room with peers. He was receptive to 1:1 assessment and scheduled medication. Patient continues to present as withdrawn and isolative to his room. He denies SI/HI. Reports AH, endorsing that he is trying not to get caught up in his head. Patient is noted napping in his room the majority of the shift. He continues to present with a pleasant and cooperative demeanor. He joined for all meal and snack times in the community room with peers. Plan : Pt. continues to require medication adjustments and a safe and supportive environment.
--- NOTE | 2022-10-21 17:46 | NUR ---
SIDE TRIMMER documentation: I have reviewed and agree with all interventions, assessments performed and documented by Breonna Johnston LVN.
[2022-10-21 19:00] VITALS: BP 107/65
[2022-10-21] MEDS: mirtazapine 15mg tablet PO SCH (20:11)
--- NOTE | 2022-10-22 01:38 | NUR ---
Nursing Progress Note: Problem: Patient was admitted here as a 5150 for DTS/DTO. Patient has thoughts of hanging himself and/or killing others. Patient is homeless. Patient has a history of Schizophrenia and alcohol and other drug abuse. Patient has thoughts of hanging himself with a rope or a chain. Interventions: Introduced self and established rapport, maintained a safe and supportive environment, ensured contract for safety while on the unit, provided clear and simple instructions, attempted to orient to reality, and maintained Q 15min safety checks. Response: Patient is pleasant and cooperative with care; compliant with medication. Patient appeared anxious and HR elevated; PRN Ativan provided. Patient expressed earlier in the day he was experiencing AH but he "got through it." Denies hallucinations for this shift; denies SI and HI. Patient participated in HS snack and watched TV with peers prior to bed; observed sleeping and does not appear to be having difficulty. Plan : Pt. continues to require medication adjustments and a safe and supportive environment. Addendum: 10/22/22 at 0253 by Anuradha Biggs RN Patient requested PRN Zyprexa; some agitation d/t restlessness. He explained he feels like he is "day dreaming not sleeping." Patient reported he usually takes Quetiapine; encouraged him to talk with his doctor.
[2022-10-22] MEDS: OLANZAPINE 5 MG TABLET PO PRN ×3 (02:50→17:40)
--- NOTE | 2022-10-22 03:56 | NUR ---
SLAB OFF MILL TENDER documentation: I have reviewed and agree with all interventions, assessments performed and documented by Anuradha Biggs LVN
[2022-10-22] MEDS: hyDRALAzine 10mg tablet PO SCH ×3 (07:46→20:12)
[2022-10-22] MEDS: busPIRone 5mg tablet PO SCH ×3 (07:46→20:10)
[2022-10-22] MEDS: FERROUS SULFATE 142 MG TABLET.ER (45mg elemental) PO SCH ×2 (07:46→17:39)
[2022-10-22] MEDS: OLANZAPINE 5 MG TABLET PO SCH ×2 (07:46→20:09)
[2022-10-22] MEDS: ascorbic acid 500mg tablet PO SCH ×2 (07:46→17:40)
[2022-10-22] MEDS: benztropine 1mg tablet PO SCH ×2 (07:48→20:09)
[2022-10-22 08:00] VITALS: BP 100/52
[2022-10-22] MEDS: LORazepam 0.5 MG tablet PO PRN ×2 (11:03→17:40)
[2022-10-22] MEDS: NICOTINE POLACRILEX 2 MG LOZENGE BC PRN ×2 (11:03→17:40)
[2022-10-22] MEDS: acetaminophen 325mg tablet PO PRN (14:52)
--- NOTE | 2022-10-22 15:12 | NUR ---
WOC note: This is a 42 year old male with a hx of polysubstance abuse and schizophrenia presented to [facility] ED for suicidal ideation. Admit to [facility] for suicidal ideation. Past medical history positive for of polysubstance use, microcytic anemia, traumatic rectal perforation c/o abscess formation s/p loop sigmoid colostomy (2020), Urostomy, Jessie's disease. ID by name and . He agrees to care. Assisted the patient with colostomy appliance change. His skin is reddened underneath wafer, surrounding the stoma. Stoma appears red and is functioning without issue. Skin prep used and provided to the patient who is independent with changes to urostomy and colostomy bag changes. He is familiar with skin prep wipes and uses them at home he reports but did not have with him. Two bags provided and left at the nurses station/pt supply area for him to change when ready. (One for urostomy and one for colostomy). Reported off to primary nurse.
--- NOTE | 2022-10-22 17:35 | NUR ---
Nursing Progress Note: Vern Clarke Problem : Patient was admitted here as a 5150 for DTS/DTO. Patient has thoughts of hanging himself and/or killing others. Patient is homeless. Patient has a history of Schizophrenia and alcohol and other drug abuse. Patient has thoughts of hanging himself with a rope or a chain. Interventions : Maintained rapport, provided 1:1 assessment, ensured contract for safety while on the unit, provided clear and simple instructions, medication administration/education/monitoring, attempted to orient to reality, positive reinforcement, and Q15 minute safety checks; provided safe and supportive environment. Response : Patient received sleeping in bed at change of shift. He was awoken by staff to join for breakfast. He was receptive to scheduled medication and 1:1 assessment. He is noted to be calm, pleasant, and cooperative with care. Patient denies SI/HI. Reports intermittent AH throughout the day. Patient encouraged to participate in group therapy today, however, declined. He continues to isolate to his room, noted sleeping the majority of the shift. Patient had ostomy care provided by chief operations officer on this shift. He joined for all meal and snack times in the community room with peers. Plan : Pt. continues to require medication adjustments and a safe and supportive environment.
--- NOTE | 2022-10-22 17:42 | NUR ---
PRNs Administered: Zyprexa and Ativan Interventions Offered: Pt. was provided with a quiet environment, therapeutic communication, and positive encouragement. Response to Medication: Pt. noted crying loudly from his room after dinner time. He endorsed AH causing him to be upset and anxious. Patient also endorsing slight irritability over "not being able to do anything about it". PRN Ativan and Zyprexa given.
[2022-10-22 19:00] VITALS: BP 101/55
[2022-10-22] MEDS: mirtazapine 15mg tablet PO SCH (20:10)
--- NOTE | 2022-10-23 02:06 | NUR ---
Nursing Progress Note: Problem: Patient was admitted here as a 5150 for DTS/DTO. Patient has thoughts of hanging himself and/or killing others. Patient is homeless. Patient has a history of Schizophrenia and alcohol and other drug abuse. Patient has thoughts of hanging himself with a rope or a chain. Interventions: Introduced self and established rapport, maintained a safe and supportive environment, ensured contract for safety while on the unit, provided clear and simple instructions, attempted to orient to reality, and maintained Q 15min safety checks. Response: Patient is pleasant and cooperative with care; compliant with medication. Patient denies SI, HI, A/VH; no apparent delusions expressed. Patient mostly isolated to his room but participated in HS snack and briefly walked the ramires prior to bed; observed sleeping and does not appear to be having difficulty. Plan : Pt. continues to require medication adjustments and a safe and supportive environment.
--- NOTE | 2022-10-23 05:09 | NUR ---
HELMINTHOLOGIST documentation: I have reviewed and agree with all interventions, assessments performed and documented by Anuradha Biggs LVN.
[2022-10-23] MEDS: hyDRALAzine 10mg tablet PO SCH ×2 (07:44→13:31)
[2022-10-23] MEDS: ascorbic acid 500mg tablet PO SCH (07:45)
[2022-10-23] MEDS: FERROUS SULFATE 142 MG TABLET.ER (45mg elemental) PO SCH (07:45)
[2022-10-23] MEDS: busPIRone 5mg tablet PO SCH ×2 (07:45→13:32)
[2022-10-23] MEDS: benztropine 1mg tablet PO SCH (07:45)
[2022-10-23] MEDS: OLANZAPINE 5 MG TABLET PO SCH (07:45)
[2022-10-23] MEDS: acetaminophen 325mg tablet PO PRN (07:46)
[2022-10-23] MEDS: LORazepam 0.5 MG tablet PO PRN ×2 (07:46→13:37)
[2022-10-23 08:00] VITALS: BP 118/66
[2022-10-23 13:30] VITALS: BP 135/77
[2022-10-23 13:31] VITALS: BP_SYST 135
[2022-10-23] MEDS ORDERED: BUSP5TAB26 PO ×2 (14:22)
[2022-10-23] MEDS ORDERED: NICO-907 PO ×2 (14:22)
[2022-10-23] MEDS ORDERED: LORA-268 PO (14:22)
[2022-10-23] MEDS ORDERED: FERR325T28 PO ×2 (14:22)
[2022-10-23] MEDS ORDERED: COG1T PO ×2 (14:22)
[2022-10-23] MEDS ORDERED: hyDRALAzine tablet PO (14:22)
[2022-10-23] MEDS ORDERED: MIRT-87 PO ×2 (14:22)
--- NOTE | 2022-10-23 14:22 | NUR ---
Nursing Progress Note: Problem : Patient was admitted here as a 5150 for DTS/DTO. Patient has thoughts of hanging himself and/or killing others. Patient is homeless. Patient has a history of Schizophrenia and alcohol and other drug abuse. Patient has thoughts of hanging himself with a rope or a chain. Interventions : Maintained a safe and supportive environment, ensured contract for safety while on the unit, provided clear and simple instructions, monitored anxiety and need for intervention, and maintained Q 15min safety checks. Response : Received pt. sleeping in bed at the beginning of the shift, he awoke and requested PRN Ativan for anxiety Tylenol for a headache, and these medications were administered with effectiveness. When questioned by this technical report writer regarding the cause of his anxiety pt. stated, "I just woke up feeling really agitated." Pt. attended breakfast in the Group Room, and later 1:1 was completed. Pt. denies any current S/I, H/I, A/V/POLANCO, and no delusional statements were made. He states, "I'm clear headed." At approximately 1340, pt. again reported anxiety and requested PRN Ativan. When questioned regarding his anxiety, pt reported his anticipation to be discharged with a plan to go to the [facility]. Plan : Pt. continues to require a safe and supportive environment.
[2022-10-23] MEDS ORDERED: OLAN15TA20 PO ×2 (14:26)
[2022-10-23] MEDS ORDERED: OLAN5TAB75 PO ×2 (14:26)
[2022-10-23] MEDS ORDERED: Lorazepam PO (14:27)
--- NOTE | 2022-10-23 14:43 | NUR ---
Discharge Note: Pt. was discharged off the unit accompanied by staff to a cab which will be taking him to the [facility]. Pt's belongings were inventoried and returned to him by staff. Charge nurse reviewed pt's medications and discharge instructions with him and he reported understanding. Pt. is able to contract for safety. Pt. is in possession of his own urostomy and colostomy supplies.
[2022-10-24] MEDS ORDERED: OLAN5TAB29 PO (15:05)
[2022-10-24] MEDS ORDERED: BENZ1TAB78 PO (15:05)
[2022-10-24] MEDS ORDERED: FERR-106 PO (15:05)
[2022-10-24] MEDS ORDERED: BUSP15TA3 PO (15:05)
[2022-10-24] MEDS ORDERED: OLAN15TA20 PO (15:05)
[2022-10-24] MEDS ORDERED: QUET-1 PO (15:12)
[2022-10-24] MEDS ORDERED: HYDR-4070 PO (15:12)
[2022-10-24] MEDS ORDERED: MULT-1085 PO (15:12)
[2022-10-24] MEDS ORDERED: DIVA-76 PO (15:12)
[2022-10-24] MEDS ORDERED: MIRT-116 PO (15:12)
[2022-10-24] MEDS ORDERED: LORA-269 PO (15:12)
[2022-10-24] MEDS ORDERED: NICO-907 PO (15:12)
[2022-10-24] MEDS ORDERED: SERT-153 PO (15:12)
== END 2022-10-23 14:43 | disposition home or self-care (01) | DRG 751 ==
LOC: ADULT MH 21:10
PROVIDERS: ADMIT Psychiatry & Neurology Psychiatry; ATTEND Psychiatry & Neurology Psychiatry
DX: F29 Unspecified psychosis not due to a substance or known physiological condition (principal); G10 Huntington's disease; R45.851 Suicidal ideations; D50.9 Iron deficiency anemia, unspecified; F20.9 Schizophrenia, unspecified; F19.10 Other psychoactive substance abuse, uncomplicated; N39.0 Urinary tract infection, site not specified; F32.A Depression, unspecified; Z59.00 Homelessness unspecified; Z79.899 Other long term (current) drug therapy; Z81.8 Family history of other mental and behavioral disorders; Z87.891 Personal history of nicotine dependence; Z88.6 Allergy status to analgesic agent; Z93.3 Colostomy status; Z88.8 Allergy status to other drugs, medicaments and biological substances; Z91.030 Bee allergy status; Z91.013 Allergy to seafood
CPT/HCPCS: 87081; A4421; A4649; A6449

== ENCOUNTER 2022-10-24 07:33 | Inpatient (IN) | payer MEDICAID ==
[~2022-10-24] VITALS: Ht 170.2 cm; Wt 75.0 kg
[~2022-10-24 07:33] MED LIST changes: +BUSP5TAB26 PO; +COG1T PO; -DIVA-76 PO; -LORA-268 PO; +Lorazepam PO; +MIRT-87 PO; -OLAN10TA3 PO; +OLAN15TA20 PO; +OLAN5TAB75 PO; -QUET-1 PO; -QUET50TA PO; -SERT-153 PO; +hyDRALAzine tablet PO
[2022-10-24] MEDS ORDERED: naloxone 2mg/2ml inj ONE (07:35)
[2022-10-24] MEDS ORDERED: succinylcholine 20mg/ml inj IV ONE (07:36)
[2022-10-24] MEDS ORDERED: propofol 1000mg/100ml bottle 100 ML IV ONE (07:46)
[2022-10-24] MEDS ORDERED: propofol 1000mg/100ml bottle 100 ML IV SCH (07:55)
[2022-10-24 08:01] VITALS: BP 148/100
[2022-10-24] MEDS ORDERED: etomidate 2mg/ml inj. IV ONE (08:05)
[2022-10-24] MEDS ORDERED: MIDAZolam 5mg/ml 2ml vial IV ONE (08:35)
[2022-10-24 08:42] LABS: ABG BASE EXCESS -7.8 mmol/L (-2.0-2.0); ABG HCO3 19.8 mmol/L (22.0-26.0); ABG OXYGEN SATURATION 99.2 % (94-97); ABG PCO2 (T) 39.5 mmHg (35.0-48.0); ABG PO2 (T) 180.3 mmHg (75.0-100.0); ALLEN'S TEST POSITIVE; FCOHb 1.2 % (0.0-3.9); FMetHb 0.3 % (0.0-1.5); FO2Hb 97.7 % (94-97); PATIENT TEMPERATURE 32.2; PEEP 10 cm H2O; RESPIRATORY RATE 18 b/min; TIDAL VOLUME 500 mL; TOTAL HEMOGLOBIN 13.6 G/dl (14.0-17.9)
[2022-10-24] MEDS ORDERED: normal saline 1000ml 1,000 ML IV ONE (08:50)
[2022-10-24] MEDS ORDERED: normal saline 1000ml 1,000 ML IV STA (08:50)
[2022-10-24 09:14] LABS: BASOPHILS % (AUTO) 0.2 % (0-1); EOSINOPHILS % (AUTO) 0.2 % (0-6); HEMATOCRIT 37.9 % (42.0-52.0); HEMOGLOBIN 11.8 g/dl (14.0-17.9); LYMPHOCYTES # (AUTO) 0.5 X10'3 (1.1-4.8); LYMPHOCYTES % (AUTO) 3.2 % (21-51); MEAN CORPUSCULAR HGB CONC 31.2 g/dL (33.0-36.5); MEAN CORPUSCULAR VOLUME 80.2 FL (78-98); MEAN PLATELET VOLUME 7.6 FL (7.4-10.4); MONOCYTES # (AUTO) 0.8 X10'3 (0-0.9); MONOCYTES % (AUTO) 4.7 % (2-12); NEUTROPHILS # (AUTO) 14.9 X10'3 (1.8-7.7); NEUTROPHILS % (AUTO) 91.7 % (42-75); PLATELET COUNT 306 X10'3 (140-440); RED BLOOD COUNT 4.73 X10'6 (4.70-6.10); RED CELL DISTRIBUTION WIDTH 19.1 % (11.5-14.5); WHITE BLOOD COUNT 16.2 X10'3 (4.5-11.0)
[2022-10-24 09:49] LABS: URINE AMPHETAMINE SCREEN POSITIVE (Neg); URINE BARBITUATE SCREEN NEGATIVE (Neg); URINE BENZODIAZEPINES SCREEN NEGATIVE (Neg); URINE CANNABINOID SCREEN POSITIVE (Neg); URINE COCAINE SCREEN NEGATIVE (Neg); URINE METHADONE SCREEN NEGATIVE (Neg); URINE OPIATE SCREEN POSITIVE (Neg); URINE PHENCYCLIDINE SCREEN NEGATIVE (Neg)
[2022-10-24 10:14] LABS: ALANINE AMINOTRANSFERASE 72 U/L (12-78); ALBUMIN 3.4 G/DL (3.4-5.0); ALKALINE PHOSPHATASE 68 IU/L (46-116); ANION GAP 11 (8-16); ASPARTATE AMINO TRANSFERASE 61 U/L (10-37); BILIRUBIN,TOTAL 0.4 MG/DL (0.1-1.0); BLOOD UREA NITROGEN 17 MG/DL (7-18); CALCIUM 7.9 MG/DL (8.5-10.1); CHLORIDE 105 MMOL/L (99-107); CREATININE 0.85 MG/DL (0.60-1.10); GLUCOSE 195 MG/DL (70-104); POTASSIUM 3.5 MMOL/L (3.5-5.1); SODIUM 139 MMOL/L (135-145); TOTAL CARBON DIOXIDE 22.6 MMOL/L (24-32); TOTAL PROTEIN 6.9 G/DL (6.4-8.2); eGFR > 90 ML/MIN
[2022-10-24 10:34] LABS: ACETAMINOPHEN < 2.0 UG/ML (10-30)
[2022-10-24 10:50] VITALS: BP 94/69
[2022-10-24] MEDS ORDERED: iohexol 300mg/ml 100ml inj. ONE (10:55)
--- NOTE | 2022-10-24 10:58 | NUR ---
Propofol drip ran dry, new bottle pulled from Retrophin and hung
--- NOTE | 2022-10-24 13:15 | NUR ---
RT AT BEDSIDE AND DOING TRIALS TO TEST IF PT APPROPRIATE FOR EXTUBATION. PT IS ALERT AND REQUESTING TO WRITE. PT WROTE ON PAPER STATING WHOM HE IS.
--- NOTE | 2022-10-24 13:30 | NUR ---
CAFE ASSISTANT AT [facility] AND RT EXTUBATING PT.
[2022-10-24 13:37] LABS: TOTAL CELLS COUNTED 100
[2022-10-24 13:38] LABS: ANISOCYTOSIS 2+; ELLIPTOCYTES FEW; HYPOCHROMASIA 1+; PLATELET ESTIMATE NORMAL
--- NOTE | 2022-10-24 13:42 | NUR ---
PT REMAINS WITH SPONTANEOUS BREATHING AND SATS 97-99% ON O2 2L NC
[2022-10-24] MEDS ORDERED: ondansetron/PF 4mg/2ml inj IV ONE (14:10)
[2022-10-24] MEDS ORDERED: potassium Cl 20 mEq SR tablet PO PRN ×2 (14:40)
[2022-10-24] MEDS ORDERED: magnesium hydroxide 30ml (MOM) UD suspension PO PRN (14:40)
[2022-10-24] MEDS ORDERED: mag hydrox/Alum hydrox/simeth 30ml oral suspension PO PRN (14:40)
[2022-10-24] MEDS ORDERED: potassium Cl 40MEQ/1/2NS 520ml 520 ML IV PRN (14:40)
[2022-10-24] MEDS ORDERED: magnesium 4gm in 100ml NS 100 ML IV PRN (14:40)
[2022-10-24] MEDS ORDERED: metoclopramide 5 mg/ml inj IV PRN (14:40)
[2022-10-24] MEDS ORDERED: ondansetron/PF 4mg/2ml inj IV PRN (14:40)
[2022-10-24] MEDS ORDERED: ipratropium/albuterol 3ml nebule NEB PRN ×2 (14:40)
[2022-10-24] MEDS ORDERED: acetaminophen 325mg tablet PO PRN (14:40)
[2022-10-24] MEDS ORDERED: albuterol 2.5 MG/3 ML nebule NEB PRN ×2 (14:40)
[2022-10-24] MEDS ORDERED: OLAN5TAB29 PO (15:05)
[2022-10-24] MEDS ORDERED: BUSP15TA3 PO (15:05)
[2022-10-24] MEDS ORDERED: BENZ1TAB78 PO (15:05)
[2022-10-24] MEDS ORDERED: OLAN15TA20 PO (15:05)
[2022-10-24] MEDS ORDERED: FERR-106 PO (15:05)
[2022-10-24] MEDS ORDERED: HYDR-4070 PO (15:12)
[2022-10-24] MEDS ORDERED: MULT-1085 PO (15:12)
[2022-10-24] MEDS ORDERED: MIRT-116 PO (15:12)
[2022-10-24] MEDS ORDERED: NICO-907 PO (15:12)
[2022-10-24] MEDS ORDERED: SERT-153 PO (15:12)
[2022-10-24] MEDS ORDERED: DIVA-76 PO (15:12)
[2022-10-24] MEDS ORDERED: QUET-1 PO (15:12)
[2022-10-24] MEDS ORDERED: LORA-269 PO (15:12)
[2022-10-24] MEDS: normal saline 1000ml 1,000 ML IV SCH ×2 (15:58→21:20)
[2022-10-24] MEDS: piperacillin/tazo 4.5gm/100ml 100 ML IV SCH (15:59)
[2022-10-24] MEDS ORDERED: quetiapine 100mg tablet PO PRN (16:45)
[2022-10-24] MEDS ORDERED: NICOTINE POLACRILEX 2 MG LOZENGE BC PRN (16:45)
[2022-10-24] MEDS ORDERED: LORazepam 1 MG tablet PO PRN (16:45)
--- NOTE | 2022-10-24 17:29 | NUR ---
Report attempted, FLO Bunch to return call for report.
--- NOTE | 2022-10-24 17:51 | NUR ---
Received report from Chasidy in ER awaiting patient
--- NOTE | 2022-10-24 17:59 | NUR ---
Report given to Alivia pt to go to room 352
[2022-10-24 18:15] VITALS: BP 105/71
--- NOTE | 2022-10-24 18:35 | NUR ---
Patient arrived to floor during shift change, VS obtained, orientation provided. Report provided
--- NOTE | 2022-10-24 18:35 | NUR ---
Problems reprioritized. Patient report given, questions answered & plan of care reviewed with Terra ROSSI.
--- NOTE | 2022-10-24 18:35 | NUR ---
PAGER ID: [phone] MESSAGE: [phone] Lucita Clarke: patient up to floor with NPO diet. Can he eat? thanks, wilbur or shyanne! :) [phone]
--- NOTE | 2022-10-24 18:38 | NUR ---
New order received for clear liquid diet
[2022-10-24] MEDS: K and/or MAG REPLACEMENT MC SCH (19:28)
[2022-10-24] MEDS: budesonide 0.5mg/2ml UD nebule IH SCH (20:00)
[2022-10-24] MEDS: docusate sod 100mg capsule PO SCH (20:00)
[2022-10-24] MEDS: benztropine 1mg tablet PO SCH (20:46)
[2022-10-24] MEDS: busPIRone 15mg tablet PO SCH (20:46)
[2022-10-24] MEDS: divalproex sodium 500mg tablet.DR PO SCH (20:46)
[2022-10-24] MEDS: OLANZapine 5mg rapidly disint. tablet PO SCH (20:47)
[2022-10-24] MEDS: mirtazapine 15mg tablet PO SCH (20:47)
[2022-10-24] MEDS: ferrous sulfate 325mg tablet PO SCH (20:47)
[2022-10-24 22:00] VITALS: BP 109/62
[2022-10-25 00:29] VITALS: BP 111/58
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
[2022-10-25] MEDS: piperacillin/tazo 4.5gm/100ml 100 ML IV SCH ×2 (03:14→15:52)
[2022-10-25] MEDS: normal saline 1000ml 1,000 ML IV SCH ×3 (03:15→20:41)
[2022-10-25 04:51] LABS: BASOPHILS % (AUTO) 0.1 % (0-1); EOSINOPHILS # (AUTO) 0.1 X10'3 (0-0.9); EOSINOPHILS % (AUTO) 0.9 % (0-6); HEMATOCRIT 30.7 % (42.0-52.0); LYMPHOCYTES % (AUTO) 12.4 % (21-51); MEAN CORPUSCULAR HGB CONC 32.6 g/dL (33.0-36.5); MEAN CORPUSCULAR VOLUME 79.8 FL (78-98); MEAN PLATELET VOLUME 7.9 FL (7.4-10.4); MONOCYTES # (AUTO) 0.4 X10'3 (0-0.9); MONOCYTES % (AUTO) 5.4 % (2-12); NEUTROPHILS # (AUTO) 6.6 X10'3 (1.8-7.7); NEUTROPHILS % (AUTO) 81.2 % (42-75); PLATELET COUNT 231 X10'3 (140-440); RED BLOOD COUNT 3.85 X10'6 (4.70-6.10); RED CELL DISTRIBUTION WIDTH 19.3 % (11.5-14.5); WHITE BLOOD COUNT 8.1 X10'3 (4.5-11.0)
[2022-10-25 05:02] LABS: ALANINE AMINOTRANSFERASE 46 U/L (12-78); ALBUMIN 2.6 G/DL (3.4-5.0); ALBUMIN/GLOBULIN RATIO 0.7 (1.1-1.5); ALKALINE PHOSPHATASE 59 IU/L (46-116); ANION GAP 5 (8-16); ASPARTATE AMINO TRANSFERASE 29 U/L (10-37); BILIRUBIN,TOTAL 0.3 MG/DL (0.1-1.0); BLOOD UREA NITROGEN 9 MG/DL (7-18); BUN/CREATININE RATIO 12.3 (5.4-32.0); CALCIUM 7.6 MG/DL (8.5-10.1); CHLORIDE 108 MMOL/L (99-107); CREATININE 0.73 MG/DL (0.60-1.10); GLUCOSE 90 MG/DL (70-104); MAGNESIUM 1.9 MG/DL (1.5-2.4); POTASSIUM 3.9 MMOL/L (3.5-5.1); SODIUM 140 MMOL/L (135-145); TOTAL CARBON DIOXIDE 26.9 MMOL/L (24-32); TOTAL PROTEIN 6.1 G/DL (6.4-8.2); eGFR > 90 ML/MIN
--- NOTE | 2022-10-25 06:34 | NUR ---
Problems reprioritized. Patient report given, questions answered & plan of care reviewed with FLO GLEASON.
--- NOTE | 2022-10-25 06:51 | NUR ---
Patient in room [facility] 352. I have received report from FLO Ellison and had the opportunity to ask questions and assume patient care.
[2022-10-25 07:05] VITALS: BP 92/43
[2022-10-25] MEDS: docusate sod 100mg capsule PO SCH ×2 (08:00→20:00)
[2022-10-25] MEDS: hydrALAZINE 25 MG tablet PO SCH ×4 (08:00→23:59)
[2022-10-25] MEDS: K and/or MAG REPLACEMENT MC SCH ×2 (08:00→19:20)
[2022-10-25 08:06] VITALS: BP 100/79
[2022-10-25] MEDS: benztropine 1mg tablet PO SCH ×2 (08:49→20:38)
[2022-10-25] MEDS: multivitamins, therapeutics tablet PO SCH (08:51)
[2022-10-25] MEDS: divalproex sodium 500mg tablet.DR PO SCH ×2 (08:52→20:37)
[2022-10-25] MEDS: sertraline 50mg tablet PO SCH (08:53)
[2022-10-25] MEDS: busPIRone 15mg tablet PO SCH ×3 (08:53→20:37)
[2022-10-25] MEDS: ferrous sulfate 325mg tablet PO SCH ×3 (08:54→20:38)
[2022-10-25] MEDS: OLANZapine 5mg rapidly disint. tablet PO SCH ×2 (08:55→20:40)
[2022-10-25] MEDS: nicotine 14mg patch - 24hr TD SCH (08:57)
--- NOTE | 2022-10-25 08:59 | NUR ---
Student Medication Administration: For this medication-pass time frame, all medication were reviewed, dispensed, administered and documented per hospital policy by Macarena Montemayor student nurse and Agustín Hayes RN.
[2022-10-25] MEDS: budesonide 0.5mg/2ml UD nebule IH SCH ×2 (09:05→20:00)
--- NOTE | 2022-10-25 09:06 | NUR ---
PAGER ID: [phone] MESSAGE: 352- Vern edgar- pt tolerating CL. he is asking for Reg diet. ok to advance?- Sherrell [phone]
[2022-10-25 11:36] VITALS: BP 94/56
--- NOTE | 2022-10-25 12:18 | NUR ---
PAGER ID: [phone] MESSAGE: [phone] TriciaVern- positive blood culture Gram + cocci in clusters in aerobic bottle drawn on 10/24/22 at 1525 from left foot.- [id number]
--- NOTE | 2022-10-25 12:59 | NUR ---
PAGER ID: [phone] MESSAGE: [phone] TriciaVern- positive blood culture Gram + cocci in clusters in anaerobic bottle drawn on 10/24/22 at 1525 from left foot.- [facility] [id number]
--- NOTE | 2022-10-25 13:01 | NUR ---
No new orders per Dr. Ramos.
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
--- NOTE | 2022-10-25 15:52 | NUR ---
Student Medication Administration: For this medication-pass time frame, all medication were reviewed, dispensed, administered and documented per hospital policy by Macarena MONTANO and Dolly Hayes RN.
[2022-10-25 18:00] VITALS: BP 84/57
--- NOTE | 2022-10-25 18:15 | NUR ---
Student documentation: I have reviewed and agree with all interventions, assessments performed and documented by Brandie Montemayor student nurse, by Sally Hayes RN Instructor.
--- NOTE | 2022-10-25 18:28 | NUR ---
Patient in room [facility] 352. I have received report from FLO Wynne and had the opportunity to ask questions and assume patient care.
--- NOTE | 2022-10-25 18:29 | NUR ---
Problems reprioritized. Patient report given, questions answered & plan of care reviewed with FLO Thomas.
[2022-10-25] MEDS: mirtazapine 15mg tablet PO SCH (20:37)
[2022-10-25 22:00] VITALS: BP 97/42
[2022-10-26] MEDS: piperacillin/tazo 4.5gm/100ml 100 ML IV SCH (02:29)
[2022-10-26 06:00] VITALS: BP 104/33
[2022-10-26] MEDS: normal saline 1000ml 1,000 ML IV SCH (06:12)
[2022-10-26 06:15] LABS: BASOPHILS % (AUTO) 0.6 % (0-1); EOSINOPHILS # (AUTO) 0.1 X10'3 (0-0.9); HEMATOCRIT 31.9 % (42.0-52.0); HEMOGLOBIN 10.2 g/dl (14.0-17.9); LYMPHOCYTES % (AUTO) 21.9 % (21-51); MEAN CORPUSCULAR HEMOGLOBIN 25.5 PG (27.0-31.0); MEAN CORPUSCULAR HGB CONC 31.9 g/dL (33.0-36.5); MEAN CORPUSCULAR VOLUME 80.1 FL (78-98); MEAN PLATELET VOLUME 8.1 FL (7.4-10.4); MONOCYTES # (AUTO) 0.3 X10'3 (0-0.9); MONOCYTES % (AUTO) 7.3 % (2-12); NEUTROPHILS # (AUTO) 3.1 X10'3 (1.8-7.7); NEUTROPHILS % (AUTO) 68.2 % (42-75); PLATELET COUNT 219 X10'3 (140-440); RED BLOOD COUNT 3.98 X10'6 (4.70-6.10); RED CELL DISTRIBUTION WIDTH 19.8 % (11.5-14.5); WHITE BLOOD COUNT 4.6 X10'3 (4.5-11.0)
[2022-10-26 06:21] LABS: ALANINE AMINOTRANSFERASE 45 U/L (12-78); ALBUMIN 2.5 G/DL (3.4-5.0); ALBUMIN/GLOBULIN RATIO 0.8 (1.1-1.5); ALKALINE PHOSPHATASE 63 IU/L (46-116); ANION GAP 3 (8-16); ASPARTATE AMINO TRANSFERASE 25 U/L (10-37); BILIRUBIN,TOTAL 0.2 MG/DL (0.1-1.0); BLOOD UREA NITROGEN 12 MG/DL (7-18); BUN/CREATININE RATIO 16.7 (5.4-32.0); CALCIUM 8.4 MG/DL (8.5-10.1); CHLORIDE 111 MMOL/L (99-107); CREATININE 0.72 MG/DL (0.60-1.10); GLUCOSE 86 MG/DL (70-104); SODIUM 143 MMOL/L (135-145); TOTAL CARBON DIOXIDE 29.5 MMOL/L (24-32); TOTAL PROTEIN 5.6 G/DL (6.4-8.2); eGFR > 90 ML/MIN
--- NOTE | 2022-10-26 06:25 | NUR ---
Problems reprioritized. Patient report given, questions answered & plan of care reviewed with FLO Palacio.
--- NOTE | 2022-10-26 07:03 | NUR ---
Patient in room [facility] 352. I have received report from Martha ROSSI and had the opportunity to ask questions and assume patient care.
[2022-10-26] MEDS: docusate sod 100mg capsule PO SCH (08:00)
[2022-10-26] MEDS: hydrALAZINE 25 MG tablet PO SCH (08:00)
[2022-10-26] MEDS: K and/or MAG REPLACEMENT MC SCH (08:00)
[2022-10-26] MEDS: budesonide 0.5mg/2ml UD nebule IH SCH (08:00)
[2022-10-26] MEDS: divalproex sodium 500mg tablet.DR PO SCH (08:40)
[2022-10-26] MEDS: multivitamins, therapeutics tablet PO SCH (08:40)
[2022-10-26] MEDS: busPIRone 15mg tablet PO SCH ×2 (08:40→13:02)
[2022-10-26] MEDS: sertraline 50mg tablet PO SCH (08:40)
[2022-10-26] MEDS: nicotine 14mg patch - 24hr TD SCH (08:40)
[2022-10-26] MEDS: ferrous sulfate 325mg tablet PO SCH ×2 (08:40→13:02)
[2022-10-26] MEDS: OLANZapine 5mg rapidly disint. tablet PO SCH (08:40)
[2022-10-26] MEDS ORDERED: benztropine 1mg tablet PO SCH (09:45)
[2022-10-26 10:00] VITALS: BP 102/61
[2022-10-26] MEDS ORDERED: HYDR-4070 PO (13:38)
--- NOTE | 2022-10-26 15:15 | NUR ---
Patient discharge reviewed with patient and patient verbalized understanding. Patients Central line dc'd cannula intact Dressing and tegaderm applied no bleeding noted. Patients PIV right wrist dc'd cannula intact. Patient states he has all his belongings, sweats and sweat pants provided. dirty clothes and leather jacket with patient. Patient taken to [facility] via wheelchair by Kiki DYSON.
--- NOTE | 2022-10-26 15:35 | NUR ---
paged re: + MRSA nasal swab
== END 2022-10-26 15:10 | disposition home or self-care (01) | DRG 817 ==
LOC: ER 07:34 → ED HOLD 15:05 → SUR 3N 18:15
PROVIDERS: ADMIT Family Medicine; ATTEND Family Medicine
PROC: 5A1935Z Respiratory Ventilation, Less than 24 Consecutive Hours (ICD-10-PCS; principal; 2022-10-24)
PROC: 0BH17EZ Insertion of Endotracheal Airway into Trachea, Via Natural or Artificial Opening (ICD-10-PCS; 2022-10-24)
PROC: BW251ZZ Computerized Tomography (CT Scan) of Chest, Abdomen and Pelvis using Low Osmolar Contrast (ICD-10-PCS; 2022-10-24)
PROC: 02HV33Z Insertion of Infusion Device into Superior Vena Cava, Percutaneous Approach (ICD-10-PCS; 2022-10-24)
DX: T50.902A Poisoning by unspecified drugs, medicaments and biological substances, intentional self-harm, initial encounter (principal); J96.00 Acute respiratory failure, unspecified whether with hypoxia or hypercapnia; J69.0 Pneumonitis due to inhalation of food and vomit; G92.8 Other toxic encephalopathy; G10 Huntington's disease; F20.9 Schizophrenia, unspecified; F11.10 Opioid abuse, uncomplicated; F41.9 Anxiety disorder, unspecified; G89.29 Other chronic pain; F10.90 Alcohol use, unspecified, uncomplicated; F15.10 Other stimulant abuse, uncomplicated; R91.8 Other nonspecific abnormal finding of lung field; F17.210 Nicotine dependence, cigarettes, uncomplicated; F32.A Depression, unspecified; Y92.89 Other specified places as the place of occurrence of the external cause; Z59.00 Homelessness unspecified; Z79.899 Other long term (current) drug therapy; Z81.8 Family history of other mental and behavioral disorders; Z56.0 Unemployment, unspecified; Z88.6 Allergy status to analgesic agent; Z93.3 Colostomy status; Z88.8 Allergy status to other drugs, medicaments and biological substances
CPT/HCPCS: 36415; 36600; 70450; 71045; 71250; 74177; 80053; 80305; 80329; 82803; 83605; 83735; 83880; 84484; 85007; 85018; 85025; 87040; 87070; 87077; 87081; 87186; 93005; 94002; 94760; 94799; 97116; 97161; 97530; 99285; A4421; A4615; A6258; C1751; G0378; J0330; J2250; J2310; J2405; J2543; J2704; J3490; J7030; J7120; Q9967

== ENCOUNTER 2022-10-30 05:47 | Emergency (ER) | payer MEDICAID ==
[~2022-10-30] VITALS: Ht 172.7 cm; Wt 75.0 kg
[~2022-10-30 05:47] MED LIST changes: -ACET-890 PO; +BENZ1TAB78 PO; +BUSP15TA3 PO; -BUSP5TAB26 PO; -COG1T PO; +DIVA-76 PO; +FERR-106 PO; -FERR325T28 PO; +HYDR-4070 PO; +LORA-269 PO; -Lorazepam PO; +MIRT-116 PO; -MIRT-87 PO; +OLAN5TAB29 PO; -OLAN5TAB75 PO; +QUET-1 PO; +SERT-153 PO; -hyDRALAzine tablet PO
[2022-10-30 07:29] VITALS: BP 134/84
== END 2022-10-30 08:06 | disposition home or self-care (01) ==
LOC: ER 05:48
DX: K94.03 Colostomy malfunction (principal); F15.10 Other stimulant abuse, uncomplicated; G89.29 Other chronic pain; F41.9 Anxiety disorder, unspecified; F32.9 Major depressive disorder, single episode, unspecified; F12.90 Cannabis use, unspecified, uncomplicated; F11.90 Opioid use, unspecified, uncomplicated; Z98.890 Other specified postprocedural states; Z59.00 Homelessness unspecified; Z56.0 Unemployment, unspecified; Z86.2 Personal history of diseases of the blood and blood-forming organs and certain disorders involving the immune mechanism; Z88.6 Allergy status to analgesic agent; Z86.14 Personal history of Methicillin resistant Staphylococcus aureus infection; Z91.013 Allergy to seafood; Z91.030 Bee allergy status; Z88.1 Allergy status to other antibiotic agents; Z88.8 Allergy status to other drugs, medicaments and biological substances; Z79.899 Other long term (current) drug therapy; Y84.8 Other medical procedures as the cause of abnormal reaction of the patient, or of later complication, without mention of misadventure at the time of the procedure
CPT/HCPCS: 99283; A4421

== ENCOUNTER 2022-11-01 02:06 | Emergency (ER) | payer MEDICAID | END 2022-11-01 03:13 | disposition left against medical advice (07) | LOC: ER 02:07 | DX: R10.9 Unspecified abdominal pain (principal); Z53.21 Procedure and treatment not carried out due to patient leaving prior to being seen by health care provider ==

== ENCOUNTER 2022-11-15 00:08 | Emergency (ER) | payer MEDICAID | END 2022-11-15 00:46 | disposition left against medical advice (07) | LOC: ER 00:10 | DX: K94.00 Colostomy complication, unspecified (principal); Z53.21 Procedure and treatment not carried out due to patient leaving prior to being seen by health care provider ==

== ENCOUNTER 2022-11-27 07:23 | Emergency (ER) | payer MEDICAID ==
[~2022-11-27] VITALS: Ht 172.7 cm; Wt 71.6 kg
[2022-11-27 07:49] VITALS: BP 129/79
== END 2022-11-27 09:43 | disposition home or self-care (01) ==
LOC: ER 07:25
DX: F15.10 Other stimulant abuse, uncomplicated (principal); R44.0 Auditory hallucinations; G89.29 Other chronic pain; F41.9 Anxiety disorder, unspecified; F32.9 Major depressive disorder, single episode, unspecified; Z59.00 Homelessness unspecified; Z98.890 Other specified postprocedural states; Z86.14 Personal history of Methicillin resistant Staphylococcus aureus infection
CPT/HCPCS: 99281; A4371; A4398; A4421

== ENCOUNTER 2022-11-28 14:59 | Emergency (ER) | payer MEDICAID ==
[~2022-11-28] VITALS: Ht 172.7 cm; Wt 71.4 kg
[2022-11-28 15:00] VITALS: BP 167/100
== END 2022-11-28 16:14 | disposition home or self-care (01) ==
LOC: ER 14:59
DX: F15.10 Other stimulant abuse, uncomplicated (principal); F24 Shared psychotic disorder; F41.9 Anxiety disorder, unspecified; Z87.81 Personal history of (healed) traumatic fracture; D64.9 Anemia, unspecified; F12.10 Cannabis abuse, uncomplicated; Z91.018 Allergy to other foods; Z88.6 Allergy status to analgesic agent; Z88.1 Allergy status to other antibiotic agents; Z79.1 Long term (current) use of non-steroidal anti-inflammatories (NSAID); Z79.2 Long term (current) use of antibiotics
CPT/HCPCS: 99281

== ENCOUNTER 2022-11-28 19:07 | Emergency (ER) | payer MEDICAID ==
[~2022-11-28] VITALS: Ht 172.7 cm; Wt 71.8 kg
[2022-11-28 19:33] VITALS: BP 163/100
[2022-11-28 20:19] LABS: ALANINE AMINOTRANSFERASE 34 U/L (12-78); ALBUMIN 3.9 G/DL (3.4-5.0); ALBUMIN/GLOBULIN RATIO 0.9 (1.1-1.5); ALKALINE PHOSPHATASE 94 IU/L (46-116); ANION GAP 9 (8-16); ASPARTATE AMINO TRANSFERASE 21 U/L (10-37); BILIRUBIN,TOTAL 0.6 MG/DL (0.1-1.0); BLOOD UREA NITROGEN 14 MG/DL (7-18); BUN/CREATININE RATIO 16.7 (10.0-20.0); CALCIUM 9.2 MG/DL (8.5-10.1); CHLORIDE 101 MMOL/L (99-107); CREATININE 0.84 MG/DL (0.60-1.10); GLUCOSE 108 MG/DL (70-104); POTASSIUM 3.7 MMOL/L (3.5-5.1); SODIUM 139 MMOL/L (135-145); TOTAL CARBON DIOXIDE 29.1 MMOL/L (24-32); TOTAL PROTEIN 8.1 G/DL (6.4-8.2); eGFR > 90 ML/MIN
[2022-11-28 20:47] LABS: ETHANOL < 0.010 GM/DL (0.0-0.010)
[2022-11-28 22:05] LABS: BASOPHILS % (AUTO) 0.5 % (0-1); EOSINOPHILS # (AUTO) 0.3 X10'3 (0-0.9); EOSINOPHILS % (AUTO) 2.8 % (0-6); HEMATOCRIT 43.4 % (42.0-52.0); HEMOGLOBIN 14.1 g/dl (14.0-17.9); LYMPHOCYTES # (AUTO) 1.5 X10'3 (1.1-4.8); LYMPHOCYTES % (AUTO) 15.5 % (21-51); MEAN CORPUSCULAR HEMOGLOBIN 25.8 PG (27.0-31.0); MEAN CORPUSCULAR HGB CONC 32.5 g/dL (33.0-36.5); MEAN CORPUSCULAR VOLUME 79.4 FL (78-98); MEAN PLATELET VOLUME 7.4 FL (7.4-10.4); MONOCYTES # (AUTO) 0.7 X10'3 (0-0.9); MONOCYTES % (AUTO) 6.8 % (2-12); NEUTROPHILS # (AUTO) 7.3 X10'3 (1.8-7.7); NEUTROPHILS % (AUTO) 74.4 % (42-75); PLATELET COUNT 291 X10'3 (140-440); RED BLOOD COUNT 5.46 X10'6 (4.70-6.10); WHITE BLOOD COUNT 9.8 X10'3 (4.5-11.0)
--- NOTE | 2022-11-29 00:58 | NUR ---
he is eating a sandwich. Gave him a fresh colostomy bag and wipes and he is able to do that himself.
== END 2022-11-29 05:52 | disposition home or self-care (01) ==
LOC: ER 19:08
DX: F15.10 Other stimulant abuse, uncomplicated (principal); G89.29 Other chronic pain; F41.9 Anxiety disorder, unspecified; F32.9 Major depressive disorder, single episode, unspecified; Z59.00 Homelessness unspecified; Z86.14 Personal history of Methicillin resistant Staphylococcus aureus infection; Z56.0 Unemployment, unspecified; Z98.890 Other specified postprocedural states; Z91.013 Allergy to seafood; Z88.6 Allergy status to analgesic agent; Z91.030 Bee allergy status; Z88.1 Allergy status to other antibiotic agents; Z79.899 Other long term (current) drug therapy
CPT/HCPCS: 36415; 80053; 80320; 84443; 85025; 99281; 99283; 99284; A4421

== ENCOUNTER 2022-12-01 06:02 | Emergency (ER) | payer MEDICAID ==
[~2022-12-01] VITALS: Ht 172.7 cm; Wt 70.5 kg
[2022-12-01 06:14] VITALS: BP 130/96
== END 2022-12-01 10:12 | disposition home or self-care (01) ==
LOC: ER 06:03
DX: K94.00 Colostomy complication, unspecified (principal); G89.29 Other chronic pain; F31.9 Bipolar disorder, unspecified; D64.9 Anemia, unspecified; F12.10 Cannabis abuse, uncomplicated; F15.10 Other stimulant abuse, uncomplicated; Z91.013 Allergy to seafood; Z91.018 Allergy to other foods; Z88.1 Allergy status to other antibiotic agents; Z79.899 Other long term (current) drug therapy
CPT/HCPCS: 99281; A4398; A4421

== ENCOUNTER 2022-12-03 16:51 | Emergency (ER) | payer MEDICAID ==
[~2022-12-03] VITALS: Ht 172.7 cm; Wt 72.7 kg
[2022-12-03 17:58] VITALS: BP 132/84
== END 2022-12-03 22:20 | disposition home or self-care (01) ==
LOC: ER 16:51
DX: Z00.00 Encounter for general adult medical examination without abnormal findings (principal); G89.29 Other chronic pain; F41.9 Anxiety disorder, unspecified; F32.9 Major depressive disorder, single episode, unspecified; F12.90 Cannabis use, unspecified, uncomplicated; F15.90 Other stimulant use, unspecified, uncomplicated; F11.90 Opioid use, unspecified, uncomplicated; Z98.890 Other specified postprocedural states; Z59.00 Homelessness unspecified; Z86.14 Personal history of Methicillin resistant Staphylococcus aureus infection; Z91.013 Allergy to seafood; Z88.1 Allergy status to other antibiotic agents; Z88.6 Allergy status to analgesic agent; Z91.030 Bee allergy status; Z79.899 Other long term (current) drug therapy
CPT/HCPCS: 99281

== ENCOUNTER 2022-12-08 17:00 | Emergency (ER) | payer MEDICAID ==
[~2022-12-08] VITALS: Ht 172.7 cm; Wt 70.0 kg
[2022-12-08 17:47] LABS: BASOPHILS % (AUTO) 0.7 % (0-1); EOSINOPHILS # (AUTO) 0.2 X10'3 (0-0.9); EOSINOPHILS % (AUTO) 2.9 % (0-6); HEMATOCRIT 39.9 % (42.0-52.0); LYMPHOCYTES # (AUTO) 1.5 X10'3 (1.1-4.8); LYMPHOCYTES % (AUTO) 23.1 % (21-51); MEAN CORPUSCULAR HGB CONC 32.6 g/dL (33.0-36.5); MEAN CORPUSCULAR VOLUME 79.5 FL (78-98); MEAN PLATELET VOLUME 7.3 FL (7.4-10.4); MONOCYTES # (AUTO) 0.4 X10'3 (0-0.9); MONOCYTES % (AUTO) 5.4 % (2-12); NEUTROPHILS # (AUTO) 4.5 X10'3 (1.8-7.7); NEUTROPHILS % (AUTO) 67.9 % (42-75); PLATELET COUNT 300 X10'3 (140-440); RED BLOOD COUNT 5.02 X10'6 (4.70-6.10); RED CELL DISTRIBUTION WIDTH 19.2 % (11.5-14.5); WHITE BLOOD COUNT 6.6 X10'3 (4.5-11.0)
[2022-12-08 17:59] LABS: ALANINE AMINOTRANSFERASE 31 U/L (12-78); ALBUMIN 3.2 G/DL (3.4-5.0); ALBUMIN/GLOBULIN RATIO 0.9 (1.1-1.5); ALKALINE PHOSPHATASE 85 IU/L (46-116); ANION GAP 9 (8-16); ASPARTATE AMINO TRANSFERASE 21 U/L (10-37); BILIRUBIN,TOTAL 0.2 MG/DL (0.1-1.0); BLOOD UREA NITROGEN 11 MG/DL (7-18); BUN/CREATININE RATIO 13.6 (10.0-20.0); CALCIUM 8.5 MG/DL (8.5-10.1); CHLORIDE 106 MMOL/L (99-107); CREATININE 0.81 MG/DL (0.60-1.10); ETHANOL 0.059 GM/DL (0.0-0.010); GLUCOSE 113 MG/DL (70-104); POTASSIUM 4.2 MMOL/L (3.5-5.1); SODIUM 142 MMOL/L (135-145); TOTAL CARBON DIOXIDE 27.4 MMOL/L (24-32); TOTAL PROTEIN 6.8 G/DL (6.4-8.2); eGFR > 90 ML/MIN
[2022-12-08 18:06] LABS: ANISOCYTOSIS 2+; ELLIPTOCYTES 1+; MICROCYTOSIS 1+; PLATELET ESTIMATE NORMAL
[2022-12-08 18:07] LABS: SCHISTOCYTES FEW
--- NOTE | 2022-12-08 18:56 | NUR ---
PT IN ER14 PT STATES HE WANTS TO CUT HIS NECK OPEN. PT EDUCATED TO POC. PT IN AGREEMENT. PENDING MD DRAPER AND TREATMENT.
--- NOTE | 2022-12-08 18:59 | NUR ---
ILLO/COL CHANGED UPON ARRIVAL. BOTH INTACT, PT CHANGED INTO GREEN SRUBS.
--- NOTE | 2022-12-08 18:59 | NUR ---
PT WAS GIVEN A SNACK
--- NOTE | 2022-12-08 20:04 | NUR ---
Received patient to OF bed #27. Pt ambulated with staff, no behaviors. Will continue to monitor.
--- NOTE | 2022-12-08 20:56 | NUR ---
Pt resting comfortably, rr even and unlabored.
--- NOTE | 2022-12-08 21:02 | NUR ---
Obtained urine sample - sent to lab.
[2022-12-08 21:16] LABS: CLARITY,URINE CLOUDY (Clear); COLOR,URINE YELLOW (Yellow); GLUCOSE, URINE NEGATIVE (Neg); KETONES,URINE NEGATIVE (Neg); LEUKOCYTE ESTERASE ,URINE SMALL (Neg); NITRITES, URINE POSITIVE (Neg); OCCULT BLOOD,URINE MODERATE (Neg); PROTEIN,URINE 100 mg/dl (Neg); UROBILINOGEN,URINE 0.2 E.U/dL (0.2-1.0)
[2022-12-08] MEDS: LORazepam 1 MG tablet PO PRN (21:17)
--- NOTE | 2022-12-08 21:26 | NUR ---
Pt called mortgage underwriter to bed requested "I need something to shut my mind down." Recieved order for Ativan 2mg from Dr. Honeycutt. Pt also requested a snack which was provided.
[2022-12-08 21:31] LABS: UA COLLECTION TYPE VOIDED
[2022-12-08 21:33] LABS: WBC,URINE 20-30 /HPF (0-4)
[2022-12-08 21:34] LABS: BACTERIA,URINE 1+ /HPF (Neg); MUCUS STRANDS MANY /LPF (Neg); SQUAMOUS EPITHELIAL CELL,UR FEW /LPF (FEW); URINE AMPHETAMINE SCREEN NEGATIVE (Neg); URINE BARBITUATE SCREEN NEGATIVE (Neg); URINE BENZODIAZEPINES SCREEN NEGATIVE (Neg); URINE CANNABINOID SCREEN POSITIVE (Neg); URINE COCAINE SCREEN NEGATIVE (Neg); URINE METHADONE SCREEN NEGATIVE (Neg); URINE OPIATE SCREEN NEGATIVE (Neg); URINE PHENCYCLIDINE SCREEN NEGATIVE (Neg); WBC CLUMPS,URINE FEW /HPF (NEGATIVE)
--- NOTE | 2022-12-08 23:06 | NUR ---
Pt resting comfortably in supine position, rr even and unlabored.
--- NOTE | 2022-12-09 00:42 | NUR ---
FAXED PACKET TO [facility].
--- NOTE | 2022-12-09 02:19 | NUR ---
Pt continues to rest comfortably with eyes closed. No distress note, rr even and unlabored.
--- NOTE | 2022-12-09 04:09 | NUR ---
Pt resting comfortably, rr even and unlabored.
--- NOTE | 2022-12-09 06:58 | NUR ---
Pt sleeping restfully, rr even and unlabored. Pt ambulated to bathroom around 0615, asked when breakfast was and went back to bed.
[2022-12-09] MEDS: LORazepam 1 MG tablet PO PRN (08:26)
--- NOTE | 2022-12-09 09:00 | NUR ---
Pt's breakfast tray was late, agitating patient. Pt got up to bathroom and was heard cussing loudly in the bathroom. Pt stormed out and requested "I need something to stop my head!" PRN Ativan was administered.
--- NOTE | 2022-12-09 09:45 | NUR ---
Pt is sitting up in bed finishing his breakfast, pt appears calm. Isabell was told my [facility] clinician that patient was not going to be placed on a hold. A member from the STAR Team will be in around 1100 to talk with patient and help reestablish him with services.
--- NOTE | 2022-12-09 11:14 | NUR ---
FORD WITH THE START TEAM IS AT BEDSIDE.
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
--- NOTE | 2022-12-09 13:20 | NUR ---
pt discharged now
--- NOTE | 2022-12-09 14:41 | NUR ---
DISCHARGE NOTE Pt was discharged from unit at 1330. Security stood by due to patient's pattern of aggressive behavior. Pt hesitated before getting out of bed and changing his clothes. Pt was grumbling under his breath as he walked into the bathroom. Pt was escorted outside with no issues. Pt left wtih all personal belongings and ate 100% of his lunch just prior to leaving.
[2022-12-09 14:45] VITALS: BP 124/78
== END 2022-12-09 13:30 | disposition home or self-care (01) ==
LOC: ER 17:00
DX: R45.851 Suicidal ideations (principal); F15.959 Other stimulant use, unspecified with stimulant-induced psychotic disorder, unspecified; F12.90 Cannabis use, unspecified, uncomplicated; Z88.6 Allergy status to analgesic agent; Z91.013 Allergy to seafood; Z56.0 Unemployment, unspecified; Z59.00 Homelessness unspecified
CPT/HCPCS: 36415; 80053; 80305; 80320; 81001; 85008; 85025; 99285; A4398; A4421

== ENCOUNTER 2022-12-13 17:34 | Emergency (ER) | payer MEDICAID ==
[~2022-12-13] VITALS: Ht 172.7 cm; Wt 57.6 kg
[2022-12-13 17:41] VITALS: BP 150/83
[2022-12-13] MEDS ORDERED: LORazepam 1 MG tablet PO ONE (18:20)
[2022-12-13 18:38] LABS: CLARITY,URINE SLIGHTLY CLOUDY (Clear); COLOR,URINE YELLOW (Yellow); GLUCOSE, URINE NEGATIVE (Neg); KETONES,URINE NEGATIVE (Neg); LEUKOCYTE ESTERASE ,URINE SMALL (Neg); NITRITES, URINE NEGATIVE (Neg); OCCULT BLOOD,URINE LARGE (Neg); PROTEIN,URINE 100 mg/dl (Neg); UA COLLECTION TYPE OTHER; UROBILINOGEN,URINE 0.2 E.U/dL (0.2-1.0)
[2022-12-13 18:39] LABS: BASOPHILS % (AUTO) 0.4 % (0-1); EOSINOPHILS # (AUTO) 0.2 X10'3 (0-0.9); EOSINOPHILS % (AUTO) 2.2 % (0-6); HEMATOCRIT 38.5 % (42.0-52.0); HEMOGLOBIN 12.4 g/dl (14.0-17.9); LYMPHOCYTES # (AUTO) 1.2 X10'3 (1.1-4.8); LYMPHOCYTES % (AUTO) 13.2 % (21-51); MEAN CORPUSCULAR HGB CONC 32.2 g/dL (33.0-36.5); MEAN CORPUSCULAR VOLUME 80.6 FL (78-98); MEAN PLATELET VOLUME 7.4 FL (7.4-10.4); MONOCYTES # (AUTO) 0.8 X10'3 (0-0.9); MONOCYTES % (AUTO) 8.7 % (2-12); NEUTROPHILS # (AUTO) 6.8 X10'3 (1.8-7.7); NEUTROPHILS % (AUTO) 75.5 % (42-75); PLATELET COUNT 320 X10'3 (140-440); RED BLOOD COUNT 4.78 X10'6 (4.70-6.10)
[2022-12-13 18:47] LABS: URINE AMPHETAMINE SCREEN POSITIVE (Neg); URINE BARBITUATE SCREEN NEGATIVE (Neg); URINE BENZODIAZEPINES SCREEN NEGATIVE (Neg); URINE CANNABINOID SCREEN NEGATIVE (Neg); URINE COCAINE SCREEN NEGATIVE (Neg); URINE METHADONE SCREEN NEGATIVE (Neg); URINE OPIATE SCREEN NEGATIVE (Neg); URINE PHENCYCLIDINE SCREEN NEGATIVE (Neg)
[2022-12-13 18:52] LABS: RBC,URINE 50-100 /HPF (0-2)
[2022-12-13 18:53] LABS: ALANINE AMINOTRANSFERASE 36 U/L (12-78); ALBUMIN 3.5 G/DL (3.4-5.0); ALKALINE PHOSPHATASE 85 IU/L (46-116); ANION GAP 9 (8-16); ASPARTATE AMINO TRANSFERASE 33 U/L (10-37); BILIRUBIN,TOTAL 0.7 MG/DL (0.1-1.0); BLOOD UREA NITROGEN 13 MG/DL (7-18); BUN/CREATININE RATIO 16.5 (10.0-20.0); CALCIUM 8.5 MG/DL (8.5-10.1); CHLORIDE 103 MMOL/L (99-107); CREATININE 0.79 MG/DL (0.60-1.10); ETHANOL < 0.010 GM/DL (0.0-0.010); GLUCOSE 119 MG/DL (70-104); POTASSIUM 3.6 MMOL/L (3.5-5.1); SODIUM 139 MMOL/L (135-145); TOTAL CARBON DIOXIDE 27.2 MMOL/L (24-32); TOTAL PROTEIN 7.1 G/DL (6.4-8.2); eGFR > 90 ML/MIN
[2022-12-13 18:53] LABS: BACTERIA,URINE NONE SEEN /HPF (Neg); MUCUS STRANDS FEW /LPF (Neg); SQUAMOUS EPITHELIAL CELL,UR NONE SEEN /LPF (FEW)
[2022-12-13 19:02] LABS: ANISOCYTOSIS 1+; PLATELET ESTIMATE NORMAL
[2022-12-13 19:03] LABS: ELLIPTOCYTES 1+
[2022-12-13] MEDS ORDERED: nitrofuran monohydrate/nitrofuran macrocrysal 100 MG (MacroBID) capsule PO ONE (19:25)
--- NOTE | 2022-12-14 05:58 | NUR ---
pt slept all night
--- NOTE | 2022-12-14 07:48 | NUR ---
[facility] PACKET FAXED
== END 2022-12-14 10:06 | disposition home or self-care (01) ==
LOC: ER 17:35
DX: Z76.5 Malingerer [conscious simulation] (principal); R45.851 Suicidal ideations; G89.29 Other chronic pain; F41.9 Anxiety disorder, unspecified; F32.9 Major depressive disorder, single episode, unspecified; F12.90 Cannabis use, unspecified, uncomplicated; F15.90 Other stimulant use, unspecified, uncomplicated; F11.90 Opioid use, unspecified, uncomplicated; Z98.890 Other specified postprocedural states; Z59.00 Homelessness unspecified; Z56.0 Unemployment, unspecified; Z91.013 Allergy to seafood; Z88.6 Allergy status to analgesic agent; Z88.1 Allergy status to other antibiotic agents; Z91.030 Bee allergy status; Z79.899 Other long term (current) drug therapy
CPT/HCPCS: 80053; 80305; 80320; 81001; 85008; 85025; 99284; A4421

== ENCOUNTER 2022-12-16 01:38 | Emergency (ER) | payer MEDICAID ==
[~2022-12-16] VITALS: Ht 172.7 cm; Wt 88.6 kg
[2022-12-16 01:56] VITALS: BP 126/87
== END 2022-12-16 01:59 | disposition home or self-care (01) ==
LOC: ER 01:40
DX: K94.09 Other complications of colostomy (principal); F31.9 Bipolar disorder, unspecified; Z87.81 Personal history of (healed) traumatic fracture; Z87.448 Personal history of other diseases of urinary system; Z86.2 Personal history of diseases of the blood and blood-forming organs and certain disorders involving the immune mechanism; Z91.013 Allergy to seafood; Z88.6 Allergy status to analgesic agent; Z79.899 Other long term (current) drug therapy
CPT/HCPCS: 99281

== ENCOUNTER 2022-12-20 18:03 | Emergency (ER) | payer MEDICAID ==
[~2022-12-20] VITALS: Ht 172.7 cm; Wt 68.2 kg
[2022-12-20 19:07] VITALS: BP 116/74
--- NOTE | 2022-12-20 20:15 | NUR ---
gave him several urostomy and colostomy bags
== END 2022-12-20 20:22 | disposition home or self-care (01) ==
LOC: ER 18:11
DX: K94.03 Colostomy malfunction (principal); F41.9 Anxiety disorder, unspecified; Z87.81 Personal history of (healed) traumatic fracture; G89.29 Other chronic pain; Z86.2 Personal history of diseases of the blood and blood-forming organs and certain disorders involving the immune mechanism; Z91.018 Allergy to other foods; Z88.1 Allergy status to other antibiotic agents; Z88.5 Allergy status to narcotic agent; Z79.899 Other long term (current) drug therapy; Z79.1 Long term (current) use of non-steroidal anti-inflammatories (NSAID); Z79.2 Long term (current) use of antibiotics
CPT/HCPCS: 99281; A4421

== ENCOUNTER 2022-12-30 02:52 | Emergency (ER) | payer MEDICAID ==
[~2022-12-30] VITALS: Ht 182.9 cm; Wt 72.0 kg
[2022-12-30 03:27] VITALS: BP 129/87
== END 2022-12-30 04:45 | disposition home or self-care (01) ==
LOC: ER 02:53
DX: Z43.3 Encounter for attention to colostomy (principal); G89.29 Other chronic pain; F41.9 Anxiety disorder, unspecified; F32.9 Major depressive disorder, single episode, unspecified; F17.200 Nicotine dependence, unspecified, uncomplicated; F12.90 Cannabis use, unspecified, uncomplicated; F15.90 Other stimulant use, unspecified, uncomplicated; F11.90 Opioid use, unspecified, uncomplicated; Z59.00 Homelessness unspecified; Z98.890 Other specified postprocedural states; Z56.0 Unemployment, unspecified; Z91.013 Allergy to seafood; Z88.6 Allergy status to analgesic agent; Z79.899 Other long term (current) drug therapy
CPT/HCPCS: 99281

== ENCOUNTER 2022-12-31 20:21 | Emergency (ER) | payer MEDICAID ==
[~2022-12-31] VITALS: Ht 172.7 cm; Wt 66.8 kg
[2023-01-01 01:39] VITALS: BP 115/78
== END 2023-01-01 01:40 | disposition home or self-care (01) ==
LOC: ER 20:21
DX: Z43.3 Encounter for attention to colostomy (principal); F12.90 Cannabis use, unspecified, uncomplicated; F15.20 Other stimulant dependence, uncomplicated; Z91.013 Allergy to seafood; Z88.6 Allergy status to analgesic agent; Z88.1 Allergy status to other antibiotic agents; Z91.030 Bee allergy status; Z56.0 Unemployment, unspecified; Z59.00 Homelessness unspecified
CPT/HCPCS: 99281

== ENCOUNTER 2023-01-02 16:05 | Emergency (ER) | payer MEDICAID ==
[~2023-01-02] VITALS: Ht 172.7 cm; Wt 70.5 kg
[2023-01-02 16:33] VITALS: BP 127/76
== END 2023-01-02 16:40 | disposition home or self-care (01) ==
LOC: ER 16:06
DX: Z43.3 Encounter for attention to colostomy (principal); F12.90 Cannabis use, unspecified, uncomplicated; F15.20 Other stimulant dependence, uncomplicated; Z91.013 Allergy to seafood; Z88.6 Allergy status to analgesic agent; Z88.1 Allergy status to other antibiotic agents; Z91.030 Bee allergy status; Z59.00 Homelessness unspecified; Z56.0 Unemployment, unspecified
CPT/HCPCS: 99281; A4421

== ENCOUNTER 2023-01-05 04:55 | Emergency (ER) | payer MEDICAID ==
[~2023-01-05] VITALS: Ht 172.7 cm; Wt 72.7 kg
[2023-01-05 05:30] VITALS: BP 146/81
== END 2023-01-05 05:48 | disposition home or self-care (01) ==
LOC: ER 04:55
DX: Z93.3 Colostomy status (principal); F15.20 Other stimulant dependence, uncomplicated; F12.90 Cannabis use, unspecified, uncomplicated; Z91.013 Allergy to seafood; Z88.6 Allergy status to analgesic agent; Z59.00 Homelessness unspecified; Z56.0 Unemployment, unspecified
CPT/HCPCS: 99281

== ENCOUNTER 2023-01-09 00:20 | Emergency (ER) | payer MEDICAID ==
[~2023-01-09] VITALS: Ht 172.7 cm; Wt 72.7 kg
[2023-01-09 00:43] VITALS: BP 119/87
== END 2023-01-09 01:18 | disposition home or self-care (01) ==
LOC: ER 00:21
DX: Z93.3 Colostomy status (principal); Z91.013 Allergy to seafood; Z88.6 Allergy status to analgesic agent; Z88.1 Allergy status to other antibiotic agents; Z91.030 Bee allergy status
CPT/HCPCS: 99281

== ENCOUNTER 2023-01-13 10:42 | Emergency (ER) | payer MEDICAID ==
[~2023-01-13] VITALS: Ht 172.7 cm; Wt 72.7 kg
[2023-01-13 10:50] VITALS: BP 125/76
== END 2023-01-13 11:04 | disposition home or self-care (01) ==
LOC: ER 10:42
DX: Z43.3 Encounter for attention to colostomy (principal); G89.29 Other chronic pain; F41.9 Anxiety disorder, unspecified; F32.9 Major depressive disorder, single episode, unspecified; F12.90 Cannabis use, unspecified, uncomplicated; F15.90 Other stimulant use, unspecified, uncomplicated; F11.90 Opioid use, unspecified, uncomplicated; Z98.890 Other specified postprocedural states; Z59.00 Homelessness unspecified; Z56.0 Unemployment, unspecified; Z91.013 Allergy to seafood; Z88.6 Allergy status to analgesic agent; Z79.899 Other long term (current) drug therapy
CPT/HCPCS: 99281; A4421

== ENCOUNTER 2023-01-26 02:44 | Emergency (ER) | payer MEDICAID ==
[~2023-01-26] VITALS: Ht 172.7 cm; Wt 75.0 kg
[2023-01-26 02:47] VITALS: BP 120/68
--- NOTE | 2023-01-26 02:55 | NUR ---
gave him cleansing wipes and a fresh urostomy and colostomy bag and he is changing them.
== END 2023-01-26 03:16 | disposition home or self-care (01) ==
LOC: ER 02:44
DX: F32.A Depression, unspecified (principal); D64.9 Anemia, unspecified; Z91.013 Allergy to seafood; Z88.6 Allergy status to analgesic agent; Z79.899 Other long term (current) drug therapy; Z79.1 Long term (current) use of non-steroidal anti-inflammatories (NSAID)
CPT/HCPCS: 99281; A4398; A4421

== ENCOUNTER 2023-01-29 14:32 | Emergency (ER) | payer MEDICAID ==
[~2023-01-29] VITALS: Ht 172.7 cm; Wt 72.7 kg
[2023-01-29 14:43] VITALS: BP 152/85
== END 2023-01-29 14:56 | disposition home or self-care (01) ==
LOC: ER 14:33
DX: F29 Unspecified psychosis not due to a substance or known physiological condition (principal); F41.9 Anxiety disorder, unspecified; G89.29 Other chronic pain; Z86.2 Personal history of diseases of the blood and blood-forming organs and certain disorders involving the immune mechanism; Z91.018 Allergy to other foods; Z88.8 Allergy status to other drugs, medicaments and biological substances; Z79.899 Other long term (current) drug therapy
CPT/HCPCS: 99281

== ENCOUNTER 2023-02-03 10:22 | Emergency (ER) | payer MEDICAID ==
[~2023-02-03] VITALS: Ht 172.7 cm; Wt 66.8 kg
[2023-02-03 10:38] VITALS: BP 143/105
--- NOTE | 2023-02-03 11:04 | NUR ---
Pt was given supplys for both illo and col. Pt rplaced them himself.
== END 2023-02-03 11:32 | disposition home or self-care (01) ==
LOC: ER 10:22
DX: Z43.3 Encounter for attention to colostomy (principal); F12.90 Cannabis use, unspecified, uncomplicated; F15.20 Other stimulant dependence, uncomplicated; Z91.013 Allergy to seafood; Z88.6 Allergy status to analgesic agent; Z88.1 Allergy status to other antibiotic agents; Z91.030 Bee allergy status
CPT/HCPCS: 99281; A4421

== ENCOUNTER 2023-02-08 22:11 | Emergency (ER) | payer MEDICAID | END 2023-02-08 22:46 | disposition left against medical advice (07) | LOC: ER 22:11 | DX: F29 Unspecified psychosis not due to a substance or known physiological condition (principal); Z53.21 Procedure and treatment not carried out due to patient leaving prior to being seen by health care provider ==

== ENCOUNTER 2023-02-09 11:56 | Emergency (ER) | payer MEDICAID ==
[~2023-02-09] VITALS: Ht 172.7 cm; Wt 73.4 kg
[2023-02-09 12:24] VITALS: BP 133/77
== END 2023-02-09 16:02 | disposition left against medical advice (07) ==
LOC: ER 11:56
DX: Z04.6 Encounter for general psychiatric examination, requested by authority (principal); Z53.21 Procedure and treatment not carried out due to patient leaving prior to being seen by health care provider
CPT/HCPCS: 99281; A4421

== ENCOUNTER 2023-02-11 02:34 | Emergency (ER) | payer MEDICAID ==
[~2023-02-11] VITALS: Ht 172.7 cm; Wt 73.2 kg
[2023-02-11 02:39] VITALS: BP 142/92
[2023-02-12] MEDS ORDERED: NO HOME MEDS (20:12)
== END 2023-02-11 07:47 | disposition home or self-care (01) ==
LOC: ER 02:35
DX: R45.851 Suicidal ideations (principal); Z00.00 Encounter for general adult medical examination without abnormal findings; G89.29 Other chronic pain; F32.A Depression, unspecified; F12.90 Cannabis use, unspecified, uncomplicated; F11.90 Opioid use, unspecified, uncomplicated; F15.90 Other stimulant use, unspecified, uncomplicated; F41.9 Anxiety disorder, unspecified; F29 Unspecified psychosis not due to a substance or known physiological condition; Z56.0 Unemployment, unspecified; Z59.00 Homelessness unspecified; Z72.89 Other problems related to lifestyle; Z90.49 Acquired absence of other specified parts of digestive tract; Z87.442 Personal history of urinary calculi; Z79.899 Other long term (current) drug therapy; Z88.1 Allergy status to other antibiotic agents; Z91.013 Allergy to seafood; Z91.030 Bee allergy status; Z88.8 Allergy status to other drugs, medicaments and biological substances
CPT/HCPCS: 99281; A4421

== ENCOUNTER 2023-02-12 17:06 | Emergency (ER) | payer MEDICAID ==
[~2023-02-12] VITALS: Ht 330.2 cm; Wt 190.0 kg
[2023-02-12 18:38] LABS: BASOPHILS % (AUTO) 0.7 % (0-1); EOSINOPHILS # (AUTO) 0.2 X10'3 (0-0.9); EOSINOPHILS % (AUTO) 3.6 % (0-6); HEMATOCRIT 42.9 % (42.0-52.0); HEMOGLOBIN 13.5 g/dl (14.0-17.9); LYMPHOCYTES # (AUTO) 1.3 X10'3 (1.1-4.8); LYMPHOCYTES % (AUTO) 23.7 % (21-51); MEAN CORPUSCULAR HEMOGLOBIN 26.4 PG (27.0-31.0); MEAN CORPUSCULAR HGB CONC 31.5 g/dL (33.0-36.5); MEAN PLATELET VOLUME 7.6 FL (7.4-10.4); MONOCYTES # (AUTO) 0.5 X10'3 (0-0.9); MONOCYTES % (AUTO) 9.4 % (2-12); NEUTROPHILS # (AUTO) 3.5 X10'3 (1.8-7.7); NEUTROPHILS % (AUTO) 62.6 % (42-75); PLATELET COUNT 345 X10'3 (140-440); RED CELL DISTRIBUTION WIDTH 17.4 % (11.5-14.5); WHITE BLOOD COUNT 5.5 X10'3 (4.5-11.0)
[2023-02-12 18:48] LABS: ANION GAP 7 (8-16); BLOOD UREA NITROGEN 10 MG/DL (7-18); BUN/CREATININE RATIO 9.8 (10.0-20.0); CHLORIDE 103 MMOL/L (99-107); CREATININE 1.02 MG/DL (0.60-1.10); GLUCOSE 91 MG/DL (70-104); SODIUM 141 MMOL/L (135-145); TOTAL CARBON DIOXIDE 31.4 MMOL/L (24-32)
[2023-02-12 18:49] LABS: ALANINE AMINOTRANSFERASE 28 U/L (12-78); ALBUMIN 3.2 G/DL (3.4-5.0); ALBUMIN/GLOBULIN RATIO 0.9 (1.1-1.5); ALKALINE PHOSPHATASE 83 IU/L (46-116); ASPARTATE AMINO TRANSFERASE 25 U/L (10-37); BILIRUBIN,TOTAL 0.3 MG/DL (0.1-1.0); CALCIUM 8.3 MG/DL (8.5-10.1); TOTAL PROTEIN 6.9 G/DL (6.4-8.2); eGFR 79 ML/MIN
[2023-02-12 18:57] LABS: ETHANOL < 0.010 GM/DL (0.0-0.010)
[2023-02-12] MEDS ORDERED: NO HOME MEDS (20:12)
--- NOTE | 2023-02-12 20:23 | NUR ---
Assumed care of patient, received report from [facility] staff, pt on 5150 for DTS. Patient walked into [facility] stating he was suicidal. Per patient his voices are unbearable and has was planning on drinking beer and then taking the can and slit his throat, wrists, and the "artery behind my knees." He denies any intent while in the hospital. Pt does report drinking 3 to 4 40 oz beers daily, as well as meth use 3 days ago. He reports hx of withdrawal in the past, no current s/s at this time. Pt has colostomy and urostomy, which he self manages.
--- NOTE | 2023-02-12 22:12 | NUR ---
Packet sent to [facility], U/A still pending.
--- NOTE | 2023-02-12 22:37 | NUR ---
Pt currently sleeping, respirations are even and unlabored, no signs of distress.
--- NOTE | 2023-02-13 00:03 | NUR ---
Pt up to use the restroom, pt heard laughing to himself and responding to his voices.
--- NOTE | 2023-02-13 01:03 | NUR ---
Pt requesting Ativan at this time, he has been resting quietly, does not appear agitated or restless, I had PCT check his vitals to assess for possible withdrawal from ETOH. B/P 133/87, P74, R20, 02 99%. Will continue to monitor.
--- NOTE | 2023-02-13 03:32 | NUR ---
Pts urostomy bag was leaking, new bag provided, which pt changed on his own. Bedding changed and new scrubs given as well.
[2023-02-13 04:54] VITALS: BP 135/86
--- NOTE | 2023-02-13 04:59 | NUR ---
Pt up in bathroom at this time, has been resting, V/S remain stable, no s/s of withdrawal.
--- NOTE | 2023-02-13 07:15 | NUR ---
Received report from NANCY isabel. Pt. sleeping on his backside. Noted rise and fall of chest.
--- NOTE | 2023-02-13 08:05 | NUR ---
Pt. up utilizing the restroom.
[2023-02-13 08:54] LABS: CLARITY,URINE CLEAR (Clear); COLOR,URINE STRAW (Yellow); GLUCOSE, URINE NEGATIVE (Neg); KETONES,URINE NEGATIVE (Neg); LEUKOCYTE ESTERASE ,URINE SMALL (Neg); NITRITES, URINE NEGATIVE (Neg); OCCULT BLOOD,URINE NEGATIVE (Neg); PROTEIN,URINE NEGATIVE (Neg); UROBILINOGEN,URINE 0.2 E.U/dL (0.2-1.0)
[2023-02-13 08:56] LABS: UA COLLECTION TYPE NON-SPECIFIED
[2023-02-13 09:03] LABS: BACTERIA,URINE FEW /HPF (Neg); MUCUS STRANDS FEW /LPF (Neg); RBC,URINE 0-2 /HPF (0-2); SQUAMOUS EPITHELIAL CELL,UR FEW /LPF (FEW); URINE AMPHETAMINE SCREEN NEGATIVE (Neg); URINE BARBITUATE SCREEN NEGATIVE (Neg); URINE BENZODIAZEPINES SCREEN NEGATIVE (Neg); URINE CANNABINOID SCREEN NEGATIVE (Neg); URINE COCAINE SCREEN NEGATIVE (Neg); URINE METHADONE SCREEN NEGATIVE (Neg); URINE OPIATE SCREEN NEGATIVE (Neg); URINE PHENCYCLIDINE SCREEN NEGATIVE (Neg); WBC CLUMPS,URINE FEW /HPF (NEGATIVE)
--- NOTE | 2023-02-13 09:58 | NUR ---
Pt ate breakfast at bedside, lying in bed now with noted rise and fall of chest.
--- NOTE | 2023-02-13 12:25 | NUR ---
Pt eating lunch at bedside. No distress noted.
--- NOTE | 2023-02-13 13:16 | NUR ---
Pt requesting to be re-started on his past medications. According to external medication list pt. has not been taking medications for over a year. Pt informed he will be seen by [facility] and if his hold is continued he will be placed where they will evaluate him and begin a medication regimen.
--- NOTE | 2023-02-13 14:50 | NUR ---
Pt. watching tv at bedside. No acute distress noted.
--- NOTE | 2023-02-13 15:47 | NUR ---
Met with patient in regards to alcohol/substance use and to see if patient was interested in resources for treatment options. Patient declined. Patient stated he will get around to being sober eventually.
== END 2023-02-13 15:58 | disposition home or self-care (01) ==
LOC: ER 17:07
DX: F15.959 Other stimulant use, unspecified with stimulant-induced psychotic disorder, unspecified (principal); Z20.822 Contact with and (suspected) exposure to COVID-19; F12.90 Cannabis use, unspecified, uncomplicated; Z93.3 Colostomy status; Z91.013 Allergy to seafood; Z88.1 Allergy status to other antibiotic agents; Z91.030 Bee allergy status; Z59.00 Homelessness unspecified; Z56.0 Unemployment, unspecified
CPT/HCPCS: 36415; 80053; 80305; 80320; 81001; 84443; 85025; 87811; 99285; A4421

== ENCOUNTER 2023-02-21 07:26 | Emergency (ER) | payer MEDICAID ==
[~2023-02-21] VITALS: Ht 172.7 cm; Wt 75.0 kg
[~2023-02-21 07:26] MED LIST changes: -BENZ1TAB78 PO; -BUSP15TA3 PO; -DIVA-76 PO; -FERR-106 PO; -HYDR-4070 PO; -LORA-269 PO; -MIRT-116 PO; -MULT-1085 PO; -NICO-907 PO; +NO HOME MEDS; -OLAN15TA20 PO; -OLAN5TAB29 PO; -QUET-1 PO; -SERT-153 PO
[2023-02-21 07:46] VITALS: BP 149/94
== END 2023-02-21 09:14 | disposition home or self-care (01) ==
LOC: ER 07:27
DX: Z43.3 Encounter for attention to colostomy (principal); F12.90 Cannabis use, unspecified, uncomplicated; F15.20 Other stimulant dependence, uncomplicated; Z91.013 Allergy to seafood; Z88.1 Allergy status to other antibiotic agents; Z91.030 Bee allergy status; Z59.00 Homelessness unspecified; Z56.0 Unemployment, unspecified
CPT/HCPCS: 99281; A4421

== ENCOUNTER 2023-02-25 17:53 | Emergency (ER) | payer MEDICAID ==
[~2023-02-25] VITALS: Ht 172.7 cm; Wt 73.6 kg
[2023-02-25 18:03] VITALS: TEMP 98
[2023-02-25 18:42] LABS: BASOPHILS # (AUTO) 0.1 X10'3 (0-0.2); BASOPHILS % (AUTO) 1.1 % (0-1); EOSINOPHILS # (AUTO) 0.1 X10'3 (0-0.9); EOSINOPHILS % (AUTO) 1.6 % (0-6); HEMATOCRIT 42.5 % (42.0-52.0); HEMOGLOBIN 13.7 g/dl (14.0-17.9); MEAN CORPUSCULAR HEMOGLOBIN 26.9 PG (27.0-31.0); MEAN CORPUSCULAR HGB CONC 32.3 g/dL (33.0-36.5); MEAN CORPUSCULAR VOLUME 83.3 FL (78-98); MEAN PLATELET VOLUME 7.9 FL (7.4-10.4); MONOCYTES # (AUTO) 0.7 X10'3 (0-0.9); MONOCYTES % (AUTO) 11.9 % (2-12); NEUTROPHILS # (AUTO) 4.2 X10'3 (1.8-7.7); NEUTROPHILS % (AUTO) 69.4 % (42-75); PLATELET COUNT 309 X10'3 (140-440); RED BLOOD COUNT 5.11 X10'6 (4.70-6.10); RED CELL DISTRIBUTION WIDTH 16.3 % (11.5-14.5); WHITE BLOOD COUNT 6.1 X10'3 (4.5-11.0)
[2023-02-25 18:57] LABS: ALANINE AMINOTRANSFERASE 28 U/L (12-78); ALBUMIN 3.5 G/DL (3.4-5.0); ALBUMIN/GLOBULIN RATIO 0.9 (1.1-1.5); ALKALINE PHOSPHATASE 100 IU/L (46-116); ANION GAP 12 (8-16); ASPARTATE AMINO TRANSFERASE 30 U/L (10-37); BILIRUBIN,TOTAL 0.4 MG/DL (0.1-1.0); BLOOD UREA NITROGEN 9 MG/DL (7-18); BUN/CREATININE RATIO 6.8 (10.0-20.0); CHLORIDE 104 MMOL/L (99-107); CREATININE 1.32 MG/DL (0.60-1.10); GLUCOSE 176 MG/DL (70-104); LIPASE < 50 U/L (73-393); SODIUM 142 MMOL/L (135-145); TOTAL CARBON DIOXIDE 25.8 MMOL/L (24-32); TOTAL PROTEIN 7.5 G/DL (6.4-8.2); eGFR 59 ML/MIN
[2023-02-25 19:00] LABS: POTASSIUM 2.9 MMOL/L (3.5-5.1)
[2023-02-25 19:15] LABS: CALCIUM 8.6 MG/DL (8.5-10.1)
[2023-02-25 21:44] LABS: MAGNESIUM 1.9 MG/DL (1.5-2.4)
[2023-02-25] MEDS ORDERED: potassium Cl 20 mEq SR tablet PO STA ×2 (21:56)
[2023-02-25] MEDS ORDERED: potassium Cl 40MEQ/1/2NS 520ml 520 ML IV STA (22:15)
[2023-02-25] MEDS ORDERED: magnesium 2GM in 50ml NS 50 ML IV STA (22:15)
[2023-02-25] MEDS ORDERED: normal saline 1000ML IV soln IVB ONE (23:15)
[2023-02-26 00:30] LABS: COLOR,URINE YELLOW (Yellow); GLUCOSE, URINE NEGATIVE (Neg); KETONES,URINE NEGATIVE (Neg); LEUKOCYTE ESTERASE ,URINE TRACE (Neg); NITRITES, URINE NEGATIVE (Neg); OCCULT BLOOD,URINE SMALL (Neg); PH,URINE 6.5 (4.8-8.0); PROTEIN,URINE 100 mg/dl (Neg); UROBILINOGEN,URINE 0.2 E.U/dL (0.2-1.0)
[2023-02-26 00:36] LABS: CLARITY,URINE SLIGHTLY CLOUDY (Clear); UA COLLECTION TYPE VOIDED
[2023-02-26 00:40] LABS: SQUAMOUS EPITHELIAL CELL,UR NONE SEEN /LPF (FEW); TRANSITIONAL EPI CELLS,URINE FEW /HPF; WBC CLUMPS,URINE FEW /HPF (NEGATIVE)
[2023-02-26 00:41] LABS: BACTERIA,URINE 2+ /HPF (Neg)
[2023-02-26] MEDS ORDERED: potassium Cl 20 mEq SR tablet PO STA ×2 (02:17)
[2023-02-26 05:00] VITALS: BP 117/76; PULSE 97; RESP 16; O2SAT 97
[2023-02-26 05:05] LABS: ALBUMIN 2.5 G/DL (3.4-5.0); ANION GAP 9 (8-16); BLOOD UREA NITROGEN 9 MG/DL (7-18); BUN/CREATININE RATIO 9.9 (10.0-20.0); CALCIUM 7.3 MG/DL (8.5-10.1); CHLORIDE 109 MMOL/L (99-107); CREATININE 0.91 MG/DL (0.60-1.10); GLUCOSE 106 MG/DL (70-104); POTASSIUM 3.9 MMOL/L (3.5-5.1); SODIUM 141 MMOL/L (135-145); TOTAL CARBON DIOXIDE 23.4 MMOL/L (24-32); eGFR > 90 ML/MIN
[2023-02-26] MEDS ORDERED: sulfamethoxazole/trimethoprim DS (800/160mg) tablet PO ONE (05:45)
[2023-02-26] MEDS ORDERED: SULF1TAB49 PO (05:47)
== END 2023-02-26 06:06 | disposition home or self-care (01) ==
LOC: ER 17:53
DX: N39.0 Urinary tract infection, site not specified (principal); R55 Syncope and collapse; E87.6 Hypokalemia; F41.9 Anxiety disorder, unspecified; G89.29 Other chronic pain; F12.10 Cannabis abuse, uncomplicated; F15.10 Other stimulant abuse, uncomplicated; F11.10 Opioid abuse, uncomplicated; Z59.00 Homelessness unspecified; Z56.0 Unemployment, unspecified; Z87.81 Personal history of (healed) traumatic fracture; Z86.14 Personal history of Methicillin resistant Staphylococcus aureus infection; Z88.8 Allergy status to other drugs, medicaments and biological substances; Z91.013 Allergy to seafood; Z88.5 Allergy status to narcotic agent; Z88.1 Allergy status to other antibiotic agents; Z79.899 Other long term (current) drug therapy; Z91.018 Allergy to other foods
CPT/HCPCS: 12011; 36415; 80048; 80053; 81001; 83690; 83735; 85025; 87088; 93005; 96365; 96366; 96368; 99285; J3475; J3480; J7030

== ENCOUNTER 2023-03-01 12:47 | Emergency (ER) | payer MEDICAID ==
[~2023-03-01] VITALS: Ht 172.7 cm; Wt 84.1 kg
[~2023-03-01 12:47] MED LIST changes: +SULF1TAB49 PO
[2023-03-01 12:58] VITALS: BP 137/75
[2023-03-01] MEDS ORDERED: haloperidol lactate 5mg/ml inj IM ONE (13:10)
[2023-03-01] MEDS ORDERED: LORazepam 2 mg/ml vial IM ONE (13:10)
[2023-03-01 13:44] LABS: BASOPHILS % (AUTO) 0.3 % (0-1); EOSINOPHILS # (AUTO) 0.1 X10'3 (0-0.9); EOSINOPHILS % (AUTO) 1.3 % (0-6); HEMATOCRIT 42.6 % (42.0-52.0); HEMOGLOBIN 13.7 g/dl (14.0-17.9); LYMPHOCYTES # (AUTO) 1.1 X10'3 (1.1-4.8); LYMPHOCYTES % (AUTO) 16.5 % (21-51); MEAN CORPUSCULAR HEMOGLOBIN 26.9 PG (27.0-31.0); MEAN CORPUSCULAR HGB CONC 32.1 g/dL (33.0-36.5); MEAN CORPUSCULAR VOLUME 83.9 FL (78-98); MEAN PLATELET VOLUME 7.6 FL (7.4-10.4); MONOCYTES # (AUTO) 0.6 X10'3 (0-0.9); MONOCYTES % (AUTO) 9.3 % (2-12); NEUTROPHILS % (AUTO) 72.6 % (42-75); PLATELET COUNT 282 X10'3 (140-440); RED BLOOD COUNT 5.08 X10'6 (4.70-6.10); RED CELL DISTRIBUTION WIDTH 16.3 % (11.5-14.5); WHITE BLOOD COUNT 6.9 X10'3 (4.5-11.0)
[2023-03-01 13:55] LABS: ALANINE AMINOTRANSFERASE 52 U/L (12-78); ALBUMIN 3.5 G/DL (3.4-5.0); ALBUMIN/GLOBULIN RATIO 0.9 (1.1-1.5); ALKALINE PHOSPHATASE 108 IU/L (46-116); ANION GAP 15 (8-16); ASPARTATE AMINO TRANSFERASE 59 U/L (10-37); BILIRUBIN,TOTAL 0.7 MG/DL (0.1-1.0); BLOOD UREA NITROGEN 14 MG/DL (7-18); BUN/CREATININE RATIO 10.6 (10.0-20.0); CALCIUM 8.8 MG/DL (8.5-10.1); CHLORIDE 100 MMOL/L (99-107); CREATININE 1.32 MG/DL (0.60-1.10); ETHANOL < 0.010 GM/DL (0.0-0.010); GLUCOSE 83 MG/DL (70-104); POTASSIUM 3.8 MMOL/L (3.5-5.1); SODIUM 138 MMOL/L (135-145); TOTAL CARBON DIOXIDE 23.4 MMOL/L (24-32); TOTAL PROTEIN 7.6 G/DL (6.4-8.2); eGFR 59 ML/MIN
--- NOTE | 2023-03-01 16:00 | NUR ---
PT WOKE UP FROM SLEEP SCREAMING AND YELLING AT STAFF. PT WOULD NOT COOPERATE. D/C ORDERS PLACED. PATIENT'S ABDOMEN CLEANED AND DRESSED WITH NEW UROSTOMY AND COLOSTOMY BAGS PLACED PER PROVIDER. PT D/GET WITH BELONGINGS. AMB WITH SECURITY ASSISTANCE OFF OF PROPERTY.
== END 2023-03-01 16:06 | disposition home or self-care (01) ==
LOC: ER 12:48
DX: K94.01 Colostomy hemorrhage (principal); R45.1 Restlessness and agitation; G89.29 Other chronic pain; Z87.81 Personal history of (healed) traumatic fracture; Z86.14 Personal history of Methicillin resistant Staphylococcus aureus infection; F12.90 Cannabis use, unspecified, uncomplicated; F15.90 Other stimulant use, unspecified, uncomplicated; F11.90 Opioid use, unspecified, uncomplicated; Z56.0 Unemployment, unspecified; Z59.00 Homelessness unspecified; Z72.89 Other problems related to lifestyle; Z91.013 Allergy to seafood; Z91.030 Bee allergy status; Z88.8 Allergy status to other drugs, medicaments and biological substances; Z88.1 Allergy status to other antibiotic agents; Z88.2 Allergy status to sulfonamides; Y83.3 Surgical operation with formation of external stoma as the cause of abnormal reaction of the patient, or of later complication, without mention of misadventure at the time of the procedure; Y73.3 Surgical instruments, materials and gastroenterology and urology devices (including sutures) associated with adverse incidents; Y92.89 Other specified places as the place of occurrence of the external cause
CPT/HCPCS: 36415; 80053; 80320; 85025; 96372; 99284; J1630; J2060; A4371; A4421; A6212; A6213; A6250

== ENCOUNTER 2023-03-02 08:51 | Emergency (ER) | payer MEDICAID | END 2023-03-02 09:14 | disposition left against medical advice (07) | LOC: ER 08:52 | DX: Z53.21 Procedure and treatment not carried out due to patient leaving prior to being seen by health care provider (principal) | CPT/HCPCS: A4421 ==

== ENCOUNTER 2023-03-03 07:24 | Emergency (ER) | payer MEDICAID ==
[~2023-03-03] VITALS: Ht 172.7 cm; Wt 72.7 kg
[2023-03-03 07:26] VITALS: BP 123/77
== END 2023-03-03 09:00 | disposition home or self-care (01) ==
LOC: ER 07:24
DX: G89.29 Other chronic pain (principal); F12.90 Cannabis use, unspecified, uncomplicated; F11.90 Opioid use, unspecified, uncomplicated; F15.90 Other stimulant use, unspecified, uncomplicated; Z87.81 Personal history of (healed) traumatic fracture; Z86.14 Personal history of Methicillin resistant Staphylococcus aureus infection; Z87.440 Personal history of urinary (tract) infections; Z56.0 Unemployment, unspecified; Z59.00 Homelessness unspecified; Z79.899 Other long term (current) drug therapy; Z88.1 Allergy status to other antibiotic agents; Z91.030 Bee allergy status; Z88.2 Allergy status to sulfonamides; Z88.8 Allergy status to other drugs, medicaments and biological substances
CPT/HCPCS: 99281; A4421

== ENCOUNTER 2023-03-04 16:53 | Emergency (ER) | payer MEDICAID ==
[~2023-03-04] VITALS: Ht 172.7 cm; Wt 72.0 kg
[2023-03-04 17:00] VITALS: BP 129/66
[2023-03-05] MEDS ORDERED: BENZ-38 PO ×2 (20:35)
== END 2023-03-04 17:22 | disposition home or self-care (01) ==
LOC: ER 16:53
DX: K94.03 Colostomy malfunction (principal); F15.10 Other stimulant abuse, uncomplicated; F31.9 Bipolar disorder, unspecified; Z86.2 Personal history of diseases of the blood and blood-forming organs and certain disorders involving the immune mechanism; Z87.81 Personal history of (healed) traumatic fracture; Z86.14 Personal history of Methicillin resistant Staphylococcus aureus infection; Z91.013 Allergy to seafood; Z88.5 Allergy status to narcotic agent; Z88.1 Allergy status to other antibiotic agents; Z79.899 Other long term (current) drug therapy
CPT/HCPCS: 99281

== ENCOUNTER 2023-03-04 17:42 | Emergency (ER) | payer MEDICAID ==
[2023-03-05] MEDS ORDERED: BENZ-38 PO ×2 (20:35)
== END 2023-03-04 19:09 | disposition left against medical advice (07) ==
LOC: ER 17:43
DX: K94.00 Colostomy complication, unspecified (principal); Z53.21 Procedure and treatment not carried out due to patient leaving prior to being seen by health care provider

== ENCOUNTER 2023-03-05 17:22 | Emergency (ER) | payer MEDICAID ==
[~2023-03-05] VITALS: Ht 172.7 cm; Wt 80.0 kg
[2023-03-05 17:36] VITALS: BP 135/92
[2023-03-05] MEDS ORDERED: BENZ-38 PO ×2 (20:35)
== END 2023-03-05 20:33 | disposition home or self-care (01) ==
LOC: ER 17:23
DX: R45.851 Suicidal ideations (principal); G89.29 Other chronic pain; F32.A Depression, unspecified; F29 Unspecified psychosis not due to a substance or known physiological condition; F15.90 Other stimulant use, unspecified, uncomplicated; Z86.14 Personal history of Methicillin resistant Staphylococcus aureus infection; Z56.0 Unemployment, unspecified; Z91.013 Allergy to seafood; Z87.81 Personal history of (healed) traumatic fracture; Z76.5 Malingerer [conscious simulation]; Z88.1 Allergy status to other antibiotic agents; Z91.030 Bee allergy status; Z79.899 Other long term (current) drug therapy; Z59.02 Unsheltered homelessness
CPT/HCPCS: 99281

== ENCOUNTER 2023-03-06 17:30 | Emergency (ER) | payer MEDICAID ==
[~2023-03-06] VITALS: Ht 172.7 cm; Wt 70.9 kg
[2023-03-06 17:37] VITALS: BP 133/82
== END 2023-03-06 19:18 | disposition left against medical advice (07) ==
LOC: ER 17:31
DX: Z43.3 Encounter for attention to colostomy (principal); Z53.21 Procedure and treatment not carried out due to patient leaving prior to being seen by health care provider
CPT/HCPCS: 99281; A4371; A4421

== ENCOUNTER 2023-03-07 20:57 | Emergency (ER) | payer MEDICAID ==
[~2023-03-07 20:57] MED LIST changes: +BENZ-38 PO
== END 2023-03-07 22:52 | disposition left against medical advice (07) ==
LOC: ER 20:57
DX: Z53.21 Procedure and treatment not carried out due to patient leaving prior to being seen by health care provider (principal)

== ENCOUNTER 2023-03-10 12:57 | Emergency (ER) | payer MEDICAID ==
[~2023-03-10] VITALS: Ht 172.7 cm; Wt 75.0 kg
[~2023-03-10 12:57] MED LIST changes: -BENZ-38 PO; -SULF1TAB49 PO
[2023-03-10 13:11] VITALS: BP 148/74
== END 2023-03-10 15:24 | disposition home or self-care (01) ==
LOC: ER 12:58
DX: K94.00 Colostomy complication, unspecified (principal); F41.9 Anxiety disorder, unspecified; Z86.2 Personal history of diseases of the blood and blood-forming organs and certain disorders involving the immune mechanism; Z86.14 Personal history of Methicillin resistant Staphylococcus aureus infection; Z87.81 Personal history of (healed) traumatic fracture; Z91.013 Allergy to seafood; Z88.1 Allergy status to other antibiotic agents; Z88.8 Allergy status to other drugs, medicaments and biological substances
CPT/HCPCS: 99281; A4371; A4421; A6258

== ENCOUNTER 2023-03-11 02:47 | Emergency (ER) | payer MEDICAID ==
--- NOTE | 2023-03-11 03:08 | NUR ---
PT LEFT PRIOR TO TRIAGE
== END 2023-03-11 03:21 | disposition left against medical advice (07) ==
LOC: ER 02:48
DX: K94.00 Colostomy complication, unspecified (principal); Z53.21 Procedure and treatment not carried out due to patient leaving prior to being seen by health care provider

== ENCOUNTER 2023-03-18 17:30 | Emergency (ER) | payer MEDICAID ==
[~2023-03-18] VITALS: Ht 172.7 cm; Wt 70.0 kg
[2023-03-18 18:01] VITALS: BP 121/80; PULSE 105; RESP 18; TEMP 100.7; O2SAT 98
[2023-03-18] MEDS ORDERED: ondansetron 4mg rapidly disintigrating tab PO ONE (18:05)
[2023-03-18 18:31] LABS: BASOPHILS % (AUTO) 0.2 % (0-1); EOSINOPHILS % (AUTO) 0.3 % (0-6); HEMATOCRIT 41.7 % (42.0-52.0); HEMOGLOBIN 13.4 g/dl (14.0-17.9); LYMPHOCYTES % (AUTO) 9.5 % (21-51); MEAN CORPUSCULAR HEMOGLOBIN 26.7 PG (27.0-31.0); MEAN CORPUSCULAR HGB CONC 32.2 g/dL (33.0-36.5); MEAN CORPUSCULAR VOLUME 82.9 FL (78-98); MEAN PLATELET VOLUME 7.6 FL (7.4-10.4); MONOCYTES # (AUTO) 1.3 X10'3 (0-0.9); NEUTROPHILS # (AUTO) 8.4 X10'3 (1.8-7.7); PLATELET COUNT 317 X10'3 (140-440); RED BLOOD COUNT 5.03 X10'6 (4.70-6.10); RED CELL DISTRIBUTION WIDTH 16.7 % (11.5-14.5); WHITE BLOOD COUNT 10.8 X10'3 (4.5-11.0)
[2023-03-18 18:37] LABS: CLARITY,URINE SLIGHTLY CLOUDY (Clear); COLOR,URINE YELLOW (Yellow); GLUCOSE, URINE NEGATIVE (Neg); KETONES,URINE NEGATIVE (Neg); LEUKOCYTE ESTERASE ,URINE MODERATE (Neg); OCCULT BLOOD,URINE TRACE-INTACT (Neg); PH,URINE 6.5 (4.8-8.0); PROTEIN,URINE TRACE mg/dl (Neg); UROBILINOGEN,URINE 0.2 E.U/dL (0.2-1.0)
[2023-03-18 18:50] LABS: ALANINE AMINOTRANSFERASE 23 U/L (12-78); ALBUMIN/GLOBULIN RATIO 0.7 (1.1-1.5); ALKALINE PHOSPHATASE 70 IU/L (46-116); ANION GAP 12 (8-16); ASPARTATE AMINO TRANSFERASE 19 U/L (10-37); BILIRUBIN,TOTAL 0.6 MG/DL (0.1-1.0); BLOOD UREA NITROGEN 9 MG/DL (7-18); BUN/CREATININE RATIO 7.6 (10.0-20.0); CALCIUM 8.7 MG/DL (8.5-10.1); CHLORIDE 92 MMOL/L (99-107); CREATININE 1.18 MG/DL (0.60-1.10); GLUCOSE 101 MG/DL (70-104); LIPASE 73 U/L (73-393); MAGNESIUM 2.1 MG/DL (1.5-2.4); POTASSIUM 3.7 MMOL/L (3.5-5.1); SODIUM 132 MMOL/L (135-145); TOTAL PROTEIN 7.5 G/DL (6.4-8.2); eGFR 67 ML/MIN
[2023-03-18 18:50] LABS: NITRITES, URINE NEGATIVE (Neg); UA COLLECTION TYPE URINAL
[2023-03-18 18:52] LABS: BACTERIA,URINE 3+ /HPF (Neg); MUCUS STRANDS FEW /LPF (Neg); SQUAMOUS EPITHELIAL CELL,UR FEW /LPF (FEW); TRANSITIONAL EPI CELLS,URINE FEW /HPF; WBC CLUMPS,URINE FEW /HPF (NEGATIVE); WBC,URINE 30-50 /HPF (0-4)
[2023-03-18] MEDS ORDERED: ONDA4TAB12 PO (21:38)
--- NOTE | 2023-03-27 11:50 | NUR ---
REGARDING POSITIVE CULTURE; ANTIBIOTICS GIVEN UPON DC ON 03/26/23.
== END 2023-03-18 22:02 | disposition home or self-care (01) ==
LOC: ER 17:30
DX: E86.0 Dehydration (principal); G89.29 Other chronic pain; F15.90 Other stimulant use, unspecified, uncomplicated; Z72.89 Other problems related to lifestyle; Z56.0 Unemployment, unspecified; Z59.00 Homelessness unspecified; Z86.14 Personal history of Methicillin resistant Staphylococcus aureus infection; Z76.5 Malingerer [conscious simulation]
CPT/HCPCS: 36415; 80053; 81001; 83690; 83735; 85025; 87077; 87088; 87186; 99283

== ENCOUNTER 2023-03-26 16:43 | Emergency (ER) | payer MEDICAID ==
[~2023-03-26 16:43] MED LIST changes: +ONDA4TAB12 PO
[2023-03-26] MEDS ORDERED: AMOX-117 PO (16:51)
[2023-03-26] MEDS ORDERED: CEPH-585 PO (16:51)
== END 2023-03-26 17:42 | disposition left against medical advice (07) ==
LOC: ER 16:43
DX: Z76.0 Encounter for issue of repeat prescription (principal); Z53.21 Procedure and treatment not carried out due to patient leaving prior to being seen by health care provider
CPT/HCPCS: A4371; A4421

== ENCOUNTER 2023-03-28 17:31 | Emergency (ER) | payer MEDICAID ==
[~2023-03-28 17:31] MED LIST changes: +AMOX-117 PO; +BENZ-38 PO; +CEPH-585 PO; +SULF1TAB49 PO
== END 2023-03-28 18:37 | disposition left against medical advice (07) ==
LOC: ER 17:31
DX: T67.5XXA Heat exhaustion, unspecified, initial encounter (principal); Z53.21 Procedure and treatment not carried out due to patient leaving prior to being seen by health care provider; X58.XXXA Exposure to other specified factors, initial encounter; Y93.89 Activity, other specified; Y92.89 Other specified places as the place of occurrence of the external cause; Y99.8 Other external cause status

== ENCOUNTER 2023-04-04 11:28 | Emergency (ER) | payer MEDICAID ==
[~2023-04-04 11:28] MED LIST changes: -BENZ-38 PO; -SULF1TAB49 PO
== END 2023-04-04 11:58 | disposition left against medical advice (07) ==
LOC: ER 11:30
DX: Z51.89 Encounter for other specified aftercare (principal); Z53.21 Procedure and treatment not carried out due to patient leaving prior to being seen by health care provider
CPT/HCPCS: A4421

== ENCOUNTER 2023-04-06 21:02 | Emergency (ER) | payer MEDICAID ==
[~2023-04-06] VITALS: Ht 172.7 cm; Wt 72.7 kg
[2023-04-06 21:06] VITALS: BP 146/56; PULSE 101; RESP 18; TEMP 97.3; O2SAT 98
== END 2023-04-06 23:20 | disposition left against medical advice (07) ==
LOC: ER 21:02
DX: K94.09 Other complications of colostomy (principal); G89.29 Other chronic pain; Z87.81 Personal history of (healed) traumatic fracture; Z86.14 Personal history of Methicillin resistant Staphylococcus aureus infection; Z59.00 Homelessness unspecified; Z56.0 Unemployment, unspecified; Z87.440 Personal history of urinary (tract) infections; Z79.2 Long term (current) use of antibiotics; Z79.899 Other long term (current) drug therapy; Z88.8 Allergy status to other drugs, medicaments and biological substances; Z91.013 Allergy to seafood; Z91.030 Bee allergy status
CPT/HCPCS: 99281; A4398; A4421

== ENCOUNTER 2023-04-09 15:36 | Inpatient (IN) | payer MEDICAID ==
[~2023-04-09] VITALS: Ht 172.7 cm; Wt 72.7 kg
[~2023-04-09 15:36] MED LIST changes: -AMOX-117 PO
[2023-04-09] MEDS ORDERED: HYDROmorphone 1 mg/ml syringe IV ONE ×3 (16:10→22:00)
[2023-04-09] MEDS ORDERED: iohexol 300mg/ml 100ml inj. ONE (16:16)
[2023-04-09 16:59] LABS: BASOPHILS % (AUTO) 0.3 % (0-1); EOSINOPHILS # (AUTO) 0.2 X10'3 (0-0.9); EOSINOPHILS % (AUTO) 1.2 % (0-6); HEMATOCRIT 40.3 % (42.0-52.0); HEMOGLOBIN 13.2 g/dl (14.0-17.9); LYMPHOCYTES # (AUTO) 1.7 X10'3 (1.1-4.8); LYMPHOCYTES % (AUTO) 12.7 % (21-51); MEAN CORPUSCULAR HEMOGLOBIN 27.2 PG (27.0-31.0); MEAN CORPUSCULAR HGB CONC 32.6 g/dL (33.0-36.5); MEAN CORPUSCULAR VOLUME 83.4 FL (78-98); MEAN PLATELET VOLUME 7.6 FL (7.4-10.4); MONOCYTES # (AUTO) 0.7 X10'3 (0-0.9); MONOCYTES % (AUTO) 5.5 % (2-12); NEUTROPHILS # (AUTO) 10.4 X10'3 (1.8-7.7); NEUTROPHILS % (AUTO) 80.3 % (42-75); PLATELET COUNT 445 X10'3 (140-440); RED BLOOD COUNT 4.84 X10'6 (4.70-6.10); RED CELL DISTRIBUTION WIDTH 16.6 % (11.5-14.5)
[2023-04-09 17:02] LABS: ALANINE AMINOTRANSFERASE 21 U/L (12-78); ALBUMIN 3.3 G/DL (3.4-5.0); ALBUMIN/GLOBULIN RATIO 0.8 (1.1-1.5); ALKALINE PHOSPHATASE 82 IU/L (46-116); ANION GAP 12 (8-16); ASPARTATE AMINO TRANSFERASE 21 U/L (10-37); BILIRUBIN,TOTAL 0.9 MG/DL (0.1-1.0); BLOOD UREA NITROGEN 13 MG/DL (7-18); BUN/CREATININE RATIO 12.5 (10.0-20.0); CALCIUM 8.8 MG/DL (8.5-10.1); CHLORIDE 103 MMOL/L (99-107); CREATININE 1.04 MG/DL (0.60-1.10); GLUCOSE 113 MG/DL (70-104); POTASSIUM 3.6 MMOL/L (3.5-5.1); SODIUM 137 MMOL/L (135-145); TOTAL CARBON DIOXIDE 21.7 MMOL/L (24-32); TOTAL PROTEIN 7.4 G/DL (6.4-8.2); eCRCL 88 ML/MIN; eGFR 78 ML/MIN
--- NOTE | 2023-04-09 17:06 | NUR ---
PTS LINENS SOAKED WITH BLOOD. PT CLEANED, WOUNDS DRESSED WITH SALINE MOIST GAUZE AND TOTAL LINEN CHANGE PROVIDED
[2023-04-09 17:21] LABS: APTT 24 SECONDS (22-32); PROTHROMBIN TIME 10.9 SECONDS (9.0-12.0)
--- NOTE | 2023-04-09 17:22 | NUR ---
PT PASSED LARGE BLOOD CLOT FROM RECTUM, HE DOES NOT USUALLY PASS ANYTHING THROUGH RECTUM HE HAS COLOSTOMY. DR CARTER NOTIFIED. ORDERS FOR DILAUDID 1 MG AND 1L NS BOLUS RECEIVED
[2023-04-09] MEDS ORDERED: normal saline 1000ml 1,000 ML IV ONE (17:25)
[2023-04-09] MEDS ORDERED: tranexamic acid inj. 1,000 MG in normal saline 100ml IV soln 90 ML IV ONE (17:30)
[2023-04-09] MEDS ORDERED: LORazepam 2 mg/ml vial IV ONE (17:35)
--- NOTE | 2023-04-09 17:43 | NUR ---
PT CLEANED UP AND NEW CHUX PLACED
[2023-04-09] MEDS ORDERED: OLANZapine 5mg rapidly disint. tablet PO ONE (18:50)
[2023-04-09 19:26] LABS: HEMATOCRIT 33.7 % (42.0-52.0); HEMOGLOBIN 10.5 g/dl (14.0-17.9); MEAN CORPUSCULAR HEMOGLOBIN 26.1 PG (27.0-31.0); MEAN CORPUSCULAR HGB CONC 31.1 g/dL (33.0-36.5); MEAN PLATELET VOLUME 8.1 FL (7.4-10.4); PLATELET COUNT 456 X10'3 (140-440); RED BLOOD COUNT 4.01 X10'6 (4.70-6.10); RED CELL DISTRIBUTION WIDTH 16.5 % (11.5-14.5); WHITE BLOOD COUNT 21.3 X10'3 (4.5-11.0)
--- NOTE | 2023-04-09 20:24 | NUR ---
PATIENT CONSENTED FOR SURGERY, FORM ON CHART.
[2023-04-09] MEDS ORDERED: ondansetron/PF 4mg/2ml inj IV ONE (22:00)
[2023-04-09 23:58] LABS: URINE AMPHETAMINE SCREEN POSITIVE (Neg); URINE BARBITUATE SCREEN NEGATIVE (Neg); URINE BENZODIAZEPINES SCREEN NEGATIVE (Neg); URINE CANNABINOID SCREEN NEGATIVE (Neg); URINE COCAINE SCREEN NEGATIVE (Neg); URINE METHADONE SCREEN NEGATIVE (Neg); URINE OPIATE SCREEN POSITIVE (Neg); URINE PHENCYCLIDINE SCREEN NEGATIVE (Neg)
[2023-04-10] VITALS (15 sets, daily range): BP systolic 100–141; BP diastolic 52–88; PULSE 70–90; RESP 10–18; TEMP 96.6–98.6; O2SAT 98–100
[2023-04-10] MEDS ORDERED: magnesium hydroxide 30ml (MOM) UD suspension PO PRN (00:35)
[2023-04-10] MEDS ORDERED: diphenhydrAMINE 25mg capsule PO PRN (00:35)
[2023-04-10] MEDS ORDERED: diphenhydrAMINE 50 mg/ml inj IV PRN (00:35)
[2023-04-10] MEDS ORDERED: ondansetron/PF 4mg/2ml inj IV PRN ×2 (00:35→13:50)
[2023-04-10] MEDS ORDERED: ondansetron 4mg rapidly disintigrating tab PO PRN (00:35)
[2023-04-10] MEDS ORDERED: acetaminophen 650mg rectal suppository RC PRN (00:35)
[2023-04-10] MEDS ORDERED: bisacodyl 10mg suppository rectal RC PRN (00:35)
[2023-04-10] MEDS ORDERED: morphine 2 MG/ML inj. syringe IV PRN ×2 (00:35→13:50)
[2023-04-10] MEDS ORDERED: acetaminophen 325mg tablet PO PRN ×2 (00:35)
[2023-04-10] MEDS ORDERED: mag hydrox/Alum hydrox/simeth 30ml oral suspension PO PRN (00:35)
[2023-04-10] MEDS: dextrose 5%-1/2 normal saline 1,000 ML IV SCH ×3 (01:07→20:35)
[2023-04-10 02:00] LABS: BASOPHILS # (AUTO) 0.1 X10'3 (0-0.2); BASOPHILS % (AUTO) 0.8 % (0-1); EOSINOPHILS % (AUTO) 0.2 % (0-6); HEMATOCRIT 28.7 % (42.0-52.0); HEMOGLOBIN 9.1 g/dl (14.0-17.9); LYMPHOCYTES # (AUTO) 2.8 X10'3 (1.1-4.8); LYMPHOCYTES % (AUTO) 17.7 % (21-51); MEAN CORPUSCULAR HEMOGLOBIN 26.6 PG (27.0-31.0); MEAN CORPUSCULAR HGB CONC 31.9 g/dL (33.0-36.5); MEAN CORPUSCULAR VOLUME 83.4 FL (78-98); MEAN PLATELET VOLUME 7.8 FL (7.4-10.4); MONOCYTES % (AUTO) 6.5 % (2-12); NEUTROPHILS # (AUTO) 11.8 X10'3 (1.8-7.7); NEUTROPHILS % (AUTO) 74.8 % (42-75); PLATELET COUNT 352 X10'3 (140-440); RED BLOOD COUNT 3.44 X10'6 (4.70-6.10); RED CELL DISTRIBUTION WIDTH 16.3 % (11.5-14.5); WHITE BLOOD COUNT 15.8 X10'3 (4.5-11.0)
[2023-04-10 02:07] LABS: HEMOGLOBIN A1C 5.3 % (4.5-6.2)
[2023-04-10 02:17] LABS: APTT 21 SECONDS (22-32); PROTHROMBIN TIME 10.9 SECONDS (9.0-12.0)
[2023-04-10 02:18] LABS: MAGNESIUM 1.8 MG/DL (1.5-2.4); PHOSPHORUS 3.9 MG/DL (2.3-4.5)
[2023-04-10] MEDS ORDERED: pantoprazole 40 MG vial IV ONE (02:25)
[2023-04-10] MEDS ORDERED: metroNIDAZOLE-Flagyl 500mg/NS 100 ML IV ONE ×2 (02:30→06:10)
[2023-04-10] MEDS ORDERED: TETanus/Pertussis (Acell)/Diphther VAC/PF (Tdap-Adult) 0.5ml syringe IMVAC ONE (02:35)
[2023-04-10] MEDS ORDERED: pantoprazole 40MG/NS 100ML BAG 100 ML IV ONE (02:40)
[2023-04-10 03:06] LABS: ANISOCYTOSIS 1+; PLATELET ESTIMATE NORMAL
[2023-04-10 03:07] LABS: ELLIPTOCYTES 1+
[2023-04-10] MEDS: pantoprazole 40MG/NS 100ML BAG 100 ML IV ONE ×2 (06:10→08:04)
--- NOTE | 2023-04-10 06:42 | NUR ---
Patient in room PCU 3021. I have received report from shyanne bernal and had the opportunity to ask questions and assume patient care.
--- NOTE | 2023-04-10 06:45 | NUR ---
Problems reprioritized. Patient report given, questions answered & plan of care reviewed with FLO FONSECA.
[2023-04-10] MEDS: docusate sod 100mg capsule PO SCH ×2 (07:10→20:00)
--- NOTE | 2023-04-10 07:36 | NUR ---
contacted radiology re: gastrogaffin enema needs to be done this AM for OR. they state that the radiologist in not in yet. he will keep me undated as to when they can get pt done.
[2023-04-10] MEDS: pantoprazole 40MG/NS 100ML BAG 100 ML IV SCH (08:00)
[2023-04-10 08:01] LABS: HEMATOCRIT 28.7 % (42.0-52.0); HEMOGLOBIN 9.3 g/dl (14.0-17.9); MEAN CORPUSCULAR HEMOGLOBIN 27.5 PG (27.0-31.0); MEAN CORPUSCULAR HGB CONC 32.3 g/dL (33.0-36.5); MEAN PLATELET VOLUME 7.7 FL (7.4-10.4); PLATELET COUNT 274 X10'3 (140-440); RED BLOOD COUNT 3.37 X10'6 (4.70-6.10); RED CELL DISTRIBUTION WIDTH 16.8 % (11.5-14.5); WHITE BLOOD COUNT 9.8 X10'3 (4.5-11.0)
[2023-04-10] MEDS: morphine 2 MG/ML inj. syringe IV PRN ×3 (09:34→23:02)
[2023-04-10] MEDS: piperacillin/tazo 3.375gm/50ml 50 ML IV SCH ×2 (10:55→21:24)
--- NOTE | 2023-04-10 13:13 | NUR ---
pt transferred to OR
--- NOTE | 2023-04-10 13:17 | NUR ---
called report to recovery
[2023-04-10] MEDS ORDERED: meperidine/PF 25mg/ml syringe IV PRN ×3 (13:50)
[2023-04-10] MEDS ORDERED: ringers solution, lacted 1,000 ML IV SCH (13:50)
[2023-04-10] MEDS ORDERED: labetalol 20mg/4ml (5mg/ml) syringe IV PRN (13:50)
[2023-04-10] MEDS ORDERED: hydrALAZINE 20mg/ml inj. IV PRN (13:50)
[2023-04-10] MEDS ORDERED: proCHLORperazine 10 MG/2 ml inj IV PRN (13:50)
[2023-04-10] MEDS ORDERED: acetaminophen 1,000mg/100ml IV 100 ML IV PRN (13:50)
[2023-04-10] MEDS ORDERED: morphine 4 MG/ML inj SYRINge IV PRN (13:50)
[2023-04-10] MEDS ORDERED: sevoflurane 250ml liquid IH ONE (14:08)
--- NOTE | 2023-04-10 14:15 | NUR ---
BLOOD GLUCOSE 85
[2023-04-10] MEDS ORDERED: midazolam 1 mg/ML 2ml injection ONE (14:19)
[2023-04-10] MEDS ORDERED: ceFOXitin 1000 MG inj ONE ×2 (14:43)
[2023-04-10] MEDS ORDERED: fentaNYL /PF 50mcg/ml 5ml ampule ONE ×2 (14:43→15:57)
[2023-04-10] MEDS ORDERED: propofol inj 20 ML IV ONE (14:43)
[2023-04-10] MEDS ORDERED: LIDOcaine 2% (20mg/ml) 5ml vial ONE (14:43)
[2023-04-10] MEDS ORDERED: rocuronium 10mg/ml inj IV ONE ×2 (14:43→15:37)
[2023-04-10] MEDS ORDERED: dexamethasone sod phosphate 4mg/ml inj. ONE (14:44)
[2023-04-10] MEDS ORDERED: ondansetron/PF 4mg/2ml inj ONE (14:44)
[2023-04-10] MEDS ORDERED: metoclopramide 5 mg/ml inj ONE (14:44)
[2023-04-10] MEDS ORDERED: BUSP10TA3 PO (16:12)
[2023-04-10] MEDS ORDERED: OLAN10TA73 PO (16:12)
[2023-04-10] MEDS ORDERED: sugammadex 200mg/2ml injection IV ONE (16:29)
--- NOTE | 2023-04-10 16:56 | NUR ---
Received from OR via [facility] BED. PATIENT WITH VSS. MEDICATED FOR PAIN UPON ARRIVAL , accompanied by Anesthesiologist JEIMY and report given by Anesthesiolgist. 20G PIV IN LEFT HAND AND LEFT NECK. SCDS ON. ONE LARGE ABD DRESSING TO ABDOMEN THAT IS CDI. COLOSTOMY ON RLQ CDI AND FUNCTIONAL. ODEN CATHETER PRESENT WITH YELLOW URINE PRESENT IN ATRIUM. Addendum: 04/10/23 at 1724 by Kings Villeda RN, RN Amended: Links added.
--- NOTE | 2023-04-10 17:56 | NUR ---
PT TRANSFERRED TO PCU, REPORT GIVEN AT BEDSIDE TO MARIAN TO ASSESS PATIENT. 3 SIDE RAILS UP. PT SHOWING NO SIGNS OF DISTRESS. VS STABLE. RA O2SAT 99%. CALL LIGHT PRESENT IN BED. Addendum: 04/10/23 at 1759 by Yoly Gonzalez RN Amended: Links added. Addendum: 04/10/23 at 1800 by Yoly Gonzalez RN ABDOMINAL DRESSING CDI.
--- NOTE | 2023-04-10 18:41 | NUR ---
Problems reprioritized. Patient report given, questions answered & plan of care reviewed with LISETTE ROSSI.
--- NOTE | 2023-04-10 18:45 | NUR ---
Patient in room PCU 3021. I have received report from FLO FONSECA and had the opportunity to ask questions and assume patient care.
[2023-04-10] MEDS ORDERED: LORazepam 2 mg/ml vial IV PRN (22:25)
[2023-04-11 02:00] VITALS: BP 128/81; PULSE 75; RESP 16; TEMP 97.8; O2SAT 98
[2023-04-11 06:00] VITALS: BP 104/60; PULSE 80; RESP 15; TEMP 97.3; O2SAT 99
[2023-04-11] MEDS: piperacillin/tazo 3.375gm/50ml 50 ML IV SCH ×3 (06:20→22:44)
--- NOTE | 2023-04-11 06:30 | NUR ---
Problems reprioritized. Patient report given, questions answered & plan of care reviewed with FLO SMILEY.
--- NOTE | 2023-04-11 07:03 | NUR ---
Patient in room PCU 3021. I have received report from arlen ROSSI and had the opportunity to ask questions and assume patient care.
[2023-04-11] MEDS: morphine 2 MG/ML inj. syringe IV PRN ×3 (07:20→19:35)
[2023-04-11] MEDS: pantoprazole 40MG/NS 100ML BAG 100 ML IV SCH (07:25)
[2023-04-11] MEDS: docusate sod 100mg capsule PO SCH ×2 (07:34→20:11)
[2023-04-11 09:31] LABS: BASOPHILS % (AUTO) 0.1 % (0-1); EOSINOPHILS % (AUTO) 0 % (0-6); HEMATOCRIT 26.7 % (42.0-52.0); HEMOGLOBIN 8.7 g/dl (14.0-17.9); LYMPHOCYTES # (AUTO) 0.8 X10'3 (1.1-4.8); LYMPHOCYTES % (AUTO) 5.4 % (21-51); MEAN CORPUSCULAR HEMOGLOBIN 27.5 PG (27.0-31.0); MEAN CORPUSCULAR HGB CONC 32.7 g/dL (33.0-36.5); MEAN CORPUSCULAR VOLUME 84.2 FL (78-98); MEAN PLATELET VOLUME 7.4 FL (7.4-10.4); MONOCYTES # (AUTO) 0.6 X10'3 (0-0.9); MONOCYTES % (AUTO) 4.5 % (2-12); NEUTROPHILS # (AUTO) 13.1 X10'3 (1.8-7.7); PLATELET COUNT 273 X10'3 (140-440); RED BLOOD COUNT 3.16 X10'6 (4.70-6.10); RED CELL DISTRIBUTION WIDTH 16.9 % (11.5-14.5); WHITE BLOOD COUNT 14.6 X10'3 (4.5-11.0)
[2023-04-11 09:43] LABS: ALANINE AMINOTRANSFERASE 16 U/L (12-78); ALBUMIN 2.2 G/DL (3.4-5.0); ALBUMIN/GLOBULIN RATIO 0.7 (1.1-1.5); ALKALINE PHOSPHATASE 50 IU/L (46-116); ANION GAP 8 (8-16); ASPARTATE AMINO TRANSFERASE 16 U/L (10-37); BILIRUBIN,TOTAL 0.6 MG/DL (0.1-1.0); BLOOD UREA NITROGEN 10 MG/DL (7-18); CALCIUM 8.1 MG/DL (8.5-10.1); CHLORIDE 105 MMOL/L (99-107); CHOL/HDL RATIO 1.8 (0.00-4.99); CHOLESTEROL 95 MG/DL (0-200); GLUCOSE 130 MG/DL (70-104); HDL CHOLESTEROL 52 MG/DL (35-60); LDL CHOLESTEROL 31 MG/DL (50-100); SODIUM 137 MMOL/L (135-145); TOTAL CARBON DIOXIDE 24.4 MMOL/L (24-32); TOTAL PROTEIN 5.5 G/DL (6.4-8.2); TRIGLYCERIDES 42 MG/DL (20-135); eCRCL 91 ML/MIN; eGFR 81 ML/MIN
[2023-04-11 11:00] VITALS: BP 111/65; PULSE 84; RESP 18; TEMP 98.5; O2SAT 100
[2023-04-11] MEDS: HYDROcodone/acetaminophen 10/325mg tab PO PRN ×3 (12:13→22:45)
[2023-04-11] MEDS: dextrose 5%-1/2 normal saline 1,000 ML IV SCH ×3 (13:36→16:35)
[2023-04-11] MEDS: olanzapine 10mg tablet PO SCH (14:55)
[2023-04-11 15:12] VITALS: BP 103/56; PULSE 91; RESP 16; TEMP 98.1; O2SAT 99
--- NOTE | 2023-04-11 16:35 | NUR ---
Patient compliant with care. Ok per Dr crawford to give popsicles. Medicated as per EMAR with good results . Patient mostly sleeping.
[2023-04-11 18:00] VITALS: BP 105/57; PULSE 88; RESP 18; TEMP 98.2; O2SAT 97
--- NOTE | 2023-04-11 18:01 | NUR ---
Behavioral health called as requested by DR Morris with regards patients meds. Will review in am. Slightly agitated at times really wanting to eat. Rechecked with Dr Spence , still allowed only ice chips and popsicles. Ativan increased per DR Morris.
--- NOTE | 2023-04-11 18:45 | NUR ---
Jammie page per dr crawford. Report given to Vira SALAZAR
[2023-04-11 20:00] VITALS: RESP 18; O2SAT 97
[2023-04-11] MEDS: busPIRone 5mg tablet PO SCH (20:11)
--- NOTE | 2023-04-11 22:00 | NUR ---
pt refused 2200 vitals
[2023-04-11] MEDS: LORazepam 2 mg/ml vial IV PRN (22:35)
[2023-04-12] MEDS: dextrose 5%-1/2 normal saline 1,000 ML IV SCH ×3 (01:30→21:30)
--- NOTE | 2023-04-12 02:00 | NUR ---
pt refused 0200 vitals
[2023-04-12] MEDS: HYDROcodone/acetaminophen 10/325mg tab PO PRN ×4 (06:02→23:22)
[2023-04-12 07:00] VITALS: BP 114/66
[2023-04-12] MEDS: docusate sod 100mg capsule PO SCH ×2 (07:30→21:54)
[2023-04-12] MEDS: busPIRone 5mg tablet PO SCH ×3 (07:30→21:54)
[2023-04-12] MEDS: olanzapine 10mg tablet PO SCH (07:30)
[2023-04-12] MEDS: pantoprazole 40MG/NS 100ML BAG 100 ML IV SCH (07:30)
[2023-04-12] MEDS: morphine 2 MG/ML inj. syringe IV PRN ×3 (07:31→11:55)
--- NOTE | 2023-04-12 07:48 | NUR ---
This RN has reviewed and added to the physical assessment entered by the TIRE MANAGER.
[2023-04-12 08:00] VITALS: RESP 18; O2SAT 97
[2023-04-12 08:37] LABS: BASOPHILS % (AUTO) 0.1 % (0-1); EOSINOPHILS # (AUTO) 0.1 X10'3 (0-0.9); EOSINOPHILS % (AUTO) 0.7 % (0-6); HEMATOCRIT 24.8 % (42.0-52.0); HEMOGLOBIN 8.1 g/dl (14.0-17.9); LYMPHOCYTES # (AUTO) 1.2 X10'3 (1.1-4.8); LYMPHOCYTES % (AUTO) 15.7 % (21-51); MEAN CORPUSCULAR HEMOGLOBIN 27.8 PG (27.0-31.0); MEAN CORPUSCULAR HGB CONC 32.8 g/dL (33.0-36.5); MEAN PLATELET VOLUME 7.7 FL (7.4-10.4); MONOCYTES # (AUTO) 0.4 X10'3 (0-0.9); MONOCYTES % (AUTO) 5.3 % (2-12); NEUTROPHILS # (AUTO) 6.2 X10'3 (1.8-7.7); NEUTROPHILS % (AUTO) 78.2 % (42-75); PLATELET COUNT 260 X10'3 (140-440); RED BLOOD COUNT 2.92 X10'6 (4.70-6.10); RED CELL DISTRIBUTION WIDTH 17.2 % (11.5-14.5); WHITE BLOOD COUNT 7.9 X10'3 (4.5-11.0)
[2023-04-12] MEDS: LORazepam 2 mg/ml vial IV PRN ×3 (08:42→21:54)
[2023-04-12 09:04] LABS: ALANINE AMINOTRANSFERASE 14 U/L (12-78); ALBUMIN 2.3 G/DL (3.4-5.0); ALBUMIN/GLOBULIN RATIO 0.6 (1.1-1.5); ALKALINE PHOSPHATASE 48 IU/L (46-116); ANION GAP 8 (8-16); ASPARTATE AMINO TRANSFERASE 14 U/L (10-37); BILIRUBIN,TOTAL 0.3 MG/DL (0.1-1.0); BLOOD UREA NITROGEN 7 MG/DL (7-18); BUN/CREATININE RATIO 7.1 (10.0-20.0); CHLORIDE 105 MMOL/L (99-107); CREATININE 0.99 MG/DL (0.60-1.10); GLUCOSE 90 MG/DL (70-104); POTASSIUM 3.2 MMOL/L (3.5-5.1); SODIUM 140 MMOL/L (135-145); TOTAL CARBON DIOXIDE 26.7 MMOL/L (24-32); eCRCL 92 ML/MIN; eGFR 82 ML/MIN
--- NOTE | 2023-04-12 10:25 | NUR ---
Malnutrition consult: Pt reports 2-13 lb wt loss with decreased appetite/PO intake per malnutrition risk screen with RN. Current documented wt is stable with documented wt hx in EMR ranging 70.4-72.7 kg 09/06-04/06. Pt currently NPO POD #2 s/p lysis of adhesions with colostomy reversal. Noted pt historically eats well during admit with mostly 100% PO intake while receiving double protein. Recommend advancing to low fiber diet as medically indicated. Per EMR pt with no decrease in muscle strength or edema and pt appears well developed well nourished per H&P. Pt currently lacks a minimum of two criteria for malnutrition though will continue to follow and monitor s/s of malnutrition. Addendum: 04/12/23 at [address] Amended: Links added.
[2023-04-12 11:00] VITALS: BP 120/70; PULSE 89; RESP 24; TEMP 98.1; O2SAT 100
--- NOTE | 2023-04-12 11:04 | NUR ---
PAGER ID: [phone] MESSAGE: Pt Tricia in 0516B states the Morphine isn't controlling his pain. he is asking for dilaudid IV. He stated that Dilaudid worked for his pain. He also wants to advance diet. I told him I would reach out to you. Please advise. Elen [phone]
[2023-04-12] MEDS: HYDROmorphone inj. 0.5 MG/0.5 ML DISP.SYRIN IV PRN ×2 (12:22→19:03)
[2023-04-12 15:00] VITALS: BP 89/56; PULSE 91; RESP 16; TEMP 98.1; O2SAT 96
[2023-04-12] MEDS ORDERED: potassium Cl 20 mEq SR tablet PO PRN (15:15)
[2023-04-12] MEDS ORDERED: potassium Cl 40MEQ/1/2NS 520ml 520 ML IV PRN (15:15)
[2023-04-12 15:50] LABS: MAGNESIUM 1.9 MG/DL (1.5-2.4)
[2023-04-12 18:00] VITALS: BP 140/79; PULSE 99; RESP 14; TEMP 99; O2SAT 98
--- NOTE | 2023-04-12 18:29 | NUR ---
Problems reprioritized. Patient report given, questions answered & plan of care reviewed with FLO Huang.
[2023-04-12] MEDS: potassium Cl 20 mEq SR tablet PO PRN ×2 (19:05→23:48)
[2023-04-12] MEDS: K and/or MAG REPLACEMENT MC SCH (19:05)
[2023-04-12 23:00] VITALS: BP 91/57; PULSE 89; RESP 14; TEMP 98.1; O2SAT 99
[2023-04-13] MEDS: HYDROmorphone inj. 0.5 MG/0.5 ML DISP.SYRIN IV PRN ×4 (02:41→22:07)
[2023-04-13 02:44] VITALS: BP 136/81; PULSE 85; RESP 14; TEMP 98.7; O2SAT 98
--- NOTE | 2023-04-13 06:20 | NUR ---
Patient report given, questions answered & plan of care reviewed with FLO Sanz
--- NOTE | 2023-04-13 07:02 | NUR ---
Patient in room PCU 3021. I have received report from FLO HOWARD, and had the opportunity to ask questions and assume patient care.
[2023-04-13 07:56] LABS: BASOPHILS % (AUTO) 0.1 % (0-1); EOSINOPHILS # (AUTO) 0.1 X10'3 (0-0.9); EOSINOPHILS % (AUTO) 1.7 % (0-6); HEMATOCRIT 24.1 % (42.0-52.0); LYMPHOCYTES # (AUTO) 1.1 X10'3 (1.1-4.8); LYMPHOCYTES % (AUTO) 16.9 % (21-51); MEAN CORPUSCULAR HEMOGLOBIN 28.2 PG (27.0-31.0); MEAN CORPUSCULAR VOLUME 85.3 FL (78-98); MEAN PLATELET VOLUME 7.3 FL (7.4-10.4); MONOCYTES # (AUTO) 0.4 X10'3 (0-0.9); MONOCYTES % (AUTO) 6.6 % (2-12); NEUTROPHILS # (AUTO) 4.9 X10'3 (1.8-7.7); NEUTROPHILS % (AUTO) 74.7 % (42-75); PLATELET COUNT 289 X10'3 (140-440); RED BLOOD COUNT 2.82 X10'6 (4.70-6.10); RED CELL DISTRIBUTION WIDTH 17.4 % (11.5-14.5); WHITE BLOOD COUNT 6.6 X10'3 (4.5-11.0)
[2023-04-13 08:00] VITALS: RESP 20; O2SAT 100
[2023-04-13 08:14] VITALS: BP 133/80; PULSE 73; RESP 18; TEMP 97.6; O2SAT 100
[2023-04-13 08:15] LABS: ALANINE AMINOTRANSFERASE 12 U/L (12-78); ALBUMIN 2.1 G/DL (3.4-5.0); ALBUMIN/GLOBULIN RATIO 0.6 (1.1-1.5); ALKALINE PHOSPHATASE 52 IU/L (46-116); ANION GAP 6 (8-16); ASPARTATE AMINO TRANSFERASE 13 U/L (10-37); BILIRUBIN,TOTAL 0.3 MG/DL (0.1-1.0); BLOOD UREA NITROGEN 3 MG/DL (7-18); BUN/CREATININE RATIO 3.9 (10.0-20.0); CALCIUM 8.1 MG/DL (8.5-10.1); CHLORIDE 105 MMOL/L (99-107); CREATININE 0.76 MG/DL (0.60-1.10); GLUCOSE 95 MG/DL (70-104); POTASSIUM 3.6 MMOL/L (3.5-5.1); SODIUM 140 MMOL/L (135-145); TOTAL PROTEIN 5.7 G/DL (6.4-8.2); eCRCL 120 ML/MIN; eGFR > 90 ML/MIN
[2023-04-13] MEDS: pantoprazole 40MG/NS 100ML BAG 100 ML IV SCH (08:17)
[2023-04-13] MEDS: olanzapine 10mg tablet PO SCH (08:23)
[2023-04-13] MEDS: busPIRone 5mg tablet PO SCH ×3 (08:23→22:16)
[2023-04-13] MEDS: HYDROcodone/acetaminophen 10/325mg tab PO PRN ×3 (08:23→23:46)
[2023-04-13] MEDS: docusate sod 100mg capsule PO SCH ×2 (08:24→19:23)
[2023-04-13] MEDS: K and/or MAG REPLACEMENT MC SCH ×2 (08:31→20:00)
[2023-04-13] MEDS: dextrose 5%-1/2 normal saline 1,000 ML IV SCH ×3 (08:35→22:14)
[2023-04-13 15:00] VITALS: BP 130/78; PULSE 72; RESP 20; TEMP 97; O2SAT 99
[2023-04-13 18:00] VITALS: BP 130/78; PULSE 74; RESP 16; TEMP 97.4; O2SAT 99
--- NOTE | 2023-04-13 18:25 | NUR ---
PT WAS BELLIGERENT IN THE MORNING, BEHAVIOR IMPROVED AFTER A VISIT FROM A FRIEND, INNA. Problems reprioritized. Patient report given, questions answered & plan of care reviewed with FLO MOJICA.
[2023-04-13] MEDS: LORazepam 2 mg/ml vial IV PRN (19:07)
[2023-04-13 22:00] VITALS: BP 139/82; PULSE 72; RESP 18; TEMP 97; O2SAT 100
--- NOTE | 2023-04-13 23:30 | NUR ---
Pt IV in external jugular vein in the left side of the neck went bad. Multiple nurses attempted to plce a new IV and each attempt failed. Provider Arturo notified.
--- NOTE | 2023-04-13 23:32 | NUR ---
Provider paged PAGER ID: [phone] MESSAGE: [phone], Lucita Clarke. Pt is NPO, s/p bowel resection. Pt is now having soft bowel movements. May we upgrade his diet he is stating he is hungry. Thanks, Marisol ROSSI, [phone]
[2023-04-14] VITALS (7 sets, daily range): BP systolic 118–126; BP diastolic 68–76; PULSE 62–81; RESP 14–16; TEMP 97.6–98.6; O2SAT 98–100
[2023-04-14] MEDS: HYDROcodone/acetaminophen 5mg/325mg tablet PO PRN (03:14)
[2023-04-14] MEDS: HYDROcodone/acetaminophen 10/325mg tab PO PRN ×3 (05:31→19:19)
--- NOTE | 2023-04-14 06:46 | NUR ---
Problems reprioritized. Patient report given, questions answered & plan of care reviewed with Umu ROSSI. Pt stable at shift change.
[2023-04-14 06:54] LABS: ALANINE AMINOTRANSFERASE 13 U/L (12-78); ALBUMIN 2.3 G/DL (3.4-5.0); ALBUMIN/GLOBULIN RATIO 0.6 (1.1-1.5); ALKALINE PHOSPHATASE 52 IU/L (46-116); ANION GAP 7 (8-16); ASPARTATE AMINO TRANSFERASE 11 U/L (10-37); BILIRUBIN,TOTAL 0.5 MG/DL (0.1-1.0); BLOOD UREA NITROGEN 3 MG/DL (7-18); BUN/CREATININE RATIO 4.1 (10.0-20.0); CALCIUM 8.2 MG/DL (8.5-10.1); CHLORIDE 104 MMOL/L (99-107); CREATININE 0.74 MG/DL (0.60-1.10); GLUCOSE 124 MG/DL (70-104); MAGNESIUM 1.8 MG/DL (1.5-2.4); POTASSIUM 3.4 MMOL/L (3.5-5.1); SODIUM 139 MMOL/L (135-145); TOTAL PROTEIN 6.3 G/DL (6.4-8.2); eCRCL 123 ML/MIN; eGFR > 90 ML/MIN
--- NOTE | 2023-04-14 07:01 | NUR ---
Patient in room PCU 3021. I have received report from FLO MOJICA, and had the opportunity to ask questions and assume patient care.
[2023-04-14 07:06] LABS: HEMOGLOBIN 9.2 g/dl (14.0-17.9); LYMPHOCYTES # (AUTO) 0.4 X10'3 (1.1-4.8); MEAN PLATELET VOLUME 7.7 FL (7.4-10.4)
[2023-04-14 07:10] LABS: BASOPHILS % (AUTO) 0.2 % (0-1); EOSINOPHILS # (AUTO) 0.2 X10'3 (0-0.9); EOSINOPHILS % (AUTO) 2.3 % (0-6); LYMPHOCYTES % (AUTO) 5.9 % (21-51); MEAN CORPUSCULAR HEMOGLOBIN 27.8 PG (27.0-31.0); MEAN CORPUSCULAR HGB CONC 32.8 g/dL (33.0-36.5); MEAN CORPUSCULAR VOLUME 84.7 FL (78-98); MONOCYTES # (AUTO) 0.5 X10'3 (0-0.9); MONOCYTES % (AUTO) 6.9 % (2-12); NEUTROPHILS # (AUTO) 5.6 X10'3 (1.8-7.7); NEUTROPHILS % (AUTO) 84.7 % (42-75); PLATELET COUNT 394 X10'3 (140-440); RED CELL DISTRIBUTION WIDTH 16.9 % (11.5-14.5); WHITE BLOOD COUNT 6.6 X10'3 (4.5-11.0)
--- NOTE | 2023-04-14 07:55 | NUR ---
PAGE SENT PAGER ID: [phone] MESSAGE: [phone], JUDIE SINGH, PT HAD 2 BM'S LAST NIGHT. LOST IV ACCESS, PO ATIVAN PLEASE? THANK YOU, IRENE Decker [phone]
[2023-04-14] MEDS: K and/or MAG REPLACEMENT MC SCH ×2 (08:00→19:26)
[2023-04-14] MEDS: olanzapine 10mg tablet PO SCH (08:10)
[2023-04-14] MEDS: pantoprazole 40mg Tablet.DR PO SCH (08:10)
[2023-04-14] MEDS: docusate sod 100mg capsule PO SCH ×2 (08:10→19:19)
[2023-04-14] MEDS: busPIRone 5mg tablet PO SCH ×3 (08:10→20:22)
[2023-04-14] MEDS: potassium Cl 20 mEq SR tablet PO PRN ×3 (08:11→19:19)
[2023-04-14] MEDS: HYDROmorphone inj. 0.5 MG/0.5 ML DISP.SYRIN IV PRN (08:11)
--- NOTE | 2023-04-14 18:20 | NUR ---
PT'S IV WOULDN'T RUN D/T KINK IN CANNULA, PRESSURE ALARM KEPT GOING OFF. ATTEMPTS TO CORRECT THE CANNULA MADE PT ANGRY AND BELLIGERENT. IV WAS DISCONNECTED. PT IS DRINKING.
--- NOTE | 2023-04-14 18:23 | NUR ---
Patient in room [facility] 3021. I have received report from Telma SALAZAR, and had the opportunity to ask questions and assume patient care. Addendum: 04/14/23 at 1825 by Marisol Louis RN Patient in room [place] [id number]. I have received report from Umu ROSSI, and had the opportunity to ask questions and assume patient care.
--- NOTE | 2023-04-14 18:24 | NUR ---
Problems reprioritized. Patient report given, questions answered & plan of care reviewed with FLO MOJICA.
[2023-04-14] MEDS: LORazepam 0.5 MG tablet PO PRN (19:24)
--- NOTE | 2023-04-14 22:11 | NUR ---
Nurse talked to provider informing of the pt PIV in the right hand is not flushing and pt again not receiving fluids. Pt is refusing new IV at this time. Will continue to monitor pt.
[2023-04-15] MEDS: HYDROcodone/acetaminophen 10/325mg tab PO PRN ×2 (00:46→12:15)
[2023-04-15 02:00] VITALS: BP 122/67; PULSE 84; RESP 18; TEMP 98.4; O2SAT 99
[2023-04-15] MEDS ORDERED: ondansetron 4mg rapidly disintigrating tab PO ONE (04:40)
--- NOTE | 2023-04-15 04:42 | NUR ---
Pt having multiple dark green emesis that smell like fermented sugar. Pt has bowel sounds x4 and has been having bowel movements. Nurse spoke with MD regardign change of condition. Provider gave new order of zofran 4mg PO once for nausea and vomiting. NRBO.
[2023-04-15] MEDS: HYDROcodone/acetaminophen 5mg/325mg tablet PO PRN (05:31)
[2023-04-15 06:00] VITALS: BP 138/62; PULSE 88; RESP 16; TEMP 97.6; O2SAT 95
--- NOTE | 2023-04-15 06:47 | NUR ---
Patient in room PCU 3021. I have received report from FLO MOJICA, and had the opportunity to ask questions and assume patient care. PT RESTING COMFORTABLY, NO S/S OF DISTRESS. SITTER AT BEDSIDE.
--- NOTE | 2023-04-15 07:02 | NUR ---
Problems reprioritized. Patient report given, questions answered & plan of care reviewed with Umu ROSSI. Pt stable at shift change.
[2023-04-15] MEDS: K and/or MAG REPLACEMENT MC SCH ×2 (08:00→20:00)
[2023-04-15] MEDS: olanzapine 10mg tablet PO SCH (09:07)
[2023-04-15] MEDS: docusate sod 100mg capsule PO SCH ×2 (09:07→19:13)
[2023-04-15] MEDS: pantoprazole 40mg Tablet.DR PO SCH (09:07)
[2023-04-15] MEDS: busPIRone 5mg tablet PO SCH ×3 (09:07→16:55)
[2023-04-15] MEDS: LORazepam 0.5 MG tablet PO PRN ×2 (09:07→18:43)
[2023-04-15 11:28] LABS: BASOPHILS % (AUTO) 0.3 % (0-1); EOSINOPHILS # (AUTO) 0.2 X10'3 (0-0.9); EOSINOPHILS % (AUTO) 4.6 % (0-6); HEMATOCRIT 27.3 % (42.0-52.0); HEMOGLOBIN 9.2 g/dl (14.0-17.9); LYMPHOCYTES # (AUTO) 0.5 X10'3 (1.1-4.8); LYMPHOCYTES % (AUTO) 13.5 % (21-51); MEAN CORPUSCULAR HEMOGLOBIN 28.2 PG (27.0-31.0); MEAN CORPUSCULAR HGB CONC 33.8 g/dL (33.0-36.5); MEAN CORPUSCULAR VOLUME 83.5 FL (78-98); MEAN PLATELET VOLUME 6.9 FL (7.4-10.4); MONOCYTES # (AUTO) 0.5 X10'3 (0-0.9); MONOCYTES % (AUTO) 13.9 % (2-12); NEUTROPHILS # (AUTO) 2.6 X10'3 (1.8-7.7); NEUTROPHILS % (AUTO) 67.7 % (42-75); PLATELET COUNT 452 X10'3 (140-440); RED BLOOD COUNT 3.27 X10'6 (4.70-6.10); RED CELL DISTRIBUTION WIDTH 16.6 % (11.5-14.5); WHITE BLOOD COUNT 3.9 X10'3 (4.5-11.0)
[2023-04-15 11:43] LABS: ALANINE AMINOTRANSFERASE 12 U/L (12-78); ALBUMIN 2.3 G/DL (3.4-5.0); ALBUMIN/GLOBULIN RATIO 0.6 (1.1-1.5); ALKALINE PHOSPHATASE 59 IU/L (46-116); ANION GAP 7 (8-16); ASPARTATE AMINO TRANSFERASE 11 U/L (10-37); BILIRUBIN,TOTAL 0.3 MG/DL (0.1-1.0); BLOOD UREA NITROGEN 7 MG/DL (7-18); CALCIUM 8.8 MG/DL (8.5-10.1); CHLORIDE 102 MMOL/L (99-107); GLUCOSE 115 MG/DL (70-104); MAGNESIUM 1.8 MG/DL (1.5-2.4); POTASSIUM 4.1 MMOL/L (3.5-5.1); SODIUM 137 MMOL/L (135-145); TOTAL CARBON DIOXIDE 27.7 MMOL/L (24-32); TOTAL PROTEIN 6.4 G/DL (6.4-8.2); eCRCL 130 ML/MIN; eGFR > 90 ML/MIN
--- NOTE | 2023-04-15 11:53 | NUR ---
I CALLED DR LEE TO NOTIFY HIM PATIENT PUKING UP GREEN BILE. GAVE ORDERS TO PLACE PATIENT NPO NOW AND SAID OK NOT TO PUT IN NG TUBE BECAUSE HE WILL FIGHT US .
--- NOTE | 2023-04-15 12:19 | NUR ---
PAGE SENT [id number], JUDIE SINGH, PLEASE PLACE A PIV. PT IS NPO. FLOOR NURSES HAVE TRIED. PIV IN HAND NO LONGER WORKS. THANK YOU. IRENE [phone]
--- NOTE | 2023-04-15 12:39 | NUR ---
PHYSICAL ASSESSMENTS ATTEMPTED. PT REFUSES. PT DOESN'T JUST SAY NO, BUT BECOMES VULGAR AND BELLIGERENT. WILL TRY AGAIN LATER.
--- NOTE | 2023-04-15 12:41 | NUR ---
PIV IN RIGHT HAND DISCONTINUED, THE CATHETER WAS KINKED. PICC NURSE CALLED FLOOR NURSES UNABLE TO PLACE PIV.
--- NOTE | 2023-04-15 13:00 | NUR ---
Initial: Pt admit for GIB with bleeding at stoma site. Per EMR pt currently POD #5 s/p lysis of adhesions and colostomy reversal. Pt has been NPO throughout LOS with diet advancement to regular today which was quickly changed back to NPO d/t pt "puking up green bile" per RN note. Recommend initiating PN if expected prolonged NPO status and diet advancement to low fiber as medically indicated. IF pt with functioning gut though unable to tolerate PO intake, EN would be the most appropriate form of nutrition support however per EMR pt likely would not be accepting of NGT placement. Noted pt was receiving D5-1/2 NS at 100 mL/hr 04/10-04/14 providing 408 kcal/day. LBM 04/13 per I&O. Will continue to follow closely and make recommendations as appropriate. Recommendations: 1) Advance to low fiber diet as medically indicated 2) Initiate nutrition support if unable to advance PO diet, EN if functioning gut and pt accepting of NGT placement, otherwise PN 3) Bowel care per physician 4) Scaled weight this admit; subsequent weekly scaled weights; daily scaled weights if pt to receive nutrition support Addendum: 04/15/23 at [address] Amended: Links added.
--- NOTE | 2023-04-15 13:58 | NUR ---
PAGE SENT PAGER ID: [phone] MESSAGE: [phone], JUDIE SINGH, PT IS CURRENTLY NPO, MAY I RESTART HIS D5 1/5 NS? THANK YOU. IRENE [phone]
[2023-04-15] MEDS ORDERED: potassium CL 20mEq in D5-1/2NS 1,000 ML IV SCH (14:05)
[2023-04-15 16:58] VITALS: BP 151/87; PULSE 75; RESP 20; TEMP 98.4; O2SAT 100
[2023-04-15] MEDS: HYDROmorphone inj. 0.5 MG/0.5 ML DISP.SYRIN IV PRN ×2 (17:16→21:05)
--- NOTE | 2023-04-15 17:33 | NUR ---
PAGE SENT PAGER ID: [phone] MESSAGE: [phone], JUDIE SINGH, NG TUBE PLACED. COULD YOU PLEASE LOOK AT MEDS AND CHANGE PO TO IV? PT ASKING FOR ATIVAN. THANK YOU. IRENE [phone]
[2023-04-15 18:00] VITALS: BP 151/87; PULSE 75; RESP 20; TEMP 98.4; O2SAT 100
[2023-04-15] MEDS: dextrose 5%-1/2 normal saline 1,000 ML IV SCH (18:20)
--- NOTE | 2023-04-15 18:33 | NUR ---
Problems reprioritized. Patient report given, questions answered & plan of care reviewed with FLO MOJICA.
[2023-04-16] VITALS (7 sets, daily range): BP systolic 113–143; BP diastolic 75–80; PULSE 75–80; RESP 12–17; TEMP 97.1–98.3; O2SAT 98–100
[2023-04-16] MEDS: HYDROmorphone inj. 0.5 MG/0.5 ML DISP.SYRIN IV PRN ×5 (01:47→21:43)
[2023-04-16] MEDS: dextrose 5%-1/2 normal saline 1,000 ML IV SCH ×3 (01:55→21:50)
--- NOTE | 2023-04-16 06:30 | NUR ---
Problems reprioritized. Patient report given, questions answered & plan of care reviewed with Pia ROSSI. Pt stable at shift change.
[2023-04-16 06:37] LABS: MAGNESIUM 1.8 MG/DL (1.5-2.4); POTASSIUM 3.7 MMOL/L (3.5-5.1)
--- NOTE | 2023-04-16 06:53 | NUR ---
Patient in room PCU 3021. I have received report from Marisol SALAZAR and had the opportunity to ask questions and assume patient care.
--- NOTE | 2023-04-16 07:29 | NUR ---
Patient refused Blood pressure
[2023-04-16] MEDS: pantoprazole 40mg Tablet.DR PO SCH ×2 (07:30→08:25)
[2023-04-16] MEDS: docusate sod 100mg capsule PO SCH ×2 (08:00→20:00)
[2023-04-16] MEDS: K and/or MAG REPLACEMENT MC SCH ×2 (08:00→20:00)
[2023-04-16] MEDS: olanzapine 10mg tablet PO SCH (08:25)
[2023-04-16] MEDS: busPIRone 5mg tablet PO SCH ×3 (08:25→19:52)
--- NOTE | 2023-04-16 15:06 | NUR ---
Spoke to Dr Tran who said ok to start patient on Clear diet, will clamp patient NG tube. IF patient tolerates diet with no nausea NOC shift can DC NG tube. Spoke to patient about plan and at this time we will only be giving him what comes up on a clear tray and we will see if he tolerates clears. Patient understands we will leave the NG tube in place so if he becomes nauseated we can turn suction back on. Patient is in agreement.
--- NOTE | 2023-04-16 15:20 | NUR ---
Clamped patient NG tube, patient given chicken broth and jello. Will monitor patient for nausea and unclamp patient NG if needed.
--- NOTE | 2023-04-16 18:37 | NUR ---
Problems reprioritized. Patient report given, questions answered & plan of care reviewed with Chase ROSSI.
[2023-04-16] MEDS: LORazepam 0.5 MG tablet PO PRN (19:53)
[2023-04-17] VITALS (8 sets, daily range): BP systolic 108–146; BP diastolic 62–89; PULSE 66–88; RESP 12–18; TEMP 97.3–98.8; O2SAT 95–100
[2023-04-17] MEDS: HYDROmorphone inj. 0.5 MG/0.5 ML DISP.SYRIN IV PRN ×5 (02:09→23:45)
[2023-04-17] MEDS: pantoprazole 40mg Tablet.DR PO SCH (07:30)
[2023-04-17] MEDS: dextrose 5%-1/2 normal saline 1,000 ML IV SCH ×2 (07:41→16:05)
[2023-04-17] MEDS: busPIRone 5mg tablet PO SCH ×3 (07:42→19:12)
[2023-04-17] MEDS: olanzapine 10mg tablet PO SCH (07:42)
[2023-04-17] MEDS: docusate sod 100mg capsule PO SCH ×2 (08:00→19:17)
[2023-04-17] MEDS: K and/or MAG REPLACEMENT MC SCH ×2 (08:00→19:17)
--- NOTE | 2023-04-17 08:04 | NUR ---
Was going to pull patient NG tube out per MD orders, as soon as patient knew the tube was coming out he pulled the tape off his nose and pulled NG tube out himself. Patient tolerated well washcloth given for him to was his face.
[2023-04-17 09:18] LABS: BASOPHILS % (AUTO) 0.2 % (0-1); EOSINOPHILS # (AUTO) 0.3 X10'3 (0-0.9); EOSINOPHILS % (AUTO) 4.3 % (0-6); HEMATOCRIT 26.2 % (42.0-52.0); HEMOGLOBIN 8.8 g/dl (14.0-17.9); LYMPHOCYTES # (AUTO) 1.1 X10'3 (1.1-4.8); LYMPHOCYTES % (AUTO) 17.6 % (21-51); MEAN CORPUSCULAR HEMOGLOBIN 27.8 PG (27.0-31.0); MEAN CORPUSCULAR HGB CONC 33.6 g/dL (33.0-36.5); MEAN CORPUSCULAR VOLUME 82.8 FL (78-98); MEAN PLATELET VOLUME 6.5 FL (7.4-10.4); MONOCYTES # (AUTO) 0.8 X10'3 (0-0.9); NEUTROPHILS # (AUTO) 3.9 X10'3 (1.8-7.7); NEUTROPHILS % (AUTO) 64.9 % (42-75); PLATELET COUNT 506 X10'3 (140-440); RED BLOOD COUNT 3.16 X10'6 (4.70-6.10); RED CELL DISTRIBUTION WIDTH 16.2 % (11.5-14.5); WHITE BLOOD COUNT 6.1 X10'3 (4.5-11.0)
[2023-04-17 09:30] LABS: ALANINE AMINOTRANSFERASE 10 U/L (12-78); ALBUMIN 2.3 G/DL (3.4-5.0); ALBUMIN/GLOBULIN RATIO 0.7 (1.1-1.5); ALKALINE PHOSPHATASE 59 IU/L (46-116); ANION GAP 8 (8-16); ASPARTATE AMINO TRANSFERASE 10 U/L (10-37); BILIRUBIN,TOTAL 0.2 MG/DL (0.1-1.0); BLOOD UREA NITROGEN 6 MG/DL (7-18); BUN/CREATININE RATIO 7.3 (10.0-20.0); CALCIUM 8.4 MG/DL (8.5-10.1); CHLORIDE 98 MMOL/L (99-107); CREATININE 0.82 MG/DL (0.60-1.10); GLUCOSE 118 MG/DL (70-104); POTASSIUM 3.6 MMOL/L (3.5-5.1); SODIUM 136 MMOL/L (135-145); TOTAL CARBON DIOXIDE 30.1 MMOL/L (24-32); TOTAL PROTEIN 5.5 G/DL (6.4-8.2); eCRCL 111 ML/MIN; eGFR > 90 ML/MIN
[2023-04-17] MEDS: HYDROcodone/acetaminophen 10/325mg tab PO PRN ×2 (10:55→22:17)
--- NOTE | 2023-04-17 15:07 | NUR ---
PRESSURE ULCER EDUCATION: DEFINITION: A pressure ulcer is an area of skin that breaks down when you stay in one position too long. The constant pressure against the skin reduces the blood flow to that area and the affected tissue dies. CAUSES: "Being bedridden or in a wheelchair "Fragile skin "Having a chronic condition, such as diabetes or vascular disease "Inability to move certain parts of your body without assistance "Older age "Incontinence of urine or stool SYMPTOMS: "A reddened area that DOES NOT turn white when pressed on - this can be the beginning of a pressure ulcer "A blister, deep sore or a crater - these can be advanced pressure ulcers FIRST AID: "Relieve the pressure on this area "Keep the area clean and dry "Call your primary doctor if you see any of the above symptoms "DO NOT massage the area "DO NOT use a donut shaped or ring shaped pillow- these actually interfere with the blood flow and cause complications PREVENTION: "Check for pressure ulcers everyday "Change position at least every two hours to relieve pressure "Use items that help relieve pressure- pillows, sheepskin, foam padding, and powders. "Keep skin clean and dry "Eat healthy well balanced meals "Exercise daily IF YOU SEE ANY OF THESE SYMPTOMS WHILE IN THE HOSPITAL - TELL YOUR NURSE IMMEDIATELY. IF YOU SEE ANY OF THESE SYMPTOMS WHILE AT HOME OR HAVE ANY QUESTIONS OR CONCERNS ABOUT PRESSURE ULCERS - CALL YOUR PRIMARY DOCTOR IMMEDIATELY. Addendum: 04/17/23 at 1508 by Yoly Nash RN Amended: Links added.
[2023-04-17] MEDS: LORazepam 0.5 MG tablet PO PRN (17:07)
--- NOTE | 2023-04-17 18:39 | NUR ---
Problems reprioritized. Patient report given, questions answered & plan of care reviewed with Chase ROSSI.
[2023-04-18] VITALS (8 sets, daily range): BP systolic 113–156; BP diastolic 60–93; PULSE 67–82; RESP 14–18; TEMP 97.7–98.3; O2SAT 96–100
[2023-04-18] MEDS: HYDROcodone/acetaminophen 10/325mg tab PO PRN ×3 (03:31→13:23)
[2023-04-18] MEDS: HYDROmorphone inj. 0.5 MG/0.5 ML DISP.SYRIN IV PRN (04:49)
[2023-04-18] MEDS: dextrose 5%-1/2 normal saline 1,000 ML IV SCH (06:24)
--- NOTE | 2023-04-18 06:49 | NUR ---
Patient in room PCU 3021. I have received report from Chase ROSSI and had the opportunity to ask questions and assume patient care.
[2023-04-18] MEDS: pantoprazole 40mg Tablet.DR PO SCH (07:30)
[2023-04-18 07:37] LABS: BASOPHILS % (AUTO) 0.4 % (0-1); EOSINOPHILS # (AUTO) 0.3 X10'3 (0-0.9); EOSINOPHILS % (AUTO) 4.3 % (0-6); HEMATOCRIT 27.5 % (42.0-52.0); HEMOGLOBIN 9.1 g/dl (14.0-17.9); LYMPHOCYTES # (AUTO) 1.4 X10'3 (1.1-4.8); LYMPHOCYTES % (AUTO) 19.4 % (21-51); MEAN CORPUSCULAR HEMOGLOBIN 27.4 PG (27.0-31.0); MEAN CORPUSCULAR HGB CONC 33.2 g/dL (33.0-36.5); MEAN CORPUSCULAR VOLUME 82.7 FL (78-98); MEAN PLATELET VOLUME 6.8 FL (7.4-10.4); MONOCYTES # (AUTO) 0.7 X10'3 (0-0.9); MONOCYTES % (AUTO) 10.3 % (2-12); NEUTROPHILS # (AUTO) 4.6 X10'3 (1.8-7.7); NEUTROPHILS % (AUTO) 65.6 % (42-75); PLATELET COUNT 589 X10'3 (140-440); RED BLOOD COUNT 3.32 X10'6 (4.70-6.10); RED CELL DISTRIBUTION WIDTH 16.4 % (11.5-14.5)
[2023-04-18 07:56] LABS: ALANINE AMINOTRANSFERASE 16 U/L (12-78); ALBUMIN 2.5 G/DL (3.4-5.0); ALBUMIN/GLOBULIN RATIO 0.6 (1.1-1.5); ALKALINE PHOSPHATASE 61 IU/L (46-116); ANION GAP 8 (8-16); ASPARTATE AMINO TRANSFERASE 17 U/L (10-37); BILIRUBIN,TOTAL 0.2 MG/DL (0.1-1.0); BLOOD UREA NITROGEN 4 MG/DL (7-18); BUN/CREATININE RATIO 4.8 (10.0-20.0); CALCIUM 8.6 MG/DL (8.5-10.1); CHLORIDE 100 MMOL/L (99-107); CREATININE 0.84 MG/DL (0.60-1.10); GLUCOSE 120 MG/DL (70-104); POTASSIUM 3.5 MMOL/L (3.5-5.1); SODIUM 136 MMOL/L (135-145); TOTAL CARBON DIOXIDE 28.3 MMOL/L (24-32); TOTAL PROTEIN 6.5 G/DL (6.4-8.2); eCRCL 109 ML/MIN; eGFR > 90 ML/MIN
[2023-04-18] MEDS: docusate sod 100mg capsule PO SCH ×2 (08:00→20:00)
[2023-04-18] MEDS: K and/or MAG REPLACEMENT MC SCH ×2 (08:00→19:57)
[2023-04-18] MEDS: busPIRone 5mg tablet PO SCH ×3 (08:07→20:05)
[2023-04-18] MEDS: olanzapine 10mg tablet PO SCH (08:08)
--- NOTE | 2023-04-18 11:43 | NUR ---
Reassessment: Per EMR diet was advanced to clear liquids 04/16 then full liquids 04/17 and pt eating well, documented with mostly 100% PO intake, however estimated nutrient needs are not being met d/t restrictive diet. LBM 04/17, documented with 6 BMs per I&O. Recommend advancing to low fiber diet as medically indicated. Per EMR pt continues D5-1/2 NS at 100 mL/hr providing 408 kcal/day. Will continue to follow closely and make recommendations as appropriate. Recommendations: 1) Advance to low fiber diet as medically indicated 2) Monitor need for ONS/additional protein 3) Bowel care per physician 4) Scaled weight this admit; subsequent weekly scaled weights; daily scaled weights if pt to receive nutrition support Addendum: 04/18/23 at [address] Amended: Links added.
--- NOTE | 2023-04-18 11:44 | NUR ---
Reassessment: Per EMR diet was advanced to clear liquids 04/16 then full liquids 04/17 and pt eating well, documented with mostly 100% PO intake, however estimated nutrient needs are not being met d/t restrictive diet. LBM 04/17, documented with 6 BMs per I&O. Recommend advancing to low fiber diet as medically indicated. Per EMR pt continues D5-1/2 NS at 100 mL/hr providing 408 kcal/day. Will continue to follow closely and make recommendations as appropriate. Recommendations: 1) Advance to low fiber diet as medically indicated 2) Monitor need for ONS/additional protein 3) Bowel care per physician 4) Scaled weight this admit; subsequent weekly scaled weights Addendum: 04/18/23 at [address] Amended: Links added.
[2023-04-18] MEDS ORDERED: methylnaltrexone br 12mg/0.6ml inj***SubQ only SQ ONE (15:55)
[2023-04-18] MEDS ORDERED: simethicone 80mg chew tab PO PRN (15:55)
[2023-04-18] MEDS: traMADol 50MG tablet PO PRN (16:46)
--- NOTE | 2023-04-18 18:21 | NUR ---
PAGER ID: [phone] MESSAGE: Pia MURILLO [phone] Re: Palma [id number] patients son is at bedside
--- NOTE | 2023-04-18 18:40 | NUR ---
Problems reprioritized. Patient report given, questions answered & plan of care reviewed with Chase ROSSI.
[2023-04-18] MEDS: LORazepam 0.5 MG tablet PO PRN (20:06)
[2023-04-19 02:00] VITALS: BP 108/65; PULSE 71; RESP 17; TEMP 97.8; O2SAT 99
[2023-04-19] MEDS: pantoprazole 40mg Tablet.DR PO SCH (07:30)
[2023-04-19] MEDS: K and/or MAG REPLACEMENT MC SCH ×2 (08:00→20:00)
[2023-04-19] MEDS: docusate sod 100mg capsule PO SCH ×2 (08:00→20:00)
[2023-04-19 08:09] LABS: BASOPHILS % (AUTO) 0.5 % (0-1); EOSINOPHILS # (AUTO) 0.3 X10'3 (0-0.9); EOSINOPHILS % (AUTO) 3.7 % (0-6); HEMATOCRIT 25.8 % (42.0-52.0); HEMOGLOBIN 8.6 g/dl (14.0-17.9); LYMPHOCYTES # (AUTO) 1.5 X10'3 (1.1-4.8); MEAN CORPUSCULAR HEMOGLOBIN 27.3 PG (27.0-31.0); MEAN CORPUSCULAR HGB CONC 33.5 g/dL (33.0-36.5); MEAN CORPUSCULAR VOLUME 81.6 FL (78-98); MEAN PLATELET VOLUME 6.5 FL (7.4-10.4); MONOCYTES # (AUTO) 0.7 X10'3 (0-0.9); MONOCYTES % (AUTO) 7.5 % (2-12); NEUTROPHILS # (AUTO) 6.3 X10'3 (1.8-7.7); NEUTROPHILS % (AUTO) 71.3 % (42-75); PLATELET COUNT 598 X10'3 (140-440); RED BLOOD COUNT 3.16 X10'6 (4.70-6.10); RED CELL DISTRIBUTION WIDTH 16.6 % (11.5-14.5); WHITE BLOOD COUNT 8.8 X10'3 (4.5-11.0)
[2023-04-19] MEDS: busPIRone 5mg tablet PO SCH ×3 (08:22→21:12)
[2023-04-19] MEDS: olanzapine 10mg tablet PO SCH (08:22)
[2023-04-19 08:30] LABS: ALANINE AMINOTRANSFERASE 16 U/L (12-78); ALBUMIN 2.3 G/DL (3.4-5.0); ALBUMIN/GLOBULIN RATIO 0.6 (1.1-1.5); ALKALINE PHOSPHATASE 57 IU/L (46-116); ANION GAP 6 (8-16); ASPARTATE AMINO TRANSFERASE 12 U/L (10-37); BILIRUBIN,TOTAL 0.2 MG/DL (0.1-1.0); BLOOD UREA NITROGEN 6 MG/DL (7-18); BUN/CREATININE RATIO 6.7 (10.0-20.0); CALCIUM 8.3 MG/DL (8.5-10.1); CHLORIDE 102 MMOL/L (99-107); CREATININE 0.89 MG/DL (0.60-1.10); GLUCOSE 102 MG/DL (70-104); SODIUM 136 MMOL/L (135-145); TOTAL CARBON DIOXIDE 28.4 MMOL/L (24-32); TOTAL PROTEIN 6.1 G/DL (6.4-8.2); eCRCL 102 ML/MIN; eGFR > 90 ML/MIN
[2023-04-19 11:47] VITALS: BP 116/67; PULSE 71; RESP 16; TEMP 98.8; O2SAT 98
[2023-04-19] MEDS: traMADol 50MG tablet PO PRN ×2 (14:54→21:13)
[2023-04-19 15:27] VITALS: BP 109/63; PULSE 75; RESP 12; TEMP 98.1; O2SAT 95
[2023-04-19 18:00] VITALS: BP 133/76; PULSE 80; RESP 16; TEMP 97.7; O2SAT 100
--- NOTE | 2023-04-19 18:45 | NUR ---
Report given to Lashay Metz RN, pt resting comfortably, ate dinner. No current complaints at this time.
[2023-04-19 20:00] VITALS: RESP 16; O2SAT 100
[2023-04-19 22:00] VITALS: BP 115/66; PULSE 74; RESP 16; TEMP 97.6; O2SAT 100
[2023-04-20 02:00] VITALS: BP 110/71; PULSE 80; RESP 16; TEMP 98; O2SAT 99
[2023-04-20 05:58] LABS: EOSINOPHILS # (AUTO) 0.3 X10'3 (0-0.9); HEMOGLOBIN 9.1 g/dl (14.0-17.9); MEAN PLATELET VOLUME 6.7 FL (7.4-10.4); RED CELL DISTRIBUTION WIDTH 16.8 % (11.5-14.5)
[2023-04-20 06:01] LABS: BASOPHILS % (AUTO) 0.4 % (0-1); EOSINOPHILS % (AUTO) 3.3 % (0-6); HEMATOCRIT 27.5 % (42.0-52.0); LYMPHOCYTES # (AUTO) 1.9 X10'3 (1.1-4.8); LYMPHOCYTES % (AUTO) 19.4 % (21-51); MEAN CORPUSCULAR HGB CONC 33.1 g/dL (33.0-36.5); MEAN CORPUSCULAR VOLUME 81.4 FL (78-98); MONOCYTES # (AUTO) 0.9 X10'3 (0-0.9); MONOCYTES % (AUTO) 9.2 % (2-12); NEUTROPHILS # (AUTO) 6.6 X10'3 (1.8-7.7); NEUTROPHILS % (AUTO) 67.7 % (42-75); PLATELET COUNT 642 X10'3 (140-440); RED BLOOD COUNT 3.38 X10'6 (4.70-6.10); WHITE BLOOD COUNT 9.7 X10'3 (4.5-11.0)
--- NOTE | 2023-04-20 06:12 | NUR ---
Assuming care of patient, report received from NOC FLO.
[2023-04-20 06:27] LABS: ALANINE AMINOTRANSFERASE 16 U/L (12-78); ALBUMIN 2.4 G/DL (3.4-5.0); ALBUMIN/GLOBULIN RATIO 0.6 (1.1-1.5); ALKALINE PHOSPHATASE 60 IU/L (46-116); ANION GAP 5 (8-16); ASPARTATE AMINO TRANSFERASE 12 U/L (10-37); BILIRUBIN,TOTAL 0.3 MG/DL (0.1-1.0); BLOOD UREA NITROGEN 12 MG/DL (7-18); BUN/CREATININE RATIO 13.2 (10.0-20.0); CALCIUM 8.4 MG/DL (8.5-10.1); CHLORIDE 101 MMOL/L (99-107); CREATININE 0.91 MG/DL (0.60-1.10); GLUCOSE 100 MG/DL (70-104); POTASSIUM 4.2 MMOL/L (3.5-5.1); SODIUM 136 MMOL/L (135-145); TOTAL PROTEIN 6.3 G/DL (6.4-8.2); eCRCL 100 ML/MIN; eGFR > 90 ML/MIN
[2023-04-20] MEDS: docusate sod 100mg capsule PO SCH ×2 (08:00→20:00)
[2023-04-20] MEDS: pantoprazole 40mg Tablet.DR PO SCH (08:16)
[2023-04-20] MEDS: olanzapine 10mg tablet PO SCH (08:16)
[2023-04-20] MEDS: traMADol 50MG tablet PO PRN ×2 (08:16→20:33)
[2023-04-20] MEDS: busPIRone 5mg tablet PO SCH ×3 (08:16→20:34)
[2023-04-20] MEDS: K and/or MAG REPLACEMENT MC SCH ×2 (11:12→20:00)
[2023-04-20 12:24] VITALS: BP 114/66; PULSE 85; RESP 16; TEMP 97.7; O2SAT 99
[2023-04-20] MEDS: LORazepam 0.5 MG tablet PO PRN ×2 (13:18→20:33)
[2023-04-20 17:09] VITALS: BP 102/53; PULSE 84; RESP 16; TEMP 97.2; O2SAT 100
--- NOTE | 2023-04-20 18:14 | NUR ---
Report given to Gabby SALAZAR
[2023-04-20 20:00] VITALS: RESP 16
[2023-04-21] VITALS (8 sets, daily range): BP systolic 98–120; BP diastolic 55–86; PULSE 60–100; RESP 1–20; TEMP 97–99.1; O2SAT 96–100
[2023-04-21 06:12] LABS: BASOPHILS # (AUTO) 0.1 X10'3 (0-0.2); BASOPHILS % (AUTO) 0.5 % (0-1); EOSINOPHILS # (AUTO) 0.4 X10'3 (0-0.9); EOSINOPHILS % (AUTO) 3.7 % (0-6); HEMATOCRIT 26.8 % (42.0-52.0); LYMPHOCYTES # (AUTO) 2.1 X10'3 (1.1-4.8); MEAN CORPUSCULAR HEMOGLOBIN 27.2 PG (27.0-31.0); MEAN CORPUSCULAR HGB CONC 33.4 g/dL (33.0-36.5); MEAN CORPUSCULAR VOLUME 81.6 FL (78-98); MEAN PLATELET VOLUME 6.7 FL (7.4-10.4); MONOCYTES # (AUTO) 0.8 X10'3 (0-0.9); MONOCYTES % (AUTO) 7.7 % (2-12); NEUTROPHILS % (AUTO) 68.1 % (42-75); PLATELET COUNT 584 X10'3 (140-440); RED BLOOD COUNT 3.29 X10'6 (4.70-6.10); RED CELL DISTRIBUTION WIDTH 16.8 % (11.5-14.5); WHITE BLOOD COUNT 10.3 X10'3 (4.5-11.0)
--- NOTE | 2023-04-21 06:18 | NUR ---
Received report from Gabby SALAZAR
[2023-04-21 06:46] LABS: ALANINE AMINOTRANSFERASE 19 U/L (12-78); ALBUMIN 2.4 G/DL (3.4-5.0); ALBUMIN/GLOBULIN RATIO 0.6 (1.1-1.5); ALKALINE PHOSPHATASE 52 IU/L (46-116); ANION GAP 7 (8-16); ASPARTATE AMINO TRANSFERASE 12 U/L (10-37); BILIRUBIN,TOTAL 0.1 MG/DL (0.1-1.0); BLOOD UREA NITROGEN 11 MG/DL (7-18); BUN/CREATININE RATIO 13.1 (10.0-20.0); CALCIUM 8.6 MG/DL (8.5-10.1); CHLORIDE 103 MMOL/L (99-107); CREATININE 0.84 MG/DL (0.60-1.10); GLUCOSE 104 MG/DL (70-104); POTASSIUM 4.1 MMOL/L (3.5-5.1); SODIUM 138 MMOL/L (135-145); TOTAL CARBON DIOXIDE 27.7 MMOL/L (24-32); TOTAL PROTEIN 6.2 G/DL (6.4-8.2); eCRCL 109 ML/MIN; eGFR > 90 ML/MIN
[2023-04-21] MEDS: traMADol 50MG tablet PO PRN ×2 (07:08→17:33)
[2023-04-21] MEDS: olanzapine 10mg tablet PO SCH (07:08)
[2023-04-21] MEDS: pantoprazole 40mg Tablet.DR PO SCH (07:08)
[2023-04-21] MEDS: busPIRone 5mg tablet PO SCH ×3 (07:08→20:46)
[2023-04-21] MEDS: docusate sod 100mg capsule PO SCH ×2 (07:09→20:00)
[2023-04-21] MEDS: K and/or MAG REPLACEMENT MC SCH ×2 (08:00→20:00)
--- NOTE | 2023-04-21 14:41 | NUR ---
F/u 04/21: Pt advanced to regular diet 04/18 WS PO mostly ~100% meals now meeting estimated needs. SUSI paged this AM recommended change to low-residue diet since s/p Ileostomy 04/10 per 04/20 MD note, however, per EMR and confirmed w/ RN today pt only has urostomy not ileostomy. SUSI d/w RN recommends continuing current regular diet if MD calls regarding diet. LBM 04/19 refusing colace per EMR. No nutrition interventions at this time. Will continue to follow. Recommendations: 1) Continue regular diet per MD 2) Monitor need for ONS needs pending further PO trends 3) Bowel care per physician 4) Scaled weight this admit; subsequent weekly scaled weights Addendum: 04/21/23 at [address] Amended: Links added.
[2023-04-21] MEDS: LORazepam 0.5 MG tablet PO PRN (17:30)
--- NOTE | 2023-04-21 18:20 | NUR ---
Report given to NOC SHIFT
--- NOTE | 2023-04-21 18:25 | NUR ---
Patient in room PCU 3021. I have received report from FLO Morgan and had the opportunity to ask questions and assume patient care. Patient is sleeping comfortably at this time, I will continue to monitor.
--- NOTE | 2023-04-22 06:15 | NUR ---
Patient in room PCU 3021. I have received report from Michelle ROSSI and had the opportunity to ask questions and assume patient care.
[2023-04-22 06:20] LABS: BASOPHILS # (AUTO) 0.1 X10'3 (0-0.2); EOSINOPHILS # (AUTO) 0.4 X10'3 (0-0.9); HEMOGLOBIN 8.7 g/dl (14.0-17.9); LYMPHOCYTES # (AUTO) 1.8 X10'3 (1.1-4.8); MONOCYTES # (AUTO) 0.8 X10'3 (0-0.9)
[2023-04-22 06:24] LABS: BASOPHILS % (AUTO) 0.6 % (0-1); EOSINOPHILS % (AUTO) 2.7 % (0-6); HEMATOCRIT 27.1 % (42.0-52.0); LYMPHOCYTES % (AUTO) 13.7 % (21-51); MEAN CORPUSCULAR HEMOGLOBIN 26.3 PG (27.0-31.0); MEAN CORPUSCULAR HGB CONC 32.2 g/dL (33.0-36.5); MEAN CORPUSCULAR VOLUME 81.5 FL (78-98); MEAN PLATELET VOLUME 6.8 FL (7.4-10.4); MONOCYTES % (AUTO) 5.7 % (2-12); NEUTROPHILS # (AUTO) 10.2 X10'3 (1.8-7.7); NEUTROPHILS % (AUTO) 77.3 % (42-75); PLATELET COUNT 599 X10'3 (140-440); RED BLOOD COUNT 3.33 X10'6 (4.70-6.10); RED CELL DISTRIBUTION WIDTH 17.2 % (11.5-14.5); WHITE BLOOD COUNT 13.2 X10'3 (4.5-11.0)
--- NOTE | 2023-04-22 06:28 | NUR ---
Problems reprioritized. Patient report given, questions answered & plan of care reviewed with Telma/MARTIN Webster.
[2023-04-22 06:29] LABS: ALANINE AMINOTRANSFERASE 19 U/L (12-78); ALBUMIN 2.4 G/DL (3.4-5.0); ALBUMIN/GLOBULIN RATIO 0.6 (1.1-1.5); ALKALINE PHOSPHATASE 52 IU/L (46-116); ANION GAP 5 (8-16); ASPARTATE AMINO TRANSFERASE 25 U/L (10-37); BILIRUBIN,TOTAL 0.1 MG/DL (0.1-1.0); BLOOD UREA NITROGEN 15 MG/DL (7-18); BUN/CREATININE RATIO 15.3 (10.0-20.0); CALCIUM 8.6 MG/DL (8.5-10.1); CHLORIDE 104 MMOL/L (99-107); CREATININE 0.98 MG/DL (0.60-1.10); GLUCOSE 104 MG/DL (70-104); POTASSIUM 4.5 MMOL/L (3.5-5.1); SODIUM 137 MMOL/L (135-145); TOTAL PROTEIN 6.2 G/DL (6.4-8.2); eCRCL 93 ML/MIN; eGFR 83 ML/MIN
[2023-04-22 07:00] VITALS: BP 140/70; PULSE 104; RESP 20; TEMP 98; O2SAT 99
[2023-04-22 08:00] VITALS: RESP 20; O2SAT 99
[2023-04-22] MEDS: docusate sod 100mg capsule PO SCH ×2 (08:00→08:01)
[2023-04-22] MEDS: K and/or MAG REPLACEMENT MC SCH (08:00)
[2023-04-22] MEDS: busPIRone 5mg tablet PO SCH ×2 (08:01→13:16)
[2023-04-22] MEDS: pantoprazole 40mg Tablet.DR PO SCH (08:01)
[2023-04-22] MEDS: olanzapine 10mg tablet PO SCH (08:01)
[2023-04-22] MEDS: LORazepam 0.5 MG tablet PO PRN (08:07)
[2023-04-22] MEDS: traMADol 50MG tablet PO PRN (08:08)
[2023-04-22 09:25] LABS: C-REACTIVE PROTEIN 1.09 MG/DL (0.0-0.5)
[2023-04-22 09:36] VITALS: BP 125/66; PULSE 75; RESP 15; TEMP 98.8; O2SAT 100
[2023-04-22 11:00] VITALS: BP 112/64; PULSE 80; RESP 18; TEMP 98.1; O2SAT 100
[2023-04-22] MEDS ORDERED: PANT40TA54 PO (11:57)
[2023-04-22] MEDS ORDERED: OLAN10TA73 PO ×2 (11:57→12:14)
[2023-04-22] MEDS ORDERED: LORA-268 PO (11:57)
[2023-04-22] MEDS ORDERED: BUSP10TA3 PO (11:57)
--- NOTE | 2023-04-22 12:00 | NUR ---
Patient discharging home with follow up appointment at [facility] wound [facility]. Patient was provided admission paperwork and reminded of appointment by case resolution specialist CHAMP. He was provided supplies for a week by [facility] and instructed on how to care for his wound. He verbalized understanding and stated he had done wound care in the past on himself. Educated on proper hand hygiene, ssx infection and when to call MD. Educated he must follow up ay the wound center. He again verbalized understanding but was very distracted and somewhat agitated, he wants to leave right now! . RLQ urostomy appliance was intact with clear yellow urine noted to the bag. Surrounding skin pink and normal for skin tone. He was provided a box of 5 appliances with a box of sure-prep wipes. He stated he was independent in all appliance care. He had opportunity to ask questions and was discharged. Follow- up [facility] wound [facility]. He is staying with a friend he reported and had a ride. Reported off to primary nurse.
[2023-04-22] MEDS ORDERED: BUSP10TA11 PO (12:14)
--- NOTE | 2023-04-22 12:49 | NUR ---
Paged SS about discharge
--- NOTE | 2023-04-22 14:40 | NUR ---
Nadine SALAZAR documentation: I have reviewed and agree with all interventions, assessments performed and documented by Darin SALAZAR. Nadine SALAZAR Medication Administration: For this medication-pass time frame, all medication were reviewed, dispensed, administered and documented per hospital policy by Nick SALAZAR.
--- NOTE | 2023-04-22 14:40 | NUR ---
patient discharged, with all belongings and discharge instructions, meeting friend,patient is going to set up own hotel to say at. Escorted out IV removed.
--- NOTE | 2023-04-22 15:22 | NUR ---
WOUND INFECTION EDUCATION PROVIDED BY WOUND CARE 1. Patient instructed to call their primary doctor, or go the ED immediately if any of the following symptoms occur: * Increased pain in wound * Increase in drainage from the wound * Redness in the skin surrounding the wound * Warmth in the skin surrounding the wound * Bleeding from the wound * Temperature of 101 or greater 2. If any of these occur while in the hospital tell a nurse immediately. Addendum: 04/22/23 at 1522 by Yoly Nash RN Amended: Links added.
[2023-04-23] MEDS ORDERED: TRAM50TA2 PO (14:20)
== END 2023-04-22 14:38 | disposition home or self-care (01) | DRG 230 ==
LOC: ER 15:37 → ED HOLD 04-10 00:40 → PCU 3S 04-10 03:15
PROVIDERS: ADMIT Family Medicine; ATTEND Internal Medicine
PROC: 0DQN0ZZ Repair Sigmoid Colon, Open Approach (ICD-10-PCS; 2023-04-10)
PROC: 0DNW0ZZ Release Peritoneum, Open Approach (ICD-10-PCS; 2023-04-10)
PROC: 0D1B0Z4 Bypass Ileum to Cutaneous, Open Approach (ICD-10-PCS; principal; 2023-04-10 14:08)
DX: K94.01 Colostomy hemorrhage (principal); K56.600 Partial intestinal obstruction, unspecified as to cause; E87.20 Acidosis, unspecified; K56.7 Ileus, unspecified; D50.0 Iron deficiency anemia secondary to blood loss (chronic); F10.20 Alcohol dependence, uncomplicated; D64.9 Anemia, unspecified; D72.829 Elevated white blood cell count, unspecified; F15.129 Other stimulant abuse with intoxication, unspecified; F20.9 Schizophrenia, unspecified; F41.9 Anxiety disorder, unspecified; G89.4 Chronic pain syndrome; I12.9 Hypertensive chronic kidney disease with stage 1 through stage 4 chronic kidney disease, or unspecified chronic kidney disease; N18.9 Chronic kidney disease, unspecified; K92.1 Melena; Z88.1 Allergy status to other antibiotic agents; Z91.013 Allergy to seafood; Z79.899 Other long term (current) drug therapy; Z72.0 Tobacco use; Z90.49 Acquired absence of other specified parts of digestive tract; Z91.148 Patient's other noncompliance with medication regimen for other reason
CPT/HCPCS: 36415; 36430; 71045; 71250; 74176; 74270; 80053; 80061; 80305; 80320; 82948; 83036; 83735; 83880; 84100; 84132; 84145; 85008; 85025; 85027; 85610; 85651; 85730; 86140; 86885; 86900; 86901; 86920; 87081; 93005; 99285; A4421; A4615; A4618; A4649; A6234; A6253; A6446; A6449; A7000; C9113; G0378; J0131; J0694; J1100; J1170; J2060; J2175; J2250; J2270; J2405; J2543; J2704; J2765; J3010; J3490; J7030; J7040; J7120; P9016; Q9967

== ENCOUNTER 2023-06-01 11:04 | Emergency (ER) | payer MEDICAID ==
[~2023-06-01 11:04] MED LIST changes: +BUSP10TA3 PO; -CEPH-585 PO; +LORA-268 PO; -NO HOME MEDS; +OLAN10TA73 PO; -ONDA4TAB12 PO; +PANT40TA54 PO
== END 2023-06-01 12:31 | disposition left against medical advice (07) ==
LOC: ER 11:05
DX: Z00.8 Encounter for other general examination (principal); Z53.21 Procedure and treatment not carried out due to patient leaving prior to being seen by health care provider

== ENCOUNTER 2023-06-09 10:02 | Emergency (ER) | payer MEDICAID ==
[~2023-06-09] VITALS: Ht 172.7 cm; Wt 68.2 kg
[2023-06-09 11:12] VITALS: BP 133/62; PULSE 105; RESP 18; TEMP 97.7; O2SAT 100
--- NOTE | 2023-06-09 11:20 | NUR ---
PADMINI # LOG REPORT: [id number]
== END 2023-06-09 16:01 | disposition left against medical advice (07) ==
LOC: ER 10:05
DX: R22.2 Localized swelling, mass and lump, trunk (principal); Z53.21 Procedure and treatment not carried out due to patient leaving prior to being seen by health care provider
CPT/HCPCS: 99281

== ENCOUNTER 2023-06-09 16:30 | Emergency (ER) | payer MEDICAID ==
[~2023-06-09] VITALS: Ht 172.7 cm; Wt 68.1 kg
[2023-06-09 16:40] VITALS: PULSE 102; RESP 18; TEMP 97.6; O2SAT 98
--- NOTE | 2023-06-09 19:16 | NUR ---
urostomy supplies given
[2023-06-09] MEDS ORDERED: morphine 2 MG/ML inj. syringe IM ONE (19:20)
[2023-06-09] MEDS ORDERED: ondansetron 4mg rapidly disintigrating tab PO ONE (19:20)
== END 2023-06-09 19:34 | disposition home or self-care (01) ==
LOC: ER 16:31
DX: K94.09 Other complications of colostomy (principal); R10.9 Unspecified abdominal pain; G89.29 Other chronic pain; Z87.81 Personal history of (healed) traumatic fracture; Z86.14 Personal history of Methicillin resistant Staphylococcus aureus infection; Z56.0 Unemployment, unspecified; Z59.00 Homelessness unspecified; Z91.013 Allergy to seafood; Z91.030 Bee allergy status; Z88.1 Allergy status to other antibiotic agents; Z79.899 Other long term (current) drug therapy
CPT/HCPCS: 96372; 99283; J2270; A4421

== ENCOUNTER 2023-06-15 16:56 | Emergency (ER) | payer MEDICAID ==
[~2023-06-15] VITALS: Ht 172.7 cm; Wt 68.2 kg
[2023-06-15 17:07] VITALS: BP 147/85; PULSE 95; RESP 18; TEMP 97; O2SAT 97
[2023-06-15] MEDS ORDERED: SULF1TAB49 PO (19:21)
[2023-06-15] MEDS ORDERED: ketorolac trometh inj. 60 MG/2 ML VIAL IM ONE (19:50)
== END 2023-06-15 20:26 | disposition home or self-care (01) ==
LOC: ER 16:57
DX: L03.116 Cellulitis of left lower limb (principal); G89.29 Other chronic pain; Z86.14 Personal history of Methicillin resistant Staphylococcus aureus infection; Z56.0 Unemployment, unspecified; Z59.00 Homelessness unspecified; Z72.89 Other problems related to lifestyle; Z91.013 Allergy to seafood; Z88.1 Allergy status to other antibiotic agents; Z88.8 Allergy status to other drugs, medicaments and biological substances; Z91.030 Bee allergy status; Z79.899 Other long term (current) drug therapy
CPT/HCPCS: 96372; 99283; J1885

== ENCOUNTER 2023-06-19 18:33 | Emergency (ER) | payer MEDICAID ==
[~2023-06-19] VITALS: Ht 172.7 cm; Wt 68.2 kg
[~2023-06-19 18:33] MED LIST changes: +SULF1TAB49 PO
[2023-06-19 18:41] VITALS: TEMP 98.4
[2023-06-19] MEDS ORDERED: ketorolac trometh inj. 60 MG/2 ML VIAL IM ONE (19:45)
[2023-06-19] MEDS ORDERED: ketorolac tromethamine 15mg/ml inj. IM ONE (19:50)
[2023-06-19] MEDS ORDERED: AMOX-117 PO (19:56)
[2023-06-19 20:19] VITALS: BP 130/82; PULSE 75; RESP 18; O2SAT 99
== END 2023-06-19 20:29 | disposition home or self-care (01) ==
LOC: ER 18:34
DX: L03.032 Cellulitis of left toe (principal); F31.9 Bipolar disorder, unspecified; Z86.14 Personal history of Methicillin resistant Staphylococcus aureus infection; Z86.2 Personal history of diseases of the blood and blood-forming organs and certain disorders involving the immune mechanism; Z91.013 Allergy to seafood; Z88.8 Allergy status to other drugs, medicaments and biological substances; Z79.899 Other long term (current) drug therapy
CPT/HCPCS: 96372; 99283; J1885

== ENCOUNTER 2023-06-22 14:52 | Emergency (ER) | payer MEDICAID ==
[~2023-06-22] VITALS: Ht 172.7 cm; Wt 75.2 kg
[~2023-06-22 14:52] MED LIST changes: +AMOX-117 PO
[2023-06-22 16:42] VITALS: BP 143/76; PULSE 100; RESP 14; TEMP 97.8; O2SAT 100
[2023-06-22] MEDS ORDERED: ketorolac trometh inj. 60 MG/2 ML VIAL IM ONE (18:55)
--- NOTE | 2023-06-22 19:11 | NUR ---
OSTEMOY BAG PROVIDED FOOD PROVIDED
== END 2023-06-22 19:13 | disposition home or self-care (01) ==
LOC: ER 14:53
DX: M79.675 Pain in left toe(s) (principal); Z91.013 Allergy to seafood; Z88.1 Allergy status to other antibiotic agents; Z79.2 Long term (current) use of antibiotics; Z79.899 Other long term (current) drug therapy
CPT/HCPCS: 96372; 99283; J1885; A4421

== ENCOUNTER 2023-06-28 08:34 | Emergency (ER) | payer MEDICAID ==
[~2023-06-28] VITALS: Ht 172.7 cm; Wt 74.3 kg
[~2023-06-28 08:34] MED LIST changes: -SULF1TAB49 PO
[2023-06-28 08:37] VITALS: TEMP 97.6
--- NOTE | 2023-06-28 11:02 | NUR ---
PT GIVEN CLOTHES AND GIVEN MEDICAL SUPPLIES.
[2023-06-28 11:18] VITALS: BP 136/72; PULSE 82; RESP 18; O2SAT 95
--- NOTE | 2023-06-28 11:24 | NUR ---
I AGREE WITH THE ASSESSMENT DONE BY ADELE SANDRA LVN
== END 2023-06-28 11:29 | disposition home or self-care (01) ==
LOC: ER 08:35
DX: Z00.00 Encounter for general adult medical examination without abnormal findings (principal); R53.83 Other fatigue; G89.29 Other chronic pain; F41.9 Anxiety disorder, unspecified; F32.9 Major depressive disorder, single episode, unspecified; Z98.890 Other specified postprocedural states; Z86.2 Personal history of diseases of the blood and blood-forming organs and certain disorders involving the immune mechanism; Z56.0 Unemployment, unspecified; Z59.00 Homelessness unspecified; Z72.89 Other problems related to lifestyle; Z91.013 Allergy to seafood; Z88.1 Allergy status to other antibiotic agents; Z91.030 Bee allergy status; Z79.899 Other long term (current) drug therapy
CPT/HCPCS: 99281

== ENCOUNTER 2023-07-06 03:51 | Emergency (ER) | payer MEDICAID ==
[~2023-07-06] VITALS: Ht 172.7 cm; Wt 70.5 kg
[~2023-07-06 03:51] MED LIST changes: -AMOX-117 PO
[2023-07-06 03:52] VITALS: O2SAT 100
[2023-07-06] MEDS ORDERED: haloperidol lactate 5mg/ml inj IM ONE (04:10)
[2023-07-06] MEDS ORDERED: diphenhydrAMINE 50 mg/ml inj IM ONE (04:10)
--- NOTE | 2023-07-06 06:42 | NUR ---
Patient uncooperative during my interaction with him, colostomy bag on the floor, patient has right lower abdomen stoma pink in color, no drainage covered with towel. Patient not letting me do further assessment. Pt refused gown on
[2023-07-06 07:28] VITALS: BP 105/58; PULSE 87; RESP 14; TEMP 98.9
--- NOTE | 2023-07-06 07:36 | NUR ---
new colostomy bag applied on the stoma prior to disharge
== END 2023-07-06 07:38 | disposition home or self-care (01) ==
LOC: ER 03:52
DX: F23 Brief psychotic disorder (principal); G89.29 Other chronic pain; F32.A Depression, unspecified; F41.9 Anxiety disorder, unspecified; Z56.0 Unemployment, unspecified; Z72.9 Problem related to lifestyle, unspecified; Z88.8 Allergy status to other drugs, medicaments and biological substances; Z91.013 Allergy to seafood; Z88.1 Allergy status to other antibiotic agents; Z91.030 Bee allergy status; Z79.899 Other long term (current) drug therapy
CPT/HCPCS: 96372; 99284; J1200; J1630

== ENCOUNTER 2024-01-02 18:32 | Emergency (ER) | payer MEDICAID ==
[~2024-01-02] VITALS: Ht 172.7 cm; Wt 68.5 kg
[2024-01-02 19:04] VITALS: BP 111/75; PULSE 101; RESP 16; TEMP 98.5; O2SAT 97
== END 2024-01-02 19:20 | disposition home or self-care (01) ==
LOC: ER 18:33
DX: N36.8 Other specified disorders of urethra (principal); F41.9 Anxiety disorder, unspecified; F32.A Depression, unspecified; Z98.890 Other specified postprocedural states; Z59.00 Homelessness unspecified; Z56.0 Unemployment, unspecified; Z72.89 Other problems related to lifestyle; Z79.899 Other long term (current) drug therapy; Z88.8 Allergy status to other drugs, medicaments and biological substances
CPT/HCPCS: 99281; A4421

== ENCOUNTER 2024-01-12 08:29 | Emergency (ER) | payer MEDICAID ==
[~2024-01-12] VITALS: Ht 167.6 cm; Wt 65.9 kg
== END 2024-01-12 11:33 | disposition left against medical advice (07) ==
LOC: ER 08:30
DX: Z53.21 Procedure and treatment not carried out due to patient leaving prior to being seen by health care provider (principal)
CPT/HCPCS: A4371; A4398; A4421

== ENCOUNTER 2024-01-15 21:16 | Emergency (ER) | payer MEDICAID ==
[~2024-01-15] VITALS: Ht 172.7 cm; Wt 66.0 kg
[2024-01-15 23:35] VITALS: BP 132/88; PULSE 98; RESP 16; TEMP 98; O2SAT 97
== END 2024-01-15 23:28 | disposition home or self-care (01) ==
LOC: ER 21:16
DX: Z43.3 Encounter for attention to colostomy (principal); Z91.013 Allergy to seafood; Z88.1 Allergy status to other antibiotic agents; Z91.030 Bee allergy status; Z79.899 Other long term (current) drug therapy
CPT/HCPCS: 99281; A4398

== ENCOUNTER 2024-02-03 21:01 | Emergency (ER) | payer MEDICAID | END 2024-02-03 22:02 | disposition left against medical advice (07) | LOC: ER 21:02 | DX: Z75.9 Unspecified problem related to medical facilities and other health care (principal); Z53.21 Procedure and treatment not carried out due to patient leaving prior to being seen by health care provider | CPT/HCPCS: A4421 ==

== ENCOUNTER 2024-02-04 20:38 | Emergency (ER) | payer MEDICAID ==
[~2024-02-04] VITALS: Ht 172.7 cm; Wt 70.0 kg
[2024-02-04 20:52] VITALS: BP 116/68; PULSE 90; RESP 16; O2SAT 99
[2024-02-04 21:15] VITALS: TEMP 98.6
== END 2024-02-04 21:19 | disposition home or self-care (01) ==
LOC: ER 20:39
DX: N99.528 Other complication of incontinent external stoma of urinary tract (principal); Z91.013 Allergy to seafood; Z88.1 Allergy status to other antibiotic agents; Z79.899 Other long term (current) drug therapy; Z91.030 Bee allergy status
CPT/HCPCS: 99281; A4421

== ENCOUNTER 2024-02-08 16:35 | Emergency (ER) | payer MEDICAID ==
[~2024-02-08] VITALS: Ht 172.7 cm; Wt 68.9 kg
[2024-02-08 16:50] VITALS: BP 132/93; PULSE 89; RESP 18; TEMP 98.2; O2SAT 100
== END 2024-02-08 17:45 | disposition home or self-care (01) ==
LOC: ER 16:39
DX: Z43.2 Encounter for attention to ileostomy (principal); F32.A Depression, unspecified; Z91.013 Allergy to seafood; Z88.1 Allergy status to other antibiotic agents; Z91.030 Bee allergy status; Z79.899 Other long term (current) drug therapy; Z90.49 Acquired absence of other specified parts of digestive tract; Z87.39 Personal history of other diseases of the musculoskeletal system and connective tissue
CPT/HCPCS: 99281; A4421

== ENCOUNTER 2024-02-20 09:57 | Emergency (ER) | payer MEDICAID ==
[~2024-02-20] VITALS: Ht 172.7 cm; Wt 65.5 kg
[2024-02-20] MEDS: normal saline 1000ML IV soln IVB ONE (11:06)
[2024-02-20] MEDS: ondansetron/PF 4mg/2ml inj IV ONE (11:07)
[2024-02-20 11:26] LABS: HEMOGLOBIN 15.8 g/dl (14.0-17.9)
[2024-02-20 11:30] LABS: ALANINE AMINOTRANSFERASE 22 U/L (12-78); ALKALINE PHOSPHATASE 76 IU/L (46-116); ANION GAP 16 (8-16); ASPARTATE AMINO TRANSFERASE 17 U/L (10-37); BASOPHILS % (AUTO) 0.5 % (0-1); BILIRUBIN,TOTAL 0.7 MG/DL (0.1-1.0); BLOOD UREA NITROGEN 11 MG/DL (7-18); CALCIUM 9.3 MG/DL (8.5-10.1); CHLORIDE 104 MMOL/L (99-107); EOSINOPHILS # (AUTO) 0.2 X10'3 (0-0.9); EOSINOPHILS % (AUTO) 2.8 % (0-6); GLUCOSE 106 MG/DL (70-104); HEMATOCRIT 48.3 % (42.0-52.0); LIPASE 26 U/L (16-77); LYMPHOCYTES # (AUTO) 2.1 X10'3 (1.1-4.8); LYMPHOCYTES % (AUTO) 34.8 % (21-51); MEAN CORPUSCULAR HEMOGLOBIN 27.3 PG (27.0-31.0); MEAN CORPUSCULAR HGB CONC 32.7 g/dL (33.0-36.5); MEAN CORPUSCULAR VOLUME 83.6 FL (78-98); MEAN PLATELET VOLUME 8.6 FL (7.4-10.4); MONOCYTES # (AUTO) 0.4 X10'3 (0-0.9); MONOCYTES % (AUTO) 6.2 % (2-12); NEUTROPHILS # (AUTO) 3.3 X10'3 (1.8-7.7); NEUTROPHILS % (AUTO) 55.7 % (42-75); PLATELET COUNT 274 X10'3 (140-440); POTASSIUM 3.2 MMOL/L (3.5-5.1); RED BLOOD COUNT 5.78 X10'6 (4.70-6.10); RED CELL DISTRIBUTION WIDTH 17.2 % (11.5-14.5); SODIUM 142 MMOL/L (135-145); TOTAL CARBON DIOXIDE 22.4 MMOL/L (24-32); TOTAL PROTEIN 8.2 G/DL (6.4-8.2); WHITE BLOOD COUNT 5.9 X10'3 (4.5-11.0); eCRCL 86 ML/MIN; eGFR 81 ML/MIN
[2024-02-20] MEDS: HYDROcodone/acetaminophen 5mg/325mg tablet PO ONE (13:41)
[2024-02-20 14:08] VITALS: BP 123/85; PULSE 76; RESP 14; TEMP 98.2; O2SAT 99
== END 2024-02-20 14:11 | disposition home or self-care (01) ==
LOC: ER 09:58
DX: R11.2 Nausea with vomiting, unspecified (principal); Z91.013 Allergy to seafood; Z88.1 Allergy status to other antibiotic agents; Z79.899 Other long term (current) drug therapy; Z90.49 Acquired absence of other specified parts of digestive tract
CPT/HCPCS: 36415; 80053; 83690; 85025; 96361; 96374; 99283; J2405; J7030

== ENCOUNTER 2024-02-29 16:20 | Emergency (ER) | payer MEDICAID ==
[~2024-02-29] VITALS: Ht 172.7 cm; Wt 7.0 kg
[2024-02-29 16:24] VITALS: BP 137/92; PULSE 121; TEMP 97.8; O2SAT 97
[2024-02-29 18:31] VITALS: RESP 18
== END 2024-02-29 18:32 | disposition home or self-care (01) ==
LOC: ER 16:21
DX: Z43.3 Encounter for attention to colostomy (principal); F15.10 Other stimulant abuse, uncomplicated; Z88.1 Allergy status to other antibiotic agents; Z91.013 Allergy to seafood; Z91.030 Bee allergy status
CPT/HCPCS: 99281; A4421

== ENCOUNTER 2024-03-09 19:24 | Emergency (ER) | payer MEDICAID ==
[~2024-03-09] VITALS: Ht 172.7 cm; Wt 66.7 kg
[2024-03-09 19:40] VITALS: BP 121/74; PULSE 73; RESP 14; TEMP 98.1; O2SAT 99
== END 2024-03-09 20:45 | disposition home or self-care (01) ==
LOC: ER 19:25
DX: Z43.6 Encounter for attention to other artificial openings of urinary tract (principal); D64.9 Anemia, unspecified; G89.29 Other chronic pain; F41.9 Anxiety disorder, unspecified; F32.A Depression, unspecified; F10.10 Alcohol abuse, uncomplicated; F15.10 Other stimulant abuse, uncomplicated; Z98.890 Other specified postprocedural states; Z72.89 Other problems related to lifestyle; Z59.00 Homelessness unspecified; Z56.0 Unemployment, unspecified; Z91.013 Allergy to seafood; Z88.1 Allergy status to other antibiotic agents; Z79.899 Other long term (current) drug therapy
CPT/HCPCS: 99281; A4421

== ENCOUNTER 2024-04-10 10:28 | Emergency (ER) | payer MEDICAID ==
[~2024-04-10] VITALS: Ht 172.7 cm; Wt 78.9 kg
[2024-04-10 10:38] VITALS: TEMP 98.3
[2024-04-10 11:06] LABS: UA COLLECTION TYPE OTHER
[2024-04-10 11:07] LABS: CLARITY,URINE BLOODY (Clear); COLOR,URINE RED (Yellow)
[2024-04-10 11:13] LABS: BACTERIA,URINE 1+ /HPF (Neg); RBC,URINE TNTC /HPF (0-2); SQUAMOUS EPITHELIAL CELL,UR FEW /LPF (FEW)
[2024-04-10 11:34] LABS: BASOPHILS % (AUTO) 0.4 % (0-1); EOSINOPHILS # (AUTO) 0.2 X10'3 (0-0.9); EOSINOPHILS % (AUTO) 2.1 % (0-6); HEMATOCRIT 42.1 % (42.0-52.0); LYMPHOCYTES # (AUTO) 1.6 X10'3 (1.1-4.8); LYMPHOCYTES % (AUTO) 19.9 % (21-51); MEAN CORPUSCULAR HGB CONC 33.3 g/dL (33.0-36.5); MEAN CORPUSCULAR VOLUME 87.3 FL (78-98); MEAN PLATELET VOLUME 7.8 FL (7.4-10.4); MONOCYTES # (AUTO) 0.6 X10'3 (0-0.9); MONOCYTES % (AUTO) 7.9 % (2-12); NEUTROPHILS # (AUTO) 5.7 X10'3 (1.8-7.7); NEUTROPHILS % (AUTO) 69.7 % (42-75); PLATELET COUNT 294 X10'3 (140-440); RED BLOOD COUNT 4.82 X10'6 (4.70-6.10); RED CELL DISTRIBUTION WIDTH 15.6 % (11.5-14.5); WHITE BLOOD COUNT 8.1 X10'3 (4.5-11.0)
[2024-04-10 11:39] LABS: ALBUMIN 3.5 G/DL (3.4-5.0); ANION GAP 10 (8-16); BLOOD UREA NITROGEN 21 MG/DL (7-18); BUN/CREATININE RATIO 21.9 (10.0-20.0); CALCIUM 9.2 MG/DL (8.5-10.1); CHLORIDE 107 MMOL/L (99-107); CREATININE 0.96 MG/DL (0.60-1.10); GLUCOSE 98 MG/DL (70-104); POTASSIUM 4.4 MMOL/L (3.5-5.1); SODIUM 145 MMOL/L (135-145); TOTAL CARBON DIOXIDE 27.7 MMOL/L (24-32); eCRCL 94 ML/MIN; eGFR 85 ML/MIN
[2024-04-10] MEDS ORDERED: iohexol 350MG/ML 100ml bottle IV ONE (11:58)
[2024-04-10] MEDS: HYDROcodone/acetaminophen 10/325mg tab PO ONE (13:55)
== END 2024-04-10 15:00 | disposition home or self-care (01) ==
LOC: ER 10:28
DX: R31.0 Gross hematuria (principal); F41.9 Anxiety disorder, unspecified; F32.A Depression, unspecified; Z91.013 Allergy to seafood; Z88.1 Allergy status to other antibiotic agents; Z91.030 Bee allergy status; Z79.899 Other long term (current) drug therapy; Z90.49 Acquired absence of other specified parts of digestive tract
CPT/HCPCS: 36415; 74178; 80048; 81001; 85025; 87088; 87186; 99285; Q9967

== ENCOUNTER 2024-04-27 20:04 | Emergency (ER) | payer MEDICAID ==
[~2024-04-27] VITALS: Ht 175.3 cm; Wt 71.8 kg
[2024-04-27 20:20] VITALS: BP 174/112; PULSE 114; RESP 20; TEMP 97; O2SAT 91
[2024-04-28] MEDS ORDERED: BUSP10TA11 PO (00:12)
[2024-04-28] MEDS: busPIRone 5mg tablet PO ONE (00:20)
== END 2024-04-28 00:32 | disposition home or self-care (01) ==
LOC: ER 20:05
DX: Z76.0 Encounter for issue of repeat prescription (principal); F41.9 Anxiety disorder, unspecified; F32.A Depression, unspecified; Z91.013 Allergy to seafood; Z88.1 Allergy status to other antibiotic agents; Z79.899 Other long term (current) drug therapy
CPT/HCPCS: 99283

== ENCOUNTER 2024-05-03 07:47 | Emergency (ER) | payer MEDICAID ==
[~2024-05-03] VITALS: Ht 175.3 cm; Wt 73.4 kg
[~2024-05-03 07:47] MED LIST changes: +BUSP10TA11 PO
[2024-05-03 10:15] VITALS: BP 120/76; PULSE 79; RESP 16; TEMP 98.5; O2SAT 99
== END 2024-05-03 10:30 | disposition home or self-care (01) ==
LOC: ER 07:48
DX: Z93.6 Other artificial openings of urinary tract status (principal); D64.9 Anemia, unspecified; G89.29 Other chronic pain; F41.9 Anxiety disorder, unspecified; F32.A Depression, unspecified; F28 Other psychotic disorder not due to a substance or known physiological condition; Z88.1 Allergy status to other antibiotic agents; Z91.030 Bee allergy status; Z91.013 Allergy to seafood; Z91.018 Allergy to other foods; Z79.899 Other long term (current) drug therapy; Z59.00 Homelessness unspecified; Z56.0 Unemployment, unspecified; Z72.89 Other problems related to lifestyle; Z98.890 Other specified postprocedural states
CPT/HCPCS: 99281; A4421

== ENCOUNTER 2024-05-04 00:44 | Emergency (ER) | payer MEDICAID ==
[~2024-05-04] VITALS: Ht 175.3 cm; Wt 72.9 kg
[2024-05-04 00:51] VITALS: BP 148/83; PULSE 93; RESP 18; TEMP 97.8; O2SAT 99
== END 2024-05-04 01:26 | disposition home or self-care (01) ==
LOC: ER 00:45
DX: K94.09 Other complications of colostomy (principal); D64.9 Anemia, unspecified; G89.29 Other chronic pain; F41.9 Anxiety disorder, unspecified; F32.A Depression, unspecified; F28 Other psychotic disorder not due to a substance or known physiological condition; Z88.8 Allergy status to other drugs, medicaments and biological substances; Z88.1 Allergy status to other antibiotic agents; Z91.013 Allergy to seafood; Z79.899 Other long term (current) drug therapy; Z98.890 Other specified postprocedural states; Z72.89 Other problems related to lifestyle; Z59.00 Homelessness unspecified; Z56.0 Unemployment, unspecified
CPT/HCPCS: 99281

== ENCOUNTER 2024-05-05 06:18 | Emergency (ER) | payer MEDICAID | END 2024-05-05 06:28 | disposition left against medical advice (07) | LOC: ER 06:20 | DX: K94.09 Other complications of colostomy (principal); Z53.21 Procedure and treatment not carried out due to patient leaving prior to being seen by health care provider; Z88.1 Allergy status to other antibiotic agents; Z91.030 Bee allergy status; Z91.013 Allergy to seafood; Z91.018 Allergy to other foods | CPT/HCPCS: A4421 ==

== ENCOUNTER 2024-05-13 04:51 | Emergency (ER) | payer MEDICAID ==
[~2024-05-13] VITALS: Ht 170.2 cm; Wt 73.6 kg
[2024-05-13 05:17] VITALS: TEMP 98.6
[2024-05-13] MEDS ORDERED: CLON0.1T2 PO (05:41)
[2024-05-13] MEDS: normal saline 1000ML IV soln IVB ONE (07:22)
[2024-05-13] MEDS: ketorolac trometh 15mg/ml vial 15 MG/ML ML IV ONE (07:22)
[2024-05-13] MEDS: ondansetron/PF 4mg/2ml inj IV ONE (07:23)
[2024-05-13 07:27] LABS: BASOPHILS % (AUTO) 0.5 % (0-1); EOSINOPHILS # (AUTO) 0.1 X10'3 (0-0.9); EOSINOPHILS % (AUTO) 1.2 % (0-6); HEMATOCRIT 41.6 % (42.0-52.0); LYMPHOCYTES # (AUTO) 0.8 X10'3 (1.1-4.8); LYMPHOCYTES % (AUTO) 10.5 % (21-51); MEAN CORPUSCULAR HEMOGLOBIN 29.4 PG (27.0-31.0); MEAN CORPUSCULAR HGB CONC 33.7 g/dL (33.0-36.5); MEAN CORPUSCULAR VOLUME 87.2 FL (78-98); MEAN PLATELET VOLUME 7.9 FL (7.4-10.4); MONOCYTES # (AUTO) 0.5 X10'3 (0-0.9); NEUTROPHILS # (AUTO) 6.5 X10'3 (1.8-7.7); NEUTROPHILS % (AUTO) 81.8 % (42-75); PLATELET COUNT 256 X10'3 (140-440); RED BLOOD COUNT 4.77 X10'6 (4.70-6.10); RED CELL DISTRIBUTION WIDTH 14.5 % (11.5-14.5)
[2024-05-13 07:41] LABS: BILIRUBIN,URINE NEGATIVE (Neg); CLARITY,URINE SLIGHTLY CLOUDY (Clear); COLOR,URINE YELLOW (Yellow); GLUCOSE, URINE NEGATIVE (Neg); KETONES,URINE NEGATIVE (Neg); LEUKOCYTE ESTERASE ,URINE SMALL (Neg); NITRITES, URINE POSITIVE (Neg); OCCULT BLOOD,URINE SMALL (Neg); PH,URINE 7.5 (4.8-8.0); PROTEIN,URINE TRACE mg/dl (Neg); UROBILINOGEN,URINE 0.2 E.U/dL (0.2-1.0)
[2024-05-13 07:47] LABS: UA COLLECTION TYPE OTHER
[2024-05-13 07:49] LABS: BACTERIA,URINE 2+ /HPF (Neg); MUCUS STRANDS MODERATE /LPF (Neg); SQUAMOUS EPITHELIAL CELL,UR FEW /LPF (FEW); WBC,URINE 50-100 /HPF (0-4)
[2024-05-13 07:50] LABS: WBC CLUMPS,URINE FEW /HPF (NEGATIVE)
[2024-05-13 08:53] LABS: ALBUMIN 2.9 G/DL (3.4-5.0); ALBUMIN/GLOBULIN RATIO 0.8 (1.1-1.5); ALKALINE PHOSPHATASE 70 IU/L (46-116); ANION GAP 8 (8-16); ASPARTATE AMINO TRANSFERASE 14 U/L (10-37); BILIRUBIN,TOTAL 0.7 MG/DL (0.1-1.0); CALCIUM 8.7 MG/DL (8.5-10.1); CHLORIDE 105 MMOL/L (99-107); CREATININE 0.86 MG/DL (0.60-1.10); GLUCOSE 104 MG/DL (70-104); LIPASE 38 U/L (16-77); POTASSIUM 3.8 MMOL/L (3.5-5.1); SODIUM 141 MMOL/L (135-145); TOTAL CARBON DIOXIDE 28.3 MMOL/L (24-32); TOTAL PROTEIN 6.5 G/DL (6.4-8.2); eCRCL 101 ML/MIN; eGFR > 90 ML/MIN
[2024-05-13 08:57] LABS: ALANINE AMINOTRANSFERASE 24 U/L (12-78); BLOOD UREA NITROGEN 11 MG/DL (7-18); BUN/CREATININE RATIO 12.8 (10.0-20.0)
[2024-05-13 09:49] VITALS: BP 99/56; PULSE 73; RESP 19; O2SAT 99
== END 2024-05-13 10:14 | disposition home or self-care (01) ==
LOC: ER 04:54
DX: R10.30 Lower abdominal pain, unspecified (principal); K62.5 Hemorrhage of anus and rectum; R11.2 Nausea with vomiting, unspecified; D64.9 Anemia, unspecified; G89.29 Other chronic pain; F41.9 Anxiety disorder, unspecified; F32.A Depression, unspecified; F28 Other psychotic disorder not due to a substance or known physiological condition; Z88.1 Allergy status to other antibiotic agents; Z91.030 Bee allergy status; Z91.013 Allergy to seafood; Z91.018 Allergy to other foods; Z79.899 Other long term (current) drug therapy; Z59.00 Homelessness unspecified; Z56.0 Unemployment, unspecified; Z98.890 Other specified postprocedural states
CPT/HCPCS: 36415; 80053; 81001; 83690; 84145; 85025; 87077; 87088; 87186; 96361; 96374; 96375; 99284; J1885; J2405; J7030; A4421

== ENCOUNTER 2024-05-14 00:05 | Emergency (ER) | payer MEDICAID ==
[~2024-05-14] VITALS: Ht 175.3 cm; Wt 70.9 kg
[~2024-05-14 00:05] MED LIST changes: +CLON0.1T2 PO
[2024-05-14 02:45] LABS: BASOPHILS % (AUTO) 0.3 % (0-1); EOSINOPHILS # (AUTO) 0.2 X10'3 (0-0.9); EOSINOPHILS % (AUTO) 4.2 % (0-6); HEMATOCRIT 41.9 % (42.0-52.0); HEMOGLOBIN 13.8 g/dl (14.0-17.9); LYMPHOCYTES # (AUTO) 0.9 X10'3 (1.1-4.8); LYMPHOCYTES % (AUTO) 18.8 % (21-51); MEAN CORPUSCULAR HEMOGLOBIN 28.7 PG (27.0-31.0); MEAN CORPUSCULAR HGB CONC 32.9 g/dL (33.0-36.5); MEAN CORPUSCULAR VOLUME 87.1 FL (78-98); MEAN PLATELET VOLUME 7.7 FL (7.4-10.4); MONOCYTES # (AUTO) 0.3 X10'3 (0-0.9); MONOCYTES % (AUTO) 6.5 % (2-12); NEUTROPHILS # (AUTO) 3.4 X10'3 (1.8-7.7); NEUTROPHILS % (AUTO) 70.2 % (42-75); PLATELET COUNT 222 X10'3 (140-440); RED BLOOD COUNT 4.81 X10'6 (4.70-6.10); RED CELL DISTRIBUTION WIDTH 14.7 % (11.5-14.5); WHITE BLOOD COUNT 4.9 X10'3 (4.5-11.0)
[2024-05-14 02:57] LABS: ALANINE AMINOTRANSFERASE 20 U/L (12-78); ALBUMIN 2.9 G/DL (3.4-5.0); ALBUMIN/GLOBULIN RATIO 0.8 (1.1-1.5); ALKALINE PHOSPHATASE 66 IU/L (46-116); ANION GAP 9 (8-16); ASPARTATE AMINO TRANSFERASE 19 U/L (10-37); BILIRUBIN,TOTAL 0.3 MG/DL (0.1-1.0); BLOOD UREA NITROGEN 6 MG/DL (7-18); BUN/CREATININE RATIO 7.9 (10.0-20.0); CALCIUM 8.3 MG/DL (8.5-10.1); CHLORIDE 110 MMOL/L (99-107); CREATININE 0.76 MG/DL (0.60-1.10); GLUCOSE 113 MG/DL (70-104); POTASSIUM 3.3 MMOL/L (3.5-5.1); SODIUM 144 MMOL/L (135-145); TOTAL CARBON DIOXIDE 24.8 MMOL/L (24-32); TOTAL PROTEIN 6.5 G/DL (6.4-8.2); eCRCL 123 ML/MIN; eGFR > 90 ML/MIN
[2024-05-14 03:06] LABS: ETHANOL 201 MG/DL (<10); THYROID STIMULATING HORMONE 0.44 ulU/ml (0.34-4.50)
[2024-05-14 07:24] LABS: BILIRUBIN,URINE NEGATIVE (Neg); CLARITY,URINE CLOUDY (Clear); COLOR,URINE YELLOW (Yellow); GLUCOSE, URINE NEGATIVE (Neg); KETONES,URINE NEGATIVE (Neg); LEUKOCYTE ESTERASE ,URINE LARGE (Neg); NITRITES, URINE POSITIVE (Neg); OCCULT BLOOD,URINE MODERATE (Neg); PROTEIN,URINE TRACE mg/dl (Neg); UROBILINOGEN,URINE 0.2 E.U/dL (0.2-1.0)
[2024-05-14 07:27] LABS: UA COLLECTION TYPE OTHER
[2024-05-14 07:31] LABS: BACTERIA,URINE 4+ /HPF (Neg); MUCUS STRANDS MANY /LPF (Neg); RBC,URINE 20-50 /HPF (0-2); SQUAMOUS EPITHELIAL CELL,UR FEW /LPF (FEW); WBC,URINE TNTC /HPF (0-4)
[2024-05-14 07:43] LABS: URINE AMPHETAMINE SCREEN NEGATIVE (Neg); URINE BARBITUATE SCREEN NEGATIVE (Neg); URINE BENZODIAZEPINES SCREEN NEGATIVE (Neg); URINE CANNABINOID SCREEN POSITIVE (Neg); URINE COCAINE SCREEN NEGATIVE (Neg); URINE METHADONE SCREEN NEGATIVE (Neg); URINE OPIATE SCREEN NEGATIVE (Neg); URINE PHENCYCLIDINE SCREEN NEGATIVE (Neg)
[2024-05-14 15:02] VITALS: BP 126/78; PULSE 86; RESP 18; TEMP 98.5; O2SAT 98
== END 2024-05-14 15:04 | disposition home or self-care (01) ==
LOC: ER 00:06
DX: R45.851 Suicidal ideations (principal); D64.9 Anemia, unspecified; G89.29 Other chronic pain; F41.9 Anxiety disorder, unspecified; F32.A Depression, unspecified; F28 Other psychotic disorder not due to a substance or known physiological condition; F17.200 Nicotine dependence, unspecified, uncomplicated; F15.10 Other stimulant abuse, uncomplicated; F10.10 Alcohol abuse, uncomplicated; Z59.00 Homelessness unspecified; Z56.0 Unemployment, unspecified; Z72.89 Other problems related to lifestyle; Z98.890 Other specified postprocedural states; Z88.1 Allergy status to other antibiotic agents; Z91.013 Allergy to seafood; Z91.018 Allergy to other foods; Z20.822 Contact with and (suspected) exposure to COVID-19
CPT/HCPCS: 36415; 80053; 80305; 80320; 81001; 83605; 84443; 85025; 87811; 99284; A4421

== ENCOUNTER 2024-05-18 04:53 | Emergency (ER) | payer MEDICAID ==
[~2024-05-18] VITALS: Ht 175.3 cm; Wt 74.7 kg
[2024-05-18 04:54] VITALS: BP 132/88; PULSE 87; RESP 14; TEMP 98.2; O2SAT 98
== END 2024-05-18 05:06 | disposition home or self-care (01) ==
LOC: ER 04:54
DX: K94.09 Other complications of colostomy (principal); D64.9 Anemia, unspecified; G89.29 Other chronic pain; F41.9 Anxiety disorder, unspecified; F32.A Depression, unspecified; F15.10 Other stimulant abuse, uncomplicated; F10.10 Alcohol abuse, uncomplicated; Z98.890 Other specified postprocedural states; Z59.00 Homelessness unspecified; Z72.89 Other problems related to lifestyle; Z56.0 Unemployment, unspecified; Z88.8 Allergy status to other drugs, medicaments and biological substances; Z88.1 Allergy status to other antibiotic agents; Z91.013 Allergy to seafood
CPT/HCPCS: 99281; A4421

== ENCOUNTER 2024-05-20 21:04 | Emergency (ER) | payer MEDICAID ==
[~2024-05-20] VITALS: Ht 175.3 cm; Wt 71.3 kg
[2024-05-20 21:18] VITALS: BP 131/92; PULSE 114; RESP 16; TEMP 98; O2SAT 99
== END 2024-05-21 00:27 | disposition left against medical advice (07) ==
LOC: ER 21:05
DX: T85.638A Leakage of other specified internal prosthetic devices, implants and grafts, initial encounter (principal); F15.10 Other stimulant abuse, uncomplicated; D64.9 Anemia, unspecified; G89.29 Other chronic pain; F41.9 Anxiety disorder, unspecified; F32.A Depression, unspecified; Z88.1 Allergy status to other antibiotic agents; Z91.030 Bee allergy status; Z91.013 Allergy to seafood; Z59.00 Homelessness unspecified; Z56.0 Unemployment, unspecified; Z72.89 Other problems related to lifestyle; Z98.890 Other specified postprocedural states
CPT/HCPCS: 99281; A4421

== ENCOUNTER 2024-05-24 19:33 | Emergency (ER) | payer MEDICAID ==
[~2024-05-24] VITALS: Ht 175.3 cm; Wt 71.0 kg
[2024-05-24] MEDS: LORazepam 2 mg/ml vial IM ONE (21:06)
[2024-05-24] MEDS: diphenhydrAMINE 50 mg/ml inj IM ONE (21:06)
[2024-05-24 21:25] LABS: BASOPHILS % (AUTO) 0.6 % (0-1); EOSINOPHILS # (AUTO) 0.2 X10'3 (0-0.9); MEAN PLATELET VOLUME 8.5 FL (7.4-10.4); MONOCYTES # (AUTO) 0.4 X10'3 (0-0.9)
[2024-05-24 21:28] LABS: EOSINOPHILS % (AUTO) 2.1 % (0-6); HEMATOCRIT 42.5 % (42.0-52.0); HEMOGLOBIN 13.9 g/dl (14.0-17.9); LYMPHOCYTES # (AUTO) 1.2 X10'3 (1.1-4.8); LYMPHOCYTES % (AUTO) 15.4 % (21-51); MEAN CORPUSCULAR HEMOGLOBIN 28.6 PG (27.0-31.0); MEAN CORPUSCULAR HGB CONC 32.7 g/dL (33.0-36.5); MEAN CORPUSCULAR VOLUME 87.5 FL (78-98); MONOCYTES % (AUTO) 5.3 % (2-12); NEUTROPHILS % (AUTO) 76.6 % (42-75); PLATELET COUNT 212 X10'3 (140-440); RED BLOOD COUNT 4.86 X10'6 (4.70-6.10); RED CELL DISTRIBUTION WIDTH 14.5 % (11.5-14.5); WHITE BLOOD COUNT 7.8 X10'3 (4.5-11.0)
[2024-05-24 21:35] LABS: ANION GAP 6 (8-16); BLOOD UREA NITROGEN 14 MG/DL (7-18); BUN/CREATININE RATIO 17.1 (10.0-20.0); CALCIUM 8.4 MG/DL (8.5-10.1); CHLORIDE 105 MMOL/L (99-107); CREATININE 0.82 MG/DL (0.60-1.10); ETHANOL < 10 MG/DL (<10); GLUCOSE 95 MG/DL (70-104); SODIUM 138 MMOL/L (135-145); TOTAL CARBON DIOXIDE 26.7 MMOL/L (24-32); eCRCL 114 ML/MIN; eGFR > 90 ML/MIN
[2024-05-25 00:01] LABS: BILIRUBIN,URINE NEGATIVE (Neg); CLARITY,URINE CLOUDY (Clear); COLOR,URINE YELLOW (Yellow); GLUCOSE, URINE NEGATIVE (Neg); KETONES,URINE NEGATIVE (Neg); LEUKOCYTE ESTERASE ,URINE TRACE (Neg); NITRITES, URINE NEGATIVE (Neg); OCCULT BLOOD,URINE LARGE (Neg); PROTEIN,URINE 30 mg/dl (Neg); UROBILINOGEN,URINE 0.2 E.U/dL (0.2-1.0)
[2024-05-25 00:09] LABS: UA COLLECTION TYPE NON-SPECIFIED
[2024-05-25 00:10] LABS: BACTERIA,URINE FEW /HPF (Neg); RBC,URINE TNTC /HPF (0-2)
[2024-05-25 00:11] LABS: SQUAMOUS EPITHELIAL CELL,UR FEW /LPF (FEW); TRANSITIONAL EPI CELLS,URINE FEW /HPF; WBC CLUMPS,URINE FEW /HPF (NEGATIVE)
[2024-05-25 00:12] LABS: FINE GRANULAR CAST 0-3 /LPF (NEGATIVE)
[2024-05-25 00:19] LABS: URINE AMPHETAMINE SCREEN POSITIVE (Neg); URINE BARBITUATE SCREEN NEGATIVE (Neg); URINE BENZODIAZEPINES SCREEN NEGATIVE (Neg); URINE CANNABINOID SCREEN POSITIVE (Neg); URINE COCAINE SCREEN NEGATIVE (Neg); URINE METHADONE SCREEN NEGATIVE (Neg); URINE OPIATE SCREEN NEGATIVE (Neg); URINE PHENCYCLIDINE SCREEN NEGATIVE (Neg)
[2024-05-25] MEDS ORDERED: BUSP10TA3 PO (04:15)
[2024-05-25] MEDS: busPIRone 5mg tablet PO SCH (08:59)
[2024-05-25 09:03] VITALS: BP 110/70; PULSE 79; O2SAT 98
[2024-05-25 10:02] VITALS: RESP 16
[2024-05-25 10:51] VITALS: TEMP 98.6
== END 2024-05-25 10:42 | disposition home or self-care (01) ==
LOC: ER 19:35
DX: R45.851 Suicidal ideations (principal); F23 Brief psychotic disorder; D64.9 Anemia, unspecified; G89.29 Other chronic pain; F41.9 Anxiety disorder, unspecified; F32.A Depression, unspecified; Z98.890 Other specified postprocedural states; F15.10 Other stimulant abuse, uncomplicated; Z59.00 Homelessness unspecified; Z56.0 Unemployment, unspecified; Z72.89 Other problems related to lifestyle; Z88.8 Allergy status to other drugs, medicaments and biological substances; Z88.1 Allergy status to other antibiotic agents; Z91.030 Bee allergy status; Z20.822 Contact with and (suspected) exposure to COVID-19
CPT/HCPCS: 36415; 80048; 80305; 80320; 81001; 85025; 87811; 96372; 99284; J1200; J2060; 81003; A6449

== ENCOUNTER 2024-05-25 11:28 | Emergency (ER) | payer MEDICAID ==
[~2024-05-25 11:28] MED LIST changes: -BUSP10TA11 PO; -CLON0.1T2 PO; -LORA-268 PO; -OLAN10TA73 PO; -PANT40TA54 PO
== END 2024-05-25 11:46 | disposition left against medical advice (07) ==
LOC: ER 11:29
DX: K94.01 Colostomy hemorrhage (principal); F41.9 Anxiety disorder, unspecified; F32.A Depression, unspecified; Z88.1 Allergy status to other antibiotic agents; Z91.030 Bee allergy status; Z90.49 Acquired absence of other specified parts of digestive tract; Z87.440 Personal history of urinary (tract) infections
CPT/HCPCS: 99281

== ENCOUNTER 2024-05-28 01:50 | Emergency (ER) | payer MEDICAID ==
[~2024-05-28] VITALS: Ht 175.3 cm; Wt 69.7 kg
[2024-05-28 02:41] VITALS: BP 120/85; PULSE 88; RESP 16; TEMP 97.7; O2SAT 97
[2024-05-28] MEDS ORDERED: DOXY150T8 PO (19:07)
== END 2024-05-28 02:30 | disposition home or self-care (01) ==
LOC: ER 01:50
DX: Z93.3 Colostomy status (principal); F15.10 Other stimulant abuse, uncomplicated; Z88.1 Allergy status to other antibiotic agents; Z91.030 Bee allergy status; Z87.440 Personal history of urinary (tract) infections; Z90.49 Acquired absence of other specified parts of digestive tract
CPT/HCPCS: 99281

== ENCOUNTER 2024-05-28 18:54 | Emergency (ER) | payer MEDICAID ==
[~2024-05-28] VITALS: Ht 175.3 cm; Wt 69.5 kg
[2024-05-28 18:59] VITALS: BP 147/91; PULSE 99; RESP 16; O2SAT 97
[2024-05-28] MEDS ORDERED: DOXY150T8 PO (19:07)
[2024-05-28 19:15] VITALS: TEMP 98.4
== END 2024-05-28 19:18 | disposition home or self-care (01) ==
LOC: ER 18:54
DX: N99.528 Other complication of incontinent external stoma of urinary tract (principal); Z88.1 Allergy status to other antibiotic agents; Z91.030 Bee allergy status
CPT/HCPCS: 99283; A4421

== ENCOUNTER 2024-05-29 06:31 | Emergency (ER) | payer MEDICAID ==
[~2024-05-29] VITALS: Ht 175.3 cm; Wt 63.5 kg
[~2024-05-29 06:31] MED LIST changes: +DOXY150T8 PO
[2024-05-29] MEDS: LORazepam 1 MG tablet PO ONE (07:40)
[2024-05-29] MEDS: diphenhydrAMINE 25mg capsule PO ONE (07:41)
[2024-05-29] MEDS: OLANZapine 5mg rapidly disint. tablet PO ONE (07:41)
[2024-05-29 09:43] VITALS: TEMP 96.8
[2024-05-29 13:48] VITALS: BP 110/64; PULSE 62; RESP 18; O2SAT 97
== END 2024-05-29 13:44 | disposition home or self-care (01) ==
LOC: ER 06:32
DX: F20.9 Schizophrenia, unspecified (principal); F19.10 Other psychoactive substance abuse, uncomplicated; F41.9 Anxiety disorder, unspecified; F17.210 Nicotine dependence, cigarettes, uncomplicated; Z91.013 Allergy to seafood; Z88.1 Allergy status to other antibiotic agents; Z79.899 Other long term (current) drug therapy; Z90.49 Acquired absence of other specified parts of digestive tract; Z91.030 Bee allergy status; Z87.440 Personal history of urinary (tract) infections; Z59.00 Homelessness unspecified
CPT/HCPCS: 99285; Q0163

== ENCOUNTER 2024-05-30 00:42 | Emergency (ER) | payer MEDICAID ==
[~2024-05-30] VITALS: Ht 175.3 cm; Wt 75.2 kg
[2024-05-30 01:54] VITALS: BP 100/78; PULSE 78; O2SAT 98
[2024-05-30 02:07] VITALS: RESP 16; TEMP 98.2
== END 2024-05-30 02:09 | disposition home or self-care (01) ==
LOC: ER 00:44
DX: Z93.6 Other artificial openings of urinary tract status (principal); F15.10 Other stimulant abuse, uncomplicated; Z88.1 Allergy status to other antibiotic agents; Z91.030 Bee allergy status; Z87.440 Personal history of urinary (tract) infections
CPT/HCPCS: 99281; A4421

== ENCOUNTER → 2024-06-01 | Emergency (ER) | payer MEDICAID ==
[~2024-06-01] VITALS: Ht 175.3 cm; Wt 72.7 kg
[2024-06-01 11:22] VITALS: BP 133/80; PULSE 92; RESP 16; O2SAT 98
== END | disposition home or self-care (01) ==
LOC: ER 11:21
DX: T83.098A Other mechanical complication of other urinary catheter, initial encounter (principal); G89.29 Other chronic pain; F41.9 Anxiety disorder, unspecified; F32.A Depression, unspecified; Z00.00 Encounter for general adult medical examination without abnormal findings; Z76.0 Encounter for issue of repeat prescription; Z86.14 Personal history of Methicillin resistant Staphylococcus aureus infection; Z98.890 Other specified postprocedural states; Z87.440 Personal history of urinary (tract) infections; Z56.0 Unemployment, unspecified; Z59.00 Homelessness unspecified; Z91.013 Allergy to seafood; Z88.1 Allergy status to other antibiotic agents; Z91.030 Bee allergy status; Z79.2 Long term (current) use of antibiotics; Z79.899 Other long term (current) drug therapy; Y84.6 Urinary catheterization as the cause of abnormal reaction of the patient, or of later complication, without mention of misadventure at the time of the procedure; Y92.89 Other specified places as the place of occurrence of the external cause
CPT/HCPCS: 99281; A4421

== ENCOUNTER 2024-06-02 10:04 | Emergency (ER) | payer MEDICAID ==
[~2024-06-02] VITALS: Ht 175.3 cm; Wt 72.8 kg
[2024-06-02 10:22] VITALS: BP 136/82; PULSE 90; RESP 16; TEMP 97.2; O2SAT 98
== END 2024-06-02 10:34 | disposition home or self-care (01) ==
LOC: ER 10:05
DX: Z43.3 Encounter for attention to colostomy (principal); F41.9 Anxiety disorder, unspecified; F32.A Depression, unspecified; F15.10 Other stimulant abuse, uncomplicated; Z91.013 Allergy to seafood; Z88.1 Allergy status to other antibiotic agents; Z91.030 Bee allergy status; Z79.2 Long term (current) use of antibiotics; Z79.899 Other long term (current) drug therapy; Z90.49 Acquired absence of other specified parts of digestive tract; Z87.440 Personal history of urinary (tract) infections
CPT/HCPCS: 99281; A4421

== ENCOUNTER 2024-06-07 21:25 | Emergency (ER) | payer MEDICAID ==
[~2024-06-07] VITALS: Ht 175.3 cm; Wt 75.0 kg
[2024-06-07 21:37] VITALS: BP 163/98; PULSE 80; RESP 17; TEMP 98.2; O2SAT 98
== END 2024-06-07 23:51 | disposition home or self-care (01) ==
LOC: ER 21:26
DX: Z43.3 Encounter for attention to colostomy (principal); F41.9 Anxiety disorder, unspecified; F32.A Depression, unspecified; F15.10 Other stimulant abuse, uncomplicated; Z91.013 Allergy to seafood; Z88.1 Allergy status to other antibiotic agents; Z91.030 Bee allergy status; Z79.899 Other long term (current) drug therapy; Z79.2 Long term (current) use of antibiotics; Z87.440 Personal history of urinary (tract) infections; Z90.49 Acquired absence of other specified parts of digestive tract
CPT/HCPCS: 99281; A4421

== ENCOUNTER 2024-06-10 20:58 | Emergency (ER) | payer MEDICAID ==
[~2024-06-10] VITALS: Ht 175.3 cm; Wt 74.5 kg
[~2024-06-10 20:58] MED LIST changes: -DOXY150T8 PO
[2024-06-10 21:32] VITALS: TEMP 97.8
[2024-06-10 22:08] LABS: BILIRUBIN,URINE NEGATIVE (Neg); CLARITY,URINE CLEAR (Clear); COLOR,URINE YELLOW (Yellow); GLUCOSE, URINE NEGATIVE (Neg); KETONES,URINE NEGATIVE (Neg); LEUKOCYTE ESTERASE ,URINE SMALL (Neg); NITRITES, URINE NEGATIVE (Neg); OCCULT BLOOD,URINE SMALL (Neg); PROTEIN,URINE NEGATIVE (Neg); UROBILINOGEN,URINE 0.2 E.U/dL (0.2-1.0)
[2024-06-10] MEDS: acetaminophen 325mg tablet PO ONE (22:11)
[2024-06-10] MEDS: ketorolac trometh 15mg/ml vial 15 MG/ML ML IM ONE (22:11)
[2024-06-10 22:25] LABS: UA COLLECTION TYPE STRAIGHT CATH
[2024-06-10 22:53] LABS: RBC,URINE 20-50 /HPF (0-2)
[2024-06-10 22:54] LABS: BACTERIA,URINE 1+ /HPF (Neg); MUCUS STRANDS NONE SEEN /LPF (Neg); SQUAMOUS EPITHELIAL CELL,UR FEW /LPF (FEW); WBC,URINE 20-30 /HPF (0-4)
[2024-06-10] MEDS ORDERED: SULF1TAB49 PO (23:08)
[2024-06-10 23:29] VITALS: BP 112/76; PULSE 78; RESP 16; O2SAT 98
== END 2024-06-10 23:31 | disposition home or self-care (01) ==
LOC: ER 20:59
DX: N39.0 Urinary tract infection, site not specified (principal); N23 Unspecified renal colic; R31.29 Other microscopic hematuria; D64.9 Anemia, unspecified; F41.9 Anxiety disorder, unspecified; F32.A Depression, unspecified; F17.210 Nicotine dependence, cigarettes, uncomplicated; F15.10 Other stimulant abuse, uncomplicated; F10.10 Alcohol abuse, uncomplicated; Z88.1 Allergy status to other antibiotic agents; Z79.899 Other long term (current) drug therapy; Z72.89 Other problems related to lifestyle; Z91.030 Bee allergy status; Z98.890 Other specified postprocedural states; Z91.013 Allergy to seafood; Z59.00 Homelessness unspecified; Z56.0 Unemployment, unspecified
CPT/HCPCS: 81001; 96372; 99283; J1885

== ENCOUNTER 2024-06-14 14:28 | Emergency (ER) | payer MEDICAID ==
[~2024-06-14] VITALS: Ht 175.3 cm; Wt 65.0 kg
[~2024-06-14 14:28] MED LIST changes: +SULF1TAB49 PO
[2024-06-14 14:50] VITALS: BP 138/78; PULSE 78; RESP 16; TEMP 98.1; O2SAT 99
[2024-06-14] MEDS: ketorolac trometh 30MG/ML vial 30 MG/ML VIAL IV STA (16:27)
[2024-06-14] MEDS: cephalexin 250mg capsule PO STA (17:25)
== END 2024-06-14 17:37 | disposition home or self-care (01) ==
LOC: ER 14:29
DX: N39.0 Urinary tract infection, site not specified (principal); F41.9 Anxiety disorder, unspecified; F32.A Depression, unspecified; F15.10 Other stimulant abuse, uncomplicated; Z91.013 Allergy to seafood; Z88.1 Allergy status to other antibiotic agents; Z79.899 Other long term (current) drug therapy; Z90.49 Acquired absence of other specified parts of digestive tract; Z91.030 Bee allergy status
CPT/HCPCS: 96374; 99283; J1885; A4398; A4421

== ENCOUNTER 2024-06-16 06:48 | Emergency (ER) | payer MEDICAID ==
[~2024-06-16] VITALS: Ht 175.3 cm; Wt 78.6 kg
[2024-06-16 06:50] VITALS: BP 144/84; PULSE 102; RESP 18; TEMP 98; O2SAT 100
== END 2024-06-16 07:47 | disposition left against medical advice (07) ==
LOC: ER 06:49
DX: K94.03 Colostomy malfunction (principal); Z53.21 Procedure and treatment not carried out due to patient leaving prior to being seen by health care provider
CPT/HCPCS: A4421

== ENCOUNTER 2024-06-22 03:34 | Emergency (ER) | payer MEDICAID ==
[~2024-06-22] VITALS: Ht 175.3 cm; Wt 79.5 kg
[~2024-06-22 03:34] MED LIST changes: -SULF1TAB49 PO
[2024-06-22] MEDS: acetaminophen 325mg tablet PO ONE (04:19)
[2024-06-22 04:24] VITALS: BP 118/82; PULSE 79; RESP 16; TEMP 98.1; O2SAT 97
== END 2024-06-22 04:54 | disposition home or self-care (01) ==
LOC: ER 03:35
DX: Z04.71 Encounter for examination and observation following alleged adult physical abuse (principal); R11.0 Nausea; F41.9 Anxiety disorder, unspecified; F32.A Depression, unspecified; F15.10 Other stimulant abuse, uncomplicated; Z87.440 Personal history of urinary (tract) infections; Z91.013 Allergy to seafood; Z88.1 Allergy status to other antibiotic agents; Z91.030 Bee allergy status; Z90.49 Acquired absence of other specified parts of digestive tract; Y08.89XA Assault by other specified means, initial encounter; Y93.89 Activity, other specified; Y92.89 Other specified places as the place of occurrence of the external cause; Y99.8 Other external cause status
CPT/HCPCS: 99283

== ENCOUNTER 2024-06-26 00:32 | Emergency (ER) | payer MEDICAID ==
[~2024-06-26] VITALS: Ht 175.3 cm; Wt 78.0 kg
[2024-06-26 01:17] VITALS: BP 115/72; PULSE 88; RESP 18; TEMP 97.9; O2SAT 98
== END 2024-06-26 01:21 | disposition home or self-care (01) ==
LOC: ER 00:34
DX: Z93.6 Other artificial openings of urinary tract status (principal); F15.10 Other stimulant abuse, uncomplicated; Z91.013 Allergy to seafood; Z88.1 Allergy status to other antibiotic agents; Z79.899 Other long term (current) drug therapy; Z87.440 Personal history of urinary (tract) infections; Z90.49 Acquired absence of other specified parts of digestive tract; Z91.030 Bee allergy status
CPT/HCPCS: 99281; A4421

== ENCOUNTER 2024-07-03 14:40 | Emergency (ER) | payer MEDICAID ==
[~2024-07-03] VITALS: Ht 175.3 cm; Wt 77.1 kg
[2024-07-03] MEDS: ondansetron/PF 4mg/2ml inj IV ONE (16:20)
[2024-07-03] MEDS: thiamine 100mg/ml 2ml inj. IV ONE (16:20)
[2024-07-03] MEDS: phenoBARBITAL sod 130mg/ml inj. IV ONE (16:20)
[2024-07-03] MEDS: normal saline 1000ML IV soln IV ONE (16:21)
[2024-07-03 16:29] LABS: BASOPHILS % (AUTO) 0.6 % (0-1); EOSINOPHILS # (AUTO) 0.1 X10'3 (0-0.9); EOSINOPHILS % (AUTO) 2.1 % (0-6); HEMATOCRIT 42.1 % (42.0-52.0); LYMPHOCYTES # (AUTO) 1.3 X10'3 (1.1-4.8); LYMPHOCYTES % (AUTO) 18.5 % (21-51); MEAN CORPUSCULAR HEMOGLOBIN 28.3 PG (27.0-31.0); MEAN CORPUSCULAR HGB CONC 33.3 g/dL (33.0-36.5); MEAN CORPUSCULAR VOLUME 85.1 FL (78-98); MONOCYTES # (AUTO) 0.6 X10'3 (0-0.9); MONOCYTES % (AUTO) 9.1 % (2-12); NEUTROPHILS # (AUTO) 4.9 X10'3 (1.8-7.7); NEUTROPHILS % (AUTO) 69.7 % (42-75); PLATELET COUNT 312 X10'3 (140-440); RED BLOOD COUNT 4.95 X10'6 (4.70-6.10); RED CELL DISTRIBUTION WIDTH 14.8 % (11.5-14.5)
[2024-07-03 16:41] LABS: ALANINE AMINOTRANSFERASE 33 U/L (12-78); ALBUMIN 3.5 G/DL (3.4-5.0); ALBUMIN/GLOBULIN RATIO 0.9 (1.1-1.5); ALKALINE PHOSPHATASE 75 IU/L (46-116); ANION GAP 7 (8-16); ASPARTATE AMINO TRANSFERASE 40 U/L (10-37); BILIRUBIN,TOTAL 0.4 MG/DL (0.1-1.0); BLOOD UREA NITROGEN 17 MG/DL (7-18); BUN/CREATININE RATIO 16.8 (10.0-20.0); CALCIUM 8.9 MG/DL (8.5-10.1); CHLORIDE 104 MMOL/L (99-107); CREATININE 1.01 MG/DL (0.60-1.10); GLUCOSE 117 MG/DL (70-104); POTASSIUM 3.7 MMOL/L (3.5-5.1); SODIUM 138 MMOL/L (135-145); TOTAL CARBON DIOXIDE 27.1 MMOL/L (24-32); TOTAL PROTEIN 7.3 G/DL (6.4-8.2); eCRCL 92 ML/MIN; eGFR 80 ML/MIN
[2024-07-03 16:42] LABS: ETHANOL < 10 MG/DL (<10); SALICYLATE 1.7 MG/DL (4.0-20.0)
[2024-07-03 16:44] LABS: ACETAMINOPHEN < 2.0 UG/ML (10-30)
[2024-07-03 18:52] LABS: BILIRUBIN,URINE NEGATIVE (Neg); CLARITY,URINE SLIGHTLY CLOUDY (Clear); COLOR,URINE YELLOW (Yellow); GLUCOSE, URINE NEGATIVE (Neg); KETONES,URINE TRACE mg/dl (Neg); LEUKOCYTE ESTERASE ,URINE MODERATE (Neg); NITRITES, URINE POSITIVE (Neg); OCCULT BLOOD,URINE LARGE (Neg); PH,URINE 6.5 (4.8-8.0); PROTEIN,URINE 100 mg/dl (Neg); UROBILINOGEN,URINE 0.2 E.U/dL (0.2-1.0)
[2024-07-03 19:14] LABS: UA COLLECTION TYPE OTHER
[2024-07-03 19:29] LABS: BACTERIA,URINE 3+ /HPF (Neg); MUCUS STRANDS NONE SEEN /LPF (Neg); RBC,URINE 20-50 /HPF (0-2); SQUAMOUS EPITHELIAL CELL,UR FEW /LPF (FEW); WBC,URINE 30-50 /HPF (0-4)
[2024-07-03 19:30] LABS: AMORPHOUS URATES 2+; WBC CLUMPS,URINE MODERATE /HPF (NEGATIVE)
[2024-07-03] MEDS ORDERED: CEPH-585 PO (19:48)
[2024-07-03 20:07] VITALS: BP 120/69; PULSE 75; RESP 16; TEMP 98.6; O2SAT 99
== END 2024-07-03 20:11 | disposition home or self-care (01) ==
LOC: ER 14:40
DX: F15.10 Other stimulant abuse, uncomplicated (principal); N39.0 Urinary tract infection, site not specified; D64.9 Anemia, unspecified; G89.29 Other chronic pain; F41.9 Anxiety disorder, unspecified; F32.A Depression, unspecified; F28 Other psychotic disorder not due to a substance or known physiological condition; Z59.00 Homelessness unspecified; Z90.49 Acquired absence of other specified parts of digestive tract; Z98.890 Other specified postprocedural states; Z56.0 Unemployment, unspecified; Z72.89 Other problems related to lifestyle; Z88.1 Allergy status to other antibiotic agents; Z91.030 Bee allergy status; Z91.013 Allergy to seafood; Z79.899 Other long term (current) drug therapy
CPT/HCPCS: 36415; 80053; 80320; 80329; 81001; 83735; 85025; 87077; 87088; 87186; 96361; 96374; 96375; 99285; J2405; J2560; J3411; J7030

== ENCOUNTER 2024-08-07 16:02 | Emergency (ER) | payer MEDICAID ==
[~2024-08-07] VITALS: Ht 172.7 cm; Wt 79.5 kg
[~2024-08-07 16:02] MED LIST changes: +OLAN10TA73 PO; +TRAZ-251 PO
[2024-08-07 16:05] VITALS: PULSE 98; RESP 16; TEMP 98; O2SAT 100
== END 2024-08-07 16:24 | disposition home or self-care (01) ==
LOC: ER 16:03
DX: Z43.3 Encounter for attention to colostomy (principal); F41.9 Anxiety disorder, unspecified; F32.A Depression, unspecified; F29 Unspecified psychosis not due to a substance or known physiological condition; D64.9 Anemia, unspecified; G89.29 Other chronic pain; F15.10 Other stimulant abuse, uncomplicated; F10.10 Alcohol abuse, uncomplicated; Z91.030 Bee allergy status; Z88.1 Allergy status to other antibiotic agents; Z91.013 Allergy to seafood; Z79.899 Other long term (current) drug therapy; Z90.49 Acquired absence of other specified parts of digestive tract; Z59.00 Homelessness unspecified; Z56.0 Unemployment, unspecified
CPT/HCPCS: 99281; A4421

== ENCOUNTER 2024-08-14 10:53 | Emergency (ER) | payer MEDICAID ==
[~2024-08-14] VITALS: Ht 175.3 cm; Wt 79.5 kg
[2024-08-14 11:04] VITALS: BP 133/81; PULSE 91; RESP 17; O2SAT 99
[2024-08-14 11:59] VITALS: TEMP 98.5
== END 2024-08-14 12:00 | disposition home or self-care (01) ==
LOC: ER 10:53
DX: K94.19 Other complications of enterostomy (principal); F15.10 Other stimulant abuse, uncomplicated; Z91.030 Bee allergy status; Z90.49 Acquired absence of other specified parts of digestive tract; Z88.1 Allergy status to other antibiotic agents; Z87.440 Personal history of urinary (tract) infections
CPT/HCPCS: 99281; A4421

== ENCOUNTER 2024-08-18 08:29 | Emergency (ER) | payer MEDICAID ==
[~2024-08-18] VITALS: Ht 175.3 cm; Wt 77.3 kg
[2024-08-18 08:32] VITALS: BP 140/80; PULSE 92; RESP 14; TEMP 98; O2SAT 99
== END 2024-08-18 09:20 | disposition home or self-care (01) ==
LOC: ER 08:30
DX: Z43.6 Encounter for attention to other artificial openings of urinary tract (principal); G89.29 Other chronic pain; F15.10 Other stimulant abuse, uncomplicated; Z91.013 Allergy to seafood; Z88.1 Allergy status to other antibiotic agents; Z91.030 Bee allergy status; Z79.899 Other long term (current) drug therapy; Z90.49 Acquired absence of other specified parts of digestive tract; Z87.440 Personal history of urinary (tract) infections
CPT/HCPCS: 99281; A4421

== ENCOUNTER 2024-09-21 12:28 | Emergency (ER) | payer MEDICAID ==
[~2024-09-21] VITALS: Ht 172.7 cm; Wt 86.4 kg
[2024-09-21 12:32] VITALS: BP 148/95; PULSE 101; RESP 18; TEMP 97.8; O2SAT 100
== END 2024-09-21 15:04 | disposition left against medical advice (07) ==
LOC: ER 12:28
DX: N36.8 Other specified disorders of urethra (principal); Z93.6 Other artificial openings of urinary tract status; F41.9 Anxiety disorder, unspecified; F32.A Depression, unspecified; F15.10 Other stimulant abuse, uncomplicated; Z91.030 Bee allergy status; Z91.013 Allergy to seafood; Z88.1 Allergy status to other antibiotic agents; Z98.890 Other specified postprocedural states; Z90.49 Acquired absence of other specified parts of digestive tract
CPT/HCPCS: 99281; A4421

== ENCOUNTER 2024-09-23 05:45 | Emergency (ER) | payer MEDICAID ==
[~2024-09-23] VITALS: Ht 175.3 cm; Wt 83.0 kg
[2024-09-23 06:05] VITALS: BP 146/87; PULSE 86; RESP 16; TEMP 98.1; O2SAT 99
== END 2024-09-23 07:44 | disposition home or self-care (01) ==
LOC: ER 05:45
DX: T88.8XXA Other specified complications of surgical and medical care, not elsewhere classified, initial encounter (principal); Z43.9 Encounter for attention to unspecified artificial opening; F32.A Depression, unspecified; F41.9 Anxiety disorder, unspecified; F10.90 Alcohol use, unspecified, uncomplicated; F15.10 Other stimulant abuse, uncomplicated; Z88.1 Allergy status to other antibiotic agents; Z91.030 Bee allergy status; Z91.013 Allergy to seafood; Z90.49 Acquired absence of other specified parts of digestive tract; Z98.890 Other specified postprocedural states; Y92.89 Other specified places as the place of occurrence of the external cause; Y82.8 Other medical devices associated with adverse incidents; Y90.9 Presence of alcohol in blood, level not specified
CPT/HCPCS: 99281; A4421

== ENCOUNTER 2025-02-25 23:34 | Emergency (ER) | payer MEDICAID ==
[~2025-02-25] VITALS: Ht 175.3 cm; Wt 87.8 kg
[2025-02-25 23:36] VITALS: BP 132/95; PULSE 114; RESP 16; O2SAT 98
--- NOTE | 2025-02-25 23:59 | Physician Documentation ---
History of Present Illness ~ Chief Complaint: Abdominal Pain Stated Complaint: ABD PAIN Time Seen by MD: 23:57 Primary Medical Doctor: JAZMYN DANG 44-year-old male with a history of a urostomy, who presents requesting urostomy supplies. He tells me he is out of his ostomy bags. He denies any other complaints today. No abdominal pain or other concerns. Medication Reconciliation Allergies: Coded Allergies: Fish Containing Products (Verified Allergy, Severe, ANAPHYLAXIS, 02/25/25) shellfish derived (Verified Allergy, Severe, ANAPHYLAXIS, 02/25/25) ceftriaxone (Verified Allergy, Unknown, hives, 02/25/25) clindamycin (Verified Allergy, Unknown, rash, 02/25/25) venom-honey bee (Verified Allergy, Unknown, 02/25/25) Scheduled Buspirone HCl (Buspirone HCl), 1 TAB PO TID Olanzapine (Olanzapine), 10 MG PO DAILY Trazodone HCl (Trazodone HCl), 50 MG PO DAILY@20 Past Medical History Past Medical History: Anemia, UTI, Chronic Pain, Extremity Fracture, MRSA Abscess, Anxiety, Depression, Psychosis Past Surgical History: abdominal surgery, colectomy, orthopedic surgeries, other Other Past Surgical History: 25 multiple bladder surgeries, urostomy Patient History: FH: [place]'s chorea FATHER, Onset:Unknown brother FH: depression FATHER, Onset:Unknown MOTHER, Onset:Unknown FH: schizophrenia FATHER, Onset:Unknown MOTHER, Onset:Unknown Other Past Family History: NONE Alcohol Use: Occasionally Drug Use: none, other Lives with: Other Lives In: Homeless Occupation: unemployed, disabled Past Social History: ETOH and Meth abuse Review of Systems Constitutional: Denies: fever Gastrointestinal: Denies: abdominal pain Physical Exam Vital Signs: Temperature: 98.2, Source: Temporal, Heart Rate: 114, Respiratory Rate: 16, BP: 132/95, Pulse Oximetry: 98, Weight: 87.800 Oxygen Flow Rate: 0 Physical Exam General: This is a overall well-appearing middle-aged man Heart: Regular rate and rhythm, normal-appearing peripheral perfusion Lungs: normal work of breathing, normal oxygen saturation on room air Abdomen: Soft, nondistended, the patient has a urostomy present but no bag covering it. Urine has leaked out on his clothes. Neuro: Alert and oriented Psychiatric: Calm and cooperative with exam Progress Results/Orders Results/Orders Vital Signs 02/25/25 02/26/25 23:36 00:00 Temp 98.2 98.2 Pulse 114 Resp 16 B/P (MAP) 132/95 Pulse Ox 98 O2 Flow Rate 0 Medical Decision Making Additional Comments The patient presents requesting a urostomy bag supplies. He has no other medical concerns. No fever or findings to suggest infection. He was given your ostomy supplies and discharged with outpatient follow up. Departure Time of Disposition: 23:58 Disposition: 01 HOME / SELF CARE / HOMELESS Impression: Primary Impression: Presence of urostomy Condition: Improved Discharge Instructions: Continent Urostomy Home Guide Referrals: NO PRIMARY CARE PROVIDER (PCP) Education Educated: Patient Educated regarding: need for follow up Signature Scribe Signature: na Attestation: DIA Messer MD Feb 25, 2025 23:59
[2025-02-26] VITALS: TEMP 98.2
== END 2025-02-26 00:06 | disposition home or self-care (01) ==
LOC: ER 23:35
DX: F41.9 Anxiety disorder, unspecified (principal); F32.A Depression, unspecified; F15.10 Other stimulant abuse, uncomplicated; Z90.49 Acquired absence of other specified parts of digestive tract; Z88.1 Allergy status to other antibiotic agents; Z91.030 Bee allergy status; Z91.013 Allergy to seafood; Z79.899 Other long term (current) drug therapy; Z59.00 Homelessness unspecified; Z56.0 Unemployment, unspecified; Z72.89 Other problems related to lifestyle
CPT/HCPCS: 99281; 99282

== ENCOUNTER 2025-02-26 22:52 | Emergency (ER) | payer MEDICAID ==
[~2025-02-26] VITALS: Ht 177.8 cm; Wt 69.8 kg
[2025-02-26 23:03] VITALS: BP 154/57; PULSE 98; RESP 15; TEMP 96.3; O2SAT 99
--- NOTE | 2025-02-27 00:56 | Physician Documentation ---
History of Present Illness ~ General Chief Complaint: See Chief Complaint Stated Complaint: ABDOMINAL PAIN Time Seen by MD: 00:55 Primary Medical Doctor: JAZMYN History of Present Illness Initial Comments 44-year-old male, history of urostomy, who presents needing a urostomy bag. The patient is a limited historian, is poorly cooperative. He will not tell me exactly what happened to his previous urostomy bag or other supplies. He requests urostomy supplies. He also requests a medical bed to sleep in. No other acute complaints. Medication Reconciliation Allergies: Coded Allergies: Fish Containing Products (Verified Allergy, Severe, ANAPHYLAXIS, 02/26/25) shellfish derived (Verified Allergy, Severe, ANAPHYLAXIS, 02/26/25) ceftriaxone (Verified Allergy, Unknown, hives, 02/26/25) clindamycin (Verified Allergy, Unknown, rash, 02/26/25) venom-honey bee (Verified Allergy, Unknown, 02/26/25) Scheduled Buspirone HCl (Buspirone HCl), 1 TAB PO TID Olanzapine (Olanzapine), 10 MG PO DAILY Trazodone HCl (Trazodone HCl), 50 MG PO DAILY@20 Past Medical History Past Medical History: Anemia, UTI, Chronic Pain, Extremity Fracture, MRSA Abscess, Anxiety, Depression, Psychosis Past Surgical History: abdominal surgery, colectomy, orthopedic surgeries, other Other Past Surgical History: 25 multiple bladder surgeries, urostomy Patient History: FH: [place]'s chorea FATHER, Onset:Unknown brother FH: depression FATHER, Onset:Unknown MOTHER, Onset:Unknown FH: schizophrenia FATHER, Onset:Unknown MOTHER, Onset:Unknown Other Past Family History: NONE Alcohol Use: Occasionally Drug Use: none, other Lives with: Other Lives In: Homeless Occupation: unemployed, disabled Past Social History: ETOH and Meth abuse Review of Systems All Other Systems at this time: Reviewed and Negative Physical Exam Physical Exam Vital Signs: Temperature: 96.3, Source: Temporal, Heart Rate: 98, Respiratory Rate: 15, BP: 154/57, Pulse Oximetry: 99, Weight: 69.850 Physical Exam General: This is a disheveled appearing young man, sitting in a chair Heart: Mild tachycardic, appears regular Lungs: normal work of breathing, normal oxygen saturation on room air Abdomen: Soft, nondistended. Urostomy in the lower abdominal wall, with no covering. The shirt is soaked in urine Neuro: Alert and oriented Psychiatric: Poorly cooperative, appears tired Progress Results/Orders Results/Orders Vital Signs 02/26/25 23:03 Temp 96.3 Pulse 98 Resp 15 B/P (MAP) 154/57 Pulse Ox 99 Medical Decision Making Additional info obtained from: old records Findings Reviewed previous records. I actually saw this patient here in the emergency department yesterday for similar complaint and he was given urostomy supplies Assessment The patient presents needing supplies for his urostomy. His only other request was for a place to sleep. He is not appear to have an acute medical or surgical emergency. He was given supplies and discharged. Departure Time of Disposition: 00:55 Disposition: 01 HOME / SELF CARE / HOMELESS Impression: Primary Impression: Presence of urostomy Discharge Instructions: Incontinent Urostomy Home Guide Referrals: NO PRIMARY CARE PROVIDER (PCP) Education Educated: Patient Educated regarding: need for follow up Signature Scribe Signature: na Attestation: DIA Messer MD Feb 27, 2025 00:56
== END 2025-02-27 01:09 | disposition home or self-care (01) ==
LOC: ER 22:53
DX: R10.30 Lower abdominal pain, unspecified (principal); F15.10 Other stimulant abuse, uncomplicated; F41.9 Anxiety disorder, unspecified; F32.A Depression, unspecified; Z88.1 Allergy status to other antibiotic agents; Z90.49 Acquired absence of other specified parts of digestive tract; Z91.030 Bee allergy status; Z79.899 Other long term (current) drug therapy; Z56.0 Unemployment, unspecified; Z59.00 Homelessness unspecified
CPT/HCPCS: 99282; A4421

== ENCOUNTER 2025-03-22 00:49 | Emergency (ER) | payer MEDICAID ==
[~2025-03-22] VITALS: Ht 175.3 cm; Wt 94.1 kg
[~2025-03-22 00:49] MED LIST changes: +ARIP15TA68 PO; -BUSP10TA3 PO; +ESCI-8 PO; +GABA-535 PO; -OLAN10TA73 PO; -TRAZ-251 PO; +TRAZ-256 PO; +ZIPR40CA14 PO
[2025-03-22 01:08] VITALS: BP 148/93; PULSE 114; RESP 16; O2SAT 97
[2025-03-22 03:12] VITALS: TEMP 97.8
== END 2025-03-22 03:12 | disposition left against medical advice (07) ==
LOC: ER 00:50
DX: Z43.3 Encounter for attention to colostomy (principal); Z53.21 Procedure and treatment not carried out due to patient leaving prior to being seen by health care provider; Z88.8 Allergy status to other drugs, medicaments and biological substances; Z88.1 Allergy status to other antibiotic agents
CPT/HCPCS: A4421

== ENCOUNTER 2025-03-22 12:30 | Emergency (ER) | payer MEDICAID ==
[~2025-03-22] VITALS: Ht 175.3 cm; Wt 90.5 kg
[2025-03-22 12:33] VITALS: BP 160/97; PULSE 108; RESP 18; O2SAT 99
[2025-03-22 12:45] VITALS: TEMP 97.9
--- NOTE | 2025-03-22 12:45 | Physician Documentation ---
History of Present Illness ~ General Chief Complaint: See Chief Complaint Stated Complaint: NEEDS MEDICAL SUPPLIES Time Seen by MD: 12:39 OK to notify your PCP?: Yes Primary Medical Doctor: JAZMYN Source: patient Mode of Arrival: POV Exam Limitations: no limitations History of Present Illness Initial Comments 44-year-old male presenting requesting ostomy supplies for his urostomy. He has no medical complaints. Denies fevers, nausea vomiting or diarrhea. Medication Reconciliation Allergies: Coded Allergies: Fish Containing Products (Verified Allergy, Severe, ANAPHYLAXIS, 03/22/25) shellfish derived (Verified Allergy, Severe, ANAPHYLAXIS, 03/22/25) ceftriaxone (Verified Allergy, Unknown, hives, 03/22/25) clindamycin (Verified Allergy, Unknown, rash, 03/22/25) venom-honey bee (Verified Allergy, Unknown, 03/22/25) Scheduled Aripiprazole (Aripiprazole), 15 MG PO DAILY Escitalopram Oxalate (Escitalopram Oxalate), 20 MG PO DAILY Gabapentin (Gabapentin), 400 MG PO TID Trazodone HCl (Trazodone HCl), 2 TAB PO HS Ziprasidone Hcl (Ziprasidone Hcl), 1 CAP PO Q12H Discontinued Medications Buspirone HCl (Buspirone HCl), 1 TAB PO TID Olanzapine (Olanzapine), 10 MG PO DAILY Trazodone HCl (Trazodone HCl), 50 MG PO DAILY@20 Past Medical History Past Medical History: Anemia, UTI, Chronic Pain, Extremity Fracture, MRSA Abscess, Anxiety, Depression, Psychosis Past Surgical History: abdominal surgery, colectomy, orthopedic surgeries, other Other Past Surgical History: 25 multiple bladder surgeries, urostomy Patient History: FH: Elgin's chorea FATHER, Onset:Unknown brother FH: depression FATHER, Onset:Unknown MOTHER, Onset:Unknown FH: schizophrenia FATHER, Onset:Unknown MOTHER, Onset:Unknown Other Past Family History: NONE Alcohol Use: Occasionally Drug Use: none, other Lives with: Other Lives In: Homeless Occupation: unemployed, disabled Past Social History: ETOH and Meth abuse Review of Systems All Other Systems at this time: Reviewed and Negative Physical Exam Physical Exam Vital Signs: RN Vital Signs have been reviewed: Yes, Temperature: 97.9, Source: Temporal, Heart Rate: 108, Respiratory Rate: 18, BP: 160/97, Pulse Oximetry: 99, Weight: 90.550 Oxygen Flow Rate: 0 Pulse Oximetry Reflects: adequate oxygenation Physical Exam General: Alert, no distress. HEENT: No injection, moist mucous membranes. Neck: Full range of motion. Respiratory: No respiratory distress, equal chest rise and fall. Chest: No accessory muscle use. Cardiovascular: Regular rate and rhythm. Gastrointestinal: Nondistended. Extremities: Normal range of motion, no deformity. Neurologic: Oriented x4. Psychiatric: Normal mood and affect. Skin: Normal color, warm and dry. Progress Results/Orders Results/Orders Vital Signs 03/22/25 12:33 Temp 97.9 Pulse 108 Resp 18 B/P (MAP) 160/97 Pulse Ox 99 O2 Flow Rate 0 Medical Decision Making Additional info obtained from: old records Findings He is requesting ostomy supplies, which we provided. He has no physical medical complaints at this time. He simply ran out but has a pending a new shipment to be delivered. Departure Disposition: HOME / SELF CARE / HOMELESS Impression: Primary Impression: General medical exam Additional Impressions: Homeless Encounter for attention to colostomy Encounter for ostomy care education Condition: Stable Additional Instructions: Ostomy supplies have been provided. Please work with your ostomy supplier to receive a shipment. Referrals: NO PRIMARY CARE PROVIDER (PCP) Education Educated: Patient Educated regarding: diagnosis, treatment, prognosis, need for follow up Additional Comment Medical Screen Exam This patient recieved a medical screening examination. After reviewing the individual's medical complaints with presenting symptoms and performing an appropriate physical examination, it was determined that no immediate life- threatening emergency medical condition is present. This individual is also not a women having contractions. Signature Scribe Signature: . Attestation: Scribed for Erica Adrianp by Erica Villeda NP . 03/22/25 12:43 Parts of this note were created using [employer] voice recognition software program. While efforts were made to correct any mistakes made by this voice recognition software program, nonsensical phrases may remain in this note. In addition, there may be errors and syntax, grammar, content and spelling. ERICA ADRIANP Mar 22, 2025 12:45
== END 2025-03-22 12:47 | disposition home or self-care (01) ==
LOC: ER 12:32
DX: Z43.3 Encounter for attention to colostomy (principal); F15.10 Other stimulant abuse, uncomplicated; D64.9 Anemia, unspecified; F41.9 Anxiety disorder, unspecified; F32.A Depression, unspecified; Z91.030 Bee allergy status; Z90.49 Acquired absence of other specified parts of digestive tract; Z88.1 Allergy status to other antibiotic agents; Z59.00 Homelessness unspecified; Z91.040 Latex allergy status; Z91.013 Allergy to seafood; Z79.899 Other long term (current) drug therapy; Z56.0 Unemployment, unspecified; Z72.89 Other problems related to lifestyle
CPT/HCPCS: 99281; A4421

== ENCOUNTER 2025-03-23 11:08 | Emergency (ER) | payer MEDICAID ==
[~2025-03-23] VITALS: Ht 175.3 cm; Wt 90.9 kg
[2025-03-23 11:14] VITALS: BP 154/88; PULSE 99; RESP 18; O2SAT 97
[2025-03-23 12:21] VITALS: TEMP 97.9
== END 2025-03-23 12:23 | disposition home or self-care (01) ==
LOC: ER 11:08
DX: Z43.3 Encounter for attention to colostomy (principal); Z53.21 Procedure and treatment not carried out due to patient leaving prior to being seen by health care provider; Z88.8 Allergy status to other drugs, medicaments and biological substances; Z88.1 Allergy status to other antibiotic agents; Z91.013 Allergy to seafood
CPT/HCPCS: 99281; A4371; A4421

== ENCOUNTER 2025-03-24 20:37 | Emergency (ER) | payer MEDICAID ==
[~2025-03-24] VITALS: Ht 175.3 cm; Wt 90.9 kg
--- NOTE | 2025-03-24 21:19 | Physician Documentation ---
History of Present Illness ~ General Stated Complaint: SEE CHIEF COMPLAINT Time Seen by MD: 21:19 Primary Medical Doctor: JAZMYN History of Present Illness Initial Comments Patient was visualized in the ambulance [place]. He is requesting colostomy suppli es denies any medical complaints Medication Reconciliation Allergies: Coded Allergies: Fish Containing Products (Verified Allergy, Severe, ANAPHYLAXIS, 03/24/25) shellfish derived (Verified Allergy, Severe, ANAPHYLAXIS, 03/24/25) ceftriaxone (Verified Allergy, Unknown, hives, 03/24/25) clindamycin (Verified Allergy, Unknown, rash, 03/24/25) venom-honey bee (Verified Allergy, Unknown, 03/24/25) Scheduled Aripiprazole (Aripiprazole), 15 MG PO DAILY Escitalopram Oxalate (Escitalopram Oxalate), 20 MG PO DAILY Gabapentin (Gabapentin), 400 MG PO TID Trazodone HCl (Trazodone HCl), 2 TAB PO HS Ziprasidone Hcl (Ziprasidone Hcl), 1 CAP PO Q12H Past Medical History Past Medical History: Anemia, UTI, Chronic Pain, Extremity Fracture, MRSA Abscess, Anxiety, Depression, Psychosis Past Surgical History: abdominal surgery, colectomy, orthopedic surgeries, other Other Past Surgical History: 25 multiple bladder surgeries, urostomy Patient History: FH: Hawkins's chorea FATHER, Onset:Unknown brother FH: depression FATHER, Onset:Unknown MOTHER, Onset:Unknown FH: schizophrenia FATHER, Onset:Unknown MOTHER, Onset:Unknown Other Past Family History: NONE Alcohol Use: Occasionally Drug Use: none, other Lives with: Other Lives In: Homeless Occupation: unemployed, disabled Past Social History: ETOH and Meth abuse Review of Systems All Other Systems at this time: Reviewed and Negative ROS As stated above in the HPI, otherwise all systems are reviewed and negative. Physical Exam Physical Exam Physical Exam General: Alert, no apparent distress. HEENT: PERRL, EOMI, no injection, moist mucous membranes. Neck: Full range of motion. Respiratory: Lungs clear, no respiratory distress. Chest: No accessory muscle use. Cardiovascular: Regular rate and rhythm, no murmurs. Gastrointestinal: Soft, nontender, nondistended. Bowels sounds present. Extremities: Normal range of motion, no deformity. Neurologic: Oriented x4. Psychiatric: Normal mood and affect. Skin: Normal color, warm and dry. No edema, no ecchymosis. 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 This was after he ambulated into the main ED without difficulty and speaking in clear sentences without difficulty. I explained that this is a chronic disease in he will need to be evaluated neurologically in the outpatient setting Departure Impression: Primary Impression: Mental disorder Additional Impression: Colostomy present Referrals: NO PRIMARY CARE PROVIDER (PCP) Signature Scribe Signature: df Attestation: Scribed for Luis Lino Dial Brusher by Luis Villeda NP . 03/24/25 21:26 LUIS LINO NP Mar 24, 2025 21:18
[2025-03-24 21:27] VITALS: BP 128/78; PULSE 78; RESP 16; TEMP 98.6; O2SAT 98
== END 2025-03-24 21:54 | disposition home or self-care (01) ==
LOC: ER 20:38
DX: F99 Mental disorder, not otherwise specified (principal); Z43.3 Encounter for attention to colostomy; D64.9 Anemia, unspecified; F41.9 Anxiety disorder, unspecified; F32.A Depression, unspecified; F10.90 Alcohol use, unspecified, uncomplicated; F15.10 Other stimulant abuse, uncomplicated; Z90.49 Acquired absence of other specified parts of digestive tract; Z72.89 Other problems related to lifestyle; Z56.0 Unemployment, unspecified; Z59.00 Homelessness unspecified; Z91.030 Bee allergy status; Z88.1 Allergy status to other antibiotic agents; Z91.013 Allergy to seafood; Z79.899 Other long term (current) drug therapy; Y90.9 Presence of alcohol in blood, level not specified
CPT/HCPCS: 99281; A4421

== ENCOUNTER 2025-03-25 07:41 | Emergency (ER) | payer MEDICAID ==
[~2025-03-25] VITALS: Ht 175.3 cm; Wt 90.0 kg
[2025-03-25 07:46] VITALS: BP 124/83; PULSE 78; RESP 16; TEMP 98; O2SAT 100
--- NOTE | 2025-03-25 12:15 | Physician Documentation ---
History of Present Illness ~ Chief Complaint: Mental Health Eval Stated Complaint: MH Time Seen by MD: 07:50 Primary Medical Doctor: JAZMYN DANG 44 year old male well known to our ER for various psych issues, recently seen by [facility] behavioral health specialist in the past few days for same. Reports suicidal thoughts, no plan. Asking for sandwich. Denies medical complaints. Medication Reconciliation Allergies: Coded Allergies: Fish Containing Products (Verified Allergy, Severe, ANAPHYLAXIS, 03/24/25) shellfish derived (Verified Allergy, Severe, ANAPHYLAXIS, 03/24/25) ceftriaxone (Verified Allergy, Unknown, hives, 03/24/25) clindamycin (Verified Allergy, Unknown, rash, 03/24/25) venom-honey bee (Verified Allergy, Unknown, 03/24/25) Scheduled Aripiprazole (Aripiprazole), 15 MG PO DAILY Escitalopram Oxalate (Escitalopram Oxalate), 20 MG PO DAILY Gabapentin (Gabapentin), 400 MG PO TID Trazodone HCl (Trazodone HCl), 2 TAB PO HS Ziprasidone Hcl (Ziprasidone Hcl), 1 CAP PO Q12H Past Medical History Past Medical History: Anemia, UTI, Chronic Pain, Extremity Fracture, MRSA Abscess, Anxiety, Depression, Psychosis Past Surgical History: abdominal surgery, colectomy, orthopedic surgeries, other Other Past Surgical History: 25 multiple bladder surgeries, urostomy Patient History: FH: Jessie's chorea FATHER, Onset:Unknown brother FH: depression FATHER, Onset:Unknown MOTHER, Onset:Unknown FH: schizophrenia FATHER, Onset:Unknown MOTHER, Onset:Unknown Other Past Family History: NONE Alcohol Use: Occasionally Drug Use: none, other Lives with: Other Lives In: Homeless Occupation: unemployed, disabled Past Social History: ETOH and Meth abuse Review of Systems All Other Systems at this time: Reviewed and Negative Physical Exam Vital Signs: RN Vital Signs have been reviewed: Yes, Temperature: 98.0, Source: Temporal, Heart Rate: 78, Respiratory Rate: 16, BP: 124/83, Pulse Oximetry: 100, Weight: 90.000 Oxygen Flow Rate: 0 Physical Exam Gen: no distress HEENT: PERRL, moist oral mucosa, EOMI Pulmonary: No respiratory distress MSK: no deformity Skin: w/d/i, no rash Neuro: alert, nonfocal Psych: normal affect Progress Results/Orders Results/Orders Orders - JOEL YOUSSEF MD Regular Diet (8/1/25 Lunch) Vital Signs 03/25/25 07:46 Temp 98.0 Pulse 78 Resp 16 B/P (MAP) 124/83 Pulse Ox 100 O2 Flow Rate 0 Medical Decision Making Findings 44 year old male as above. Spoke to behavioral health specialist, and we agree that patient is likely here for secondary gain and not acutely suicidal. He is sleeping comfortably on reevaluation and I will explain this to him and provide outpatient follow up instructions. Differential Dx:Considerations: Include: Alcohol abuse, Bipolar disorder, Conversion disorder, Encephaloathy, Personality disorder, Substance abuse, Suicidal Differential Diagnosis Ddx includes secondary gain, malingering Departure Disposition: 01 HOME / SELF CARE / HOMELESS Impression: Primary Impression: Suicidal ideation Additional Impression: Malingering Condition: Stable Discharge Instructions: Medical Screening Exam Referrals: NO PRIMARY CARE PROVIDER (PCP) Education Educated: Patient Educated regarding: diagnosis, treatment, prognosis, need for follow up Signature Scribe Signature: . Attestation: . JOEL YOUSSEF MD Mar 25, 2025 12:15
== END 2025-03-25 12:38 | disposition home or self-care (01) ==
LOC: ER 07:43
DX: R45.851 Suicidal ideations (principal); F15.10 Other stimulant abuse, uncomplicated; D64.9 Anemia, unspecified; F41.9 Anxiety disorder, unspecified; F32.A Depression, unspecified; Z88.1 Allergy status to other antibiotic agents; Z91.030 Bee allergy status; Z90.49 Acquired absence of other specified parts of digestive tract; Z91.013 Allergy to seafood; Z79.899 Other long term (current) drug therapy; Z56.0 Unemployment, unspecified; Z59.00 Homelessness unspecified; Z72.89 Other problems related to lifestyle; Z76.5 Malingerer [conscious simulation]
CPT/HCPCS: 99282

== ENCOUNTER 2025-03-27 07:52 | Emergency (ER) | payer MEDICAID ==
[~2025-03-27] VITALS: Ht 175.3 cm; Wt 93.2 kg
[2025-03-27 08:05] VITALS: BP 118/80; PULSE 88; RESP 18; TEMP 98.5; O2SAT 98
== END 2025-03-27 08:52 | disposition left against medical advice (07) ==
LOC: ER 07:52
DX: Z43.3 Encounter for attention to colostomy (principal); Z53.21 Procedure and treatment not carried out due to patient leaving prior to being seen by health care provider
CPT/HCPCS: A4421

== ENCOUNTER 2025-03-28 09:27 | Emergency (ER) | payer MEDICAID ==
[~2025-03-28] VITALS: Ht 175.3 cm; Wt 91.8 kg
[2025-03-28 09:44] VITALS: BP 146/92; PULSE 59; RESP 18; O2SAT 100
--- NOTE | 2025-03-28 12:16 | Physician Documentation ---
History of Present Illness Chief Complaint: See Chief Complaint Stated Complaint: COLOSTOMY BAG SUPPLIES Time Seen by MD: 12:09 Primary Medical Doctor: JAZMYN [facility] Patient is a 44-year-old male that presents to the emergency department for supplies for his urostomy. Patient reports that his urostomy is nothing sealed to his skin very well and he needs another urostomy pouch. Patient is very adept at removing and placing new urostomy pouches just in the pouch it has been provided to him today and he will place in the restroom. Ostomy site looks appropriate at this time. Medication Reconciliation Allergies: Coded Allergies: Fish Containing Products (Verified Allergy, Severe, ANAPHYLAXIS, 03/28/25) shellfish derived (Verified Allergy, Severe, ANAPHYLAXIS, 03/28/25) ceftriaxone (Verified Allergy, Unknown, hives, 03/28/25) clindamycin (Verified Allergy, Unknown, rash, 03/28/25) venom-honey bee (Verified Allergy, Unknown, 03/28/25) Scheduled Aripiprazole (Aripiprazole), 15 MG PO DAILY Escitalopram Oxalate (Escitalopram Oxalate), 20 MG PO DAILY Gabapentin (Gabapentin), 400 MG PO TID Trazodone HCl (Trazodone HCl), 2 TAB PO HS Ziprasidone Hcl (Ziprasidone Hcl), 1 CAP PO Q12H Past Medical History Past Medical History: Anemia, UTI, Chronic Pain, Extremity Fracture, MRSA Abscess, Anxiety, Depression, Psychosis Past Surgical History: abdominal surgery, colectomy, orthopedic surgeries, other Other Past Surgical History: 25 multiple bladder surgeries, urostomy Patient History: FH: Doddridge's chorea FATHER, Onset:Unknown brother FH: depression FATHER, Onset:Unknown MOTHER, Onset:Unknown FH: schizophrenia FATHER, Onset:Unknown MOTHER, Onset:Unknown Other Past Family History: NONE Alcohol Use: Occasionally Drug Use: none, other Lives with: Other Lives In: Homeless Occupation: unemployed, disabled Past Social History: ETOH and Meth abuse Review of Systems ROS As stated above in the HPI, otherwise all systems are reviewed and negative. Physical Exam Vital Signs: Temperature: 97.2, Source: Temporal, Heart Rate: 59, Respiratory Rate: 18, BP: 146/92, Pulse Oximetry: 100, Weight: 91.820 Physical Exam VITALS: Reviewed and as above. GENERAL: Alert, no apparent distress. HEENT: Normocephalic, atraumatic, PERRL, EOMI, dry mucosa, no erythema RESPIRATORY: Lungs clear, normal breath sounds, no respiratory distress. CHEST: No accessory muscle use, no retractions CV: Regular rate, rhythm, no edema, no murmur, No: JVD GI: Soft, non-tender, bowels sounds present, no rebound, guarding, or rigidity BACK: No CVA tenderness, or swelling MUSCULOSKELETAL No deformities, no edema SKIN: Warm and dry, no rash NEURO: Oriented x4, No motor or sensory deficit PSYCH: Normal mood and affect, no agitation Progress Results/Orders Results/Orders Vital Signs 03/28/25 09:44 Temp 97.2 Pulse 59 Resp 18 B/P (MAP) 146/92 Pulse Ox 100 Medical Decision Making Findings Urostomy pouch replaced by patient. Provided. Departure Disposition: HOME / SELF CARE / HOMELESS Condition: Stable Discharge Instructions: Incontinent Urostomy Home Guide Additional Instructions: For evaluation of your colostomy. Looks appropriate please continue to replace urostomy bag as needed. Return to your primary care provider. Return to the emergency department if you have any worsening of symptoms or need an additional evaluation for urostomy. Referrals: NO PRIMARY CARE PROVIDER (PCP) Education Educated: Patient Educated regarding: treatment, need for follow up TYRELL LUNA Mar 28, 2025 12:16
[2025-03-28 12:25] VITALS: TEMP 97.2
== END 2025-03-28 12:26 | disposition home or self-care (01) ==
LOC: ER 09:28
DX: Z93.3 Colostomy status (principal); F15.10 Other stimulant abuse, uncomplicated; Z91.030 Bee allergy status; Z87.440 Personal history of urinary (tract) infections; Z88.1 Allergy status to other antibiotic agents; Z90.49 Acquired absence of other specified parts of digestive tract
CPT/HCPCS: 99281; A4421

== ENCOUNTER 2025-03-31 01:41 | Emergency (ER) | payer MEDICAID ==
[~2025-03-31] VITALS: Ht 175.3 cm; Wt 89.5 kg
[2025-03-31 01:44] VITALS: BP 133/83; PULSE 94; RESP 16; TEMP 98.2; O2SAT 98
--- NOTE | 2025-03-31 01:55 | Physician Documentation ---
History of Present Illness ~ General Chief Complaint: See Chief Complaint Stated Complaint: UROSTIMY ISSUES Time Seen by MD: 01:54 Primary Medical Doctor: JAZMYN History of Present Illness Initial Comments 44-year-old male who is well known to this emergency department and has had multiple visits presenting for a urostomy bag replacement. He has been seen here multiple times for this same issue. No other complaints. Medication Reconciliation Allergies: Coded Allergies: Fish Containing Products (Verified Allergy, Severe, ANAPHYLAXIS, 03/31/25) shellfish derived (Verified Allergy, Severe, ANAPHYLAXIS, 03/31/25) ceftriaxone (Verified Allergy, Unknown, hives, 03/31/25) clindamycin (Verified Allergy, Unknown, rash, 03/31/25) venom-honey bee (Verified Allergy, Unknown, 03/31/25) Scheduled Aripiprazole (Aripiprazole), 15 MG PO DAILY Escitalopram Oxalate (Escitalopram Oxalate), 20 MG PO DAILY Gabapentin (Gabapentin), 400 MG PO TID Trazodone HCl (Trazodone HCl), 2 TAB PO HS Ziprasidone Hcl (Ziprasidone Hcl), 1 CAP PO Q12H Past Medical History Past Medical History: Anemia, UTI, Chronic Pain, Extremity Fracture, MRSA Abscess, Anxiety, Depression, Psychosis Past Surgical History: abdominal surgery, colectomy, orthopedic surgeries, other Other Past Surgical History: 25 multiple bladder surgeries, urostomy Patient History: FH: Jessie's chorea FATHER, Onset:Unknown brother FH: depression FATHER, Onset:Unknown MOTHER, Onset:Unknown FH: schizophrenia FATHER, Onset:Unknown MOTHER, Onset:Unknown Other Past Family History: NONE Alcohol Use: Occasionally Drug Use: none, other Lives with: Other Lives In: Homeless Occupation: unemployed, disabled Past Social History: ETOH and Meth abuse Physical Exam Physical Exam Vital Signs: Temperature: 98.2, Source: Temporal, Heart Rate: 94, Respiratory Rate: 16, BP: 133/83, Pulse Oximetry: 98, Weight: 89.500 Oxygen Flow Rate: 0 Physical Exam I have reviewed the triage vitals. CONST: Well developed and well nourished. In no acute distress HENT: Head Atraumatic EYES: Pupils are equal, round and reactive to light. Normal conjunctiva NECK: Normal range of motion. Supple. CARDIO: Normal rate and regular rhythm. No murmurs, rubs, or gallops. S1, S2. PULM/CHEST: No respiratory distress. Lungs clear to auscultation. No wheeze ABD: Soft and nontender. Nondistended. Bowel sounds normal. No guarding. : Urostomy bag in place MSK: No edema. No deformity. NEURO: Alert and oriented to person, place and time. Moving all extremities SKIN: Warm and dry. PSYCH: Normal mood and affect. Good eye contact. Progress Results/Orders Results/Orders Vital Signs 03/31/25 01:44 Temp 98.2 Pulse 94 Resp 16 B/P (MAP) 133/83 Pulse Ox 98 O2 Flow Rate 0 Medical Decision Making Differential Diagnosis 44-year-old male presenting for a urostomy bag replacement. His urostomy bag was replaced. He was advised that he needs to follow up with his primary care physician for further replacements. Departure Disposition: HOME / SELF CARE / HOMELESS Impression: Primary Impression: Attention to urostomy Condition: Stable Referrals: NO PRIMARY CARE PROVIDER (PCP) Signature Scribe Signature: 1 Attestation: 1 ANILA RODRIGUEZ MD Mar 31, 2025 01:55
== END 2025-03-31 02:02 | disposition home or self-care (01) ==
LOC: ER 01:43
DX: Z43.3 Encounter for attention to colostomy (principal); F15.10 Other stimulant abuse, uncomplicated; D64.9 Anemia, unspecified; F41.9 Anxiety disorder, unspecified; F32.A Depression, unspecified; F10.90 Alcohol use, unspecified, uncomplicated; Z91.030 Bee allergy status; Z90.49 Acquired absence of other specified parts of digestive tract; Z88.1 Allergy status to other antibiotic agents; Z91.013 Allergy to seafood; Z79.899 Other long term (current) drug therapy; Z72.89 Other problems related to lifestyle; Z56.0 Unemployment, unspecified; Z59.00 Homelessness unspecified; Y90.9 Presence of alcohol in blood, level not specified
CPT/HCPCS: 99281

== ENCOUNTER 2025-04-04 20:53 | Emergency (ER) | payer MEDICAID ==
[~2025-04-04] VITALS: Ht 175.3 cm; Wt 90.0 kg
[2025-04-04 21:01] VITALS: BP 117/81; PULSE 73; RESP 16; TEMP 98; O2SAT 98
--- NOTE | 2025-04-04 22:20 | Physician Documentation ---
History of Present Illness ~ General Chief Complaint: See Chief Complaint Stated Complaint: UROSTOMY Time Seen by MD: 22:20 Primary Medical Doctor: JAZMYN History of Present Illness Initial Comments Patient presents to the emergency room requesting urostomy supplies. No other complaints Medication Reconciliation Allergies: Coded Allergies: Fish Containing Products (Verified Allergy, Severe, ANAPHYLAXIS, 03/31/25) shellfish derived (Verified Allergy, Severe, ANAPHYLAXIS, 03/31/25) ceftriaxone (Verified Allergy, Unknown, hives, 03/31/25) clindamycin (Verified Allergy, Unknown, rash, 03/31/25) venom-honey bee (Verified Allergy, Unknown, 03/31/25) Scheduled Aripiprazole (Aripiprazole), 15 MG PO DAILY Escitalopram Oxalate (Escitalopram Oxalate), 20 MG PO DAILY Gabapentin (Gabapentin), 400 MG PO TID Trazodone HCl (Trazodone HCl), 2 TAB PO HS Ziprasidone Hcl (Ziprasidone Hcl), 1 CAP PO Q12H Past Medical History Past Medical History: Anemia, UTI, Chronic Pain, Extremity Fracture, MRSA Abscess, Anxiety, Depression, Psychosis Past Surgical History: abdominal surgery, colectomy, orthopedic surgeries, other Other Past Surgical History: 25 multiple bladder surgeries, urostomy Patient History: FH: Caswell's chorea FATHER, Onset:Unknown brother FH: depression FATHER, Onset:Unknown MOTHER, Onset:Unknown FH: schizophrenia FATHER, Onset:Unknown MOTHER, Onset:Unknown Other Past Family History: NONE Alcohol Use: Occasionally Drug Use: none, other Lives with: Other Lives In: Homeless Occupation: unemployed, disabled Past Social History: ETOH and Meth abuse Review of Systems ROS All review of systems negative except as per HPI Physical Exam Physical Exam Vital Signs: Temperature: 98.0, Heart Rate: 73, Respiratory Rate: 16, BP: 117/81, Pulse Oximetry: 98, Weight: 90.000 Oxygen Flow Rate: 0 Physical Exam General: Patient is awake, alert, oriented x4 in no acute distress Head: Normocephalic and atraumatic. Eyes: Conjunctival normal. EOMI. PERRL. ENT: Mucous membranes moist. Neck: Supple, trachea is midline. Chest: Clear to auscultation bilaterally without rales, rhonchi, or wheezes. There is no accessory muscle use or retractions. Cardiac: RRR without murmurs, gallops, or rubs. Abd: Soft, nondistended, nontender, with normoactive bowel sounds. No guarding, rebound, or rigidity. Progress Results/Orders Results/Orders Vital Signs 04/04/25 21:01 Temp 98.0 Pulse 73 Resp 16 B/P (MAP) 117/81 Pulse Ox 98 O2 Flow Rate 0 Medical Decision Making Findings Patient presents to the emergency room requesting urostomy supplies which he has been given. He has been instructed to return during normal day hours where we could have social work arranged to have additional supplies given to him. Departure Disposition: HOME / SELF CARE / HOMELESS Impression: Primary Impression: General medical exam Condition: Stable Discharge Instructions: General Discharge Instructions Referrals: NO PRIMARY CARE PROVIDER (PCP) Signature Scribe Signature: No scribe Attestation: The note accurately reflects work and decisions made by me.Alejo Davison MD 04/04/25 22:23 ALEJO DAVISON MD Apr 04, 2025 22:20
== END 2025-04-04 22:33 | disposition home or self-care (01) ==
LOC: ER 20:54
DX: Z00.8 Encounter for other general examination (principal); F15.10 Other stimulant abuse, uncomplicated; F41.9 Anxiety disorder, unspecified; Z88.1 Allergy status to other antibiotic agents; Z88.8 Allergy status to other drugs, medicaments and biological substances; Z90.49 Acquired absence of other specified parts of digestive tract; Z91.030 Bee allergy status
CPT/HCPCS: 99281; A4421

== ENCOUNTER 2025-04-11 20:23 | Emergency (ER) | payer MEDICAID ==
[~2025-04-11] VITALS: Ht 175.3 cm; Wt 90.9 kg
[2025-04-11 20:44] VITALS: TEMP 97.9
--- NOTE | 2025-04-11 22:55 | Physician Documentation ---
History of Present Illness ~ General Chief Complaint: General Stated Complaint: UROSTOMY BAG Time Seen by MD: 22:13 Primary Medical Doctor: JAZMYN History of Present Illness Initial Comments Patient is a 44-year-old gentleman that reports to the emergency department for evaluation of his urostomy and supplies. Reports that he is in need of a urostomy bag he is able to place it himself. Patient reports her frequently to get urostomy supplies and is very well-versed in replacing the urostomy bag. Reports no other concerns at this time. Medication Reconciliation Allergies: Coded Allergies: Fish Containing Products (Verified Allergy, Severe, ANAPHYLAXIS, 03/31/25) shellfish derived (Verified Allergy, Severe, ANAPHYLAXIS, 03/31/25) ceftriaxone (Verified Allergy, Unknown, hives, 03/31/25) clindamycin (Verified Allergy, Unknown, rash, 03/31/25) venom-honey bee (Verified Allergy, Unknown, 03/31/25) Scheduled Aripiprazole (Aripiprazole), 15 MG PO DAILY Escitalopram Oxalate (Escitalopram Oxalate), 20 MG PO DAILY Gabapentin (Gabapentin), 400 MG PO TID Trazodone HCl (Trazodone HCl), 2 TAB PO HS Ziprasidone Hcl (Ziprasidone Hcl), 1 CAP PO Q12H Past Medical History Past Medical History: Anemia, UTI, Chronic Pain, Extremity Fracture, MRSA Abscess, Anxiety, Depression, Psychosis Past Surgical History: abdominal surgery, colectomy, orthopedic surgeries, other Other Past Surgical History: 25 multiple bladder surgeries, urostomy Patient History: FH: Jessie's chorea FATHER, Onset:Unknown brother FH: depression FATHER, Onset:Unknown MOTHER, Onset:Unknown FH: schizophrenia FATHER, Onset:Unknown MOTHER, Onset:Unknown Other Past Family History: NONE Alcohol Use: Occasionally Drug Use: none, other Lives with: Other Lives In: Homeless Occupation: unemployed, disabled Past Social History: ETOH and Meth abuse Review of Systems ROS As stated above in the HPI, otherwise all systems are reviewed and negative. Physical Exam Physical Exam Vital Signs: Temperature: 97.9, Heart Rate: 89, Respiratory Rate: 14, BP: 138/88, Pulse Oximetry: 98, Weight: 90.910 Oxygen Flow Rate: 0 Physical Exam VITALS: Reviewed and as above. GENERAL: Alert, no apparent distress. HEENT: Normocephalic, atraumatic, PERRL, EOMI, dry mucosa, no erythema RESPIRATORY: Lungs clear, normal breath sounds, no respiratory distress. CHEST: No accessory muscle use, no retractions CV: Regular rate, rhythm, no edema, no murmur, No: JVD GI: Soft, non-tender, bowels sounds present, no rebound, guarding, or rigidity : Urostomy noted, no ear with erythema or swelling noted BACK: No CVA tenderness, or swelling MUSCULOSKELETAL No deformities, no edema SKIN: Warm and dry, no rash NEURO: Oriented x4, No motor or sensory deficit PSYCH: Normal mood and affect, no agitation Progress Results/Orders Results/Orders Orders - TYRELL LUNA * Miscellaneous Nursing Orders (04/11/25 22:57) Vital Signs 04/11/25 20:44 Temp 97.9 Pulse 89 Resp 14 B/P (MAP) 138/88 Pulse Ox 98 O2 Flow Rate 0 Medical Decision Making Findings Patient reports to the emergency department for urostomy supplies. Patient's is able to place his own urostomy bag. Patient will follow up with his primary care provider. Patient will reports to the emergency department if he has any any needs. Patient has been supplied with an additional urostomy bag for in the morning. Patient is without fever or constitutional symptoms there is no erythema or edema noted at the urostomy site this time. Departure Disposition: HOME / SELF CARE / HOMELESS Impression: Primary Impression: General medical exam Additional Impressions: Attention to urostomy Presence of urostomy Condition: Stable Discharge Instructions: Incontinent Urostomy Surgery, Care After Additional Instructions: Patient reports to the emergency department for urostomy supplies. Patient's is able to place his own urostomy bag. Patient will follow up with his primary care provider. Patient will reports to the emergency department if he has any any needs. Patient has been supplied with an additional urostomy bag for in the morning. Patient is without fever or constitutional symptoms there is no e rythema or edema noted at the urostomy site this time. Referrals: NO PRIMARY CARE PROVIDER (PCP) Education Educated: Patient Educated regarding: diagnosis, treatment, need for follow up Signature Scribe Signature: A Attestation: Scribed for Tyrell Luna by COBY Laird . 04/11/25 22:58 TYRELL LUNA Apr 11, 2025 22:55
[2025-04-11 23:10] VITALS: BP 136/86; PULSE 88; RESP 18; O2SAT 99
== END 2025-04-11 23:11 | disposition home or self-care (01) ==
LOC: ER 20:24
DX: Z00.8 Encounter for other general examination (principal); Z43.6 Encounter for attention to other artificial openings of urinary tract; F15.10 Other stimulant abuse, uncomplicated; F41.9 Anxiety disorder, unspecified; F32.A Depression, unspecified; Z88.1 Allergy status to other antibiotic agents; Z88.8 Allergy status to other drugs, medicaments and biological substances; Z90.49 Acquired absence of other specified parts of digestive tract; Z91.030 Bee allergy status
CPT/HCPCS: 99281

== ENCOUNTER 2025-04-12 21:50 | Emergency (ER) | payer MEDICAID ==
[~2025-04-12] VITALS: Ht 175.3 cm; Wt 90.9 kg
--- NOTE | 2025-04-13 00:23 | Physician Documentation ---
History of Present Illness Chief Complaint: See Chief Complaint Stated Complaint: MED SUPPLIES Time Seen by MD: 23:31 Primary Medical Doctor: JAZMYN [facility] Patient is a 44-year-old male that is reporting to the emergency department for urostomy supplies. Patient has no medical need. Medication Reconciliation Allergies: Coded Allergies: Fish Containing Products (Verified Allergy, Severe, ANAPHYLAXIS, 03/31/25) shellfish derived (Verified Allergy, Severe, ANAPHYLAXIS, 03/31/25) ceftriaxone (Verified Allergy, Unknown, hives, 03/31/25) clindamycin (Verified Allergy, Unknown, rash, 03/31/25) venom-honey bee (Verified Allergy, Unknown, 03/31/25) Scheduled Aripiprazole (Aripiprazole), 15 MG PO DAILY Escitalopram Oxalate (Escitalopram Oxalate), 20 MG PO DAILY Gabapentin (Gabapentin), 400 MG PO TID Trazodone HCl (Trazodone HCl), 2 TAB PO HS Ziprasidone Hcl (Ziprasidone Hcl), 1 CAP PO Q12H Past Medical History Past Medical History: Anemia, UTI, Chronic Pain, Extremity Fracture, MRSA Abscess, Anxiety, Depression, Psychosis Past Surgical History: abdominal surgery, colectomy, orthopedic surgeries, other Other Past Surgical History: 25 multiple bladder surgeries, urostomy Patient History: FH: Jessie's chorea FATHER, Onset:Unknown brother FH: depression FATHER, Onset:Unknown MOTHER, Onset:Unknown FH: schizophrenia FATHER, Onset:Unknown MOTHER, Onset:Unknown Other Past Family History: NONE Alcohol Use: Occasionally Drug Use: none, other Lives with: Other Lives In: Homeless Occupation: unemployed, disabled Past Social History: ETOH and Meth abuse Review of Systems ROS As stated above in the HPI, otherwise all systems are reviewed and negative. Physical Exam Vital Signs: Temperature: 98.2, Heart Rate: 97, Respiratory Rate: 16, BP: 125/83, Pulse Oximetry: 96, Weight: 90.910 Oxygen Flow Rate: 0 Physical Exam GENERAL: Alert, no apparent distress. SKIN: Warm and dry, no rash Progress Results/Orders Results/Orders Vital Signs 04/12/25 22:10 Temp 98.2 Pulse 97 Resp 16 B/P (MAP) 125/83 Pulse Ox 96 O2 Flow Rate 0 Medical Decision Making Findings Patient presenting to the emergency department for urostomy supplies. Patient reports no medical need. Patient replies urostomy bag independently. Advise will be provided to patient patient will apply the new urostomy bag himself. Departure Disposition: HOME / SELF CARE / HOMELESS Impression: Primary Impression: General medical exam Additional Impressions: Attention to urostomy Presence of urostomy Condition: Stable Discharge Instructions: Incontinent Urostomy Home Guide Additional Instructions: Patient provided with urostomy bag. Patient will apply urostomy bag independently. Patient reports her primary care provider. Please return to the emergency department if he have any additional concerns. Referrals: NO PRIMARY CARE PROVIDER (PCP) Education Educated: Patient Educated regarding: diagnosis, treatment, need for follow up Signature Scribe Signature: A Attestation: Scribed for Tyrell Luna by COBY Laird . 04/13/25 00:24 TYRELL LUNA Apr 13, 2025 00:23
[2025-04-13 00:28] VITALS: BP 123/80; PULSE 96; RESP 16; TEMP 98.6; O2SAT 99
== END 2025-04-13 00:29 | disposition home or self-care (01) ==
LOC: ER 21:50
DX: Z00.00 Encounter for general adult medical examination without abnormal findings (principal); F15.10 Other stimulant abuse, uncomplicated; F10.90 Alcohol use, unspecified, uncomplicated; D64.9 Anemia, unspecified; F32.A Depression, unspecified; F41.9 Anxiety disorder, unspecified; Z88.1 Allergy status to other antibiotic agents; Z91.030 Bee allergy status; Z88.8 Allergy status to other drugs, medicaments and biological substances; Z90.49 Acquired absence of other specified parts of digestive tract; Z56.0 Unemployment, unspecified; Z59.00 Homelessness unspecified; Z72.89 Other problems related to lifestyle; Y90.0 Blood alcohol level of less than 20 mg/100 ml
CPT/HCPCS: 99281; A4421

== ENCOUNTER 2025-04-14 07:40 | Emergency (ER) | payer MEDICAID ==
[~2025-04-14] VITALS: Ht 175.3 cm; Wt 74.4 kg
[2025-04-14 07:55] VITALS: BP 107/73; PULSE 86; RESP 15; TEMP 97.4; O2SAT 95
--- NOTE | 2025-04-14 09:26 | Physician Documentation ---
History of Present Illness ~ General Chief Complaint: See Chief Complaint Stated Complaint: BAG ISSUES Time Seen by MD: 09:23 Primary Medical Doctor: JAZMYN History of Present Illness Initial Comments The patient presents requesting your ostomy supplies. He has been seen multiple times in the ER for this in the past. No other acute concerns. Medication Reconciliation Allergies: Coded Allergies: Fish Containing Products (Verified Allergy, Severe, ANAPHYLAXIS, 03/31/25) shellfish derived (Verified Allergy, Severe, ANAPHYLAXIS, 03/31/25) ceftriaxone (Verified Allergy, Unknown, hives, 03/31/25) clindamycin (Verified Allergy, Unknown, rash, 03/31/25) venom-honey bee (Verified Allergy, Unknown, 03/31/25) Scheduled Aripiprazole (Aripiprazole), 15 MG PO DAILY Escitalopram Oxalate (Escitalopram Oxalate), 20 MG PO DAILY Gabapentin (Gabapentin), 400 MG PO TID Trazodone HCl (Trazodone HCl), 2 TAB PO HS Ziprasidone Hcl (Ziprasidone Hcl), 1 CAP PO Q12H Past Medical History Past Medical History: Anemia, UTI, Chronic Pain, Extremity Fracture, MRSA Abscess, Anxiety, Depression, Psychosis Past Surgical History: abdominal surgery, colectomy, orthopedic surgeries, other Other Past Surgical History: 25 multiple bladder surgeries, urostomy Patient History: FH: [place]'s chorea FATHER, Onset:Unknown brother FH: depression FATHER, Onset:Unknown MOTHER, Onset:Unknown FH: schizophrenia FATHER, Onset:Unknown MOTHER, Onset:Unknown Other Past Family History: NONE Alcohol Use: Occasionally Drug Use: none, other Lives with: Other Lives In: Homeless Occupation: unemployed, disabled Past Social History: ETOH and Meth abuse Review of Systems All Other Systems at this time: Reviewed and Negative Physical Exam Physical Exam Vital Signs: Temperature: 97.4, Source: Temporal, Heart Rate: 86, Respiratory Rate: 15, BP: 107/73, Pulse Oximetry: 95, Weight: 74.400 Physical Exam General: This is a pleasant and overall well-appearing young man, not in distress Heart: Regular rate and rhythm, normal-appearing peripheral perfusion Lungs: normal work of breathing, normal oxygen saturation on room air Abdomen: Soft, nondistended, urostomy with mild surrounding inflammatory changes Neuro: Alert and oriented Psychiatric: Calm and cooperative with exam Progress Results/Orders Results/Orders Vital Signs 04/14/25 07:55 Temp 97.4 Pulse 86 Resp 15 B/P (MAP) 107/73 Pulse Ox 95 Medical Decision Making Differential Diagnosis The patient presents requesting urostomy supplies. He was given 2 urostomy bags. I do not feel that any further workup or testing is indicated, he will be discharged with ongoing outpatient management. Departure Time of Disposition: : Disposition: 01 HOME / SELF CARE / HOMELESS Impression: Primary Impression: Attention to urostomy Condition: Improved Discharge Instructions: Continent Urostomy Home Guide Referrals: NO PRIMARY CARE PROVIDER (PCP) Education Educated: Patient Educated regarding: need for follow up Signature Scribe Signature: na Attestation: DIA Messer MD Apr 14, 2025 09:26
== END 2025-04-14 09:33 | disposition home or self-care (01) ==
LOC: ER 07:41
DX: Z43.6 Encounter for attention to other artificial openings of urinary tract (principal); F15.10 Other stimulant abuse, uncomplicated; D64.9 Anemia, unspecified; F41.9 Anxiety disorder, unspecified; F32.A Depression, unspecified; Z91.030 Bee allergy status; Z90.49 Acquired absence of other specified parts of digestive tract; Z88.8 Allergy status to other drugs, medicaments and biological substances; Z88.1 Allergy status to other antibiotic agents; Z56.0 Unemployment, unspecified; Z59.00 Homelessness unspecified; Z91.013 Allergy to seafood; Z79.899 Other long term (current) drug therapy
CPT/HCPCS: 99281; A4421

== ENCOUNTER 2025-04-15 08:14 | Emergency (ER) | payer MEDICAID ==
[~2025-04-15] VITALS: Ht 175.3 cm; Wt 88.6 kg
[2025-04-15 08:16] VITALS: BP 140/76; PULSE 101; RESP 16; O2SAT 97
--- NOTE | 2025-04-15 09:06 | Physician Documentation ---
History of Present Illness ~ General Chief Complaint: See Chief Complaint Stated Complaint: SUPPLIES REQUEST Time Seen by MD: 09:02 Primary Medical Doctor: JAZMYN Source: patient Mode of Arrival: Ambulatory Exam Limitations: no limitations History of Present Illness Initial Comments 44-year-old male in ER for ostomy supplies and sandwich Medication Reconciliation Allergies: Coded Allergies: Fish Containing Products (Verified Allergy, Severe, ANAPHYLAXIS, 03/31/25) shellfish derived (Verified Allergy, Severe, ANAPHYLAXIS, 03/31/25) ceftriaxone (Verified Allergy, Unknown, hives, 03/31/25) clindamycin (Verified Allergy, Unknown, rash, 03/31/25) venom-honey bee (Verified Allergy, Unknown, 03/31/25) Scheduled Aripiprazole (Aripiprazole), 15 MG PO DAILY Escitalopram Oxalate (Escitalopram Oxalate), 20 MG PO DAILY Gabapentin (Gabapentin), 400 MG PO TID Trazodone HCl (Trazodone HCl), 2 TAB PO HS Ziprasidone Hcl (Ziprasidone Hcl), 1 CAP PO Q12H Past Medical History Past Medical History: Anemia, UTI, Chronic Pain, Extremity Fracture, MRSA Abscess, Anxiety, Depression, Psychosis Past Surgical History: abdominal surgery, colectomy, orthopedic surgeries, other Other Past Surgical History: 25 multiple bladder surgeries, urostomy Patient History: FH: Jessie's chorea FATHER, Onset:Unknown brother FH: depression FATHER, Onset:Unknown MOTHER, Onset:Unknown FH: schizophrenia FATHER, Onset:Unknown MOTHER, Onset:Unknown Other Past Family History: NONE Alcohol Use: Occasionally Drug Use: none, other Lives with: Other Lives In: Homeless Occupation: unemployed, disabled Past Social History: ETOH and Meth abuse Review of Systems All Other Systems at this time: Reviewed and Negative Physical Exam Physical Exam Vital Signs: RN Vital Signs have been reviewed: Yes, Temperature: 98.2, Source: Temporal, Heart Rate: 101, Respiratory Rate: 16, BP: 140/76, Pulse Oximetry: 97, Weight: 88.640 General Appearance: alert, WD/WN, no apparent distress Respiratory: lungs clear, normal breath sounds, no respiratory distress Chest: no accessory muscle use Cardiovascular: regular rate, rhythm Gastrointestinal Ostomy in place with tape peeling from ostomy Progress Results/Orders Results/Orders Vital Signs 04/15/25 08:16 Temp 98.2 Pulse 101 Resp 16 B/P (MAP) 140/76 Pulse Ox 97 Medical Decision Making Findings Patient requesting ostomy supplies no acute concerns Departure Time of Disposition: 09:05 Disposition: 01 HOME / SELF CARE / HOMELESS Impression: Primary Impression: Colostomy care Condition: Stable Additional Instructions: Follow up with [facility] about supplies Referrals: NO PRIMARY CARE PROVIDER (PCP) Education Educated: Patient Educated regarding: diagnosis, treatment, need for follow up Signature Scribe Signature: No scribe Attestation: The note accurately reflects work and decisions made by me.Monserrat TENORIO 04/15/25 09:06 MONSERRAT VELASQUEZ NP Apr 15, 2025 09:06
[2025-04-15 09:16] VITALS: TEMP 98.2
== END 2025-04-15 09:18 | disposition home or self-care (01) ==
LOC: ER 08:14
DX: Z43.3 Encounter for attention to colostomy (principal); F15.10 Other stimulant abuse, uncomplicated; D64.9 Anemia, unspecified; F41.9 Anxiety disorder, unspecified; F32.A Depression, unspecified; Z91.030 Bee allergy status; Z88.1 Allergy status to other antibiotic agents; Z90.49 Acquired absence of other specified parts of digestive tract; Z91.013 Allergy to seafood; Z79.899 Other long term (current) drug therapy; Z56.0 Unemployment, unspecified; Z59.00 Homelessness unspecified; Z72.89 Other problems related to lifestyle
CPT/HCPCS: 99281; A4421

== ENCOUNTER 2025-04-16 07:59 | Emergency (ER) | payer MEDICAID ==
[~2025-04-16] VITALS: Ht 175.3 cm; Wt 88.3 kg
[2025-04-16 08:05] VITALS: BP 133/79; PULSE 100; RESP 18; TEMP 98.4; O2SAT 100
--- NOTE | 2025-04-16 08:43 | Physician Documentation ---
History of Present Illness General Chief Complaint: See Chief Complaint Stated Complaint: BAG ISSUES Time Seen by MD: 08:31 Primary Medical Doctor: JAZMYN History of Present Illness Initial Comments Patient is a 44-year-old male well known to the emergency department with a right lower abdomen ostomy, the patient states they his bag is become loose and he is requesting ostomy supplies. Patient has no fevers chills nausea or vomiting patient's symptoms are mild and persistent. Medication Reconciliation Allergies: Coded Allergies: Fish Containing Products (Verified Allergy, Severe, ANAPHYLAXIS, 04/17/25) shellfish derived (Verified Allergy, Severe, ANAPHYLAXIS, 04/17/25) ceftriaxone (Verified Allergy, Unknown, hives, 04/17/25) clindamycin (Verified Allergy, Unknown, rash, 04/17/25) venom-honey bee (Verified Allergy, Unknown, 04/17/25) Scheduled Aripiprazole (Aripiprazole), 15 MG PO DAILY Escitalopram Oxalate (Escitalopram Oxalate), 20 MG PO DAILY Gabapentin (Gabapentin), 400 MG PO TID Trazodone HCl (Trazodone HCl), 2 TAB PO HS Ziprasidone Hcl (Ziprasidone Hcl), 1 CAP PO Q12H Past Medical History Past Medical History: Anemia, UTI, Chronic Pain, Extremity Fracture, MRSA Abscess, Anxiety, Depression, Psychosis Past Surgical History: abdominal surgery, colectomy, orthopedic surgeries, other Other Past Surgical History: 25 multiple bladder surgeries, urostomy Other Past Family History: NONE Smoking: Cigarettes Alcohol Use: Occasionally Drug Use: none, other Lives with: Other Lives In: Homeless Occupation: unemployed, disabled Past Social History: ETOH and Meth abuse Review of Systems All Other Systems at this time: Reviewed and Negative Physical Exam Physical Exam Vital Signs: Temperature: 98.4, Source: Temporal, Heart Rate: 100, Respiratory Rate: 18, BP: 133/79, Pulse Oximetry: 100, Weight: 88.300 Oxygen Flow Rate: 0 Physical Exam VITALS: Reviewed and as above. GENERAL: Alert, no apparent distress. HEENT: Normocephalic, atraumatic, PERRL, EOMI, dry mucosa, no erythema GI: Soft, non-tender, bowels sounds present, no rebound, guarding, or rigidity midline abdominal scar with an ostomy on the right lower abdomen that appears clean no surrounding erythema warmth or swelling BACK: No CVA tenderness, or swelling MUSCULOSKELETAL: No deformities, no edema SKIN: Warm and dry, no rash NEURO: Oriented x4, No motor or sensory deficit PSYCH: Normal mood and affect, no agitation Progress Results/Orders Results/Orders Vital Signs 04/16/25 08:05 Temp 98.4 Pulse 100 Resp 18 B/P (MAP) 133/79 Pulse Ox 100 O2 Flow Rate 0 Medical Decision Making Findings The patient is well known to our facility with frequent visits for colostomy care of the patient is complaining of his bag leaking and requesting a colostomy bag the patient is otherwise well-appearing in no distress prior hospitalizations has been reviewed the patient's pulse oximetry was interpreted as adequate and normal the patient will be discharged after having his colostomy bag replaced Departure Time of Disposition: 08:46 Disposition: 01 HOME / SELF CARE / HOMELESS Impression: Primary Impression: Colostomy care Discharge Instructions: General Discharge Instructions Referrals: NO PRIMARY CARE PROVIDER (PCP) Signature Scribe Signature: no scribe Attestation: The note accurately reflects work and decisions made by me.Jone Siddiqui MD 04/18/25 03:47 JONE SIDDIQUI MD Apr 16, 2025 08:43
== END 2025-04-16 09:15 | disposition home or self-care (01) ==
LOC: ER 07:59
DX: Z43.3 Encounter for attention to colostomy (principal); F15.10 Other stimulant abuse, uncomplicated; F17.210 Nicotine dependence, cigarettes, uncomplicated; F41.9 Anxiety disorder, unspecified; F32.A Depression, unspecified; Z90.49 Acquired absence of other specified parts of digestive tract; Z91.030 Bee allergy status; Z59.00 Homelessness unspecified; Z88.1 Allergy status to other antibiotic agents; Z91.013 Allergy to seafood; Z79.899 Other long term (current) drug therapy; Z72.89 Other problems related to lifestyle; Z56.0 Unemployment, unspecified
CPT/HCPCS: 99281; A4421

== ENCOUNTER 2025-04-17 16:45 | Emergency (ER) | payer MEDICAID ==
[~2025-04-17] VITALS: Ht 175.3 cm; Wt 88.6 kg
[2025-04-17 17:16] VITALS: BP 132/78; PULSE 87; RESP 16; O2SAT 98
--- NOTE | 2025-04-17 17:28 | Physician Documentation ---
HPI ~ General Chief Complaint: Medication Request Stated Complaint: OSTOMY SUPPLIES Time Seen by MD: 16:49 OK to notify your PCP?: Yes Primary Medical Doctor: JAZMYN Source: patient Mode of Arrival: POV Exam Limitations: no limitations History of Present Illness HPI Comments 44-year-old male requesting a new ostomy bag. He denies any medical complaints at this time. He simply ran out of his supplies. Medication Reconciliation Allergies: Coded Allergies: Fish Containing Products (Verified Allergy, Severe, ANAPHYLAXIS, 04/17/25) shellfish derived (Verified Allergy, Severe, ANAPHYLAXIS, 04/17/25) ceftriaxone (Verified Allergy, Unknown, hives, 04/17/25) clindamycin (Verified Allergy, Unknown, rash, 04/17/25) venom-honey bee (Verified Allergy, Unknown, 04/17/25) Scheduled Aripiprazole (Aripiprazole), 15 MG PO DAILY Escitalopram Oxalate (Escitalopram Oxalate), 20 MG PO DAILY Gabapentin (Gabapentin), 400 MG PO TID Trazodone HCl (Trazodone HCl), 2 TAB PO HS Ziprasidone Hcl (Ziprasidone Hcl), 1 CAP PO Q12H Past Medical History Past Medical History: Anemia, UTI, Chronic Pain, Extremity Fracture, MRSA Abscess, Anxiety, Depression, Psychosis Past Surgical History: abdominal surgery, colectomy, orthopedic surgeries, other Other Past Surgical History: 25 multiple bladder surgeries, urostomy Patient History: FH: [place]'s chorea FATHER, Onset:Unknown brother FH: depression FATHER, Onset:Unknown MOTHER, Onset:Unknown FH: schizophrenia FATHER, Onset:Unknown MOTHER, Onset:Unknown Other Past Family History: NONE Alcohol Use: Occasionally Drug Use: none, other Lives with: Other Lives In: Homeless Occupation: unemployed, disabled Past Social History: ETOH and Meth abuse Review of Systems All Other Systems at this time: Reviewed and Negative Physical Exam Physical Exam Vital Signs: RN Vital Signs have been reviewed: Yes, Temperature: 98.6, Heart Rate: 87, Respiratory Rate: 16, BP: 132/78, Pulse Oximetry: 98, Weight: 88.640 Oxygen Flow Rate: 0 Pulse Oximetry Reflects: adequate oxygenation Physical Exam General: Alert, no distress. HEENT: No injection, moist mucous membranes. Neck: Full range of motion. Respiratory: No respiratory distress, equal chest rise and fall. Chest: No accessory muscle use. Cardiovascular: Regular rate and rhythm. Gastrointestinal: Nondistended. Extremities: Normal range of motion, no deformity. Neurologic: Oriented x4. Psychiatric: Normal mood and affect. Skin: Normal color, warm and dry. Progress Results/Orders Reviewed/noted all lab results: Yes Results/Orders Vital Signs 04/17/25 17:16 Temp 98.6 Pulse 87 Resp 16 B/P (MAP) 132/78 Pulse Ox 98 O2 Flow Rate 0 Medical Decision Making Findings We provided him with a new ostomy bag. He has no medical concerns. Physical exam is unremarkable. He was educated to work on getting his supplies through the proper channels and to [facility] with [facility]. Departure Disposition: HOME / SELF CARE / HOMELESS Impression: Primary Impression: General medical exam Condition: Stable Discharge Instructions: Medical Screening Exam Additional Instructions: Please work on getting your ostomy supplies the liver to you on a regular basis. Follow up with [facility] within the next week. Return back here for any new or worsening symptoms. Referrals: NO PRIMARY CARE PROVIDER (PCP) Education Educated: Patient Educated regarding: diagnosis, treatment, prognosis, need for follow up Additional Comment Medical Screen Exam This patient recieved a medical screening examination. After reviewing the individual's medical complaints with presenting symptoms and performing an appropriate physical examination, it was determined that no immediate life- threatening emergency medical condition is present. This individual is also not a women having contractions. Signature Scribe Signature: . Attestation: Scribed for Erica Adrian by Erica Villeda NP . 04/17/25 17:28 Parts of this note were created using [employer] voice recognition software program. While efforts were made to correct any mistakes made by this voice recognition software program, nonsensical phrases may remain in this note. In addition, there may be errors and syntax, grammar, content and spelling. ERICA ADRIAN Apr 17, 2025 17:28
[2025-04-17 17:47] VITALS: TEMP 98.6
== END 2025-04-17 17:49 | disposition home or self-care (01) ==
LOC: ER 16:46
DX: Z43.3 Encounter for attention to colostomy (principal); F15.10 Other stimulant abuse, uncomplicated; F41.9 Anxiety disorder, unspecified; F32.A Depression, unspecified; D64.9 Anemia, unspecified; Z91.030 Bee allergy status; Z88.1 Allergy status to other antibiotic agents; Z90.49 Acquired absence of other specified parts of digestive tract; Z79.899 Other long term (current) drug therapy; Z91.013 Allergy to seafood; Z56.0 Unemployment, unspecified; Z59.00 Homelessness unspecified; Z72.89 Other problems related to lifestyle
CPT/HCPCS: 99281; A4398; A4421

== ENCOUNTER 2025-04-18 07:56 | Emergency (ER) | payer MEDICAID ==
[~2025-04-18] VITALS: Ht 172.7 cm; Wt 89.0 kg
[2025-04-18 07:57] VITALS: BP 133/81; PULSE 91; RESP 18; TEMP 98.4; O2SAT 99
== END 2025-04-18 08:06 | disposition left against medical advice (07) ==
LOC: ER 07:56
DX: Z00.8 Encounter for other general examination (principal); Z88.8 Allergy status to other drugs, medicaments and biological substances; Z91.013 Allergy to seafood; Z53.21 Procedure and treatment not carried out due to patient leaving prior to being seen by health care provider
CPT/HCPCS: A4421

== ENCOUNTER 2025-04-19 00:41 | Emergency (ER) | payer MEDICAID ==
[~2025-04-19] VITALS: Ht 175.3 cm; Wt 88.0 kg
--- NOTE | 2025-04-19 01:31 | Physician Documentation ---
History of Present Illness ~ General Chief Complaint: See Chief Complaint Stated Complaint: UROSTOMY BAG Time Seen by MD: 01:28 Primary Medical Doctor: JAZMYN History of Present Illness Initial Comments Patient presents to the emergency room requesting supplies for urostomy. Patient has history of urostomy placement. No other problems. Medication Reconciliation Allergies: Coded Allergies: Fish Containing Products (Verified Allergy, Severe, ANAPHYLAXIS, 04/17/25) shellfish derived (Verified Allergy, Severe, ANAPHYLAXIS, 04/17/25) ceftriaxone (Verified Allergy, Unknown, hives, 04/17/25) clindamycin (Verified Allergy, Unknown, rash, 04/17/25) venom-honey bee (Verified Allergy, Unknown, 04/17/25) Scheduled Aripiprazole (Aripiprazole), 15 MG PO DAILY Escitalopram Oxalate (Escitalopram Oxalate), 20 MG PO DAILY Gabapentin (Gabapentin), 400 MG PO TID Trazodone HCl (Trazodone HCl), 2 TAB PO HS Ziprasidone Hcl (Ziprasidone Hcl), 1 CAP PO Q12H Past Medical History Past Medical History: Anemia, UTI, Chronic Pain, Extremity Fracture, MRSA Abscess, Anxiety, Depression, Psychosis Past Surgical History: abdominal surgery, colectomy, orthopedic surgeries, other Other Past Surgical History: 25 multiple bladder surgeries, urostomy Patient History: FH: [place]'s chorea FATHER, Onset:Unknown brother FH: depression FATHER, Onset:Unknown MOTHER, Onset:Unknown FH: schizophrenia FATHER, Onset:Unknown MOTHER, Onset:Unknown Other Past Family History: NONE Alcohol Use: Occasionally Drug Use: none, other Lives with: Other Lives In: Homeless Occupation: unemployed, disabled Past Social History: ETOH and Meth abuse Review of Systems ROS All review of systems negative except as per HPI Physical Exam Physical Exam Vital Signs: Temperature: 98.0, Heart Rate: 95, Respiratory Rate: 16, BP: 118/74, Pulse Oximetry: 96, Weight: 88.000 Oxygen Flow Rate: 0 Physical Exam General: Patient is awake, alert, oriented x4 in no acute distress Head: Normocephalic and atraumatic. Eyes: Conjunctival normal. EOMI. PERRL. ENT: Mucous membranes moist. Neck: Supple, trachea is midline. Chest: Clear to auscultation bilaterally without rales, rhonchi, or wheezes. There is no accessory muscle use or retractions. Cardiac: RRR without murmurs, gallops, or rubs. Abd: Functioning urostomy noted Progress Results/Orders Results/Orders Vital Signs 04/19/25 00:51 Temp 98.0 Pulse 95 Resp 16 B/P (MAP) 118/74 Pulse Ox 96 O2 Flow Rate 0 Medical Decision Making Findings Patient presented to the emergency room requesting medical supplies. Medical supplies was given to him. Departure Disposition: HOME / SELF CARE / HOMELESS Impression: Primary Impression: General medical exam Condition: Stable Discharge Instructions: General Discharge Instructions Referrals: NO PRIMARY CARE PROVIDER (PCP) Signature Scribe Signature: No scribe Attestation: The note accurately reflects work and decisions made by me.Alejo Davison MD 04/19/25 01:31 ALEJO DAVISON MD Apr 19, 2025 01:31
[2025-04-19 01:42] VITALS: BP 123/78; PULSE 74; RESP 18; TEMP 98.6; O2SAT 99
== END 2025-04-19 01:43 | disposition home or self-care (01) ==
LOC: ER 00:42
DX: Z43.3 Encounter for attention to colostomy (principal); F15.10 Other stimulant abuse, uncomplicated; G89.29 Other chronic pain; F41.9 Anxiety disorder, unspecified; F32.A Depression, unspecified; D64.9 Anemia, unspecified; Z91.030 Bee allergy status; Z90.49 Acquired absence of other specified parts of digestive tract; Z88.1 Allergy status to other antibiotic agents; Z79.899 Other long term (current) drug therapy; Z91.013 Allergy to seafood; Z72.89 Other problems related to lifestyle; Z56.0 Unemployment, unspecified; Z59.00 Homelessness unspecified
CPT/HCPCS: 99281; A4421

== ENCOUNTER 2025-04-20 11:55 | Emergency (ER) | payer MEDICAID ==
[~2025-04-20] VITALS: Ht 175.3 cm; Wt 86.9 kg
[2025-04-20 12:11] VITALS: BP 116/74; PULSE 89; RESP 18; O2SAT 99
--- NOTE | 2025-04-20 13:26 | Physician Documentation ---
History of Present Illness General Chief Complaint: See Chief Complaint Stated Complaint: UROSTOMY BAG Time Seen by MD: 12:17 Primary Medical Doctor: JAZMYN History of Present Illness Initial Comments This is a 44-year-old male well known to this emergency department who presents with need for ostomy supplies, patient reports that he has been trying to get in with [facility] to flower buncher or picker his supplies but was unable to do so, he has lost his last bag and his currently leaking urine all over himself. Medication Reconciliation Allergies: Coded Allergies: Fish Containing Products (Verified Allergy, Severe, ANAPHYLAXIS, 04/20/25) shellfish derived (Verified Allergy, Severe, ANAPHYLAXIS, 04/20/25) ceftriaxone (Verified Allergy, Unknown, hives, 04/20/25) clindamycin (Verified Allergy, Unknown, rash, 04/20/25) venom-honey bee (Verified Allergy, Unknown, 04/20/25) Scheduled Aripiprazole (Aripiprazole), 15 MG PO DAILY Escitalopram Oxalate (Escitalopram Oxalate), 20 MG PO DAILY Gabapentin (Gabapentin), 400 MG PO TID Trazodone HCl (Trazodone HCl), 2 TAB PO HS Ziprasidone Hcl (Ziprasidone Hcl), 1 CAP PO Q12H Past Medical History Past Medical History: Anemia, UTI, Chronic Pain, Extremity Fracture, MRSA Abscess, Anxiety, Depression, Psychosis Past Surgical History: abdominal surgery, colectomy, orthopedic surgeries, other Other Past Surgical History: 25 multiple bladder surgeries, urostomy Other Past Family History: NONE Smoking: Cigarettes Alcohol Use: Occasionally Drug Use: none, other Lives with: Other Lives In: Homeless Occupation: unemployed, disabled Past Social History: ETOH and Meth abuse Review of Systems ROS As stated above in the HPI, otherwise all systems are reviewed and negative. Physical Exam Physical Exam Vital Signs: Temperature: 97.3, Source: Oral, Heart Rate: 89, Respiratory Rate: 18, BP: 116/74, Pulse Oximetry: 99, Weight: 86.900 Oxygen Flow Rate: 0 Physical Exam VITALS: Reviewed and as above. GENERAL: Alert, nontoxic appearing, no apparent distress. RESPIRATORY: No increased work of breathing, no respiratory distress, speaking in full clear sentences Progress Results/Orders Results/Orders Vital Signs 04/20/25 04/20/25 12:11 13:43 Temp 97.3 97.3 Pulse 89 Resp 18 B/P (MAP) 116/74 Pulse Ox 99 O2 Flow Rate 0 Medical Decision Making Findings This 44-year-old male presented requesting ostomy supplies due to running out. Physical exam benign no evidence of cellulitis or other infection at ostomy site. Patient provided ostomy supplies by nursing staff, patient had no other acute symptoms or concerns and is appropriate for discharge. Differential Diagnosis Cellulitis, UTI, urosepsis, malingering, homeless, hungry Departure Time of Disposition: 13:26 Disposition: 01 HOME / SELF CARE / HOMELESS Impression: Primary Impression: Presence of urostomy Additional Impression: General medical exam Condition: Improved Additional Instructions: Please follow up with [facility] in the future for your ostomy supplies. Please follow up with your primary care provider in the next few days. Please return to the emergency department for any new or worsening concerning symptoms. Referrals: NO PRIMARY CARE PROVIDER (PCP) Education Educated: Patient Educated regarding: diagnosis, treatment, prognosis, need for follow up Signature Scribe Signature: As stated above in the HPI, otherwise all systems are reviewed and negative. Attestation: The note accurately reflects work and decisions made by me.COBY Cruz 04/21/25 20:58 RICARDO PINA Apr 20, 2025 13:26
[2025-04-20 13:43] VITALS: TEMP 97.3
== END 2025-04-20 13:44 | disposition home or self-care (01) ==
LOC: ER 11:55
DX: Z00.00 Encounter for general adult medical examination without abnormal findings (principal); F15.10 Other stimulant abuse, uncomplicated; D64.9 Anemia, unspecified; F41.9 Anxiety disorder, unspecified; F32.A Depression, unspecified; F17.210 Nicotine dependence, cigarettes, uncomplicated; F10.10 Alcohol abuse, uncomplicated; Z59.00 Homelessness unspecified; Z88.1 Allergy status to other antibiotic agents; Z91.030 Bee allergy status; Z91.013 Allergy to seafood; Z90.49 Acquired absence of other specified parts of digestive tract; Z79.899 Other long term (current) drug therapy; Z56.0 Unemployment, unspecified; Z72.89 Other problems related to lifestyle; Y90.9 Presence of alcohol in blood, level not specified
CPT/HCPCS: 99281; A4421

== ENCOUNTER 2025-04-21 08:13 | Emergency (ER) | payer MEDICAID ==
[~2025-04-21] VITALS: Ht 175.3 cm; Wt 87.0 kg
[2025-04-21 08:15] VITALS: BP 101/80; PULSE 89; RESP 14; TEMP 97.3; O2SAT 97
--- NOTE | 2025-04-21 09:29 | Physician Documentation ---
History of Present Illness ~ General Chief Complaint: See Chief Complaint Stated Complaint: SUPPLIES REQUEST Time Seen by MD: 09:09 Primary Medical Doctor: JAZMYN History of Present Illness Initial Comments 44-year-old male with history of urostomy, well known to the emergency department requiring ostomy supplies He is here today requesting supplies. No other acute concerns or complaints. Medication Reconciliation Allergies: Coded Allergies: Fish Containing Products (Verified Allergy, Severe, ANAPHYLAXIS, 04/20/25) shellfish derived (Verified Allergy, Severe, ANAPHYLAXIS, 04/20/25) ceftriaxone (Verified Allergy, Unknown, hives, 04/20/25) clindamycin (Verified Allergy, Unknown, rash, 04/20/25) venom-honey bee (Verified Allergy, Unknown, 04/20/25) Scheduled Aripiprazole (Aripiprazole), 15 MG PO DAILY Escitalopram Oxalate (Escitalopram Oxalate), 20 MG PO DAILY Gabapentin (Gabapentin), 400 MG PO TID Trazodone HCl (Trazodone HCl), 2 TAB PO HS Ziprasidone Hcl (Ziprasidone Hcl), 1 CAP PO Q12H Past Medical History Past Medical History: Anemia, UTI, Chronic Pain, Extremity Fracture, MRSA Abscess, Anxiety, Depression, Psychosis Past Surgical History: abdominal surgery, colectomy, orthopedic surgeries, other Other Past Surgical History: 25 multiple bladder surgeries, urostomy Patient History: FH: [place]'s chorea FATHER, Onset:Unknown brother FH: depression FATHER, Onset:Unknown MOTHER, Onset:Unknown FH: schizophrenia FATHER, Onset:Unknown MOTHER, Onset:Unknown Other Past Family History: NONE Alcohol Use: Occasionally Drug Use: none, other Lives with: Other Lives In: Homeless Occupation: unemployed, disabled Past Social History: ETOH and Meth abuse Review of Systems All Other Systems at this time: Reviewed and Negative Physical Exam Physical Exam Vital Signs: Temperature: 97.3, Source: Temporal, Heart Rate: 89, Respiratory Rate: 14, BP: 101/80, Pulse Oximetry: 97, Weight: 87.000 Oxygen Flow Rate: 0 Physical Exam General: This is a disheveled middle-aged man, not in distress Heart: normal-appearing peripheral perfusion Lungs: normal work of breathing, normal oxygen saturation on room air Abdomen: Soft, nondistended, ostomy in place without cover or bandage Psychiatric: Calm and cooperative with exam Progress Results/Orders Results/Orders Vital Signs 04/21/25 08:15 Temp 97.3 Pulse 89 Resp 14 B/P (MAP) 101/80 Pulse Ox 97 O2 Flow Rate 0 Medical Decision Making Differential Diagnosis The patient presents requesting ostomy supplies. No other acute concerns. He was given supplies and discharged Departure Time of Disposition: 09:29 Disposition: 01 HOME / SELF CARE / HOMELESS Impression: Primary Impression: Attention to urostomy Condition: Stable Referrals: NO PRIMARY CARE PROVIDER (PCP) Education Educated: Patient Educated regarding: diagnosis, need for follow up Signature Scribe Signature: na Attestation: DIA Messer MD Apr 21, 2025 09:29
== END 2025-04-21 09:51 | disposition home or self-care (01) ==
LOC: ER 08:14
DX: Z43.6 Encounter for attention to other artificial openings of urinary tract (principal); F10.10 Alcohol abuse, uncomplicated; F15.10 Other stimulant abuse, uncomplicated; Z87.440 Personal history of urinary (tract) infections; Z88.1 Allergy status to other antibiotic agents; Z90.49 Acquired absence of other specified parts of digestive tract; Z88.8 Allergy status to other drugs, medicaments and biological substances; Z91.013 Allergy to seafood; Z91.030 Bee allergy status; Y90.9 Presence of alcohol in blood, level not specified
CPT/HCPCS: 99282; A4421

== ENCOUNTER 2025-04-22 02:13 | Emergency (ER) | payer MEDICAID ==
[~2025-04-22] VITALS: Ht 175.3 cm; Wt 97.3 kg
--- NOTE | 2025-04-22 03:04 | Physician Documentation ---
History of Present Illness ~ Chief Complaint: Urinary Symptoms Stated Complaint: BAG ISSUES Time Seen by MD: 03:02 Primary Medical Doctor: JAZMYN DANG Patient presents to the emergency room requesting urinary products as usual. No other complaints Medication Reconciliation Allergies: Coded Allergies: Fish Containing Products (Verified Allergy, Severe, ANAPHYLAXIS, 04/20/25) shellfish derived (Verified Allergy, Severe, ANAPHYLAXIS, 04/20/25) ceftriaxone (Verified Allergy, Unknown, hives, 04/20/25) clindamycin (Verified Allergy, Unknown, rash, 04/20/25) venom-honey bee (Verified Allergy, Unknown, 04/20/25) Scheduled Aripiprazole (Aripiprazole), 15 MG PO DAILY Escitalopram Oxalate (Escitalopram Oxalate), 20 MG PO DAILY Gabapentin (Gabapentin), 400 MG PO TID Trazodone HCl (Trazodone HCl), 2 TAB PO HS Ziprasidone Hcl (Ziprasidone Hcl), 1 CAP PO Q12H Past Medical History Past Medical History: Anemia, UTI, Chronic Pain, Extremity Fracture, MRSA Abscess, Anxiety, Depression, Psychosis Past Surgical History: abdominal surgery, colectomy, orthopedic surgeries, other Other Past Surgical History: 25 multiple bladder surgeries, urostomy Patient History: FH: [place]'s chorea FATHER, Onset:Unknown brother FH: depression FATHER, Onset:Unknown MOTHER, Onset:Unknown FH: schizophrenia FATHER, Onset:Unknown MOTHER, Onset:Unknown Other Past Family History: NONE Alcohol Use: Occasionally Drug Use: none, other Lives with: Other Lives In: Homeless Occupation: unemployed, disabled Past Social History: ETOH and Meth abuse Review of Systems ROS All review of systems negative except as per HPI Physical Exam Vital Signs: Temperature: 97.3, Heart Rate: 96, Respiratory Rate: 20, BP: 133/89, Pulse Oximetry: 97, Weight: 97.300 Oxygen Flow Rate: 0 Physical Exam General: Patient is awake, alert, oriented x4 in no acute distress Head: Normocephalic and atraumatic. Eyes: Conjunctival normal. EOMI. PERRL. ENT: Mucous membranes moist. Neck: Supple, trachea is midline. Chest: Clear to auscultation bilaterally without rales, rhonchi, or wheezes. There is no accessory muscle use or retractions. Cardiac: RRR without murmurs, gallops, or rubs. Abd: Urostomy functioning in place. Progress Results/Orders Results/Orders Vital Signs 04/22/25 02:18 Temp 97.3 Pulse 96 Resp 20 B/P (MAP) 133/89 Pulse Ox 97 O2 Flow Rate 0 Medical Decision Making Findings Patient presents to the emergency room requesting urostomy supplies. Urostomy supplies given. I do not feel emergent labs or imaging is necessary Departure Disposition: HOME / SELF CARE / HOMELESS Impression: Primary Impression: General medical exam Condition: Stable Discharge Instructions: General Discharge Instructions Referrals: NO PRIMARY CARE PROVIDER (PCP) Signature Scribe Signature: No scribe Attestation: The note accurately reflects work and decisions made by me.Alejo Davison MD 04/22/25 03:04 ALEJO DAVISON MD Apr 22, 2025 03:04
[2025-04-22 03:11] VITALS: BP 130/82; PULSE 68; RESP 16; TEMP 97.5; O2SAT 97
== END 2025-04-22 03:13 | disposition home or self-care (01) ==
LOC: ER 02:13
DX: Z00.00 Encounter for general adult medical examination without abnormal findings (principal); Z43.3 Encounter for attention to colostomy; F15.10 Other stimulant abuse, uncomplicated; F10.10 Alcohol abuse, uncomplicated; G89.29 Other chronic pain; D64.9 Anemia, unspecified; F41.9 Anxiety disorder, unspecified; F32.A Depression, unspecified; F29 Unspecified psychosis not due to a substance or known physiological condition; Z88.1 Allergy status to other antibiotic agents; Z91.013 Allergy to seafood; Z91.030 Bee allergy status; Z90.49 Acquired absence of other specified parts of digestive tract; Z79.899 Other long term (current) drug therapy; Z72.89 Other problems related to lifestyle; Z59.00 Homelessness unspecified; Z56.0 Unemployment, unspecified; Y90.9 Presence of alcohol in blood, level not specified
CPT/HCPCS: 99281

== ENCOUNTER 2025-04-27 05:43 | Emergency (ER) | payer MEDICAID ==
[~2025-04-27] VITALS: Ht 175.3 cm; Wt 85.8 kg
[2025-04-27 05:46] VITALS: BP 138/99; PULSE 95; RESP 18; TEMP 97.5; O2SAT 97
== END 2025-04-27 06:34 | disposition left against medical advice (07) ==
LOC: ER 05:43
DX: Z43.3 Encounter for attention to colostomy (principal); Z53.21 Procedure and treatment not carried out due to patient leaving prior to being seen by health care provider

== ENCOUNTER 2025-05-01 13:34 | Emergency (ER) | payer MEDICAID ==
[~2025-05-01] VITALS: Ht 175.3 cm; Wt 77.2 kg
--- NOTE | 2025-05-01 13:45 | Physician Documentation ---
History of Present Illness ~ General Stated Complaint: SUPPLIES Time Seen by MD: 13:43 Primary Medical Doctor: JAZMYN History of Present Illness Initial Comments 44-year-old male presents to the ED requesting colostomy supplies. States that he has no other symptoms complaint of. Medication Reconciliation Allergies: Coded Allergies: Fish Containing Products (Verified Allergy, Severe, ANAPHYLAXIS, 04/27/25) shellfish derived (Verified Allergy, Severe, ANAPHYLAXIS, 04/27/25) ceftriaxone (Verified Allergy, Unknown, hives, 04/27/25) clindamycin (Verified Allergy, Unknown, rash, 04/27/25) venom-honey bee (Verified Allergy, Unknown, 04/27/25) Scheduled Aripiprazole (Aripiprazole), 15 MG PO DAILY Escitalopram Oxalate (Escitalopram Oxalate), 20 MG PO DAILY Gabapentin (Gabapentin), 400 MG PO TID Trazodone HCl (Trazodone HCl), 2 TAB PO HS Ziprasidone Hcl (Ziprasidone Hcl), 1 CAP PO Q12H Past Medical History Past Medical History: No Pertinent History, Anemia, UTI, Chronic Pain, Extremity Fracture, MRSA Abscess, Anxiety, Depression, Psychosis Past Surgical History: abdominal surgery, colectomy, orthopedic surgeries, other Other Past Surgical History: 25 multiple bladder surgeries, urostomy Patient History: FH: [place]'s chorea FATHER, Onset:Unknown brother FH: depression FATHER, Onset:Unknown MOTHER, Onset:Unknown FH: schizophrenia FATHER, Onset:Unknown MOTHER, Onset:Unknown Other Past Family History: NONE Alcohol Use: Occasionally Drug Use: none, other Lives with: Other Lives In: Homeless Occupation: unemployed, disabled Past Social History: ETOH and Meth abuse Review of Systems All Other Systems at this time: Reviewed and Negative ROS As stated above in the HPI, otherwise all systems are reviewed and negative. Physical Exam Physical Exam Physical Exam General: Alert, no apparent distress. Gastrointestinal: Soft, nontender, nondistended. Bowels sounds present. Extremities: Normal range of motion, no deformity. Neurologic: Oriented x4. Psychiatric: Normal mood and affect. Skin: Normal color, warm and dry. No edema, no ecchymosis. Progress Results/Orders Results/Orders Vital Signs 05/01/25 13:56 Temp 97.9 Pulse 88 Resp 18 B/P (MAP) 114/78 Pulse Ox 100 O2 Flow Rate 0 Medical Decision Making Findings supplies provided Departure Disposition: HOME / SELF CARE / HOMELESS Impression: Primary Impression: Colostomy care Condition: Stable Discharge Instructions: Medical Screening Exam Referrals: NO PRIMARY CARE PROVIDER (PCP) Signature Scribe Signature: f Attestation: Scribed for Kathryn Lino Youth Care Professional by Kathryn Villeda NP . 05/01/25 14:29 KATHRYN LINO NP May 01, 2025 13:44
[2025-05-01 13:56] VITALS: BP 114/78; PULSE 88; RESP 18; O2SAT 100
[2025-05-01 14:39] VITALS: TEMP 97.9
== END 2025-05-01 14:40 | disposition home or self-care (01) ==
LOC: ER 13:35
DX: Z43.3 Encounter for attention to colostomy (principal); F15.10 Other stimulant abuse, uncomplicated; F10.10 Alcohol abuse, uncomplicated; F41.9 Anxiety disorder, unspecified; F32.A Depression, unspecified; D64.9 Anemia, unspecified; Z88.1 Allergy status to other antibiotic agents; Z91.030 Bee allergy status; Z91.013 Allergy to seafood; Z90.49 Acquired absence of other specified parts of digestive tract; Z79.899 Other long term (current) drug therapy; Z56.0 Unemployment, unspecified; Z59.00 Homelessness unspecified; Y90.9 Presence of alcohol in blood, level not specified
CPT/HCPCS: 99281; A4421

== ENCOUNTER 2025-05-01 23:04 | Emergency (ER) | payer MEDICAID ==
[~2025-05-01] VITALS: Ht 175.3 cm; Wt 77.2 kg
--- NOTE | 2025-05-01 23:37 | Physician Documentation ---
History of Present Illness ~ General Chief Complaint: See Chief Complaint Stated Complaint: REQUESTING COLOSTOMY BAG Time Seen by MD: 23:35 Primary Medical Doctor: JAZMYN History of Present Illness Initial Comments Ostomy supply request Medication Reconciliation Allergies: Coded Allergies: Fish Containing Products (Verified Allergy, Severe, ANAPHYLAXIS, 04/27/25) shellfish derived (Verified Allergy, Severe, ANAPHYLAXIS, 04/27/25) ceftriaxone (Verified Allergy, Unknown, hives, 04/27/25) clindamycin (Verified Allergy, Unknown, rash, 04/27/25) venom-honey bee (Verified Allergy, Unknown, 04/27/25) Scheduled Aripiprazole (Aripiprazole), 15 MG PO DAILY Escitalopram Oxalate (Escitalopram Oxalate), 20 MG PO DAILY Gabapentin (Gabapentin), 400 MG PO TID Trazodone HCl (Trazodone HCl), 2 TAB PO HS Ziprasidone Hcl (Ziprasidone Hcl), 1 CAP PO Q12H Past Medical History Past Medical History: No Pertinent History, Anemia, UTI, Chronic Pain, Extremity Fracture, MRSA Abscess, Anxiety, Depression, Psychosis Past Surgical History: abdominal surgery, colectomy, orthopedic surgeries, other Other Past Surgical History: 25 multiple bladder surgeries, urostomy Patient History: FH: [place]'s chorea FATHER, Onset:Unknown brother FH: depression FATHER, Onset:Unknown MOTHER, Onset:Unknown FH: schizophrenia FATHER, Onset:Unknown MOTHER, Onset:Unknown Other Past Family History: NONE Alcohol Use: Occasionally Drug Use: none, other Lives with: Other Lives In: Homeless Occupation: unemployed, disabled Past Social History: ETOH and Meth abuse Review of Systems All Other Systems at this time: Reviewed and Negative Physical Exam Physical Exam Vital Signs: RN Vital Signs have been reviewed: Yes, Temperature: 98.0, Heart Rate: 103, Respiratory Rate: 16, BP: 131/84, Pulse Oximetry: 98, Weight: 77.250 Oxygen Flow Rate: 0 Physical Exam HEENT: PERRL, moist oral mucosa, EOMI Pulmonary: No respiratory distress MSK: no deformity Skin: w/d/i, no rash Neuro: alert, nonfocal Psych: normal affect Progress Results/Orders Results/Orders Vital Signs 05/01/25 23:06 Temp 98.0 Pulse 103 Resp 16 B/P (MAP) 131/84 Pulse Ox 98 O2 Flow Rate 0 Medical Decision Making Findings ostomy supply Departure Disposition: HOME / SELF CARE / HOMELESS Impression: Primary Impression: Malingering Condition: Stable Referrals: NO PRIMARY CARE PROVIDER (PCP) Education Educated: Patient Educated regarding: diagnosis, need for follow up Signature Scribe Signature: . Attestation: . JOEL YOUSSEF MD May 01, 2025 23:37
[2025-05-01 23:42] VITALS: BP 132/82; PULSE 99; RESP 18; TEMP 98.6; O2SAT 99
== END 2025-05-01 23:44 | disposition home or self-care (01) ==
LOC: ER 23:05
DX: Z76.5 Malingerer [conscious simulation] (principal); F15.10 Other stimulant abuse, uncomplicated; F10.10 Alcohol abuse, uncomplicated; Z91.013 Allergy to seafood; Z91.030 Bee allergy status; Z88.1 Allergy status to other antibiotic agents; Z90.49 Acquired absence of other specified parts of digestive tract; Z79.899 Other long term (current) drug therapy; Z59.00 Homelessness unspecified; Z56.0 Unemployment, unspecified; Z72.89 Other problems related to lifestyle; Y90.9 Presence of alcohol in blood, level not specified
CPT/HCPCS: 99281; A4421

== ENCOUNTER 2025-05-02 05:09 | Emergency (ER) | payer MEDICAID ==
[~2025-05-02] VITALS: Ht 175.3 cm; Wt 68.7 kg
[2025-05-02 05:13] VITALS: BP 131/90; PULSE 96; RESP 14; O2SAT 99
--- NOTE | 2025-05-02 07:03 | Physician Documentation ---
History of Present Illness General Chief Complaint: See Chief Complaint Stated Complaint: BAG ISSUES Time Seen by MD: 06:02 Primary Medical Doctor: JAZMYN History of Present Illness Initial Comments The patient is a 44-year-old homeless man who comes here recently on a daily basis, sometimes more than once daily, requesting ostomy supplies. Medication Reconciliation Allergies: Coded Allergies: Fish Containing Products (Verified Allergy, Severe, ANAPHYLAXIS, 05/02/25) shellfish derived (Verified Allergy, Severe, ANAPHYLAXIS, 05/02/25) ceftriaxone (Verified Allergy, Unknown, hives, 05/02/25) clindamycin (Verified Allergy, Unknown, rash, 05/02/25) venom-honey bee (Verified Allergy, Unknown, 05/02/25) Scheduled Aripiprazole (Aripiprazole), 15 MG PO DAILY Escitalopram Oxalate (Escitalopram Oxalate), 20 MG PO DAILY Gabapentin (Gabapentin), 400 MG PO TID Trazodone HCl (Trazodone HCl), 2 TAB PO HS Ziprasidone Hcl (Ziprasidone Hcl), 1 CAP PO Q12H Past Medical History Past Medical History: No Pertinent History, Anemia, UTI, Chronic Pain, Extremity Fracture, MRSA Abscess, Anxiety, Depression, Psychosis Past Surgical History: abdominal surgery, colectomy, orthopedic surgeries, other Other Past Surgical History: 25 multiple bladder surgeries, urostomy Other Past Family History: NONE Smoking: Cigarettes Alcohol Use: Occasionally Drug Use: none, other Lives with: Other Lives In: Homeless Occupation: unemployed, disabled Past Social History: ETOH and Meth abuse Review of Systems ROS A 10 system review is negative except as noted in the HPI. Physical Exam Physical Exam Vital Signs: Temperature: 97.7, Source: Oral, Heart Rate: 96, Respiratory Rate: 14, BP: 131/90, Pulse Oximetry: 99, Weight: 68.700 Oxygen Flow Rate: 0 Physical Exam Physical Exam Vitals and nursing note reviewed. Constitutional: General: Patient is awake, alert, oriented x 4 in no acute distress and well appearing. Speech is clear and lucid. Appearance: Normal appearance. Patient is not ill-appearing, toxic-appearing or diaphoretic. HENT: Head: Normocephalic and atraumatic. Mouth/Throat: Mouth: Mucous membranes are moist. Pharynx: Oropharynx is clear. Eyes: General: No scleral icterus. Extraocular Movements: Extraocular movements intact. Pupils: Pupils are equal, round, and reactive to light. Neck: Supple, no Kernig or Brudzinski sign. Cardiovascular: Rate and Rhythm: Normal rate and regular rhythm. Heart sounds: No murmur heard. Pulmonary: Effort: No respiratory distress. Breath sounds: No wheezing, rhonchi or rales. Abdominal: General: Leaky urostomy bag. Palpations: There is no fluid wave, hepatomegaly or mass. Tenderness: There is no abdominal tenderness. There is no guarding. Musculoskeletal: General: No swelling or deformity. Skin: Coloration: Skin is not jaundiced. Findings: No erythema or rash. Neurological: Mental Status: Patient is alert. Progress Results/Orders Results/Orders Orders - DESIRE APPLE MD General Nursing Order (05/02/25 ) Vital Signs 05/02/25 05:13 Temp 97.7 Pulse 96 Resp 14 B/P (MAP) 131/90 Pulse Ox 99 O2 Flow Rate 0 Medical Decision Making Findings 44-year-old male requesting a urostomy bag. Departure Disposition: HOME / SELF CARE / HOMELESS Impression: Primary Impression: Attention to urostomy Condition: Stable Referrals: NO PRIMARY CARE PROVIDER (PCP) Education Educated: Patient Educated regarding: need for follow up Signature Scribe Signature: . Attestation: . DESIRE APPLE MD May 02, 2025 07:03
[2025-05-02 07:22] VITALS: TEMP 97.7
== END 2025-05-02 07:29 | disposition home or self-care (01) ==
LOC: ER 05:10
DX: Z43.3 Encounter for attention to colostomy (principal); F41.9 Anxiety disorder, unspecified; F32.A Depression, unspecified; Z59.00 Homelessness unspecified; Z91.013 Allergy to seafood; Z91.030 Bee allergy status; Z88.1 Allergy status to other antibiotic agents; Z90.49 Acquired absence of other specified parts of digestive tract; Z79.899 Other long term (current) drug therapy; Z56.0 Unemployment, unspecified; Z72.89 Other problems related to lifestyle
CPT/HCPCS: 99281; A4421

== ENCOUNTER 2025-05-03 05:51 | Emergency (ER) | payer MEDICAID ==
[~2025-05-03] VITALS: Ht 175.3 cm; Wt 85.1 kg
[2025-05-03 05:54] VITALS: BP 135/91; PULSE 91; RESP 16; TEMP 98; O2SAT 100
--- NOTE | 2025-05-03 06:01 | Physician Documentation ---
History of Present Illness General Chief Complaint: See Chief Complaint Stated Complaint: UROSTOMY BAG Time Seen by MD: 05:58 Primary Medical Doctor: JAZMYN History of Present Illness Initial Comments Requesting urostomy bag. Medication Reconciliation Allergies: Coded Allergies: Fish Containing Products (Verified Allergy, Severe, ANAPHYLAXIS, 05/02/25) shellfish derived (Verified Allergy, Severe, ANAPHYLAXIS, 05/02/25) ceftriaxone (Verified Allergy, Unknown, hives, 05/02/25) clindamycin (Verified Allergy, Unknown, rash, 05/02/25) venom-honey bee (Verified Allergy, Unknown, 05/02/25) Scheduled Aripiprazole (Aripiprazole), 15 MG PO DAILY Escitalopram Oxalate (Escitalopram Oxalate), 20 MG PO DAILY Gabapentin (Gabapentin), 400 MG PO TID Trazodone HCl (Trazodone HCl), 2 TAB PO HS Ziprasidone Hcl (Ziprasidone Hcl), 1 CAP PO Q12H Past Medical History Past Medical History: No Pertinent History, Anemia, UTI, Chronic Pain, Extremity Fracture, MRSA Abscess, Anxiety, Depression, Psychosis Past Surgical History: abdominal surgery, colectomy, orthopedic surgeries, other Other Past Surgical History: 25 multiple bladder surgeries, urostomy Other Past Family History: NONE Smoking: Cigarettes Alcohol Use: Occasionally Drug Use: none, other Lives with: Other Lives In: Homeless Occupation: unemployed, disabled Past Social History: ETOH and Meth abuse Review of Systems ROS ROS negative, except as per HPI. Physical Exam Physical Exam Vital Signs: Temperature: 98.0, Source: Temporal, Heart Rate: 91, Respiratory Rate: 16, BP: 135/91, Pulse Oximetry: 100, Weight: 85.100 Oxygen Flow Rate: 0 Physical Exam Normal exam. Progress Results/Orders Results/Orders Vital Signs 05/03/25 05:54 Temp 98.0 Pulse 91 Resp 16 B/P (MAP) 135/91 Pulse Ox 100 O2 Flow Rate 0 Departure Disposition: 01 HOME / SELF CARE / HOMELESS Impression: Primary Impression: Attention to urostomy Condition: Stable Referrals: NO PRIMARY CARE PROVIDER (PCP) Education Educated: Patient Educated regarding: need for follow up Signature Scribe Signature: . Attestation: DESIRE GARDUNO MD May 03, 2025 06:01
== END 2025-05-03 07:50 | disposition home or self-care (01) ==
LOC: ER 05:51
DX: Z43.6 Encounter for attention to other artificial openings of urinary tract (principal); F10.10 Alcohol abuse, uncomplicated; F15.10 Other stimulant abuse, uncomplicated; Z88.1 Allergy status to other antibiotic agents; Z88.8 Allergy status to other drugs, medicaments and biological substances; Z90.49 Acquired absence of other specified parts of digestive tract; Z91.013 Allergy to seafood; Z91.030 Bee allergy status
CPT/HCPCS: 99281

== ENCOUNTER 2025-05-03 19:24 | Emergency (ER) | payer MEDICAID ==
[~2025-05-03] VITALS: Ht 162.6 cm; Wt 69.4 kg
[2025-05-03 19:38] VITALS: PULSE 84
--- NOTE | 2025-05-03 21:30 | Physician Documentation ---
History of Present Illness ~ General Chief Complaint: General Stated Complaint: MED SUPPLIES Time Seen by MD: 19:49 OK to notify your PCP?: Yes Primary Medical Doctor: JAZMYN Source: patient, RN/MD History of Present Illness Initial Comments Patient is seen today with complaints of once again needing colostomy supplies. Patient states he is trying to get his colostomy supplies shipped to a certain location but to this point has been unsuccessful. He has no other concern or complaint at this time. He denies any chest pain or shortness of breath or abdominal pain or nausea, vomiting, diarrhea. Medication Reconciliation Allergies: Coded Allergies: Fish Containing Products (Verified Allergy, Severe, ANAPHYLAXIS, 05/02/25) shellfish derived (Verified Allergy, Severe, ANAPHYLAXIS, 05/02/25) ceftriaxone (Verified Allergy, Unknown, hives, 05/02/25) clindamycin (Verified Allergy, Unknown, rash, 05/02/25) venom-honey bee (Verified Allergy, Unknown, 05/02/25) Scheduled Aripiprazole (Aripiprazole), 15 MG PO DAILY Escitalopram Oxalate (Escitalopram Oxalate), 20 MG PO DAILY Gabapentin (Gabapentin), 400 MG PO TID Trazodone HCl (Trazodone HCl), 2 TAB PO HS Ziprasidone Hcl (Ziprasidone Hcl), 1 CAP PO Q12H Past Medical History Past Medical History: No Pertinent History, Anemia, UTI, Chronic Pain, Extremity Fracture, MRSA Abscess, Anxiety, Depression, Psychosis Past Surgical History: abdominal surgery, colectomy, orthopedic surgeries, other Other Past Surgical History: 25 multiple bladder surgeries, urostomy Patient History: FH: Jessie's chorea FATHER, Onset:Unknown brother FH: depression FATHER, Onset:Unknown MOTHER, Onset:Unknown FH: schizophrenia FATHER, Onset:Unknown MOTHER, Onset:Unknown Other Past Family History: NONE Alcohol Use: Occasionally Drug Use: none, other Lives with: Other Lives In: Homeless Occupation: unemployed, disabled Past Social History: ETOH and Meth abuse Review of Systems Constitutional: Denies: chills, fever, weakness Eyes: Denies: pain, blurred vision ENT: Denies: ear pain, nose pain, throat pain, mouth pain Respiratory: Denies: cough, shortness of breath Cardiovascular: Denies: chest pain, palpitations Gastrointestinal: Denies: abdominal pain, nausea, vomiting Genitourinary: Denies: burning, dysuria Male Genitalia: Denies: penile discharge, testicular pain Neurological: Denies: headache, dizziness Musculoskeletal: Denies: pain, swelling Integumentary: Denies: rash, lesions Allergic/Immunologic: Denies: hives, itching Hematologic/Lymphatic: Denies: no symptoms reported Psychiatric: Denies: depression, anxiety Physical Exam Physical Exam Vital Signs: Temperature: 98.4, Source: Temporal, Heart Rate: 84, Respiratory Rate: 16, BP: 145/87, Pulse Oximetry: 100, Weight: 69.400 Oxygen Flow Rate: 0 Physical Exam General: Awake and Alert, no acute distress. HEENT: Conjunctiva pink, Sclera clear, Mucus Membranes moist. Neck: Supple without masses and tenderness. Resp: Unlabored. Lungs clear to auscultation bilaterally. Heart: Regular Rate and rhythm, normal S1 and S2 without murmur, rub or gallop. Abdomen: Soft and non tender no organomegaly. Patient has colostomy in place. Extremities: No cyanosis,clubbing or edema. Skin: Warm and Dry. Progress Results/Orders Results/Orders Vital Signs 05/03/25 19:38 Temp 98.4 Pulse 84 Resp 16 B/P (MAP) 145/87 Pulse Ox 100 O2 Flow Rate 0 Medical Decision Making Findings Patient is seen today with complaints of once again needing colostomy supplies. Patient states he is trying to get his colostomy supplies shipped to a certain location but to this point has been unsuccessful. He has no other concern or complaint at this time. He denies any chest pain or shortness of breath or abdominal pain or nausea, vomiting, diarrhea. Patient was given colostomy supplies and instructed to follow up with primary care for a better long-term solution for colostomy supplies. Patient will fol low up and return to ED with any worsening, concerning or changing symptoms. Departure Disposition: HOME / SELF CARE / HOMELESS Impression: Primary Impression: General medical exam Additional Impressions: Colostomy dysfunction Colostomy care Condition: Stable Additional Instructions: Patient was given colostomy supplies and instructed to follow up with primary care for a better long-term solution for colostomy supplies. Patient will follow up and return to ED with any worsening, concerning or changing symptoms. Referrals: NO PRIMARY CARE PROVIDER (PCP) Signature Scribe Signature: No scribe Attestation: No scribe MAKENZIE SIDDIQI PAC May 03, 2025 21:30
[2025-05-03 21:47] VITALS: BP 143/86; RESP 16; TEMP 98.6; O2SAT 99
== END 2025-05-03 21:49 | disposition home or self-care (01) ==
LOC: ER 19:25
DX: Z00.00 Encounter for general adult medical examination without abnormal findings (principal); K94.03 Colostomy malfunction; F10.10 Alcohol abuse, uncomplicated; F15.10 Other stimulant abuse, uncomplicated; Z88.1 Allergy status to other antibiotic agents; Z88.8 Allergy status to other drugs, medicaments and biological substances; Z90.49 Acquired absence of other specified parts of digestive tract; Z91.013 Allergy to seafood; Z91.030 Bee allergy status
CPT/HCPCS: 99281; A4421

== ENCOUNTER 2025-05-29 16:59 | Emergency (ER) | payer MEDICAID | END 2025-05-29 17:11 | disposition left against medical advice (07) | LOC: ER 17:00 | DX: Z00.8 Encounter for other general examination (principal); Z91.013 Allergy to seafood; Z88.8 Allergy status to other drugs, medicaments and biological substances; Z53.21 Procedure and treatment not carried out due to patient leaving prior to being seen by health care provider | CPT/HCPCS: A4421 ==

== ENCOUNTER 2025-05-30 23:13 | Emergency (ER) | payer MEDICAID ==
[~2025-05-30] VITALS: Ht 165.1 cm; Wt 70.0 kg
--- NOTE | 2025-05-30 23:23 | Physician Documentation ---
History of Present Illness ~ General Stated Complaint: COLOSTOMY COMPLICATIONS Time Seen by MD: 23:14 Primary Medical Doctor: JAZMYN History of Present Illness Initial Comments 44-year-old female presents to the ED requesting colostomy supplies denies any other medical problems Medication Reconciliation Allergies: Coded Allergies: Fish Containing Products (Verified Allergy, Severe, ANAPHYLAXIS, 05/06/25) shellfish derived (Verified Allergy, Severe, ANAPHYLAXIS, 05/06/25) ceftriaxone (Verified Allergy, Unknown, hives, 05/06/25) clindamycin (Verified Allergy, Unknown, rash, 05/06/25) venom-honey bee (Verified Allergy, Unknown, 05/06/25) Scheduled Aripiprazole (Aripiprazole), 15 MG PO DAILY Escitalopram Oxalate (Escitalopram Oxalate), 20 MG PO DAILY Gabapentin (Gabapentin), 400 MG PO TID Trazodone HCl (Trazodone HCl), 2 TAB PO HS Ziprasidone Hcl (Ziprasidone Hcl), 1 CAP PO Q12H Past Medical History Past Medical History: No Pertinent History, Anemia, UTI, Chronic Pain, Extremity Fracture, MRSA Abscess, Anxiety, Depression, Psychosis Past Surgical History: abdominal surgery, colectomy, orthopedic surgeries, other Other Past Surgical History: 25 multiple bladder surgeries, urostomy Patient History: FH: Hendry's chorea FATHER, Onset:Unknown brother FH: depression FATHER, Onset:Unknown MOTHER, Onset:Unknown FH: schizophrenia FATHER, Onset:Unknown MOTHER, Onset:Unknown Other Past Family History: NONE Alcohol Use: Occasionally Drug Use: none, other Lives with: Other Lives In: Homeless Occupation: unemployed, disabled Past Social History: ETOH and Meth abuse Review of Systems All Other Systems at this time: Reviewed and Negative ROS As stated above in the HPI, otherwise all systems are reviewed and negative. Physical Exam Physical Exam Physical Exam General: Alert, no apparent distress. Gastrointestinal: Soft, nontender, nondistended. Bowels sounds present. Ostomy evident without the device Neurologic: Oriented x4. Psychiatric: Normal mood and affect. Skin: Normal color, warm and dry. No edema, no ecchymosis. Medical Decision Making Findings Colostomy supplies provided to patient as requested. Departure Disposition: 01 HOME / SELF CARE / HOMELESS Impression: Primary Impression: Colostomy present Condition: Improved Discharge Instructions: Colostomy Home Guide, Adult Referrals: NO PRIMARY CARE PROVIDER (PCP) Signature Scribe Signature: alvino Hydeation: Scribed for Kathryn Lino Np by Kathryn Villeda NP . 05/30/25 23:21 KATHRYN LINO NP May 30, 2025 23:23
[2025-05-30 23:46] VITALS: BP 147/93; PULSE 108; RESP 14; TEMP 98.2; O2SAT 99
== END 2025-05-30 23:48 | disposition home or self-care (01) ==
LOC: ER 23:13
DX: Z93.3 Colostomy status (principal); F41.9 Anxiety disorder, unspecified; F32.A Depression, unspecified; F10.10 Alcohol abuse, uncomplicated; F15.10 Other stimulant abuse, uncomplicated; Z88.1 Allergy status to other antibiotic agents; Z88.8 Allergy status to other drugs, medicaments and biological substances; Z90.49 Acquired absence of other specified parts of digestive tract; Z91.013 Allergy to seafood; Z91.030 Bee allergy status; Y90.9 Presence of alcohol in blood, level not specified
CPT/HCPCS: 99282; A4415

== ENCOUNTER 2025-05-31 21:26 | Emergency (ER) | payer MEDICAID ==
[~2025-05-31] VITALS: Ht 165.1 cm; Wt 70.0 kg
--- NOTE | 2025-05-31 21:54 | Physician Documentation ---
History of Present Illness General Chief Complaint: See Chief Complaint Stated Complaint: SUPPLIES Time Seen by MD: 21:44 Primary Medical Doctor: JAZMYN History of Present Illness Initial Comments This is a 44-year-old male well known to the emergency department who presents back to the emergency department for colostomy supplies, patient reports he was unable to greens picker his colostomy supplies as previously arranged, patient reports no other acute symptoms or concerns. Medication Reconciliation Allergies: Coded Allergies: Fish Containing Products (Verified Allergy, Severe, ANAPHYLAXIS, 05/06/25) shellfish derived (Verified Allergy, Severe, ANAPHYLAXIS, 05/06/25) ceftriaxone (Verified Allergy, Unknown, hives, 05/06/25) clindamycin (Verified Allergy, Unknown, rash, 05/06/25) venom-honey bee (Verified Allergy, Unknown, 05/06/25) Scheduled Aripiprazole (Aripiprazole), 15 MG PO DAILY Escitalopram Oxalate (Escitalopram Oxalate), 20 MG PO DAILY Gabapentin (Gabapentin), 400 MG PO TID Trazodone HCl (Trazodone HCl), 2 TAB PO HS Ziprasidone Hcl (Ziprasidone Hcl), 1 CAP PO Q12H Past Medical History Past Medical History: No Pertinent History, Anemia, UTI, Chronic Pain, Ext remity Fracture, MRSA Abscess, Anxiety, Depression, Psychosis Past Surgical History: abdominal surgery, colectomy, orthopedic surgeries, other Other Past Surgical History: 25 multiple bladder surgeries, urostomy Other Past Family History: NONE Smoking: Cigarettes Alcohol Use: Occasionally Drug Use: none, other Lives with: Other Lives In: Homeless Occupation: unemployed, disabled Past Social History: ETOH and Meth abuse Review of Systems ROS As stated above in the HPI, otherwise all systems are reviewed and negative. Physical Exam Physical Exam Vital Signs: Temperature: 98.1, Heart Rate: 98, Respiratory Rate: 16, BP: 133/93, Pulse Oximetry: 99, Weight: 70.000 Oxygen Flow Rate: 0 General Appearance VITALS: Reviewed and as above. GENERAL: Alert, nontoxic appearing, no apparent distress. RESPIRATORY: No increased work of breathing, no respiratory distress, speaking in full clear sentences Progress Results/Orders Results/Orders Vital Signs 05/31/25 05/31/25 21:48 22:25 Temp 98.1 98.1 Pulse 98 90 Resp 16 16 B/P (MAP) 133/93 133/93 Pulse Ox 99 99 O2 Flow Rate 0 Medical Decision Making Findings This 44-year-old male who is well known to the emergency department presented back requesting colostomy supplies despite having arrangement for supplies to be picked up from [facility], patient reported he was unable to greens picker supplies the scheduled. Patient is otherwise well-appearing with no other acute symptoms or concerns and was provided colostomy supplies by nursing staff. Patient is appropriate for outpatient follow up and has been provided follow up instructions and return to care precautions. Differential Diagnosis Ostomy complication, cellulitis malingering, homeless Departure Disposition: HOME / SELF CARE / HOMELESS Impression: Primary Impression: Colostomy present Additional Impression: Colostomy care Condition: Improved Additional Instructions: Please follow up with your primary care provider or the [facility] for continued management of your colostomy supplies. Please follow up with your primary care provider in the next few days. Please return to the emergency department for any new or worsening concerning symptoms. Referrals: NO PRIMARY CARE PROVIDER (PCP) Education Educated: Patient Educated regarding: diagnosis, treatment, prognosis, need for follow up Signature Scribe Signature: No scribe Attestation: The note accurately reflects work and decisions made by me.COBY Cruz 06/01/25 11:33 Parts of this note were created using [employer] voice recognition software program. While efforts were made to correct any mistakes made by this voice recognition software program, nonsensical phrases may remain in this note. In addition, there may be errors and syntax, grammar, content and spelling. RICARDO PINA May 31, 2025 21:54
[2025-05-31 22:25] VITALS: BP 133/93; PULSE 90; RESP 16; TEMP 98.1; O2SAT 99
== END 2025-05-31 22:27 | disposition home or self-care (01) ==
LOC: ER 21:28
DX: Z43.3 Encounter for attention to colostomy (principal); F41.9 Anxiety disorder, unspecified; F10.10 Alcohol abuse, uncomplicated; F15.10 Other stimulant abuse, uncomplicated; Z88.1 Allergy status to other antibiotic agents; Z88.8 Allergy status to other drugs, medicaments and biological substances; Z90.49 Acquired absence of other specified parts of digestive tract; Z91.013 Allergy to seafood; Z91.030 Bee allergy status
CPT/HCPCS: 99282

== ENCOUNTER 2025-06-02 10:13 | Emergency (ER) | payer MEDICAID ==
[~2025-06-02] VITALS: Ht 172.7 cm; Wt 81.8 kg
[2025-06-02 10:28] VITALS: BP 131/85; PULSE 80; RESP 18; TEMP 97.8; O2SAT 98
--- NOTE | 2025-06-02 12:16 | Physician Documentation ---
History of Present Illness General Chief Complaint: See Chief Complaint Stated Complaint: SUPPLIES REQUEST Time Seen by MD: 10:50 Primary Medical Doctor: JAZMYN History of Present Illness Initial Comments This is a 44-year-old male well known to this emergency department who presents requesting ostomy supplies, patient reports that he is working with his primary care provider to have ostomy supplies delivered to the [facility] though this is not happened yet and returns to the emergency department for ostomy supplies. Patient reports no other acute symptoms or concerns. Medication Reconciliation Allergies: Coded Allergies: Fish Containing Products (Verified Allergy, Severe, ANAPHYLAXIS, 06/02/25) shellfish derived (Verified Allergy, Severe, ANAPHYLAXIS, 06/02/25) ceftriaxone (Verified Allergy, Unknown, hives, 06/02/25) clindamycin (Verified Allergy, Unknown, rash, 06/02/25) venom-honey bee (Verified Allergy, Unknown, 06/02/25) Scheduled Aripiprazole (Aripiprazole), 15 MG PO DAILY Escitalopram Oxalate (Escitalopram Oxalate), 20 MG PO DAILY Gabapentin (Gabapentin), 400 MG PO TID Trazodone HCl (Trazodone HCl), 2 TAB PO HS Ziprasidone Hcl (Ziprasidone Hcl), 1 CAP PO Q12H Past Medical History Past Medical History: No Pertinent History, Anemia, UTI, Chronic Pain, Extremity Fracture, MRSA Abscess, Anxiety, Depression, Psychosis Past Surgical History: abdominal surgery, colectomy, orthopedic surgeries, other Other Past Surgical History: 25 multiple bladder surgeries, urostomy Other Past Family History: NONE Smoking: Cigarettes Alcohol Use: Occasionally Drug Use: none, other Lives with: Other Lives In: Homeless Occupation: unemployed, disabled Past Social History: ETOH and Meth abuse Review of Systems ROS As stated above in the HPI, otherwise all systems are reviewed and negative. Physical Exam Physical Exam Vital Signs: Temperature: 97.8, Source: Oral, Heart Rate: 80, Respiratory Rate: 18, BP: 131/85, Pulse Oximetry: 98, Weight: 81.800 Oxygen Flow Rate: 0 Physical Exam VITALS: Reviewed and as above. GENERAL: Alert, nontoxic appearing, no apparent distress. RESPIRATORY: No increased work of breathing, no respiratory distress, speaking in full clear sentences Progress Results/Orders Results/Orders Vital Signs 06/02/25 10:28 Temp 97.8 Pulse 80 Resp 18 B/P (MAP) 131/85 Pulse Ox 98 O2 Flow Rate 0 Medical Decision Making Findings 44-year-old male presented requesting ostomy supplies, patient reported no other acute symptoms or concerns. Patient provided ostomy supplies by nursing staff and discharged to follow up with the primary care provider and [facility] for continued management of ostomy supplies. Differential Diagnosis Cellulitis, urinary tract infection, malingering, homeless Departure Time of Disposition: 12:09 Disposition: 01 HOME / SELF CARE / HOMELESS Impression: Primary Impression: General medical exam Additional Impression: Encounter for ostomy care education Condition: Improved Additional Instructions: Please follow up with [facility] as scheduled for delivery of your ostomy supplies. Please follow up with your primary care provider in the next few days. Please return to the emergency department for any new or worsening concerning symptoms. Referrals: NO PRIMARY CARE PROVIDER (PCP) Education Educated: Patient Signature Scribe Signature: No scribe Attestation: The note accurately reflects work and decisions made by me.COBY Cruz 06/02/25 12:16 Parts of this note were created using [employer] voice recognition software program. While efforts were made to correct any mistakes made by this voice recognition software program, nonsensical phrases may remain in this note. In addition, there may be errors and syntax, grammar, content and spelling. RICARDO PINA Jun 02, 2025 12:16
== END 2025-06-02 12:37 | disposition home or self-care (01) ==
LOC: ER 10:14
DX: Z00.00 Encounter for general adult medical examination without abnormal findings (principal); Z43.3 Encounter for attention to colostomy; F10.10 Alcohol abuse, uncomplicated; F15.10 Other stimulant abuse, uncomplicated; Z88.1 Allergy status to other antibiotic agents; Z88.8 Allergy status to other drugs, medicaments and biological substances; Z90.49 Acquired absence of other specified parts of digestive tract; Z91.013 Allergy to seafood; Z91.030 Bee allergy status; Y90.9 Presence of alcohol in blood, level not specified
CPT/HCPCS: 99282

== ENCOUNTER 2025-06-04 10:38 | Emergency (ER) | payer MEDICAID ==
[~2025-06-04] VITALS: Ht 172.7 cm; Wt 75.0 kg
[2025-06-04 10:42] VITALS: BP 130/96; PULSE 118; RESP 18; O2SAT 99
--- NOTE | 2025-06-04 10:44 | Physician Documentation ---
History of Present Illness ~ General Stated Complaint: SUPPLIES REQUEST Time Seen by MD: 10:43 OK to notify your PCP?: Yes Primary Medical Doctor: JAZMYN Source: patient Mode of Arrival: POV Exam Limitations: no limitations History of Present Illness Initial Comments 44-year-old male presents requesting ostomy supplies. He has no medical concerns today. Medication Reconciliation Allergies: Coded Allergies: Fish Containing Products (Verified Allergy, Severe, ANAPHYLAXIS, 06/02/25) shellfish derived (Verified Allergy, Severe, ANAPHYLAXIS, 06/02/25) ceftriaxone (Verified Allergy, Unknown, hives, 06/02/25) clindamycin (Verified Allergy, Unknown, rash, 06/02/25) venom-honey bee (Verified Allergy, Unknown, 06/02/25) Scheduled Aripiprazole (Aripiprazole), 15 MG PO DAILY Escitalopram Oxalate (Escitalopram Oxalate), 20 MG PO DAILY Gabapentin (Gabapentin), 400 MG PO TID Trazodone HCl (Trazodone HCl), 2 TAB PO HS Ziprasidone Hcl (Ziprasidone Hcl), 1 CAP PO Q12H Past Medical History Past Medical History: No Pertinent History, Anemia, UTI, Chronic Pain, Extremity Fracture, MRSA Abscess, Anxiety, Depression, Psychosis Past Surgical History: abdominal surgery, colectomy, orthopedic surgeries, other Other Past Surgical History: 25 multiple bladder surgeries, urostomy Patient History: FH: Jessie's chorea FATHER, Onset:Unknown brother FH: depression FATHER, Onset:Unknown MOTHER, Onset:Unknown FH: schizophrenia FATHER, Onset:Unknown MOTHER, Onset:Unknown Other Past Family History: NONE Alcohol Use: Occasionally Drug Use: none, other Lives with: Other Lives In: Homeless Occupation: unemployed, disabled Past Social History: ETOH and Meth abuse Review of Systems All Other Systems at this time: Reviewed and Negative Physical Exam Physical Exam Vital Signs: RN Vital Signs have been reviewed: Yes Pulse Oximetry Reflects: adequate oxygenation Physical Exam General: Alert, no distress. HEENT: No injection, moist mucous membranes. Neck: Full range of motion. Respiratory: No respiratory distress, equal chest rise and fall. Chest: No accessory muscle use. Cardiovascular: Regular rate and rhythm. Gastrointestinal: Nondistended. Extremities: Normal range of motion, no deformity. Neurologic: Oriented x4. Psychiatric: Normal mood and affect. Skin: Normal color, warm and dry. Progress Results/Orders Reviewed/noted all lab results: Yes Results/Orders Vital Signs 06/04/25 10:42 Temp 98.7 Pulse 118 Resp 18 B/P (MAP) 130/96 Pulse Ox 99 O2 Flow Rate 0 Medical Decision Making Additional info obtained from: old records Findings Ostomy supplies provided. He has no medical concerns today. We discussed he needs to work on getting his supplies through other avenues. Departure Disposition: HOME / SELF CARE / HOMELESS Impression: Primary Impression: Encounter for ostomy care education Condition: Stable Additional Instructions: Ostomy supplies provided. Please work with your primary provider on obtaining your ostomy supplies individually. Referrals: NO PRIMARY CARE PROVIDER (PCP) Education Educated: Patient Educated regarding: diagnosis, treatment, prognosis, need for follow up Additional Comment Medical Screen Exam This patient recieved a medical screening examination. After reviewing the individual's medical complaints with presenting symptoms and performing an appropriate physical examination, it was determined that no immediate life- threatening emergency medical condition is present. This individual is also not a women having contractions. Signature Scribe Signature: . Attestation: Scribed for Erica Adrian Protein Purification Scientist by Erica Villeda NP . 06/04/25 10:46 Parts of this note were created using [employer] voice recognition software program . While efforts were made to correct any mistakes made by this voice recognition software program, nonsensical phrases may remain in this note. In addition, there may be errors and syntax, grammar, content and spelling. ERICA ADRIANP Jun 04, 2025 10:44
[2025-06-04 11:28] VITALS: TEMP 98.7
== END 2025-06-04 11:32 | disposition home or self-care (01) ==
LOC: ER 10:39
DX: Z43.3 Encounter for attention to colostomy (principal); F15.10 Other stimulant abuse, uncomplicated; F10.10 Alcohol abuse, uncomplicated; D64.9 Anemia, unspecified; G89.29 Other chronic pain; F41.9 Anxiety disorder, unspecified; F32.A Depression, unspecified; Z91.013 Allergy to seafood; Z91.030 Bee allergy status; Z88.1 Allergy status to other antibiotic agents; Z90.49 Acquired absence of other specified parts of digestive tract; Z79.899 Other long term (current) drug therapy; Z98.890 Other specified postprocedural states; Z56.0 Unemployment, unspecified; Z72.89 Other problems related to lifestyle; Z59.02 Unsheltered homelessness
CPT/HCPCS: 99282; A4421

== ENCOUNTER 2025-06-05 17:58 | Emergency (ER) | payer MEDICAID ==
[~2025-06-05] VITALS: Ht 172.7 cm; Wt 80.6 kg
--- NOTE | 2025-06-05 18:33 | Physician Documentation ---
History of Present Illness ~ Chief Complaint: Mental Health Eval Stated Complaint: SI Time Seen by MD: 18:16 Primary Medical Doctor: JAZMYN DANG This is a 44-year-old male very well known to this emergency department with a innumerable visits for various mellitus including poorly treated psychiatric disease presents today for evaluation of psychiatric problem. He has been feeling suicidal for the last two weeks. He has a plan of slitting his throat. He states that it was triggered by the fact that he got tired of people around him. He denies any somatic complaints, denies any pain. Medication Reconciliation Allergies: Coded Allergies: Fish Containing Products (Verified Allergy, Severe, ANAPHYLAXIS, 06/05/25) shellfish derived (Verified Allergy, Severe, ANAPHYLAXIS, 06/05/25) ceftriaxone (Verified Allergy, Unknown, hives, 06/05/25) clindamycin (Verified Allergy, Unknown, rash, 06/05/25) venom-honey bee (Verified Allergy, Unknown, 06/05/25) Miscellaneous Medications Home Med List (No Home Medications), (Reported) Discontinued Medications Aripiprazole (Aripiprazole), 15 MG PO DAILY Discontinued Reason: patient no longer taking Escitalopram Oxalate (Escitalopram Oxalate), 20 MG PO DAILY Discontinued Reason: patient no longer taking Gabapentin (Gabapentin), 400 MG PO TID Discontinued Reason: patient no longer taking Trazodone HCl (Trazodone HCl), 2 TAB PO HS Discontinued Reason: patient no longer taking Ziprasidone Hcl (Ziprasidone Hcl), 1 CAP PO Q12H Discontinued Reason: patient no longer taking Past Medical History Past Medical History: No Pertinent History, Anemia, UTI, Chronic Pain, Extremity Fracture, MRSA Abscess, Anxiety, Depression, Psychosis Past Surgical History: abdominal surgery, colectomy, orthopedic surgeries, other Other Past Surgical History: 25 multiple bladder surgeries, urostomy Patient History: FH: [place]'s chorea FATHER, Onset:Unknown brother FH: depression FATHER, Onset:Unknown MOTHER, Onset:Unknown FH: schizophrenia FATHER, Onset:Unknown MOTHER, Onset:Unknown Other Past Family History: NONE Alcohol Use: Occasionally Drug Use: none, other Lives with: Other Lives In: Homeless Occupation: unemployed, disabled Past Social History: ETOH and Meth abuse Review of Systems ROS 10 point review of systems was performed and unless noted above in HPI is negative for acute process/complaint. Physical Exam Vital Signs: Temperature: 97.0, Source: Temporal, Heart Rate: 98, Respiratory Rate: 16, BP: 122/86, Pulse Oximetry: 99, Weight: 80.600 Oxygen Flow Rate: 0 Physical Exam Physical examination: GENERAL: Awake, alert, oriented, GCS 15, no apparent distress, non-toxic appearing, answers questions, follows commands appropriately. Examined in hallway 13, usual profound odor of urine. HEENT: Atraumatic, normocephalic, pupils equal, extraocular muscles intact Active gross movements, sclerae anicteric, mucus membranes moist, no stridor. NECK: Midline, no JVD CARDIOVASCULAR: Good skin perfusion without evidence of pallor, mottling. PULMONARY: Nonlabored, symmetric chest rise, no audible wheezing, no accessory muscle use, no respiratory distress, speaking in full sentences. GASTROINTESTINAL: Not distended. NEUROLOGIC: Lucid with normal mental status. Normal facial symmetry. Moves all extremities symmetrically and with purpose. No truncal ataxia. Speech is fluid without evidence of dysarthria or aphasia, no focal deficits appreciated. EXTREMITIES: Acute deformities Skin: warm, dry PSYCHIATRIC: Normal affect, normal insight, normal concentration. Focused exam: [Does not respond to internal stimuli] Progress Results/Orders Results/Orders Orders - ELIESER DELGADO DO Med Rec (06/05/25 18:34) 1799.11 (06/05/25 18:34) Close Observation Level (06/05/25 18:34) Covid19 Binax Poc Result Entry (06/05/25 18:34) Substance Use Navigator (06/05/25 18:34) Regular Diet (06/06/25 Breakfast) Completed Orders - ELIESER DELGADO DO Cbc/Diff (06/05/25 18:34) Drug Screen, Urine (06/05/25 18:34) Ethanol (06/05/25 18:34) TSH (06/05/25 18:34) BMP (06/05/25 18:34) Ua With Microscopic (06/06/25 01:48) Vital Signs 06/05/25 06/05/25 06/05/25 06/06/25 18:00 19:38 21:30 01:11 Temp 97.0 Pulse 98 Resp 16 16 16 B/P (MAP) 122/86 Pulse Ox 99 O2 Flow Rate 0 Laboratory Tests Test 06/05/25 19:02 06/06/25 01:42 06/06/25 01:48 White Blood Count 7.5 Red Blood Count 5.72 Hemoglobin 16.6 Hematocrit 49.8 Mean Corpuscular Volume 87.0 Mean Corpuscular Hemoglobin 29.0 Mean Corpuscular Hemoglobin Concent 33.3 Red Cell Distribution Width 13.9 Platelet Count 315 Mean Platelet Volume 8.3 Neutrophils (%) (Auto) 76.6 H Lymphocytes (%) (Auto) 15.5 L Monocytes (%) (Auto) 5.1 Eosinophils (%) (Auto) 2.0 Basophils (%) (Auto) 0.8 Neutrophils # (Auto) 5.8 Lymphocytes # (Auto) 1.2 Monocytes # (Auto) 0.4 Eosinophils # (Auto) 0.2 Basophils # (Auto) 0.1 CBC Comment Sodium Level 143 Potassium Level 3.5 Chloride Level 105 Carbon Dioxide Level 28.9 Anion Gap 9 Blood Urea Nitrogen 12 Creatinine 1.02 Estimated GFR/1.73 m2 79 BUN/Creatinine Ratio 11.8 Glucose Level 146 H Calcium Level 8.7 Albumin 3.4 Thyroid Stimulating Hormone (TSH) 1.60 Chemistry Comments Ethyl Alcohol Level < 10 SARS-CoV-2 Antigen (Rapid) Negative Urine Specimen Description Other Urine Color Yellow Urine Clarity Cloudy Urine pH 6.0 Urine Specific [place] 1.020 Urine Protein Negative Urine Glucose (UA) Negative Urine Ketones Negative Urine Occult Blood Trace-intact Urine Nitrite Negative Urine Bilirubin Negative Urine Urobilinogen 0.2 Urine Leukocyte Esterase Negative Urine RBC 10-20 Urine WBC 30-50 H Urine Squamous Epithelial Cells None seen Urine Bacteria 1+ Volume Urine Centrifuged 10 ml Urine Comment Urine Opiates Screen Negative Urine Methadone Screen Negative Urine Fentanyl Screen Negative Urine Barbiturates Screen Negative Urine Phencyclidine Screen Negative Urine Amphetamines Screen Positive Urine Benzodiazepines Screen Negative Urine Cocaine Screen Negative Urine Cannabinoids Screen Positive Drug Screen Comment Medical Decision Making Findings Facility Status: ED Holds, [facility] The plan was discussed with the patient, who demonstrates clear understanding of the plan and is in agreement with the plan unless otherwise noted in the chart. All questions have been answered, all concerns were addressed unless otherwise documented. I was available throughout their ED stay for frequent reassessment and questions. Differential Diagnoses (considered and possible or likely): [Suicidal ideation, decompensated psychiatric disease, less likely alcohol intoxication, less likely methamphetamine intoxication, less likely alcohol withdrawal, medication noncompliance, potential for secondary gain/malingering is also in differential] ??Differential Diagnoses (considered and unlikely, not requiring evaluation currently): [Denies any pain, denies somatic complaints.] MDM Data Please see [facility] for the following: Independent Historians and external Records Review. Historian: [Patient] Independent Historians: ?[Record review] Medication Management: [Reviewed medication list] Social History and determinants: [Reviewed] Please see the body of the note for the following: Any independent interpretations of ECG, imaging studies. All vitals signs/haemodynamics, ordered tests were independently reviewed and interpreted by myself. Nursing triage complaint and vitals reviewed, additional nursing notes were reviewed as available and I agree unless otherwise noted or documented in contradiction in the chart Vital Signs: Independently reviewed Labs: Independently interpreted Imaging: Independently interpreted Old Medical Records: Independently reviewed, see [facility] for relevant summary and information Pulse Oximetry: [97%] interpreted as [normal on room air] by me Additionally notably showing: [Hemodynamics reviewed. He is not febrile, not tachycardic, no evidence of hypotension respiratory distress. CBC is normal, no leukocytosis, no anemia, normal platelets. Chemistries unremarkable. Glucose elevated in the dietary arrange. Thyroid studies are normal. Urinary drug screen is unsurprisingly positive for methamphetamines. UA is concerning for UTI. However this could also represent colonization of his neobladder. COVID is negative. ] Tests considered but not ordered include: [Imaging does not appear to be necessary] Social Determinants of Health Impact: Patient was evaluated in [facility] [place] to healthcare due to below par ratio of patient to medical providers. [] Comorbid Conditions Impacting Present Evaluation and Care/Treatment: [Methamphetamine abuse, psychiatric disease] Management Discussions with other Healthcare Providers: [Mental health professional] Treatment and Disposition Medication Management (Given or considered): [Antibiotics was is UTI]. See EMR for details Consideration for Hospitalization/Escalation/Deescalation of Care: Admission for observation has been considered, [however the patient is able to tolerate p.o., their symptoms are controlled, they are able to rely on oral medications, and their chief complaint/diagnosis can be managed on outpatient basis.] ?ED Course:?[Patient is medically cleared for psychiatric evaluation.] ?Shared decision making:?[] Code status:?FULL Please see the full Electronic Medical Record for full details of nursing documentation, medications list, other records of complete past medical history and conditions, vital signs, laboratory studies, and any radiologic study inte rpretations by radiologists. Portions of this note were completed using [employer] dictation software and as a result there may exist minor errors in spelling. I have reviewed elements of past family and social history and agree as included in note. Departure Disposition: 30 STILL A PATIENT Impression: Primary Impression: Suicidal ideation Additional Impression: Methamphetamine abuse Condition: Stable Additional Instructions: Vern, you need to stop doing meth. Every time use meth you become psychotic, suicidal, and your mental health worsens. If you do not stop, meth will be the of you. Referrals: NO PRIMARY CARE PROVIDER (PCP) Signature Scribe Signature: No scribe Attestation: Date: Jun 05, 2025 Time: 18:33 This note accurately reflects clinical decisions, work performed by myself, Elieser Delgado, ELIESER REINOSO DO Jun 05, 2025 18:33
[2025-06-05 19:06] LABS: MEAN PLATELET VOLUME 8.3 FL (7.4-10.4); RED CELL DISTRIBUTION WIDTH 13.9 % (11.5-14.5)
[2025-06-05 19:30] LABS: CREATININE 1.02 MG/DL (0.60-1.10); TOTAL CARBON DIOXIDE 28.9 MMOL/L (24-32); eCRCL 88 ML/MIN; eGFR 79 ML/MIN
[2025-06-05 19:31] LABS: ETHANOL < 10 MG/DL (<10)
[2025-06-06] MEDS ORDERED: NO HOME MEDS (01:55)
[2025-06-06 02:03] LABS: LEUKOCYTE ESTERASE ,URINE NEGATIVE (Neg); NITRITES, URINE NEGATIVE (Neg); OCCULT BLOOD,URINE TRACE-INTACT (Neg)
[2025-06-06 02:04] LABS: UA COLLECTION TYPE OTHER
[2025-06-06 02:10] LABS: SQUAMOUS EPITHELIAL CELL,UR NONE SEEN /LPF (FEW)
[2025-06-06 02:18] LABS: URINE AMPHETAMINE SCREEN POSITIVE (Neg); URINE BARBITUATE SCREEN NEGATIVE (Neg); URINE BENZODIAZEPINES SCREEN NEGATIVE (Neg); URINE CANNABINOID SCREEN POSITIVE (Neg); URINE COCAINE SCREEN NEGATIVE (Neg); URINE METHADONE SCREEN NEGATIVE (Neg); URINE OPIATE SCREEN NEGATIVE (Neg); URINE PHENCYCLIDINE SCREEN NEGATIVE (Neg)
[2025-06-06] MEDS: sulfamethoxazole/trimethoprim DS (800/160mg) tablet PO SCH (04:06)
[2025-06-06 05:46] VITALS: BP 123/82; PULSE 88; TEMP 98.6; O2SAT 98
[2025-06-06 08:25] VITALS: RESP 16
== END 2025-06-06 11:23 | disposition home or self-care (01) ==
LOC: ER 18:08
DX: R45.851 Suicidal ideations (principal); F15.10 Other stimulant abuse, uncomplicated; F41.9 Anxiety disorder, unspecified; F10.10 Alcohol abuse, uncomplicated; Z88.1 Allergy status to other antibiotic agents; Z90.49 Acquired absence of other specified parts of digestive tract; Z91.013 Allergy to seafood; Z91.030 Bee allergy status; Z20.822 Contact with and (suspected) exposure to COVID-19; Z79.899 Other long term (current) drug therapy
CPT/HCPCS: 36415; 80048; 80305; 80320; 81001; 84443; 85025; 87811; 99284; A4421

== ENCOUNTER 2025-06-10 20:21 | Emergency (ER) | payer MEDICAID ==
[~2025-06-10] VITALS: Ht 172.7 cm; Wt 81.0 kg
[~2025-06-10 20:21] MED LIST changes: -ARIP15TA68 PO; -ESCI-8 PO; -GABA-535 PO; +NO HOME MEDS; -TRAZ-256 PO; -ZIPR40CA14 PO
[2025-06-10 20:30] VITALS: BP 155/105; PULSE 117; RESP 20; O2SAT 99
--- NOTE | 2025-06-10 22:50 | Physician Documentation ---
History of Present Illness Chief Complaint: See Chief Complaint Stated Complaint: STOMA COMPLICATION Time Seen by MD: 21:54 Primary Medical Doctor: chelsey wilkes [facility] Patient is a 44-year-old male that reports to the emergency department for evaluation of his existing urostomy. Patient reports that he feels like he may have some bacteria growing in his urostomy bag because he can see his brother's face in the urostomy bag steering back at him. Patient reports that he realizes no one else can see it but he can see it in it is causing him significant spiritual pain. Patient is currently very pleasant and agreeable. Patient denies any other symptoms at this time. Medication Reconciliation Allergies: Coded Allergies: Fish Containing Products (Verified Allergy, Severe, ANAPHYLAXIS, 06/10/25) shellfish derived (Verified Allergy, Severe, ANAPHYLAXIS, 06/10/25) ceftriaxone (Verified Allergy, Unknown, hives, 06/10/25) clindamycin (Verified Allergy, Unknown, rash, 06/10/25) venom-honey bee (Verified Allergy, Unknown, 06/10/25) Miscellaneous Medications Home Med List (No Home Medications), (Reported) Discontinued Medications Aripiprazole (Aripiprazole), 15 MG PO DAILY Discontinued Reason: patient no longer taking Escitalopram Oxalate (Escitalopram Oxalate), 20 MG PO DAILY Discontinued Reason: patient no longer taking Gabapentin (Gabapentin), 400 MG PO TID Discontinued Reason: patient no longer taking Trazodone HCl (Trazodone HCl), 2 TAB PO HS Discontinued Reason: patient no longer taking Ziprasidone Hcl (Ziprasidone Hcl), 1 CAP PO Q12H Discontinued Reason: patient no longer taking Past Medical History Past Medical History: No Pertinent History, Anemia, UTI, Chronic Pain, Extremity Fracture, MRSA Abscess, Anxiety, Depression, Psychosis Past Surgical History: abdominal surgery, colectomy, orthopedic surgeries, other Other Past Surgical History: 25 multiple bladder surgeries, urostomy Patient History: FH: [place]'s chorea FATHER, Onset:Unknown brother FH: depression FATHER, Onset:Unknown MOTHER, Onset:Unknown FH: schizophrenia FATHER, Onset:Unknown MOTHER, Onset:Unknown Other Past Family History: NONE Alcohol Use: Occasionally Drug Use: none, other Lives with: Other Lives In: Homeless Occupation: unemployed, disabled Past Social History: ETOH and Meth abuse Review of Systems ROS As stated above in the HPI, otherwise all systems are reviewed and negative. Physical Exam Vital Signs: Temperature: 97.4, Source: Temporal, Heart Rate: 117, Respiratory Rate: 20, BP: 155/105, Pulse Oximetry: 99, Weight: 81.000 Oxygen Flow Rate: 0 Physical Exam VITALS: Reviewed and as above. GENERAL: Alert, no apparent distress. GI: Soft, non-tender, bowels sounds present, no rebound, guarding, or rigidity SKIN: Warm and dry, no rash NEURO: Oriented x4, No motor or sensory deficit PSYCH: Normal mood and affect, no agitation Progress Results/Orders Results/Orders Vital Signs 06/10/25 20:30 Temp 97.4 Pulse 117 Resp 20 B/P (MAP) 155/105 Pulse Ox 99 O2 Flow Rate 0 Medical Decision Making Additional information obtaine: other Findings Patient reports to the emergency department for evaluation of face is that he is seeing in his urostomy bag. After an extensive conversation. Patient agrees that he is probably the only 1 the CC spaces and he is okay going home discussing today's visit with his primary care provider and discussing the possibility of adjustment to his mental health medications if needed. Patient denies any other symptoms at this time. Patient will return to the emergency department if he has any worsening of his current symptoms or any additional concerning symptoms that we discussed here today i.e. fever chills nausea vomiting issues with his urostomy blood in his urostomy urostomy isn't producing any urine or any other symptoms that we discussed here today. Differential Dx:Considerations: Urinary obstruction, Urinary tract infection, Other Departure Disposition: 01 HOME / SELF CARE / HOMELESS Impression: Primary Impression: Encounter for medical assessment Condition: Stable Additional Instructions: Patient reports to the emergency department for evaluation of face is that he is seeing in his urostomy bag. After an extensive conversation. Patient agrees that he is probably the only 1 the CC spaces and he is okay going home discussing today's visit with his primary care provider and discussing the possibility of adjustment to his mental health medications if needed. Patient denies any other symptoms at this time. Patient will return to the emergency department if he has any worsening of his current symptoms or any additional concerning symptoms that we discussed here today i.e. fever chills nausea vomiting issues with his urostomy blood in his urostomy urostomy isn't producing any urine or any other symptoms that we discussed here today. Referrals: NO PRIMARY CARE PROVIDER (PCP) Education Educated: Patient Educated regarding: diagnosis, treatment, need for follow up Signature Scribe Signature: A Attestation: Scribed for Yoly Luna by COBY Laird . 06/10/25 22:50 YOLY LUNA Jun 10, 2025 22:50
[2025-06-10 22:58] VITALS: TEMP 97.4
== END 2025-06-10 23:03 | disposition home or self-care (01) ==
LOC: ER 20:21
DX: Z00.00 Encounter for general adult medical examination without abnormal findings (principal); F41.9 Anxiety disorder, unspecified; F32.A Depression, unspecified; F10.10 Alcohol abuse, uncomplicated; F15.10 Other stimulant abuse, uncomplicated; Z88.1 Allergy status to other antibiotic agents; Z90.49 Acquired absence of other specified parts of digestive tract; Z91.013 Allergy to seafood; Z91.030 Bee allergy status; Y90.9 Presence of alcohol in blood, level not specified
CPT/HCPCS: 99282

== ENCOUNTER 2025-06-12 16:46 | Emergency (ER) | payer MEDICAID ==
[~2025-06-12] VITALS: Ht 172.7 cm; Wt 72.7 kg
--- NOTE | 2025-06-12 18:34 | Physician Documentation ---
HPI ~ General Chief Complaint: Medication Request Stated Complaint: COLOSTOMY SUPPLIES Time Seen by MD: 17:01 OK to notify your PCP?: Yes Primary Medical Doctor: chelsey wilkes Source: patient Mode of Arrival: POV Exam Limitations: no limitations History of Present Illness HPI Comments 44 y/o male with c/o need for colostomy supplies. Patient is well known to the ER for this complaint. No new concerns. Medication Reconciliation Allergies: Coded Allergies: Fish Containing Products (Verified Allergy, Severe, ANAPHYLAXIS, 06/10/25) shellfish derived (Verified Allergy, Severe, ANAPHYLAXIS, 06/10/25) ceftriaxone (Verified Allergy, Unknown, hives, 06/10/25) clindamycin (Verified Allergy, Unknown, rash, 06/10/25) venom-honey bee (Verified Allergy, Unknown, 06/10/25) Miscellaneous Medications Home Med List (No Home Medications), (Reported) Discontinued Medications Aripiprazole (Aripiprazole), 15 MG PO DAILY Discontinued Reason: patient no longer taking Escitalopram Oxalate (Escitalopram Oxalate), 20 MG PO DAILY Discontinued Reason: patient no longer taking Gabapentin (Gabapentin), 400 MG PO TID Discontinued Reason: patient no longer taking Trazodone HCl (Trazodone HCl), 2 TAB PO HS Discontinued Reason: patient no longer taking Ziprasidone Hcl (Ziprasidone Hcl), 1 CAP PO Q12H Discontinued Reason: patient no longer taking Past Medical History Past Medical History: No Pertinent History, Anemia, UTI, Chronic Pain, Extremity Fracture, MRSA Abscess, Anxiety, Depression, Psychosis Past Surgical History: abdominal surgery, colectomy, orthopedic surgeries, other Other Past Surgical History: 25 multiple bladder surgeries, urostomy Patient History: FH: [place]'s chorea FATHER, Onset:Unknown brother FH: depression FATHER, Onset:Unknown MOTHER, Onset:Unknown FH: schizophrenia FATHER, Onset:Unknown MOTHER, Onset:Unknown Other Past Family History: NONE Alcohol Use: Occasionally Drug Use: none, other Lives with: Other Lives In: Homeless Occupation: unemployed, disabled Past Social History: ETOH and Meth abuse Review of Systems All Other Systems at this time: Reviewed and Negative Physical Exam Physical Exam Vital Signs: Weight: 72.730 Physical Exam General Appearance: Alert, WD/WN. NAD. HEENT: NCAT, PERRL, EOMI. Neck: Supple, trachea midline. Lungs: Breathing unlabored Extremities: Normal inspection. No edema. Skin: Warm/dry, normal color Neurological: Alert and oriented x4, normal gait. Psychiatric: Affect congruent with mood. Medical Decision Making Additional information obtaine: N/A Findings N/A Differential Dx:Considerations: Include: Adverse circumstances, Economic, Psychosocial, Medical services unavail., Medication refill, Medication non- compliance Departure Time of Disposition: 16:47 Disposition: 01 HOME / SELF CARE / HOMELESS Impression: Primary Impression: General medical exam Condition: Stable Discharge Instructions: Medicine Refill at the Emergency Department Additional Instructions: F/U WITH PCP WE HAVE DISCUSSED SEVERAL TIMES TO TRY TO GET THE COLOSTOMY SUPPLIES SHIPPED TO AN ADDRESS WHERE YOU CAN GET THE COLOSTOMY SUPPLIES Referrals: NO PRIMARY CARE PROVIDER (PCP) Education Educated: Patient Educated regarding: diagnosis, treatment, need for follow up Signature Scribe Signature: X Attestation: MYRNA GUPTA Jun 12, 2025 18:34
== END 2025-06-12 18:27 | disposition left against medical advice (07) ==
LOC: ER 16:47
DX: Z00.00 Encounter for general adult medical examination without abnormal findings (principal); F15.10 Other stimulant abuse, uncomplicated; F10.10 Alcohol abuse, uncomplicated; F41.9 Anxiety disorder, unspecified; F32.A Depression, unspecified; D64.9 Anemia, unspecified; Z91.013 Allergy to seafood; Z91.030 Bee allergy status; Z88.1 Allergy status to other antibiotic agents; Z90.49 Acquired absence of other specified parts of digestive tract; Z72.89 Other problems related to lifestyle; Z56.0 Unemployment, unspecified; Z59.00 Homelessness unspecified; Y90.9 Presence of alcohol in blood, level not specified
CPT/HCPCS: 99281; 99282

== ENCOUNTER 2025-06-12 20:54 | Emergency (ER) | payer MEDICAID | END 2025-06-12 21:16 | disposition left against medical advice (07) | LOC: ER 20:55 | DX: Z43.3 Encounter for attention to colostomy (principal); Z88.1 Allergy status to other antibiotic agents; Z91.030 Bee allergy status; Z91.013 Allergy to seafood; Z53.21 Procedure and treatment not carried out due to patient leaving prior to being seen by health care provider | CPT/HCPCS: 99281 ==

== ENCOUNTER 2025-06-13 10:36 | Emergency (ER) | payer MEDICAID ==
[~2025-06-13] VITALS: Ht 172.7 cm; Wt 81.1 kg
--- NOTE | 2025-06-13 11:29 | Physician Documentation ---
History of Present Illness ~ Chief Complaint: See Chief Complaint Stated Complaint: COLOSTOMY ISSUES Time Seen by MD: 11:24 Primary Medical Doctor: chelsey Perry Patient is seen today with complaints of needing colostomy supplies refilled a needing a new colostomy bag. Patient has no other concern or complaint at this time. Medication Reconciliation Allergies: Coded Allergies: Fish Containing Products (Verified Allergy, Severe, ANAPHYLAXIS, 06/10/25) shellfish derived (Verified Allergy, Severe, ANAPHYLAXIS, 06/10/25) ceftriaxone (Verified Allergy, Unknown, hives, 06/10/25) clindamycin (Verified Allergy, Unknown, rash, 06/10/25) venom-honey bee (Verified Allergy, Unknown, 06/10/25) Miscellaneous Medications Home Med List (No Home Medications), (Reported) Discontinued Medications Aripiprazole (Aripiprazole), 15 MG PO DAILY Discontinued Reason: patient no longer taking Escitalopram Oxalate (Escitalopram Oxalate), 20 MG PO DAILY Discontinued Reason: patient no longer taking Gabapentin (Gabapentin), 400 MG PO TID Discontinued Reason: patient no longer taking Trazodone HCl (Trazodone HCl), 2 TAB PO HS Discontinued Reason: patient no longer taking Ziprasidone Hcl (Ziprasidone Hcl), 1 CAP PO Q12H Discontinued Reason: patient no longer taking Past Medical History Past Medical History: No Pertinent History, Anemia, UTI, Chronic Pain, Extremity Fracture, MRSA Abscess, Anxiety, Depression, Psychosis Past Surgical History: abdominal surgery, colectomy, orthopedic surgeries, other Other Past Surgical History: 25 multiple bladder surgeries, urostomy Patient History: FH: [place]'s chorea FATHER, Onset:Unknown brother FH: depression FATHER, Onset:Unknown MOTHER, Onset:Unknown FH: schizophrenia FATHER, Onset:Unknown MOTHER, Onset:Unknown Other Past Family History: NONE Alcohol Use: Occasionally Drug Use: none, other Lives with: Other Lives In: Homeless Occupation: unemployed, disabled Past Social History: ETOH and Meth abuse Review of Systems Constitutional: Denies: chills, fever, weakness Eyes: Denies: pain, blurred vision ENT: Denies: ear pain, nose pain, throat pain, mouth pain Respiratory: Denies: cough, shortness of breath Cardiovascular: Denies: chest pain, palpitations Gastrointestinal: Denies: abdominal pain, nausea, vomiting Genitourinary: Denies: burning, dysuria Male Genitalia: Denies: penile discharge, testicular pain Neurological: Denies: headache, dizziness Musculoskeletal: Denies: pain, swelling Integumentary: Denies: rash, lesions Allergic/Immunologic: Denies: hives, itching Hematologic/Lymphatic: Denies: no symptoms reported Psychiatric: Denies: depression, anxiety Physical Exam Vital Signs: Temperature: 98.1, Source: Oral, Heart Rate: 87, Respiratory Rate: 17, BP: 143/102, Pulse Oximetry: 99, Weight: 81.100 Physical Exam General: Awake and Alert, no acute distress. HEENT: Conjunctiva pink, Sclera clear, Mucus Membranes moist. Neck: Supple without masses and tenderness. Resp: Unlabored. Lungs clear to auscultation bilaterally. Heart: Regular Rate and rhythm, normal S1 and S2 without murmur, rub or gallop. Abdomen: Soft and non tender no organomegaly. Patient does have colostomy in place without any sign of infection. Extremities: No cyanosis,clubbing or edema. Skin: Warm and Dry. Progress Results/Orders Results/Orders Vital Signs 06/13/25 10:51 Temp 98.1 Pulse 87 Resp 17 B/P (MAP) 143/102 Pulse Ox 99 Medical Decision Making Additional information obtaine: N/A Findings Patient is seen today with complaints of needing colostomy supplies refilled a needing a new colostomy bag. Patient has no other concern or complaint at this time. Patient was given new colostomy supplies. Patient will follow up with primary care as soon as possible. Diff Dx GI Bleed:Consideration: Include: Diverticulitis, Gastritis Diff Dx Pain:Considerations: Unlikely: AAA, Angina/OK, Aortic dissection, Appendicitis, Bowel obstruction, Cholangitis, Cholecystitis, Cholelithasis, Constipation, Diverticular disease, Esophageal rupture, Esophagitis, Gastritis, Gastroenteritis, GI hemorrhage, Hepatitis, Hernia, Inflammatory BD, Ischemic bowel, Mass, Pancreatitis, Porphyria, PUD, Testicular torsion, Trauma, intraabdominal, Urinary obstruction, Urinary tract infection, Urolithiasis, Other Diff Dx N/V/D:Considerations: Unlikely: Appendicitis, Bowel obstruction, Dehydration, DKA, Diarrhea - bacterial, Diarrhea - parasitic, Diarrhea - viral, Diverticulitis, Diverticulosis, Drug toxicity, Electrolyte imbalance, Food poisoning, Gastroenteritis, GE reflux, GI bleed, Hepatitis, Hernia, Hypovolemia, Hypotension, Inflammatory BD, Impaction, Malnutrition, Pancreatitis, PUD, Renal failure, Urinary obstruction, UTI, Urolithiasis, Other Diff Dx Rectal:Considerations: Unlikely: Fissure, Fistula, Foreign body, Impaction, Perirectal abscess, Prostatitis, Rectal prolapse, Subcutaneous abscess, Thrombosed hemorrhoid, Ulcer, UTI, Other Departure Disposition: HOME / SELF CARE / HOMELESS Impression: Primary Impression: Colostomy care Additional Impressions: Colostomy present Colostomy dysfunction Condition: Stable Additional Instructions: Patient was given new colostomy supplies. Patient will follow up with primary care as soon as possible. Referrals: NO PRIMARY CARE PROVIDER (PCP) Signature Scribe Signature: No scribe Attestation: No scribe MAKENZIE SIDDIQI PAC Jun 13, 2025 11:29
[2025-06-13 11:39] VITALS: BP 134/84; PULSE 87; RESP 16; TEMP 98.6; O2SAT 99
== END 2025-06-13 11:43 | disposition home or self-care (01) ==
LOC: ER 10:37
DX: Z43.3 Encounter for attention to colostomy (principal); D64.9 Anemia, unspecified; F41.9 Anxiety disorder, unspecified; F32.A Depression, unspecified; F15.10 Other stimulant abuse, uncomplicated; F10.10 Alcohol abuse, uncomplicated; Z90.49 Acquired absence of other specified parts of digestive tract; Z91.013 Allergy to seafood; Z91.030 Bee allergy status; Z88.1 Allergy status to other antibiotic agents; Z98.890 Other specified postprocedural states; Y90.9 Presence of alcohol in blood, level not specified
CPT/HCPCS: 99282; A4421

== ENCOUNTER 2025-06-13 23:37 | Emergency (ER) | payer MEDICAID ==
[~2025-06-13] VITALS: Ht 172.7 cm; Wt 80.7 kg
--- NOTE | 2025-06-14 00:07 | Physician Documentation ---
History of Present Illness ~ General Chief Complaint: General Stated Complaint: CATHETER COMPLICATIONS Time Seen by MD: 23:59 Primary Medical Doctor: chelsey wilkes History of Present Illness Initial Comments 44 year old male with malfunction of urostomy bag (leaking). Also requesting a sandwich. Medication Reconciliation Allergies: Coded Allergies: Fish Containing Products (Verified Allergy, Severe, ANAPHYLAXIS, 06/10/25) shellfish derived (Verified Allergy, Severe, ANAPHYLAXIS, 06/10/25) ceftriaxone (Verified Allergy, Unknown, hives, 06/10/25) clindamycin (Verified Allergy, Unknown, rash, 06/10/25) venom-honey bee (Verified Allergy, Unknown, 06/10/25) Miscellaneous Medications Home Med List (No Home Medications), (Reported) Past Medical History Past Medical History: No Pertinent History, Anemia, UTI, Chronic Pain, Extremity Fracture, MRSA Abscess, Anxiety, Depression, Psychosis Past Surgical History: abdominal surgery, colectomy, orthopedic surgeries, other Other Past Surgical History: 25 multiple bladder surgeries, urostomy Patient History: FH: [place]'s chorea FATHER, Onset:Unknown brother FH: depression FATHER, Onset:Unknown MOTHER, Onset:Unknown FH: schizophrenia FATHER, Onset:Unknown MOTHER, Onset:Unknown Other Past Family History: NONE Alcohol Use: Occasionally Drug Use: none, other Lives with: Other Lives In: Homeless Occupation: unemployed, disabled Past Social History: ETOH and Meth abuse Review of Systems All Other Systems at this time: Reviewed and Negative Physical Exam Physical Exam Vital Signs: RN Vital Signs have been reviewed: Yes, Temperature: 98.2, Source: Temporal, Heart Rate: 110, Respiratory Rate: 16, BP: 149/95, Pulse Oximetry: 98, Weight: 80.700 Oxygen Flow Rate: 0 Physical Exam HEENT: PERRL, moist oral mucosa, EOMI Pulmonary: No respiratory distress MSK: no deformity Skin: w/d/i, no rash Neuro: alert, nonfocal Psych: normal affect Progress Results/Orders Results/Orders Vital Signs 06/13/25 23:41 Temp 98.2 Pulse 110 Resp 16 B/P (MAP) 149/95 Pulse Ox 98 O2 Flow Rate 0 Medical Decision Making Additional information obtaine: N/A Findings 44 year old male with urostomy bag malfunction. Provided new bag and applied. Discharged with return precautions. Differential Diagnosis DDx = urostomy bag malfunction; noncompliance, malingering. Departure Disposition: HOME / SELF CARE / HOMELESS Impression: Primary Impression: Complication of urostomy Condition: Stable Discharge Instructions: Incontinent Urostomy Home Guide Referrals: NO PRIMARY CARE PROVIDER (PCP) Education Educated: Patient Educated regarding: diagnosis, treatment, prognosis, need for follow up Signature Scribe Signature: . Attestation: . JOEL YOUSSEF MD Jun 14, 2025 00:07
[2025-06-14 00:10] VITALS: BP 145/92; PULSE 109; RESP 18; TEMP 98.6; O2SAT 99
== END 2025-06-14 00:11 | disposition home or self-care (01) ==
LOC: ER 23:38
DX: N99.522 Malfunction of incontinent external stoma of urinary tract (principal); F15.10 Other stimulant abuse, uncomplicated; F10.10 Alcohol abuse, uncomplicated; D64.9 Anemia, unspecified; G89.29 Other chronic pain; F41.9 Anxiety disorder, unspecified; F32.A Depression, unspecified; Z91.030 Bee allergy status; Z88.1 Allergy status to other antibiotic agents; Z91.013 Allergy to seafood; Z90.49 Acquired absence of other specified parts of digestive tract; Z56.0 Unemployment, unspecified; Z59.00 Homelessness unspecified; Z72.89 Other problems related to lifestyle; Z98.890 Other specified postprocedural states; Y90.9 Presence of alcohol in blood, level not specified
CPT/HCPCS: 99282; A4415

== ENCOUNTER 2025-06-14 21:38 | Emergency (ER) | payer MEDICAID ==
[~2025-06-14] VITALS: Ht 172.7 cm; Wt 77.7 kg
--- NOTE | 2025-06-14 22:48 | Physician Documentation ---
History of Present Illness General Chief Complaint: See Chief Complaint Stated Complaint: MED REQUEST Time Seen by MD: 22:44 Primary Medical Doctor: chelsey wilkes History of Present Illness Initial Comments 44-year-old male who presents to the emergency department for supplies needed for his your urostomy stoma. No other complaints of the night eating supplies. Seen in the emergency last night for the same he is unable to have supplies delivered. Medication Reconciliation Allergies: Coded Allergies: Fish Containing Products (Verified Allergy, Severe, ANAPHYLAXIS, 06/10/25) shellfish derived (Verified Allergy, Severe, ANAPHYLAXIS, 06/10/25) ceftriaxone (Verified Allergy, Unknown, hives, 06/10/25) clindamycin (Verified Allergy, Unknown, rash, 06/10/25) venom-honey bee (Verified Allergy, Unknown, 06/10/25) Miscellaneous Medications Home Med List (No Home Medications), (Reported) Past Medical History Past Medical History: No Pertinent History, Anemia, UTI, Chronic Pain, Ex tremity Fracture, MRSA Abscess, Anxiety, Depression, Psychosis Past Surgical History: abdominal surgery, colectomy, orthopedic surgeries, other Other Past Surgical History: 25 multiple bladder surgeries, urostomy Other Past Family History: NONE Smoking: Cigarettes Alcohol Use: Occasionally Drug Use: none, other Lives with: Other Lives In: Homeless Occupation: unemployed, disabled Past Social History: ETOH and Meth abuse Review of Systems All Other Systems at this time: Reviewed and Negative Constitutional: Denies: fever, chills Genitourinary Urostomy Physical Exam Physical Exam Vital Signs: RN Vital Signs have been reviewed: Yes, Temperature: 97.9, Source: Oral, Heart Rate: 106, Respiratory Rate: 16, BP: 123/85, Pulse Oximetry: 97, Weight: 77.730 Oxygen Flow Rate: 0 General Appearance: alert, WD/WN, no apparent distress Head: normal inspection Face: normal inspection Pupils/EOM/Fundus: PERRLA Gastrointestinal Urostomy Extremities: normal range of motion Neurologic: oriented x4 Motor / Sensory: no motor deficit, no sensory deficit Psychiatric: normal mood/affect Skin: normal color Progress Results/Orders Results/Orders Vital Signs 06/14/25 21:57 Temp 97.9 Pulse 106 Resp 16 B/P (MAP) 123/85 Pulse Ox 97 O2 Flow Rate 0 Medical Decision Making Additional information obtaine: old records Findings Findings consistent with urostomy requiring outpatient supplies for management. Differential Diagnosis Working diagnosis Urostomy care requiring ED supplies. No clinical suspicion for cellulitis or obstruction. Departure Disposition: HOME / SELF CARE / HOMELESS Impression: Primary Impression: Presence of urostomy Condition: Improved Additional Instructions: Please continue with routine your Urostomy care. Referrals: NO PRIMARY CARE PROVIDER (PCP) Education Educated: Patient Educated regarding: diagnosis, treatment, prognosis Signature Scribe Signature: . Attestation: . DIA BARNES [facility] Jun 14, 2025 22:48
[2025-06-14 23:30] VITALS: BP 120/82; PULSE 103; RESP 18; TEMP 98.6; O2SAT 99
== END 2025-06-14 23:34 | disposition home or self-care (01) ==
LOC: ER 21:39
DX: Z93.6 Other artificial openings of urinary tract status (principal); F10.10 Alcohol abuse, uncomplicated; F15.10 Other stimulant abuse, uncomplicated; Z88.1 Allergy status to other antibiotic agents; Z90.49 Acquired absence of other specified parts of digestive tract; Z91.013 Allergy to seafood; Z91.030 Bee allergy status; Y90.9 Presence of alcohol in blood, level not specified
CPT/HCPCS: 99282

== ENCOUNTER 2025-06-15 16:20 | Emergency (ER) | payer MEDICAID ==
[~2025-06-15] VITALS: Ht 172.7 cm; Wt 81.8 kg
[2025-06-15 16:36] VITALS: BP 106/62; PULSE 102; RESP 18; TEMP 97.2; O2SAT 97
--- NOTE | 2025-06-15 16:48 | Physician Documentation ---
History of Present Illness General Chief Complaint: See Chief Complaint Stated Complaint: OSTOMY SUPPLIES Time Seen by MD: 16:38 Primary Medical Doctor: chelsey wilkes History of Present Illness Initial Comments This is a 44-year-old male who presents back to the emergency department for urostomy supplies, patient is establish with [facility] for ostomy supplies however he reports that they are sent to the wrong location and he has to wait for them to be mailed to the right location. Patient reports no other acute symptoms or concerns. Patient is very well known to the emergency department for the same concern. Medication Reconciliation Allergies: Coded Allergies: Fish Containing Products (Verified Allergy, Severe, ANAPHYLAXIS, 06/15/25) shellfish derived (Verified Allergy, Severe, ANAPHYLAXIS, 06/15/25) ceftriaxone (Verified Allergy, Unknown, hives, 06/15/25) clindamycin (Verified Allergy, Unknown, rash, 06/15/25) venom-honey bee (Verified Allergy, Unknown, 06/10/25) Miscellaneous Medications Home Med List (No Home Medications), (Reported) Past Medical History Past Medical History: No Pertinent History, Anemia, UTI, Chronic Pain, Extremity Fracture, MRSA Abscess, Anxiety, Depression, Psychosis Past Surgical History: abdominal surgery, colectomy, orthopedic surgeries, other Other Past Surgical History: 25 multiple bladder surgeries, urostomy Other Past Family History: NONE Smoking: Cigarettes Alcohol Use: Occasionally Drug Use: none, other Lives with: Other Lives In: Homeless Occupation: unemployed, disabled Past Social History: ETOH and Meth abuse Review of Systems ROS As stated above in the HPI, otherwise all systems are reviewed and negative. Physical Exam Physical Exam Vital Signs: Temperature: 97.2, Source: Temporal, Heart Rate: 102, Respiratory Rate: 18, BP: 106/62, Pulse Oximetry: 97, Weight: 81.820 Physical Exam VITALS: Reviewed and as above. GENERAL: Alert, nontoxic appearing, no apparent distress. RESPIRATORY: No increased work of breathing, no respiratory distress, speaking in full clear sentences Progress Results/Orders Results/Orders Vital Signs 06/15/25 16:36 Temp 97.2 Pulse 102 Resp 18 B/P (MAP) 106/62 Pulse Ox 97 Medical Decision Making Additional information obtaine: old records Findings This 44-year-old male presents back to the emergency department requesting urostomy supplies, patient reports no complications of the urostomy no other acute symptoms or concerns. Patient is otherwise well-appearing and appropriate for outpatient management, patient provided your urostomy supplies and discharged to follow up with primary care provider for management of urostomy supplies. Differential Diagnosis Homeless, malingering, socioeconomic issues Departure Time of Disposition: 16:46 Disposition: 01 HOME / SELF CARE / HOMELESS Impression: Primary Impression: Presence of urostomy Additional Impression: General medical exam Condition: Improved Additional Instructions: Follow up with the [facility] for your ostomy supplies. Please follow up with your primary care provider in the next few days. Please return to the emergency department for any new or worsening concerning symptoms. Referrals: NO PRIMARY CARE PROVIDER (PCP) Education Educated: Patient Educated regarding: diagnosis, treatment, prognosis, need for follow up Signature Scribe Signature: No scribe Attestation: The note accurately reflects work and decisions made by me.COBY Cruz 06/15/25 21:12 RICARDO PINA Jun 15, 2025 16:48
== END 2025-06-15 16:57 | disposition home or self-care (01) ==
LOC: ER 16:20
DX: Z00.00 Encounter for general adult medical examination without abnormal findings (principal); Z43.3 Encounter for attention to colostomy; F15.10 Other stimulant abuse, uncomplicated; F10.10 Alcohol abuse, uncomplicated; F17.210 Nicotine dependence, cigarettes, uncomplicated; F41.9 Anxiety disorder, unspecified; F32.A Depression, unspecified; G89.29 Other chronic pain; D64.9 Anemia, unspecified; Z91.030 Bee allergy status; Z91.013 Allergy to seafood; Z90.49 Acquired absence of other specified parts of digestive tract; Z88.1 Allergy status to other antibiotic agents; Z59.00 Homelessness unspecified; Z72.89 Other problems related to lifestyle; Z56.0 Unemployment, unspecified; Y90.9 Presence of alcohol in blood, level not specified
CPT/HCPCS: 99282; A4421

== ENCOUNTER 2025-06-16 12:59 | Emergency (ER) | payer MEDICAID ==
[~2025-06-16] VITALS: Ht 172.7 cm; Wt 84.4 kg
[2025-06-16 13:22] VITALS: BP 118/73; PULSE 90; O2SAT 99
--- NOTE | 2025-06-16 13:29 | Physician Documentation ---
HPI ~ General Chief Complaint: Medication Refill Stated Complaint: SUPPLIES REQUEST Time Seen by MD: 13:29 Primary Medical Doctor: chelsey wilkes History of Present Illness HPI Comments This is a 44-year-old male who is well known to the emergency department who presents back to the emergency department requesting a new urostomy bag after being provided a urostomy bag here yesterday, patient reports that the adhesive has failed and is coming off. Patient reports no other acute symptoms or concerns. Medication Reconciliation Allergies: Coded Allergies: Fish Containing Products (Verified Allergy, Severe, ANAPHYLAXIS, 06/16/25) shellfish derived (Verified Allergy, Severe, ANAPHYLAXIS, 06/16/25) ceftriaxone (Verified Allergy, Unknown, hives, 06/16/25) clindamycin (Verified Allergy, Unknown, rash, 06/16/25) venom-honey bee (Verified Allergy, Unknown, 06/16/25) Miscellaneous Medications Home Med List (No Home Medications), (Reported) Past Medical History Past Medical History: No Pertinent History, Anemia, UTI, Chronic Pain, Extremity Fracture, MRSA Abscess, Anxiety, Depression, Psychosis Past Surgical History: abdominal surgery, colectomy, orthopedic surgeries, other Other Past Surgical History: 25 multiple bladder surgeries, urostomy Patient History: FH: [place]'s chorea FATHER, Onset:Unknown brother FH: depression FATHER, Onset:Unknown MOTHER, Onset:Unknown FH: schizophrenia FATHER, Onset:Unknown MOTHER, Onset:Unknown Other Past Family History: NONE Alcohol Use: Occasionally Drug Use: none, other Lives with: Other Lives In: Homeless Occupation: unemployed, disabled Past Social History: ETOH and Meth abuse Review of Systems ROS As stated above in the HPI, otherwise all systems are reviewed and negative. Physical Exam Physical Exam Vital Signs: Temperature: 97.2, Heart Rate: 90, Respiratory Rate: 16, BP: 118/73, Pulse Oximetry: 99, Weight: 84.400 Oxygen Flow Rate: 0 Physical Exam VITALS: Reviewed and as above. GENERAL: Alert, nontoxic appearing, no apparent distress. RESPIRATORY: No increased work of breathing, no respiratory distress, speaking in full clear sentences Progress Results/Orders Results/Orders Vital Signs 06/16/25 06/16/25 13:22 14:46 Temp 97.2 97.2 Pulse 90 Resp 16 18 B/P (MAP) 118/73 Pulse Ox 99 O2 Flow Rate 0 Medical Decision Making Additional information obtaine: old records Findings This 44-year-old male presented back to the emergency department requesting a new urostomy bag after being provided a urostomy bag yesterday due to the adhesive failing on the urostomy bag. Patient had no other acute symptoms or concerns we will be provided a new urostomy bag and discharge patient is otherwise well-appearing and appropriate for outpatient follow up. Differential Dx:Considerations: Include: Adverse circumstances, Economic, Psychosocial, Medical services unavail., Medication refill, Medication non- compliance, Other (Homeless, malingering, hungry) Departure Time of Disposition: 13:28 Disposition: 01 HOME / SELF CARE / HOMELESS Impression: Primary Impression: General medical exam Condition: Improved Additional Instructions[facility] your [facility]rostomy bags in the future. Please return to the emergency department for any new or worsening concerning symptoms. Referrals: NO PRIMARY CARE PROVIDER (PCP) Education Educated: Patient Educated regarding: diagnosis, treatment, prognosis, need for follow up Signature Scribe Signature: No scribe Attestation: The note accurately reflects work and decisions made by me.COBY Cruz 06/16/25 19:54 RICARDO PINA Jun 16, 2025 13:29
[2025-06-16 14:46] VITALS: RESP 18; TEMP 97.2
== END 2025-06-16 14:48 | disposition home or self-care (01) ==
LOC: ER 13:00
DX: Z00.00 Encounter for general adult medical examination without abnormal findings (principal); F10.10 Alcohol abuse, uncomplicated; F15.10 Other stimulant abuse, uncomplicated; Z88.1 Allergy status to other antibiotic agents; Z90.49 Acquired absence of other specified parts of digestive tract; Z91.013 Allergy to seafood; Z91.030 Bee allergy status
CPT/HCPCS: 99282; A4421

== ENCOUNTER 2025-06-17 14:11 | Emergency (ER) | payer MEDICAID ==
[~2025-06-17] VITALS: Ht 172.7 cm; Wt 84.0 kg
--- NOTE | 2025-06-17 14:42 | Physician Documentation ---
History of Present Illness General Stated Complaint: OSTOMY SUPPLIES Time Seen by MD: 14:27 Primary Medical Doctor: chelsey wilkes History of Present Illness Initial Comments 34-year-old male presents to the emergency department seeking your Urostomy supplies. Reports that he is not well aligned with local pharmacy to receive supplies. Otherwise doing well. Medication Reconciliation Allergies: Coded Allergies: Fish Containing Products (Verified Allergy, Severe, ANAPHYLAXIS, 06/16/25) shellfish derived (Verified Allergy, Severe, ANAPHYLAXIS, 06/16/25) ceftriaxone (Verified Allergy, Unknown, hives, 06/16/25) clindamycin (Verified Allergy, Unknown, rash, 06/16/25) venom-honey bee (Verified Allergy, Unknown, 06/16/25) Miscellaneous Medications Home Med List (No Home Medications), (Reported) Past Medical History Past Medical History: No Pertinent History, Anemia, UTI, Chronic Pain, Extremity Fracture, MRSA Abscess, Anxiety, Depression, Psychosis Past Surgical History: abdominal surgery, colectomy, orthopedic surgeries, other Other Past Surgical History: 25 multiple bladder surgeries, urostomy Other Past Family History: NONE Smoking: Cigarettes Alcohol Use: Occasionally Drug Use: none, other Lives with: Other Lives In: Homeless Occupation: unemployed, disabled Past Social History: ETOH and Meth abuse Review of Systems All Other Systems at this time: Reviewed and Negative Physical Exam Physical Exam Vital Signs: RN Vital Signs have been reviewed: Yes General Appearance: alert, WD/WN Head: normal inspection Face: normal inspection Pupils/EOM/Fundus: PERRLA Gastrointestinal Urostomy Neurologic: oriented x4 Motor / Sensory: no motor deficit Skin: normal color Medical Decision Making Additional information obtaine: N/A Findings Medical screening examination complete. Requires your Urostomy supplies. RN to secure resources for patient. Differential Diagnosis Social issues limiting availability of Urostomy supplies Departure Disposition: HOME / SELF CARE / HOMELESS Impression: Primary Impression: Presence of urostomy Condition: Stable Additional Instructions: Thank you for visiting emergency department [facility]. Please continue to utilize local pharmacy or other hospital resources for your Urostomy supplies. Referrals: NO PRIMARY CARE PROVIDER (PCP) Education Educated: Patient Educated regarding: diagnosis, treatment, prognosis, need for follow up Signature Scribe Signature: . Attestation: . DIA BARNES PAC Jun 17, 2025 14:42
[2025-06-17 14:51] VITALS: BP 144/84; PULSE 70; RESP 16; TEMP 97.5; O2SAT 98
== END 2025-06-17 14:57 | disposition home or self-care (01) ==
LOC: ER 14:12
DX: Z43.3 Encounter for attention to colostomy (principal); F15.10 Other stimulant abuse, uncomplicated; F10.10 Alcohol abuse, uncomplicated; F17.210 Nicotine dependence, cigarettes, uncomplicated; F41.9 Anxiety disorder, unspecified; F32.A Depression, unspecified; Z91.013 Allergy to seafood; Z88.1 Allergy status to other antibiotic agents; Z59.00 Homelessness unspecified; Z90.49 Acquired absence of other specified parts of digestive tract; Z91.030 Bee allergy status; Z72.89 Other problems related to lifestyle; Z56.0 Unemployment, unspecified; Y90.9 Presence of alcohol in blood, level not specified
CPT/HCPCS: 99282; A4421

== ENCOUNTER 2025-06-18 07:11 | Emergency (ER) | payer MEDICAID ==
[~2025-06-18] VITALS: Ht 172.7 cm; Wt 84.3 kg
[2025-06-18 07:21] VITALS: BP 145/94; PULSE 70; RESP 18; TEMP 97.7; O2SAT 100
--- NOTE | 2025-06-18 07:21 | Physician Documentation ---
History of Present Illness Stated Complaint: MED SUPPLIES Time Seen by MD: 07:15 OK to notify your PCP?: Yes Primary Medical Doctor: chelsey wilkes Source: patient, RN/, RN notes reviewed, old records Mode of Arrival: POV Exam Limitations: no limitations HPI Patient comes in complaining of pain in his urostomy bag it is leaking. He often does not prep his bag well and needs supply. He denies any fevers chills or any other complaints at this time he is homeless he does not have access to a physician at this time. Medication Reconciliation Allergies: Coded Allergies: Fish Containing Products (Verified Allergy, Severe, ANAPHYLAXIS, 06/18/25) shellfish derived (Verified Allergy, Severe, ANAPHYLAXIS, 06/18/25) ceftriaxone (Verified Allergy, Unknown, hives, 06/18/25) clindamycin (Verified Allergy, Unknown, rash, 06/18/25) venom-honey bee (Verified Allergy, Unknown, 06/18/25) Miscellaneous Medications Home Med List (No Home Medications), (Reported) Past Medical History Past Medical History: No Pertinent History, Anemia, UTI, Chronic Pain, Extremity Fracture, MRSA Abscess, Anxiety, Depression, Psychosis Past Surgical History: abdominal surgery, colectomy, orthopedic surgeries, other Other Past Surgical History: 25 multiple bladder surgeries, urostomy Patient History: FH: Gibson's chorea FATHER, Onset:Unknown brother FH: depression FATHER, Onset:Unknown MOTHER, Onset:Unknown FH: schizophrenia FATHER, Onset:Unknown MOTHER, Onset:Unknown Other Past Family History: NONE Alcohol Use: Occasionally Drug Use: none, other Lives with: Other Lives In: Homeless Occupation: unemployed, disabled Past Social History: ETOH and Meth abuse Review of Systems All Other Systems at this time: Reviewed and Negative Physical Exam Vital Signs: RN Vital Signs have been reviewed: Yes Physical Exam General: Awake and Alert, no acute distress. HEENT: Conjunctiva pink, Sclera clear, Mucus Membranes moist. Neck: Supple without masses and tenderness. Resp: Unlabored. Lungs clear to auscultation bilaterally. Heart: Regular Rate and rhythm, normal S1 and S2 without murmur, rub or gallop. Abdomen: Soft and non tender no organomegaly. Patient does have colostomy in place without any sign of infection. Extremities: No cyanosis,clubbing or edema. Skin: Warm and Dry. Progress Results/Orders Reviewed/noted all lab results: Yes Re-Evaluation Re-Evaluation : Re-Evaluation: Improved Progress Colostomy care was provided wounds cleaned education provided no signs of infection Medical Decision Making Additional information obtaine: old records Findings Colostomy care no signs of infection sores ulcers Differential Dx:Considerations: Other Departure Disposition: HOME / SELF CARE / HOMELESS Impression: Primary Impression: Colostomy care Additional Impression: Colostomy dysfunction Condition: Stable Discharge Instructions: Medical Screening Exam Referrals: NO PRIMARY CARE PROVIDER (PCP) Education Educated: Patient Educated regarding: diagnosis Signature Scribe Signature: No scribed Attestation: The note accurately reflects work and decisions made by me.Mihir Carter MD 06/18/25 07:26 MIHIR CARTER MD Jun 18, 2025 07:21
== END 2025-06-18 08:47 | disposition home or self-care (01) ==
LOC: ER 07:11
DX: K94.03 Colostomy malfunction (principal); F15.10 Other stimulant abuse, uncomplicated; F10.10 Alcohol abuse, uncomplicated; D64.9 Anemia, unspecified; F41.9 Anxiety disorder, unspecified; F32.A Depression, unspecified; Z91.013 Allergy to seafood; Z88.1 Allergy status to other antibiotic agents; Z91.030 Bee allergy status; Z90.49 Acquired absence of other specified parts of digestive tract; Z98.890 Other specified postprocedural states; Z56.0 Unemployment, unspecified; Z59.00 Homelessness unspecified; Z72.89 Other problems related to lifestyle; Y90.9 Presence of alcohol in blood, level not specified
CPT/HCPCS: 99282; A4371

== ENCOUNTER 2025-07-19 14:26 | Emergency (ER) | payer MEDICAID ==
[~2025-07-19] VITALS: Ht 175.3 cm; Wt 90.9 kg
[~2025-07-19 14:26] MED LIST changes: -NO HOME MEDS; +PALI3TAB5 PO; +TEN1T PO; +gabapentin capsule PO
[2025-07-19 14:33] VITALS: TEMP 97.7
--- NOTE | 2025-07-19 14:56 | Physician Documentation ---
History of Present Illness ~ Chief Complaint: Flu Symptoms Stated Complaint: COUGH Time Seen by MD: 14:41 Primary Medical Doctor: chelsey Perry 44-year-old male presents to the ED for concerns over cough cold nausea occasional vomiting symptoms for the last 5-6 days he is currently in rehab and he was advised to come to the ER for evaluation as he is coughing late at night. having difficulty sleeping Medication Reconciliation Allergies: Coded Allergies: Fish Containing Products (Verified Allergy, Severe, ANAPHYLAXIS, 06/18/25) shellfish derived (Verified Allergy, Severe, ANAPHYLAXIS, 06/18/25) ceftriaxone (Verified Allergy, Unknown, hives, 06/18/25) clindamycin (Verified Allergy, Unknown, rash, 06/18/25) venom-honey bee (Verified Allergy, Unknown, 06/18/25) Scheduled Benzonatate* (Benzonatate*), 1 CAP PO Q8H Paliperidone (Paliperidone ER), 6 MG PO HS Scheduled PRN Guanfacine Hcl (TENEX tablet), 1 MG PO TID PRN for anxiety/agitation ONDANSETRON ODT 4mg tablet (Ondansetron Odt), 1 TAB PO Q6H PRN PRN for nausea/vomiting [gabapentin capsule], 600 MG PO TID PRN for alcohol cravings/anxiety Past Medical History Past Medical History: No Pertinent History, Anemia, UTI, Chronic Pain, Extremity Fracture, MRSA Abscess, Anxiety, Depression, Psychosis Past Surgical History: abdominal surgery, colectomy, orthopedic surgeries, other Other Past Surgical History: 25 multiple bladder surgeries, urostomy Patient History: FH: [place]'s chorea FATHER, Onset:Unknown brother FH: depression FATHER, Onset:Unknown MOTHER, Onset:Unknown FH: schizophrenia FATHER, Onset:Unknown MOTHER, Onset:Unknown Other Past Family History: NONE Alcohol Use: Occasionally Drug Use: marijuana, methamphetamine, other Lives with: Alone Lives In: Homeless Occupation: unemployed, disabled Past Social History: ETOH and Meth abuse Review of Systems All Other Systems at this time: Reviewed and Negative ROS As stated above in the HPI, otherwise all systems are reviewed and negative. Physical Exam Vital Signs: Temperature: 97.7, Heart Rate: 97, Respiratory Rate: 18, BP: 109/73, Pulse Oximetry: 97, Weight: 90.910 Oxygen Flow Rate: 0 Physical Exam General: Alert, no apparent distress. Respiratory: Lungs clear, no respiratory distress. Cardiovascular: Regular rate and rhythm, no murmurs. Gastrointestinal: Soft, nontender, nondistended. Bowels sounds present. Neurologic: Oriented x4. Psychiatric: Normal mood and affect. Skin: Normal color, warm and dry. No edema, no ecchymosis. Progress Results/Orders Results/Orders Vital Signs 07/19/25 07/19/25 14:33 15:43 Temp 97.7 Pulse 97 89 Resp 18 15 B/P (MAP) 109/73 110/70 Pulse Ox 97 98 O2 Flow Rate 0 Medical Decision Making Additional information obtaine: old records Findings Presents with a symptoms indicated that he is working through a virus which may be gastroenteritis and/or flu. He is hemodynamically stable vitals reassuring. This time I feel comfortable treating him for his symptoms. I do not see an antiviral be inappropriate at this time. Going to send him home with Nena Pyle and Fabienne for nausea Differential Dx:Considerations: Include: Allergic rhinitis, Influenza, Otitis media, Peritonsillar abscess, Pharyngitis-Diphtheria, Pharyngitis-Streptoccal, Pharyngitis-Viral, Pneumonia, Pnuemonitis, Sinusitis, URI, Other Departure Disposition: 01 HOME / SELF CARE / HOMELESS Impression: Primary Impression: Influenza Additional Impression: Viral infection Condition: Stable Discharge Instructions: Influenza, Adult, Viral Illness Referrals: NO PRIMARY CARE PROVIDER (PCP) Prescriptions ONDANSETRON ODT 4mg tablet (ONDANSETRON ODT) 4 Mg Tab.rapdis 1 TAB PO Q6H PRN PRN for nausea/vomiting for 4 Days, #16 TAB 0 Refills Prov: KATHRYN LAY NP 07/19/25 Benzonatate* (Benzonatate*) 100 Mg Capsule 1 CAP PO Q8H for cough for 10 Days, #30 CAP Prov: KATHRYN LAY NP 07/19/25 Signature Scribe Signature: g Attestation: Scribed for Kathryn Lay Rn Patient Services by Kathryn Villeda NP . 07/19/25 15:48 KATHRYN LAY NP Jul 19, 2025 14:56 BRANDEE CABALLERO MD Jul 19, 2025 15:45
[2025-07-19] MEDS ORDERED: BENZ-38 PO (14:58)
[2025-07-19] MEDS ORDERED: ONDA-243 PO (14:58)
[2025-07-19 15:43] VITALS: BP 110/70; PULSE 89; RESP 15; O2SAT 98
== END 2025-07-19 15:44 | disposition home or self-care (01) ==
LOC: ER 14:28
DX: J11.1 Influenza due to unidentified influenza virus with other respiratory manifestations (principal); B34.9 Viral infection, unspecified; F15.10 Other stimulant abuse, uncomplicated; F10.10 Alcohol abuse, uncomplicated; F41.9 Anxiety disorder, unspecified; F32.A Depression, unspecified; F12.90 Cannabis use, unspecified, uncomplicated; F19.90 Other psychoactive substance use, unspecified, uncomplicated; Z91.030 Bee allergy status; Z91.013 Allergy to seafood; Z88.1 Allergy status to other antibiotic agents; Z90.49 Acquired absence of other specified parts of digestive tract; Z79.899 Other long term (current) drug therapy; Z98.890 Other specified postprocedural states; Z59.00 Homelessness unspecified; Z56.0 Unemployment, unspecified; Z60.2 Problems related to living alone; Z72.89 Other problems related to lifestyle; Y90.9 Presence of alcohol in blood, level not specified
CPT/HCPCS: 99283

== ENCOUNTER 2025-07-23 14:14 | Emergency (ER) | payer MEDICAID ==
[~2025-07-23] VITALS: Ht 175.3 cm; Wt 86.6 kg
[~2025-07-23 14:14] MED LIST changes: +BENZ-38 PO; +ONDA-243 PO
[2025-07-23 14:28] VITALS: BP 127/79; PULSE 89; RESP 16; TEMP 98.6; O2SAT 97
--- NOTE | 2025-07-23 14:35 | Physician Documentation ---
History of Present Illness ~ Chief Complaint: Abdominal Pain Stated Complaint: ABDOMINAL PAIN Time Seen by MD: 14:31 Primary Medical Doctor: chelsey wilkes Source: patient Mode of Arrival: POV Exam Limitations: no limitations HPI 44-year-old male concerned about abdominal scar on the left abdomen that he is concerned that he is getting a hernia as he has been clean and gaining weight. It states that it has been putting a lot of pressure on the scar. Patient is having regular bowel movements. Last bowel movement today. Patient does have an appointment on Friday with [facility] to establish care. Denies nausea or vomiting Medication Reconciliation Allergies: Coded Allergies: Fish Containing Products (Verified Allergy, Severe, ANAPHYLAXIS, 06/18/25) shellfish derived (Verified Allergy, Severe, ANAPHYLAXIS, 06/18/25) ceftriaxone (Verified Allergy, Unknown, hives, 06/18/25) clindamycin (Verified Allergy, Unknown, rash, 06/18/25) venom-honey bee (Verified Allergy, Unknown, 06/18/25) Scheduled Benzonatate* (Benzonatate*), 1 CAP PO Q8H Paliperidone (Paliperidone ER), 6 MG PO HS Scheduled PRN Guanfacine Hcl (TENEX tablet), 1 MG PO TID PRN for anxiety/agitation ONDANSETRON ODT 4mg tablet (Ondansetron Odt), 1 TAB PO Q6H PRN PRN for nausea/vomiting [gabapentin capsule], 600 MG PO TID PRN for alcohol cravings/anxiety Past Medical History Past Medical History: *GI/HEPATOBILIARY*, Anemia, UTI, Chronic Pain, Extremity Fracture, MRSA Abscess, Anxiety, Depression, Psychosis Past Surgical History: abdominal surgery, colectomy, orthopedic surgeries, other Other Past Surgical History: 25 multiple bladder surgeries, urostomy Patient History: FH: Milfay's chorea FATHER, Onset:Unknown brother FH: depression FATHER, Onset:Unknown MOTHER, Onset:Unknown FH: schizophrenia FATHER, Onset:Unknown MOTHER, Onset:Unknown Other Past Family History: NONE Alcohol Use: Occasionally Drug Use: marijuana, methamphetamine, other Lives with: Alone Lives In: Homeless Occupation: unemployed, disabled Past Social History: ETOH and Meth abuse Review of Systems All Other Systems at this time: Reviewed and Negative Gastrointestinal: Reports: see HPI Physical Exam Vital Signs: RN Vital Signs have been reviewed: Yes, Temperature: 98.6, Source: Oral, Heart Rate: 89, Respiratory Rate: 16, BP: 127/79, Pulse Oximetry: 97, Weight: 86.600 Oxygen Flow Rate: 0 Physical Exam General: Alert, no apparent distress. HEENT: moist mucous membranes. Neck: Full range of motion. Respiratory: No respiratory distress speaking in full sentences Chest: No accessory muscle use. Cardiovascular: Appears well perfused Gastrointestinal: Vertical surgical scar without wounds or infection small circular scar to the left abdomen with central abrasion. Abdomen protuberant misshapen due to surgeries no obvious masses or hernia. Good bowel sounds no focal tenderness Neurologic: Oriented x4. Psychiatric: Normal mood and affect. Skin: Normal color, warm and dry. No edema, no ecchymosis. Progress Results/Orders Results/Orders Vital Signs 07/23/25 14:28 Temp 98.6 Pulse 89 Resp 16 B/P (MAP) 127/79 Pulse Ox 97 O2 Flow Rate 0 Medical Decision Making Additional information obtaine: old records Findings Patient could present with small hernia with mesh shape and abdomen no focal tenderness was noted during palpation. Vital signs reassuring. Patient was educated on emergent situations with hernias as well as keeping this scar as it has no elasticity moist with lotion and/or ointment to reduce risk of infection but to maintain appointments with primary care. Patient will be discharged to follow up with [facility] on Friday Diff Dx GI Bleed:Consideration: Include: Other Diff Dx Pain:Considerations: Include: Other Diff Dx N/V/D:Considerations: Include: Other Diff Dx Rectal:Considerations: Include: Other Departure Time of Disposition: 14:34 Disposition: HOME / SELF CARE / HOMELESS Impression: Primary Impression: ABDOMINAL PAIN, OTHER SPECIFIED SITE Condition: Stable Discharge Instructions: Abdominal Pain, Adult, [id number] Additional Instructions: Pain appointment with [facility] to establish care to potentially set up for ultrasound and referral to General surgery for potential hernia repair Referrals: NO PRIMARY CARE PROVIDER (PCP) Education Educated: Patient Educated regarding: diagnosis, treatment, need for follow up Signature Scribe Signature: No scribe Attestation: The note accurately reflects work and decisions made by me.Monserrat TENORIO 07/23/25 14:35 MONSERRAT VELASQUEZ NP Jul 23, 2025 14:35
== END 2025-07-23 14:53 | disposition home or self-care (01) ==
LOC: ER 14:14
DX: S30.811A Abrasion of abdominal wall, initial encounter (principal); R10.9 Unspecified abdominal pain; F15.10 Other stimulant abuse, uncomplicated; F10.10 Alcohol abuse, uncomplicated; G89.29 Other chronic pain; F12.90 Cannabis use, unspecified, uncomplicated; F19.90 Other psychoactive substance use, unspecified, uncomplicated; F41.9 Anxiety disorder, unspecified; F32.A Depression, unspecified; Z86.14 Personal history of Methicillin resistant Staphylococcus aureus infection; Z87.440 Personal history of urinary (tract) infections; Z91.013 Allergy to seafood; Z91.030 Bee allergy status; Z88.1 Allergy status to other antibiotic agents; Z90.49 Acquired absence of other specified parts of digestive tract; Z79.899 Other long term (current) drug therapy; Z98.890 Other specified postprocedural states; Z56.0 Unemployment, unspecified; Z59.00 Homelessness unspecified; Z60.2 Problems related to living alone; Z72.89 Other problems related to lifestyle; Y90.9 Presence of alcohol in blood, level not specified; X58.XXXA Exposure to other specified factors, initial encounter; Y93.89 Activity, other specified; Y92.89 Other specified places as the place of occurrence of the external cause; Y99.8 Other external cause status
CPT/HCPCS: 99282